=== PATIENT | male | born 1970 | race Caucasian/White ===

== ENCOUNTER 2017-03-23 14:13 | Inpatient (IN) ==
[2017-03-23] MEDS ORDERED: *HR* Morphine 2 MG/ML SYRINGE ONE ×2 (14:20→14:21)
[2017-03-23] MEDS ORDERED: Nitroglycerin 0.4 MG TAB.SUBL SL ONE (14:22)
[2017-03-23] MEDS ORDERED: *HR* Morphine 2 MG/ML SYRINGE IVP ONE (14:26)
[2017-03-23] MEDS ORDERED: *HR* LORazepam 2 MG/ML VIAL ONE (14:28)
[2017-03-23] MEDS ORDERED: *HR* Heparin 5,000 UNIT/ML VIAL ONE (14:28)
[2017-03-23] MEDS ORDERED: *HR* LORazepam 2 MG/ML VIAL IVP ONE (14:29)
[2017-03-23 14:31] LABS: Basophils % 0.3 %; Eosinophils % 0.2 %; Hematocrit 43.7 % (37.5-50.1); Hemoglobin 14.6 g/dL (12.9-16.9); Immature Granulocytes % 0.3 % (0-4); Lymphocytes # 1.1 K/mcL (0.6-4.6); Lymphocytes % 12.6 %; Mean Corpuscular HGB Conc 33.4 g/dL (31.6-35.5); Mean Corpuscular Hemoglobin 31.8 pg (28.0-33.3); Mean Corpuscular Volume 95.2 fL (83.0-100.0); Mean Platelet Volume 9.8 fL (9.4-12.4); Monocytes # 0.5 K/mcL (0.0-1.3); Monocytes % 5.7 %; Neutrophils # 7.3 K/mcL (1.6-8.9); Platelet Count 190 K/mcL (140-400); Red Blood Count 4.59 M/mcL (4.19-5.50); Red Cell Distribution Width 12.5 % (11.5-14.5); Segmented Neutrophils % 80.9 %
[2017-03-23] MEDS ORDERED: *HR* Ticagrelor 90 MG TABLET PO ONE (14:32)
[2017-03-23] MEDS ORDERED: Verapamil 5 MG/2 ML VIAL ONE (14:33)
[2017-03-23] MEDS ORDERED: *HR* FentaNYL (PF) 100 MCG/2 ML VIAL ONE (14:33)
[2017-03-23] MEDS ORDERED: *HR* Midazolam HCl 5 MG/5 ML VIAL IVP ONE (14:34)
[2017-03-23] MEDS ORDERED: Nitroglycerin 1,000 MCG/10 ML VIAL IV ONE (14:34)
[2017-03-23] MEDS ORDERED: *HR* Heparin 10,000 UNIT/10 ML VIAL ONE (14:34)
[2017-03-23] MEDS ORDERED: Heparin 1,000 UNITS/500 mL NS 500 ML ONE (14:34)
[2017-03-23] MEDS ORDERED: 0.9 % Sodium Chloride 1,000 ML ONE (14:34)
[2017-03-23] MEDS ORDERED: 0.9 % Sodium Chloride 2,000 ML ONE (14:34)
[2017-03-23] MEDS: *HR* Ticagrelor 90 MG TABLET ONE (14:35)
[2017-03-23 14:38] LABS: INR 1.2; Prothrombin Time 12.6 Seconds (9.4-12.1)
[2017-03-23] MEDS: 0.9 % Sodium Chloride 1,000 ML IVC SCH (14:38)
[2017-03-23 14:40] LABS: Activated Partial Thrombo Time 32.5 Seconds (26.0-36.0)
--- NOTE | 2017-03-23 14:40 | Emergency Department Note ---
Disposition Clinical Impression: ST elevation (STEMI) myocardial infarction Qualifiers: Involved coronary artery: unspecified coronary artery Qualified Code(s): I21.3 - ST elevation (STEMI) myocardial infarction of unspecified site Chest pain Qualifiers: Chest pain type: chest pain due to myocardial ischemia Ischemic chest pain type : unspecified angina pectoris type Qualified Code(s): I20.9 - Angina pectoris, unspecified Disposition: Admitted As Inpatient Condition: Fair Time of Disposition: 15:20 Chest Pain HPI - General Chief Complaint: ED Chest Pain Stated Complaint: CP Time Seen by Provider: 03/23/17 14:22 Source: patient, EMS Mode of arrival: EMS Limitations: no limitations Vital Signs Reviewed: Yes Nursing Notes Reviewed: Yes - History of Present Illness HPI Narrative: 47-year-old male history of herbs palsy, CAD s/p 1 stent, hypertension, hyperlipidemia presents to the ED via EMS for chest pain. Chest pain sharp and radiates to both sides patient is cold to the touch and diaphoretic. Pain started roughly 5 this morning when he woke up. Does not take aspirin on a daily basis. Was given 324 mg aspirin and one nitro via EMS. Continues to have chest pain 10 of 10. EKG shows ST elevation in lateral leads. STEMI alert called. Severity scale (1-10): 10 - Related Data Home Medications Medication Instructions Recorded Confirmed Cyclobenzaprine [Flexeril] 10 mg PO DAILY 03/23/17 03/23/17 Haloperidol [Haldol] 5 mg PO BID 03/23/17 03/23/17 Lisinopril [Zestril] 10 mg PO DAILY 03/23/17 03/23/17 Oxycodone HCl/Acetaminophen 1 tab PO Q6H PRN 03/23/17 03/23/17 [Endocet 5-325 Tablet] Triamcinolone Acet 0.1% CRM 1 appl TP AD 03/23/17 03/23/17 [Kenalog] diazePAM [Valium] 2 mg PO TID 03/23/17 03/23/17 Allergies Allergy/AdvReac Type Severity Reaction Status Date / Time No Known Allergies Allergy Verified 01/30/17 19:40 All systems ED: reviewed and negative except as stated. Review of Systems: As Per HPI Constitutional: Reports: other (diaphorhetic). Denies: fever, chills Cardiovascular: Reports: chest pain Respiratory: Denies: cough, dyspnea Gastrointestinal: Denies: abdominal pain, nausea, vomiting, melena, hematochezia Genitourinary: Denies: urgency, dysuria Musculoskeletal: Denies: back pain, neck pain Integumentary: Denies: rash, abrasion Chest Pain PMH - Past Medical History Medical history: Reports: hyperlipidemia, hypertension, myocardial infarction, other Psychiatric history: Reports: no psych history - Social History Smoking Status: Current every day smoker Alcohol use: Reports: none Drug use: Reports: none Physical Exam - General Limitations: no limitations General appearance: alert, in distress, other (DIAPHORETIC) - Head Head exam: atraumatic, normocephalic, normal inspection - Neck Neck exam: Present: other (TORTICOLLIUS TO THE RIGHT) - Chest Chest inspection: Present: normal inspection, symmetric chest wall rise. Absent : tenderness - Respiratory Respiratory exam: Present: normal lung sounds bilaterally. Absent: respiratory distress, wheezes - Cardiovascular Cardiovascular exam: Present: regular rate, normal rhythm, normal heart sounds - Expanded Cardiovascular Exam Peripheral pulses: 2+: radial (R), radial (L) - Abdominal Exam Abdominal exam: Present: soft, Non-Tender, normal bowel sounds. Absent: tenderness, distention, guarding, rebound, rigidity - Extremities Exam Extremities exam: Present: normal capillary refill, other (ERB PALSY TO RIGHT ARM). Absent: calf tenderness - Neurological Exam Neurological exam: Present: alert, oriented X3 - Skin Skin exam: Present: warm, diaphoresis, pallor Course - Reevaluation(s) Reevaluation #1: Given the patient symptoms an EKG changes, STEMI called. Patient was given to additional nitro and 4 mg morphine with reduction of pain from 10 to 8. He was also given 1 mg of Ativan to help with the tremors which appear to give us a better EKG which continues to show ST elevation. Patient was loaded with 180 mg Berlinta as well as Heparin. He denies any hematuria, bloody stool, black tarry stool or hemoptysis. Patient was given 324 mg aspirin by EMS squad. Cath team is at bedside. Impression is STEMI. Time: 15:17 Vital Signs Temperature 98 F 03/23/17 14:14 Pulse Rate 85 03/23/17 14:14 Respiratory Rate 16 03/23/17 14:14 Blood Pressure 139/120 03/23/17 14:14 O2 Sat by Pulse Oximetry 97 03/23/17 14:14 Temperature 98 F 03/23/17 14:14 Pulse Rate 105 03/23/17 17:00 Respiratory Rate 19 03/23/17 17:00 Blood Pressure 130/100 03/23/17 17:00 O2 Sat by Pulse Oximetry 100 03/23/17 17:00 Oxygen Delivery Oxygen Delivery Nasal Cannula Chest Pain - Medical Records Medical records reviewed: Yes I reviewed the patient's medical records. - Lab Data Lab results reviewed: Yes I reviewed the patient's lab results. Result diagrams: 03/23/17 14:24 03/23/17 14:24 Lab Results 03/23/17 03/23/17 03/23/17 Range/Units 14:24 14:24 14:24 WBC 9.1 (4.3-11.1) K/mcL RBC 4.59 (4.19-5.50) M/mcL Hgb 14.6 (12.9-16.9) g/dL Hct 43.7 (37.5-50.1) % MCV 95.2 (83.0-100.0) fL MCH 31.8 (28.0-33.3) pg MCHC 33.4 (31.6-35.5) g/dL RDW 12.5 (11.5-14.5) % Plt Count 190 (140-400) K/mcL MPV 9.8 (9.4-12.4) fL Immature Gran % 0.3 (0-4) % Seg Neutrophils % 80.9 % Lymphocytes % 12.6 % Monocytes % 5.7 % Eosinophils % 0.2 % Basophils % 0.3 % Neutrophils # 7.3 (1.6-8.9) K/mcL Lymphocytes # 1.1 (0.6-4.6) K/mcL Monocytes # 0.5 (0.0-1.3) K/mcL Eosinophils # 0.0 (0.0-0.6) K/mcL Basophils # 0.0 (0.0-0.2) K/mcL PT 12.6 H (9.4-12.1) Seconds INR 1.2 APTT 32.5 (26.0-36.0) Seconds Sodium 140 (136-145) mEq/L Potassium 3.9 (3.5-4.5) mEq/L Chloride 104 (98-109) mEq/L Carbon Dioxide 27 (19-29) mEq/L BUN 5 L (8-26) mg/dL Creatinine 0.69 L (0.72-1.25) mg/dL Est GFR ( Amer) > 60 (> 60) Est GFR (Non-Af Amer) > 60 (> 60) BUN/Creatinine Ratio 7 (6-26) Glucose 98 (70-99) mg/dL Calculated Osmolality 287 (280-300) Calcium 9.9 (8.6-10.8) mg/dL Troponin I (0-0.03) ng/mL 03/23/17 Range/Units 14:24 WBC (4.3-11.1) K/mcL RBC (4.19-5.50) M/mcL Hgb (12.9-16.9) g/dL Hct (37.5-50.1) % MCV (83.0-100.0) fL MCH (28.0-33.3) pg MCHC (31.6-35.5) g/dL RDW (11.5-14.5) % Plt Count (140-400) K/mcL MPV (9.4-12.4) fL Immature Gran % (0-4) % Seg Neutrophils % % Lymphocytes % % Monocytes % % Eosinophils % % Basophils % % Neutrophils # (1.6-8.9) K/mcL Lymphocytes # (0.6-4.6) K/mcL Monocytes # (0.0-1.3) K/mcL Eosinophils # (0.0-0.6) K/mcL Basophils # (0.0-0.2) K/mcL PT (9.4-12.1) Seconds INR APTT (26.0-36.0) Seconds Sodium (136-145) mEq/L Potassium (3.5-4.5) mEq/L Chloride (98-109) mEq/L Carbon Dioxide (19-29) mEq/L BUN (8-26) mg/dL Creatinine (0.72-1.25) mg/dL Est GFR ( Amer) (> 60) Est GFR (Non-Af Amer) (> 60) BUN/Creatinine Ratio (6-26) Glucose (70-99) mg/dL Calculated Osmolality (280-300) Calcium (8.6-10.8) mg/dL Troponin I 0.18 H* (0-0.03) ng/mL - EKG Data EKG attestation: Yes I reviewed and interpreted this EKG. EKG results narrative: EKG performed but showed baseline artifact due to tremors, >[address] elevation in V4-V6 on multiple EKG. Significant change from prior EKG 10/07/2016. STEMI called given symptoms and findings. Heart Score - Score History: Highly Suspicious EKG: Significant ST-Depression Age: 45-65 Risk Factors: Equal/Greater than 3 risk factor or history of atherosclerotic disease Troponin: Greater than 3x normal limit HEART Score Total: 9 Attestation Statement - Attestation Attestation: I dr butt examined this patient and my medical decision-making was reviewed with the Resident Physician. I agree with the documented findings, disposition and treatment plan as described except to the extent set forth below. Patient had presented with substernal chest pain since early this morning. Patient arrived diaphoretic complaining of 10 out of 10 chest pain. Initial EKG showed lots of artifact but concerns for ST elevation in the lateral leads. We were able to repeat another EKG with a little bit less artifact and it did confirm the ST elevation in the lateral leads. Code STEMI was called right away. 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
--- NOTE | 2017-03-23 14:44 | Emergency Department Note ---
START Narrative - START START: I examined this patient and my medical decision-making was reviewed with the Resident Physician. I agree with the documented findings, disposition and treatment plan as described except to the extent set forth below. Briefly, 47-year-old male presented with a 10 out of 10 substernal chest pain and diaphoresis. His initial EKG showed a lot of artifact but I was concerned about a lateral ST elevation in V 45 and 6. We called a STEMI alert patient was given aspirin in route. We gave him more nitroglycerin as well as morphine. We gave him 1 mg of Ativan due to his tremors secondary to his palsy condition. We are able to get a better EKG at that time which showed elevation in the lateral leads. Patient was developing T -wave inversions on the monitor. He was given heparin and Brilinta. Patient was taken to the [facility] emergently. His vitals remained stable. His chest pain went down to a 7 out of 10.
[2017-03-23] MEDS ORDERED: Heparin 25,000 UNIT/500 ML D5W 25,000 UNIT/500 ML MLS IVC SCH (14:45)
[2017-03-23 14:47] LABS: BUN/Creatinine Ratio 7 (6-26); Blood Urea Nitrogen 5 mg/dL (8-26); Calcium 9.9 mg/dL (8.6-10.8); Carbon Dioxide 27 mEq/L (19-29); Chloride 104 mEq/L (98-109); Glucose 98 mg/dL (70-99); Osmolality,Calculated 287 (280-300); Potassium 3.9 mEq/L (3.5-4.5); Sodium 140 mEq/L (136-145); eGFR For African Americans > 60 (> 60); eGFR For Non-African Americans > 60 (> 60)
[2017-03-23] MEDS ORDERED: Tirofiban 12.5 MG/250ML 12.5 MG/250 ML BAG ONE (15:01)
[2017-03-23] MEDS ORDERED: *HR* OxyCODONE/APAP 5/325 TABLET PO PRN (15:29)
[2017-03-23] MEDS ORDERED: *HR* Morphine 2 MG/ML SYRINGE IVP PRN (15:29)
[2017-03-23] MEDS ORDERED: Acetaminophen 325 MG TABLET PO PRN (15:29)
[2017-03-23] MEDS ORDERED: *HR* HYDROcodone/Acet 5/325 mg TABLET PO PRN (15:29)
[2017-03-23] MEDS ORDERED: Tirofiban 12.5 MG/250ML 12.5 MG/250 ML BAG IVC SCH (15:30)
[2017-03-23] MEDS ORDERED: Ondansetron 4 MG/2 ML VIAL IVP PRN (15:30)
[2017-03-23] MEDS ORDERED: Triamcinolone Acet 0.1% CRM 80 GM Tube TP SCH (15:45)
[2017-03-23] MEDS ORDERED: *HR* Atropine Sulfate 1 MG/10 ML SYRINGE ONE (20:20)
[2017-03-23] MEDS ORDERED: Perflutren Lipid Microsphere 1.3 ML in 0.9 % Sodium Chloride 8.7 ML IVP ONE (20:41)
[2017-03-23] MEDS: *HR* Ticagrelor 90 MG TABLET PO SCH (22:09)
[2017-03-23] MEDS: *HR* Enoxaparin 80 MG/0.8 ML SYRINGE SQ SCH (22:55)
[2017-03-23] MEDS: diazePAM 2 MG TABLET PO SCH (22:55)
[2017-03-24] MEDS: 0.9 % Sodium Chloride 1,000 ML IVC SCH (04:16)
[2017-03-24 05:24] LABS: Basophils % 0.3 %; Eosinophils # 0.1 K/mcL (0.0-0.6); Eosinophils % 0.9 %; Hematocrit 37.8 % (37.5-50.1); Hemoglobin 13.1 g/dL (12.9-16.9); Immature Granulocytes % 0.4 % (0-4); Immature Platelets 4.1 % (1.1-6.1); Lymphocytes # 1.5 K/mcL (0.6-4.6); Lymphocytes % 22.1 %; Mean Corpuscular HGB Conc 34.7 g/dL (31.6-35.5); Mean Corpuscular Hemoglobin 32.5 pg (28.0-33.3); Mean Corpuscular Volume 93.8 fL (83.0-100.0); Mean Platelet Volume 10.3 fL (9.4-12.4); Monocytes # 0.6 K/mcL (0.0-1.3); Monocytes % 8.7 %; Neutrophils # 4.6 K/mcL (1.6-8.9); Platelet Count 164 K/mcL (140-400); Red Blood Count 4.03 M/mcL (4.19-5.50); Red Cell Distribution Width 12.6 % (11.5-14.5); Segmented Neutrophils % 67.6 %
[2017-03-24] MEDS ORDERED: *HR* Enoxaparin 40 MG/0.4 ML SYRINGE SQ SCH (06:00)
[2017-03-24] MEDS: *HR* Enoxaparin 80 MG/0.8 ML SYRINGE SQ SCH ×2 (06:00→18:33)
[2017-03-24 07:15] LABS: BUN/Creatinine Ratio 11 (6-26); Blood Urea Nitrogen 6 mg/dL (8-26); Calcium 8.7 mg/dL (8.6-10.8); Carbon Dioxide 23 mEq/L (19-29); Chloride 107 mEq/L (98-109); Glucose 83 mg/dL (70-99); Osmolality,Calculated 285 (280-300); Potassium 3.2 mEq/L (3.5-4.5); Sodium 139 mEq/L (136-145); eGFR For African Americans > 60 (> 60); eGFR For Non-African Americans > 60 (> 60)
--- NOTE | 2017-03-24 08:10 | Invasive Diagnostic Lab Proc ---
Name: Guanako Ryder Date of Study: 03/23/2017 Date: 1970 Ht: 66.0in Medical Record#: [id number] Age: 47 Wt: 163.36lb Gender: Male BSA: 1.84 Order #: [id number] BMI: 26.38 Physicians Procedure Physician: Fei Nath MD, [facility] Referring MD: Referring MD: Staff Name Position Time In Rachel Marquis RT Scrub 02:40 PM Miguel A Liu RN Sociology Professor 02:40 PM Haseeb Mallory RT (R) Monitor 02:40 PM Indications Indication STEMI Procedures Performed Procedure L HRT ARTERY/VENTRICLE ANGIO PRQ CARD MATILDE STENT W/ANGIO 1 VSL PRQ CARDIAC ANGIO ADDL ART Pre-Procedure Checklist Pt not NPO for procedure and MD aware. Blood Pressure: 136/78 Plan of Care Patient will tolerate the procedure without complications. Adequate level of comfort will be maintained. Hemodynamics will remain stable Patient will recover from procedure without complications. Respiratory function will be maintained. Cardiac rhythm will remain stable. Patient temperature will be maintained. Patient and/or family have verbalized understanding of the procedure. Patient Education Chief Complaint/Reason for Test: Cardiac Cath Developmental Category: Adult (18-64 years) Developmentally Appropriate for Age: Yes Learning Barriers: None Education Needs: Procedure Education Method: Verbal Information Taught: Cardiac Cath Educational Evaluation: Able to repeat information Intravenous Access Time IV Size Location DC'd Fluid/Drip Rate Units RN 02:45 PM 20g 1 1/4" Patent On Arrival Lt Antecubital 0.9NaCl 25 ml/hr Miguel A Liu RN 02:45 PM 20g 1 1/4" Patent On Arrival Rt Antecubital 0.9NaCl 25 ml/hr Miguel A Liu RN Allergies No Known Allergies Vital Signs Time BP (mmHg) HR (bpm) O2 Sat. RR (bpm) LOC 02:43 PM 136 / 78 97 96 % 18 4 = Oriented but drowsy 02:43 PM / % 4 = Oriented but drowsy 02:59 PM / % 4 = Oriented but drowsy 03:14 PM / % 4 = Oriented but drowsy 03:06 PM 128 / 93 93 99 % 28 03:09 PM 115 / 63 68 96 % 32 03:12 PM 120 / 72 90 96 % 25 03:15 PM 127 / 78 71 97 % 28 03:18 PM 116 / 74 77 100 % 26 03:21 PM 125 / 84 92 100 % 30 03:24 PM 120 / 77 92 100 % 21 03:27 PM 123 / 82 74 100 % 31 03:30 PM 119 / 80 77 100 % 31 03:33 PM 124 / 82 % 02:52 PM 136 / 78 100 97 % 02:54 PM 130 / 90 110 98 % 11 02:57 PM 134 / 83 97 99 % 32 03:01 PM 131 / 92 85 97 % 28 03:03 PM 121 / 70 86 97 % 28 Procedural Medications Time Medication Dose Units Method Given By 02:52 PM Fentanyl 25 mcg Intravenous Miguel A Liu RN 02:54 PM Oxygen 2 L/min nasal cannula Miguel A Liu RN 02:55 PM Lidocaine 2% 10 ml Subcutaneous Fei Nath MD, [facility] 02:56 PM Fentanyl 25 mcg Intravenous Miguel A Liu RN 03:08 PM Nitroglycerin 200 mcg Intracoronary Fei Nath MD 03:00 PM Aggrastat 12.5mg/250ml 37.5 ml Intravenous HenthornMiguel A morales RN 03:00 PM Aggrastat 12.5mg/250ml 13.5 ml Intravenous JacthMiguel A jeffers RN ASA Classification: CLASS II- Mild systemic disease (i.e. well-controlled diabetes, hypertension, asthma, cigarette smoking) Killian Score Preprocedure Postprocedure Activity 2- Moves 4 extremities sustained head lift Activity 2- Moves 4 extremities sustained head lift Circulation 2- SBP +/= 20 points of pre-anesthetic level Circulation 2- SBP +/= 20 points of pre-anesthetic level Consciousness 2- Awake and alert oriented x 3 Consciousness 2- Awake and alert oriented x 3 O2 Saturation 2- Able to maintain O2 satruation of 92% on room air O2 Saturation 2- Able to maintain O2 satruation of 92% on room air Respiratory 2- Able to deep breathe and cough well Respiratory 2- Able to deep breathe and cough well Total Score 10 Total Score 10 Contrast Agent: Isovue Diagnostic Contrast: 155 ml Total Contrast: 155 ml Fluoro Dose: 373 mGy Procedure Log Time Note Enter By 02:40 PM Patient charges- Angio tray pack, Navilyst 3mm J, Pulse Oximetry and ACIST tubing and transducer [email or web address] 02:40 PM Rachel Marquis RT Position: Scrub Time in: 14:40 2 02:40 PM Miguel A Liu RN Position: Sociology Professor Time in: 14:40 02:40 PM Haseeb Mallory RT (R) Position: Monitor Time in: 14:40 2 02:43 PM 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 well-controlled diabetes, hypertension, asthma, cigarette smoking) [email or web address] 02:43 PM Sign in performed according to hospital policy. 02:43 PM Time: 14:43 Patient comfortable and pain free: Yes [email or web address] 02:43 PM Procedure start 14:43 02:43 PM Time: 14:43LOC: 4 = Oriented but drowsy bw 02:46 PM CathStat 02:46 PM Hair removed from procedure site in procedure lab using clippers. Bilateral groin prepped with Chloraprep by Rachel Marquis RT, safety strap applied then patient was draped. Skin intact. 02:51 PM Vitals capture started with the following parameters, Patient=Adult, Interval=3 min, Initial Adhljqav=820 mmHg, Deflation Rate=5 mmHg, Cuff placed on Right Arm 02:52 PM CB=267 bpm, TXEE=484/78 mmhg, SpO2=97.0 % 02:52 PM Time: 14:52 Versed 2 mg Intravenous Given by Miguel A Liu RN 02:52 PM Time: 14:52 Fentanyl 25 mcg Intravenous Given by Miguel A Liu RN 02:53 PM Recorded ECG: HR=93 Condition=Condition 1 02:54 PM Time: 14:54 Oxygen on at 2 L/min per nasal cannula by Miguel A Liu RN 02:54 PM CK=809 bpm, JEMK=922/90 mmhg, SpO2=98.0 %, Resp=11 B/min 02:54 PM Time out performed according to hospital policy 02:55 PM Time: 14:55 10 ml Lidocaine 2% to right groin Subcutaneous Given by Fei Nath MD, [facility] [email or web address] 02:56 PM Unsuccessful access attempt # 1 into the right Femoral artery. Manual pressure applied to achieve hemostasis.. unable to advance wire [email or web address] 02:56 PM 0.035 145cm Navilyst 3mmJ wire [id number] [email or web address] 02:56 PM 0.035 145cm [place] Hi-Torque wire [id number] [email or web address] 02:56 PM Time: 14:56 Fentanyl 25 mcg Intravenous Given by Miguel A Liu RN ilson 02:57 PM Access obtained by percutaneous puncture. 6Fr 10cm Terumo Russell sheath placed in right Femoral artery. [id number] [email or web address] 02:57 PM 5Fr FL 4 catheter inserted over the wire DNC bw 02:57 PM HR=97 bpm, QQXC=366/83 mmhg, SpO2=99.0 %, Resp=32 B/min 02:58 PM LCA angiography performed in multiple views. bw 02:58 PM Catheter removed bw:58 PM Time: 14:43 Patient comfortable and pain free: Yes [email or web address] 02:59 PM Time: 14:43LOC: 4 = Oriented but drowsy [email or web address] 02:59 PM Lesion found in OM 3. Pre Stenosis: 100 Pre SHANE Flow: [email or web address] 02:59 PM Circumflex, Obtuse Marginal, Left Posterior Descending, and Left Posterolateral Coronary Arteries with 100 % stenosis. If graft is supplying this area, 0 % stenosis [email or web address] 02:59 PM PCI Status Emergency [email or web address] 03:00 PM Inflation device was opened. [email or web address] 03:00 PM 6Fr EBU 3.5 Convey guide catheter was used to cannulate the PCI vessel successfully. reused? No [email or web address] 03:00 PM Time: 15:00 Aggrastat 12.5mg/250ml 13.5 ml Intravenous Given by Miguel A Liu RN [place] pump [email or web address] 03:00 PM Recorded Pressure: Ao, HR=88, Condition=Condition 1 (Aorta) Ao 140/107/123 03:00 PM Bolus angiogram of right Femoral complete: 4 ml/sec for a total of 7 mls [email or web address] 03:00 PM .014 [place] 190cm guide wire across target lesion- successful. reused? No [email or web address] 03:01 PM HR=85 bpm, QTTM=465/92 mmhg, SpO2=97.0 %, Resp=28 B/min 03:02 PM 2.0 mm x 15 mm Emerge Monorail balloon across target lesion- successful. reused? No [email or web address] 03:03 PM Balloon inflated @ 8 jaya for 8 seconds [email or web address] 03:03 PM Balloon inflated @ 8 jaya for 6 seconds [email or web address] 03:03 PM HR=86 bpm, RQPP=674/70 mmhg, SpO2=97.0 %, Resp=28 B/min 03:04 PM Balloon catheter removed intact. [email or web address] 03:05 PM Recorded Pressure: Ao, HR=95, Condition=Condition 1 (Aorta) Ao 142/116/129 03:06 PM 3.0mm x 24mm Synergy drug-eluting stent across target lesion- successful Lot #[id number] [email or web address] 03:06 PM HR=93 bpm, MYWY=265/93 mmhg, SpO2=99.0 %, Resp=28 B/min 03:07 PM Stent deployed @ 12 jaya for 20 seconds [email or web address] 03:08 PM Time: 15:08 Nitroglycerin 200 mcg Intracoronary Given by Fei Nath MD 2 03:09 PM Lesion found in Mid LAD. Pre Stenosis: 50 Pre SHANE Flow: [email or web address] 03:09 PM Mid/Distal Left Anterior Descending Coronary Artery and diagonal branches with 50% stenosis. If graft is supplying this area, 0 % stenosis [email or web address] 03:09 PM Stent delivery system removed intact. [email or web address] 03:09 PM HR=68 bpm, GRKD=604/63 mmhg, SpO2=96.0 %, Resp=32 B/min 03:10 PM Recorded Pressure: Ao, HR=92, Condition=Condition 1 (Aorta) Ao 128/106/116 03:12 PM 2.0mm x 15 mm balloon advanced circ [email or web address] 03:12 PM Balloon inflated @ 6 jaya for 11 seconds [email or web address] 03:12 PM HR=90 bpm, SVEY=308/72 mmhg, SpO2=96.0 %, Resp=25 B/min 03:14 PM Time: 14:58 Patient comfortable and pain free: Yes [email or web address] 03:14 PM Time: 14:59LOC: 4 = Oriented but drowsy [email or web address] 03:14 PM Balloon inflated @ 6 jaya for 14 seconds [email or web address] 03:15 PM Balloon inflated @ 6 jaya for 5 seconds [email or web address] 03:15 PM Balloon inflated @ 6 jaya for 10 seconds [email or web address] 03:15 PM HR=71 bpm, XVHP=685/78 mmhg, SpO2=97.0 %, Resp=28 B/min 03:16 PM Balloon catheter removed intact. [email or web address] 03:16 PM Guide wire removed intact. [email or web address] 03:17 PM Guide catheter removed intact. [email or web address] 03:17 PM 5Fr FR 4 catheter [facility] the wire [email or web address] 03[facility]18 PM RCA angiography performed in multiple views. [email or web address] 03:18 PM Coronary Dominance: right [email or web address] 03:18 PM HR=77 bpm, VBIA=479/74 mmhg, MmO4=665.0 %, Resp=26 B/min 03:20 PM Catheter removed [email or web address] 03:20 PM 5Fr Pigtail catheter inserted over the wire [email or web address] 03[facility]20 PM Catheter selectively placed in left ventricle [email or web address] 03:20 PM Pressure channel 2 zeroed. 03:21 PM Recorded Pressure: LV, HR=64, Condition=Condition 1 (Left Ventricle) LV 119/4/28 03:21 PM Bolus angiogram of left Ventricle complete: 10 ml/sec for a total of 30 mls [email or web address] 03:21 PM Recorded Pressure: LV, Ao, HR=92, Condition=Condition 1 (Left Ventricle) LV 128/6/21, (Aorta) Ao 125/60/94 03:21 PM HR=92 bpm, DAJM=434/84 mmhg, MmE5=009.0 %, Resp=30 B/min 03:22 PM Catheter removed [email or web address] 03:24 PM HR=92 bpm, UFJX=749/77 mmhg, RrS9=936.0 %, Resp=21 B/min 03:25 PM Lesion found in Proximal RCA. Pre Stenosis: 70 Pre SHANE Flow: [email or web address] 03:25 PM Lesion found in Mid RCA. Pre Stenosis: 80 Pre SHANE Flow: [email or web address] 03:25 PM Right Coronary, Right Posterior Descending Arteries with Right Posterolateral and Acute Marginal branches with 80 % stenosis. If graft is supplying this area, 0 % stenosis [email or web address] 03:26 PM Lesion found in Distal Circumflex. Pre Stenosis: 95 Pre SHANE Flow: [email or web address] 03:26 PM Procedure completed at 15:26 [email or web address] 03:26 PM Sign out completed: Radiation Dose 372.91 mGy Fluoro Time: 6.3 Isovue 370 - 200ml contrast 155 ml given by Fei Nath MD, FACC. Complications: NoneCardiac Rehab Consult needed: YesConfirmed administered medications: Yes [email or web address] 03:26 PM Isovue 370 - 200ml,1 Bottle(s) used. [email or web address] 03:27 PM Sheath left in place to be pulled on floor/holding areaV+Pad [email or web address] 03:27 PM Post ECG NSR w PVC's [email or web address] 03:27 PM HR=74 bpm, TVPD=984/82 mmhg, NtM8=542.0 %, Resp=31 B/min 03:28 PM Post Blood Pressure 123/82 [email or web address] 03:28 PM 15:28 Post Pulses Bilateral DP & PT 1+ [email or web address] 03:28 PM Information taught Cardiac Cath and PCI [email or web address] 03:28 PM Education needs Procedure, Plan of Care, and Disease Process [email or web address] 03:28 PM Learning barriers :Sedated and Cognitive [email or web address] 03:28 PM Education Methods Verbal [email or web address] 03:29 PM Education evaluation Needs further instruction [email or web address] 03:29 PM Time: 15:14 Patient comfortable and pain free: Yes [email or web address] 03:29 PM Time: 15:14LOC: 4 = Oriented but drowsy [email or web address] 03:29 PM Site status oozing around sheath - Rt Groin as reported by Rachel Marquis RT at 15:29 [email or web address] 03:29 PM Opsite applied [email or web address] 03:29 PM Delay to floor Bed availability [email or web address] 03:29 PM Family placed in consult room. [email or web address] 03:30 PM Complications: None [email or web address] 03:30 PM Fluoro Time: 6.3 [email or web address] 03:30 PM Isovue 370 - 200ml contrast 155 ml given by Fei Nath MD, FACC. [email or web address] 03:30 PM Radiation Dose 372.91 mGy [email or web address] 03:30 PM HR=77 bpm, YPHG=401/80 mmhg, EvF6=563.0 %, Resp=31 B/min 03:33 PM OFGL=110/82 mmhg 03:35 PM Vitals capture stopped. 03:44 PM Patient out of room: 15:44 [email or web address] 03:45 PM Report given to parisa ROJAS Pt taken to Holding room Room #1. 15:44 [email or web address] 03:50 PM Report given to Azul in ICU [email or web address] 03:50 PM Patient taken to ICU 2 not holding room, bed is ready at this time. [email or web address] Complications Complication None None Hemodynamics Pressures Site Systolic/A Wave Diastolic/V Wave Mean AO 140 107 123 AO 142 116 129 AO 128 106 116 LV 119 4 28 LV 128 6 21 AO 125 60 94 Post Procedure Information Blood Pressure: 123/82 mmHg Rhythm: NSR w PVC's Post procedural instructions were given Site Checks Time Location Status Staff Sheath In? Note 03:29 PM Rt Groin oozing around sheath Rachel Marquis RT Pulses Time Site Pre-Procedure Post-Procedure Note 03/23/2017 2:51:00 PM Bilateral DP & PT 1+ 3:28:00 PM Bilateral DP & PT 1+ Updated by Haseeb Mallory RT (R) on 03/24/2017 8:03:56 AM Haseeb Mallory RT electronically signed on 03/24/2017 8:04:26 AM with status of Final
--- NOTE | 2017-03-24 08:17 | Invasive Diagnostic Lab ---
Name: Guanako Ryder Date of Study: 03/23/2017 Date: 1970 Ht: 167.6 cm /66.0 in Medical Record#: [id number] Age: 47 Wt: 74.1 kg / 163.36 lb Account/Order#: [id number] Gender: Male BSA: 1.84 Order #: [id number] Fluoro Dose: 373 mGy BMI: 26.38 Procedure Physician: Fei Nath MD, [facility] Referring MD: Referring MD: Procedures Performed: LEFT HEART CATH Stent w/ PTCA Single Major Vessel PTCA each add'l branch Iliofemoral angiography Indications: STEMI Impressions: There is two three vessel coronary artery disease. The left ventricle is normal and has mildly Abnormal contractility EF 55% Patient had successful PTCA/Drug-Eluting Stent placement in major OM 3. Patient had successful PTCA to the Distal Circumflex. Recommendations: Optimal medical therapy of patient's disease. Aggressive risk factor modification. Staged PCI RCA, may evaluate as outpatient History/Risk Factors: HLD Hypertension Procedure Access obtained in the right Femoral artery by percutaneous puncture Patient had successful PTCA/Drug-Eluting Stent placement in the distal OM 3. Patient had successful PTCA to the Distal Circumflex. RLE angiogram via sheath Complications: None, None Contrast: Isovue 155ml Hemodynamics: Pressures Site Systolic/ A Wave Diastolic/ V Wave End Diastolic/ Mean HR AO 140 107 123 88 AO 142 116 129 95 AO 128 106 116 92 LV 119 4 28 64 LV 128 6 21 94 AO 125 60 94 90 LV Ventriculography Ejection Method: LV Gram Ejection Fraction: 55% Wall Motion: RANGEL Anterobasal Normal Anterolateral Normal Apical: Normal Inferoapical Normal Inferobasal Mild Hypokinesis Coronary Dominance: right Lesion Findings/Interventions * Left Main Coronary Artery The LMCA is angiographically free of disease. * Left Anterior Descending There is a 50% stenosis in the Mid LAD. Distal LAD small and diffusely diseased * Circumflex There is a 20 mm long, 95% stenosis in the Distal Circumflex. The Type C lesion has a SHANE flow of 2 and has no thrombus present. A successful intervention was performed on the Distal Circumflex with a final stenosis of 40%. There were no lesion complications. The final SHANE flow was 3. There is a 24 mm long, 100% stenosis in the 3rd Marginal. The Type C lesion has a SHANE flow of 0 and has thrombus present. An intervention was performed on the 3rd Marginal with a final stenosis of 0%. There were no lesion complications. The final SHANE flow was 3. * Right Coronary Artery There is a 70% stenosis in the Proximal RCA. There is a 80% stenosis in the Mid RCA. Right iliofemoral angiography without significant disease visualized and appropriate sheath placement. Interventional Device(s) Vessel Segment Type Name Diameter (mm) Length (mm) 3rd Marginal Balloon Emerge Monorail 2 15 3rd Marginal Drug Eluting Stent Synergy 3 24 Distal Circumflex Balloon Emerge Monorail 2 15 Updated by Haseeb Mallory RT (R) on 03/23/2017 3:40:33 PM Fei Nath MD, FACC electronically signed on 03/24/2017 8:11:14 AM with status of Final
[2017-03-24] MEDS: Aspirin 81 MG TAB.CHEW PO SCH (09:29)
[2017-03-24] MEDS: diazePAM 2 MG TABLET PO SCH ×3 (09:30→20:42)
[2017-03-24] MEDS: *HR* Ticagrelor 90 MG TABLET PO SCH ×2 (09:30→20:42)
--- NOTE | 2017-03-24 10:00 | Cardiology History & Physical ---
<Vic Michele - Last Filed: 03/24/17 15:34> Date of Encounter: 03/24/17 Time of Encounter: 09:25 Assessment and Plan (1) ST elevation (STEMI) myocardial infarction Current Visit: Yes Status: Acute Patient is S/P [facility]. S/P MATILDE placed to distal circumflex. Continue ASA, Brilinta, and metoprolol. Correct hypokalemia. continue telemetry. cath insertion site in the right groin. Clean and well dressed. Mild echymosis without notable hematoma or aneurysm. He has severe blockage of the RCA and will need outpatient PCI. cardiac rehab has been consulted. The assessment and plan as outlined above was discussed with the patient who expressed understanding and agreement. All questions were answered. Qualifiers: Involved coronary artery: unspecified coronary artery Qualified Code(s): I21.3 - ST elevation (STEMI) myocardial infarction of unspecified site (2) Left ventricular thrombosis Current Visit: Yes Status: Acute Patient is currently on lovenox. Will need to transition to coumadin. Will need at least 3 months of anticoagulation with follow up echocardiography. (3) Systolic heart failure Current Visit: Yes Status: Acute patient has EF of 35% unsure if acute or chronic as his EF on echocardiogram in 2010 was 30-35%. Euvolemic on exam. However I am concerned that he is beginning to become volume overloaded as he is developing dyspnea. and has some faint crackles at his lung bases. I have discontinued his IV fluids. Will obtain a CXR and will consider adding some lasix. currently he is on room air. continue metoprolol and lisinopril. May eventually need an AICD if EF dose not correct on optimal medical therapy. Qualifiers: Heart failure chronicity: chronic Qualified Code(s): I50.22 - Chronic systolic (congestive) heart failure (4) CAD (coronary artery disease) Current Visit: Yes Status: Acute patient reports prior C with stent. patiet is s/p [facility] with the following results: Coronary Dominance: right Lesion Findings/Interventions * Left Main Coronary Artery The LMCA is angiographically free of disease. * Left Anterior Descending There is a 50% stenosis in the Mid LAD. Distal LAD small and diffusely diseased * Circumflex There is a 20 mm long, 95% stenosis in the Distal Circumflex. The Type C lesion has a SHANE flow of 2 and has no thrombus present. A successful intervention was performed on the Distal Circumflex with a final stenosis of 40%. There were no lesion complications. The final SHANE flow was 3. There is a 24 mm long, 100% stenosis in the 3rd Marginal. The Type C lesion has a SHANE flow of 0 and has thrombus present. An intervention was performed on the 3rd Marginal with a final stenosis of 0%. There were no lesion complications. The final SHANE flow was 3. * Right Coronary Artery There is a 70% stenosis in the Proximal RCA. There is a 80% stenosis in the Mid RCA. Continue ASA, Brilinta, and high intensity statin. patient will need outpatient PCI of the RCA. Qualifiers: Qualified Code(s): I25.10 - Atherosclerotic heart disease of [place] coronary artery without angina pectoris (5) Non-sustained ventricular tachycardia Current Visit: Yes Status: Acute On review of 24 hour telemetry patient had some episodes of NSVT. longest duration of beats was 15. continue beta zoe. correct hypokalemia. check Mg and replace if needed. (6) Dyspnea Current Visit: Yes Status: Acute possibly from volume overload. DC IV fluids. I have ordered a CXR as well. Qualifiers: Dyspnea type: shortness of breath Qualified Code(s): R06.02 - Shortness of breath; R06.00 - Dyspnea, unspecified; R06.01 - Orthopnea (7) Hypokalemia Current Visit: Yes Status: Acute replete. check mg. (8) Tobacco abuse Current Visit: Yes Status: Acute patient smokes 1ppd. states he is not ready to quit. declines smoking cessation aids at this time. (9) Cerebral palsy Current Visit: Yes Status: Chronic Qualifiers: Qualified Code(s): G80.9 - Cerebral palsy, unspecified (10) Discharge planning issues Current Visit: Yes Status: Acute Patient disheveled and coated with dirt per rn staff. concern as to whether or not he will be able to take medications properly. creative services director has been consulted. History of Present Illness Chief complaint: Chest pain. HPI: Mr. Ryder is a 47 year old male with pmh of cerebral palsy and CAD and reports 2 sent several years ago. HE states he developed chest pain shortly after waking yesterday morning. He states that is was severe and radiated to he left and right arms. He also had some diaphoresis and nausea. He denie any associated syncope, presyncope, or dyspnea. He was noted to have ST elevation to V4-6 upon arrival to the ER. He would undergoe LHC and have a MATILDE placed to the circumflex artery. He also had significant blocage to the RCA and will need outpatient PCI. This AM Mr. Ryder states that he has been chest pain free after the heart cath. He denies any syncope, presyncope, and palpitations. Deneis any pain or swelling from the cath site. HE dose complain of dyspnea. He denies any cough and wheeze. He states he typically dose not have dyspnea and that this is unusual for him. He denies any productive cough or hemoptysis. He has no further complaints or concerns at this time. Past Med Surg Social Fam HX - Past Medical History Medical history: hyperlipidemia, hypertension, myocardial infarction, other Psychiatric history: no psych history - Social History Smoking Status: Current every day smoker Packs per day: 2 Smokeless Tobacco Status: No Alcohol use: none Drug use: none - Family History Mother Hx Family Neurologic Disorders: Yes (mother had brain aneurysm.) Father Hx Family Cardiac Disorders: Yes Medications and Allergies Cyclobenzaprine [Flexeril] 10 mg PO DAILY 03/23/17 [History] Haloperidol [Haldol] 5 mg PO BID 03/23/17 [History] Lisinopril [Zestril] 10 mg PO DAILY 03/23/17 [History] Oxycodone HCl/Acetaminophen [Endocet 5-325 Tablet] 1 tab PO Q6H PRN 03/23/17 [ History] Triamcinolone Acet 0.1% CRM [Kenalog] 1 appl TP AD 03/23/17 [History] diazePAM [Valium] 2 mg PO TID 03/23/17 [History] Allergies No Known Allergies Allergy (Verified 01/30/17 19:40) All Systems Review: A 10-system review of systems was performed and is negative for pertinent findings except as documented above in the HPI. - Constitutional Constitutional: weakness (chronic. He is wheelchair bound at home. ), no anorexia, no chills, no headache(s), no malaise, no night sweats, no weight gain , no weight loss - EENT Eyes: no blurred vision, no loss of vision, no pain Nose, mouth and throat: no bleeding gums, no dysphagia, no mouth pain - Cardiovascular Cardiovascular: as per HPI - Respiratory Respiratory: dyspnea, no cough, no hemoptysis, no wheezing - Gastrointestinal Gastrointestinal: no abdominal pain, no coffee ground emesis, no constipation, no diarrhea, no hematemesis, no hematochezia - Genitourinary Genitourinary: no dysuria, no hematuria, no nocturia - Musculoskeletal Musculoskeletal: muscle weakness (chronic. Has Cerebral palsy. ) - Integumentary Integumentary: no erythema, no rash, no unusual bruising - Neurological Neurological: no dizziness, no focal weakness (no new), no loss of vision, no memory loss, no syncope, no tingling - Hematological/Lymphatic Hematologic/Lymphatic: no easy bleeding, no easy bruising Physical Examination Vital Signs, Last 4 Hours Temp Pulse Resp BP Pulse Ox 03/24/17 09:00 105 20 111/84 96 03/24/17 08:12 99.0 F 03/24/17 08:00 93 19 114/77 96 03/24/17 06:00 101 12 122/81 97 General: Conversant, No Apparent Distress HEENT: Atraumatic, Normocephaly, Mucus Membranes Moist Neck: No JVD, Normal carotid pulses Cardiac: Reg Rate and Rhythm, Normal S1 and S2, No Murmur Lungs: Other (mld crackles at the bases of the lungs. ) Neuro: Alert and responsive, Other (has spasms of the neck with torticolis to the rigt during exam. also has occasional spasm of the rigt arm. ) Skin: No rashes noted on visualized skin Musculoskeletal: No Chest Wall Tenderness Extremities: No Clubbing, No Cyanosis, No Edema Results 03/24/17 04:53 03/24/17 04:53 Lab Results 03/24/17 03/24/17 04:53 04:53 WBC 6.8 Hgb 13.1 D Hct 37.8 Plt Count 164 Sodium 139 Potassium 3.2 L Chloride 107 Carbon Dioxide 23 BUN 6 L Creatinine 0.57 L Glucose 83 Calcium 8.7 - Imaging and Cardiology Chest Xray: pending Echo: report reviewed Cardiac cath: report reviewed Other Results: reviewed telemetry from past 24 hours. - EKG Interpretation EKG results cardiology: personally reviewed <Paty Buenrostro - Last Filed: 03/25/17 08:51> Date of Encounter: 03/25/17 History of Present Illness HPI: Mr. Ryder is a 47 year old male All Systems Review: A 10-system review of systems was performed and is negative for pertinent findings except as documented above in the HPI. Physical Examination Vital Signs, Last 4 Hours Temp Pulse Resp BP Pulse Ox 03/25/17 08:25 97.8 F 03/25/17 08:00 105 24 112/77 96 03/25/17 07:56 102 03/25/17 07:00 97.8 F 102 24 107/78 96 03/25/17 06:00 107 24 116/83 93 03/25/17 05:00 97 24 108/61 96 Results 03/25/17 03:32 03/25/17 03:32 Lab Results 03/24/17 03/25/17 03/25/17 04:53 03:32 03:32 WBC 7.1 Hgb 13.3 Hct 37.8 Plt Count 164 INR 1.3 Sodium 139 Potassium 3.2 L Chloride 107 Carbon Dioxide 23 BUN 6 L Creatinine 0.57 L Glucose 83 Calcium 8.7 Magnesium 1.5 L 03/25/17 03:32 WBC Hgb Hct Plt Count INR Sodium 138 Potassium 3.7 Chloride 106 Carbon Dioxide 24 BUN 8 Creatinine 0.62 L Glucose 94 Calcium 9.1 Magnesium 1.6 - Attending Attestation I examined this patient and my medical decision-making was reviewed with the Resident Physician. I agree with the documented findings, disposition and treatment plan. Mr. Ryder presented with a STEMI and is s/p LHC with MATILDE to distal circumflex. He is otherwise significant obstruction of the RCA and may need outpatient staged PCI. Will need to maintain dual antiplatelet therapy uninterrupted for 12 months. In addition, he has a LV apical thrombus and has been started on therapeutic SQ lovenox with bridging to coumadin. Recommend social media editor consult to help with his living situation. It appears there may be some neglect and we are concerned that he may not be able to be compliant with these necessary medications. Will probably need rehab care although patient has so far declined.
[2017-03-24 10:15] LABS: Magnesium 1.5 mg/dL (1.6-2.6)
[2017-03-24] MEDS ORDERED: Furosemide 20 MG/2 ML VIAL IVP ONE (12:32)
[2017-03-24] MEDS: Potassium Chloride Elixir 20 MEQ/15 ML UDC PO SCH ×2 (14:57→20:42)
[2017-03-24] MEDS: Magnesium Oxide 400 MG TABLET PO SCH ×2 (14:57→20:42)
--- NOTE | 2017-03-24 15:28 | Electrocardiograph Report ---
[place] [address] Test Date: 2017-03-23 Pat Name: [facility] Department: 104 Room: 02 Gender: M Retread Builder: : 1970 Requested By: Noel Wood Order Number: [id number] Reading MD: Earnest Craig Measurements Intervals [place] Rate: 97 P: 64 MT: 149 QRS: 30 QRSD: 98 T: 74 QT: 332 QTc: 386 Interpretive Statements SINUS RHYTHM WITH SINUS ARRHYTHMIA SEPTAL MYOCARDIAL INFARCTION, PROBABLY OLD LATERAL ST ELEVATION SIGNIFICANT ARTIFACT Electronically Signed On 03-24-2017 15:26:52 EDT by Earnest Craig
--- NOTE | 2017-03-24 15:30 | Electrocardiograph Report ---
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
[2017-03-24] MEDS ORDERED: Warfarin perPT PO PRN (18:00)
[2017-03-24] MEDS ORDERED: *HR* Warfarin 5 MG TABLET PO SCH (18:00)
[2017-03-25 03:41] LABS: Basophils % 0.3 %; Eosinophils # 0.1 K/mcL (0.0-0.6); Eosinophils % 0.8 %; Hematocrit 37.8 % (37.5-50.1); Hemoglobin 13.3 g/dL (12.9-16.9); Immature Granulocytes % 0.3 % (0-4); Lymphocytes # 1.9 K/mcL (0.6-4.6); Lymphocytes % 27.1 %; Mean Corpuscular HGB Conc 35.2 g/dL (31.6-35.5); Mean Corpuscular Hemoglobin 32.8 pg (28.0-33.3); Mean Corpuscular Volume 93.1 fL (83.0-100.0); Mean Platelet Volume 10.1 fL (9.4-12.4); Monocytes # 0.8 K/mcL (0.0-1.3); Monocytes % 11.4 %; Neutrophils # 4.3 K/mcL (1.6-8.9); Platelet Count 164 K/mcL (140-400); Red Blood Count 4.06 M/mcL (4.19-5.50); Red Cell Distribution Width 12.6 % (11.5-14.5); Segmented Neutrophils % 60.1 %
[2017-03-25 03:53] LABS: BUN/Creatinine Ratio 13 (6-26); Blood Urea Nitrogen 8 mg/dL (8-26); Calcium 9.1 mg/dL (8.6-10.8); Carbon Dioxide 24 mEq/L (19-29); Chloride 106 mEq/L (98-109); Glucose 94 mg/dL (70-99); INR 1.3; Magnesium 1.6 mg/dL (1.6-2.6); Osmolality,Calculated 284 (280-300); Potassium 3.7 mEq/L (3.5-4.5); Prothrombin Time 13.8 Seconds (9.4-12.1); Sodium 138 mEq/L (136-145); eGFR For African Americans > 60 (> 60); eGFR For Non-African Americans > 60 (> 60)
[2017-03-25] MEDS: *HR* Enoxaparin 80 MG/0.8 ML SYRINGE SQ SCH ×2 (05:35→18:04)
[2017-03-25] MEDS: Aspirin 81 MG TAB.CHEW PO SCH (07:51)
[2017-03-25] MEDS: Magnesium Oxide 400 MG TABLET PO SCH (07:51)
[2017-03-25] MEDS: *HR* Ticagrelor 90 MG TABLET PO SCH ×2 (07:51→21:19)
[2017-03-25] MEDS: diazePAM 2 MG TABLET PO SCH ×3 (07:51→21:19)
--- NOTE | 2017-03-25 09:37 | Cardiology Progress Note ---
<Vic Michele - Last Filed: 03/25/17 13:09> Date of Encounter: 03/25/17 Time of Encounter: 08:30 Assessment and Plan (1) ST elevation (STEMI) myocardial infarction Current Visit: Yes Status: Acute Patient is S/P C. S/P MATILDE placed to distal circumflex. Continue ASA, Brilinta, and metoprolol. continue telemetry. cath insertion site in the right groin. Clean and well dressed. Mild echymosis without notable hematoma or aneurysm. He has severe blockage of the RCA and will need outpatient PCI. cardiac rehab has been consulted. The assessment and plan as outlined above was discussed with the patient who expressed understanding and agreement. All questions were answered. Qualifiers: Involved coronary artery: unspecified coronary artery Qualified Code(s): I21.3 - ST elevation (STEMI) myocardial infarction of unspecified site (2) Left ventricular thrombosis Current Visit: Yes Status: Acute Patient is currently on lovenox and coumadin. Can DC lovenox when INR is therapeutic. (3) Systolic heart failure Current Visit: Yes Status: Acute patient has EF of 35% unsure if acute or chronic as his EF on echocardiogram in 2010 was 30-35%. Euvolemic on exam. Dyspnea resolved with lasix. Appears euvolemic today. currently he is on room air. continue metoprolol and lisinopril. May eventually need an AICD if EF dose not correct on optimal medical therapy. Qualifiers: Heart failure chronicity: chronic Qualified Code(s): I50.22 - Chronic systolic (congestive) heart failure (4) CAD (coronary artery disease) Current Visit: Yes Status: Acute patient reports prior C with stent. patiet is s/p [facility] with the following results: Coronary Dominance: right Lesion Findings/Interventions * Left Main Coronary Artery The LMCA is angiographically free of disease. * Left Anterior Descending There is a 50% stenosis in the Mid LAD. Distal LAD small and diffusely diseased * Circumflex There is a 20 mm long, 95% stenosis in the Distal Circumflex. The Type C lesion has a SHANE flow of 2 and has no thrombus present. A successful intervention was performed on the Distal Circumflex with a final stenosis of 40%. There were no lesion complications. The final SHANE flow was 3. There is a 24 mm long, 100% stenosis in the 3rd Marginal. The Type C lesion has a SHANE flow of 0 and has thrombus present. An intervention was performed on the 3rd Marginal with a final stenosis of 0%. There were no lesion complications. The final SHANE flow was 3. * Right Coronary Artery There is a 70% stenosis in the Proximal RCA. There is a 80% stenosis in the Mid RCA. Continue ASA, Brilinta, and high intensity statin. patient will need outpatient PCI of the RCA. Qualifiers: Qualified Code(s): I25.10 - Atherosclerotic heart disease of [place] coronary artery without angina pectoris (5) Non-sustained ventricular tachycardia Current Visit: Yes Status: Acute resolved. continue metoprolol. (6) Dyspnea Current Visit: Yes Status: Acute likely from volume overload resolved after lasix. Qualifiers: Dyspnea type: shortness of breath Qualified Code(s): R06.02 - Shortness of breath; R06.00 - Dyspnea, unspecified; R06.01 - Orthopnea (7) Hypokalemia Current Visit: Yes Status: Acute resolved (8) Tobacco abuse Current Visit: Yes Status: Acute patient smokes 1ppd. states he is not ready to quit. declines smoking cessation aids at this time. (9) Cerebral palsy Current Visit: Yes Status: Chronic The assessment and plan as outlined above was discussed with the patient and/or family members who expressed understanding and agreement. All questions were answered. Qualifiers: Qualified Code(s): G80.9 - Cerebral palsy, unspecified (10) Discharge planning issues Current Visit: Yes Status: Acute Patient disheveled and coated with dirt per technical staff engineer. concern as to whether or not he will be able to take medications properly. java web services developer has been consulted Also would consider evaluation by [facility]. I spoke with Dr. Reis. Internal medicine will take the patient on their service. Discussion w patient/family: The assessment and plan as outlined above was discussed with the patient and/or family members who expressed understanding and agreement. All questions were answered. Thank you for involving us in the care of your patient. Please call with any questions. Subjective Principal diagnosis: STEMI Interval history: No major event overnight. PAtient states he is feleing much better today. His dyspnea has resolved. He denies any aches or pains. He has no further complaints or concerns at this time. Objective Vital Signs, Last 4 Hours Temp Pulse Resp BP Pulse Ox 03/25/17 08:25 97.8 F 03/25/17 08:00 105 24 112/77 96 03/25/17 07:56 102 03/25/17 07:00 97.8 F 102 24 107/78 96 03/25/17 06:00 107 24 116/83 93 General: Conversant, No Apparent Distress HEENT: Atraumatic, Normocephaly, Mucus Membranes Moist Neck: No JVD, Normal carotid pulses Cardiac: Reg Rate and Rhythm, Normal S1 and S2, No Murmur Lungs: Normal Breath Sounds, No Wheeze, Rales, Rhonchi Neuro: Alert and responsive, Other (has cerebral palsy. ) Abdomen: Soft, Non-Tender Skin: No rashes noted on visualized skin Musculoskeletal: No Chest Wall Tenderness Extremities: No Clubbing, No Cyanosis, No Edema Results 03/25/17 03:32 03/25/17 03:32 Lab Results 03/24/17 03/25/17 03/25/17 04:53 03:32 03:32 WBC 7.1 Hgb 13.3 Hct 37.8 Plt Count 164 INR 1.3 Sodium 139 Potassium 3.2 L Chloride 107 Carbon Dioxide 23 BUN 6 L Creatinine 0.57 L Glucose 83 Calcium 8.7 Magnesium 1.5 L 03/25/17 03:32 WBC Hgb Hct Plt Count INR Sodium 138 Potassium 3.7 Chloride 106 Carbon Dioxide 24 BUN 8 Creatinine 0.62 L Glucose 94 Calcium 9.1 Magnesium 1.6 Consult Discharge Plan - Plan Referrals: Nguyễn Stubbs DO [Primary Care Provider] - <Paty Buenrostro - Last Filed: 03/25/17 13:23> Date of Encounter: 03/25/17 Assessment and Plan Discussion w patient/family: I examined this patient and my medical decision-making was reviewed with the Resident Physician. I agree with the documented findings, disposition and treatment plan. Mr. Ryder has no new complaints today. He denies chest pain or dyspnea. Recommend continuing DAPT for at least 12 months. He is also being bridged with anticoagulation for LV thrombus. Blood count is stable. Discussed with patient the importance of maintaining compliance with these medications as an outpatient. The patient has declined rehab. Social work is involved - seems like patient may go home with his sister. Will need to speak with his sister to discuss course of care and emphasize importance of compliance with meds and follow ups. If EF remains reduced, will need to consider AICD placement as an outpatient. Objective Vital Signs, Last 4 Hours Temp Pulse Resp BP Pulse Ox 03/25/17 12:00 98.0 F 102 20 92/70 96 Results 03/25/17 03:32 03/25/17 03:32 Lab Results 03/25/17 03/25/17 03/25/17 03:32 03:32 03:32 WBC 7.1 Hgb 13.3 Hct 37.8 Plt Count 164 INR 1.3 Sodium 138 Potassium 3.7 Chloride 106 Carbon Dioxide 24 BUN 8 Creatinine 0.62 L Glucose 94 Calcium 9.1 Magnesium 1.6
[2017-03-25] MEDS ORDERED: *HR* HYDROcodone/Acet 5/325 mg TABLET PO PRN (12:17)
[2017-03-25] MEDS ORDERED: Ondansetron 4 MG/2 ML VIAL IVP PRN (12:17)
[2017-03-25] MEDS ORDERED: Acetaminophen 325 MG TABLET PO PRN (12:17)
[2017-03-25] MEDS ORDERED: *HR* Morphine 2 MG/ML SYRINGE IVP PRN (12:17)
[2017-03-25] MEDS: *HR* OxyCODONE/APAP 5/325 TABLET PO PRN ×2 (15:04→21:19)
[2017-03-25] MEDS ORDERED: *HR* Warfarin 5 MG TABLET PO ONE ×2 (18:00)
[2017-03-25] MEDS ORDERED: Warfarin perPT PO PRN ×2 (18:00)
[2017-03-26] MEDS: *HR* Enoxaparin 80 MG/0.8 ML SYRINGE SQ SCH ×2 (05:18→18:08)
[2017-03-26 06:34] LABS: INR 1.5; Prothrombin Time 15.8 Seconds (9.4-12.1)
[2017-03-26] MEDS: Aspirin 81 MG TAB.CHEW PO SCH (07:55)
[2017-03-26] MEDS: diazePAM 2 MG TABLET PO SCH ×3 (07:55→21:20)
[2017-03-26] MEDS: *HR* Ticagrelor 90 MG TABLET PO SCH ×2 (07:55→21:19)
--- NOTE | 2017-03-26 13:24 | Internal Med Progress Note ---
Date of Encounter: 03/26/17 Time of Encounter: 13:22 - Assessment and plan (1) ST elevation (STEMI) myocardial infarction Current Visit: Yes Status: Acute Assessment and plan: Patient is S/P LHC. S/P MATILDE placed to distal circumflex. Continue ASA, Brilinta, and metoprolol. continue telemetry. Per cardiology eval, he has severe blockage of the RCA and will need outpatient PCI. For cardiac rehab upon discharge Qualifiers: Involved coronary artery: unspecified coronary artery Qualified Code(s): I21.3 - ST elevation (STEMI) myocardial infarction of unspecified site (2) Left ventricular thrombosis Current Visit: Yes Status: Acute Assessment and plan: On ASA, Brilinta, Warafarin, Enoxaparin. INR 1.5, continue same (3) Systolic heart failure Current Visit: Yes Status: Chronic Assessment and plan: EF of 35%,his EF on echocardiogram in 2010 was 30-35%. Euvolemic on exam. euvolemic today. currently he is on room air. continue metoprolol and lisinopril. Qualifiers: Heart failure chronicity: chronic Qualified Code(s): I50.22 - Chronic systolic (congestive) heart failure (4) Cerebral palsy Current Visit: Yes Status: Chronic Assessment and plan: Continue home meds Qualifiers: Qualified Code(s): G80.9 - Cerebral palsy, unspecified (5) Non-sustained ventricular tachycardia Current Visit: Yes Status: Resolved Assessment and plan: Resolved (6) Tobacco abuse Current Visit: Yes Status: Chronic Assessment and plan: Tobacco cessation counselling prior to discharge - Subjective Interval history: 47 M with PMH of cerebral palsy, He is admitted by cardiology and being managed for STEMI with resultant NSVT, CHFrEF, CAD, HTN, HLD Seen and evaluated at bedside Anxious to be discharged but denied new complains - Constitutional Vitals: Temp Pulse Resp BP Pulse Ox 97.4 F L 80 17 90/59 94 03/26/17 11:08 03/26/17 11:08 03/26/17 11:08 03/26/17 11:08 03/26/17 11:08 General appearance: Present: A&O X 3, no acute distress, answers questions appropriately - Head Head exam: Present: atraumatic, normocephalic - Eye Eye exam: Present: PERRL, conjuntiva pink, sclera anicteric Pupils: Present: PERRL - Neck Neck exam general surgery: Present: supple, trachea midline. Absent: lymphadenopathy - Respiratory Respiratory exam: Present: CTAB. Absent: accessory muscle use, rales, rhonchi, wheezes - Cardiovascular Cardiovascular exam: Present: RRR, +S1, +S2. Absent: diastolic murmur, gallop, rubs, systolic murmur - GI/Abdominal GI/Abdominal exam: Present: normal bowel sounds, soft, no peritoneal signs. Absent: distended, tenderness - Extremities Exam Extremities exam: Present: warm, radial pulses palpable and symmetrical. Absent : calf tenderness, cyanotic, pedal edema Additional comments: COntracted - Neurological Exam Neurological exam: Present: alert, CN II-XII intact, oriented X3. Absent: pronater drift, facial droop, speech deficit - Skin Skin exam: Present: dry Internal Medicine: Result - Labs CBC & Chem 7: 03/25/17 03:32 03/25/17 03:32 - ABG Interpretation ABG results: PT/INR, D-dimer PT 15.8 Seconds (9.4-12.1) H 03/26/17 06:00 Consult Discharge Plan - Plan Referrals: Nguyễn Stubbs DO [Primary Care Provider] - (patient will call for an appointment per [facility] office..)
[2017-03-26] MEDS: *HR* OxyCODONE/APAP 5/325 TABLET PO PRN ×2 (13:49→21:20)
[2017-03-26] MEDS ORDERED: *HR* Warfarin 5 MG TABLET PO ONE (18:00)
[2017-03-27 05:20] LABS: INR 1.8; Prothrombin Time 19.5 Seconds (9.4-12.1)
[2017-03-27 05:21] LABS: Basophils % 0.8 %; Eosinophils # 0.1 K/mcL (0.0-0.6); Eosinophils % 2.5 %; Hematocrit 36.8 % (37.5-50.1); Hemoglobin 12.4 g/dL (12.9-16.9); Immature Granulocytes % 0.4 % (0-4); Lymphocytes # 1.9 K/mcL (0.6-4.6); Lymphocytes % 35.5 %; Mean Corpuscular HGB Conc 33.7 g/dL (31.6-35.5); Mean Corpuscular Hemoglobin 32.4 pg (28.0-33.3); Mean Corpuscular Volume 96.1 fL (83.0-100.0); Mean Platelet Volume 10.5 fL (9.4-12.4); Monocytes # 0.5 K/mcL (0.0-1.3); Monocytes % 10.1 %; Neutrophils # 2.7 K/mcL (1.6-8.9); Platelet Count 169 K/mcL (140-400); Red Blood Count 3.83 M/mcL (4.19-5.50); Red Cell Distribution Width 12.6 % (11.5-14.5); Segmented Neutrophils % 50.7 %
[2017-03-27 05:30] LABS: BUN/Creatinine Ratio 15 (6-26); Blood Urea Nitrogen 9 mg/dL (8-26); Calcium 9.1 mg/dL (8.6-10.8); Carbon Dioxide 26 mEq/L (19-29); Chloride 105 mEq/L (98-109); Glucose 94 mg/dL (70-99); Osmolality,Calculated 284 (280-300); Potassium 3.4 mEq/L (3.5-4.5); Sodium 138 mEq/L (136-145); eGFR For African Americans > 60 (> 60); eGFR For Non-African Americans > 60 (> 60)
[2017-03-27] MEDS: *HR* Enoxaparin 80 MG/0.8 ML SYRINGE SQ SCH ×2 (06:18→17:34)
[2017-03-27] MEDS: Aspirin 81 MG TAB.CHEW PO SCH (08:02)
[2017-03-27] MEDS: *HR* Ticagrelor 90 MG TABLET PO SCH ×2 (08:02→21:07)
[2017-03-27] MEDS: diazePAM 2 MG TABLET PO SCH ×3 (08:02→21:07)
--- NOTE | 2017-03-27 10:49 | Internal Med Progress Note ---
Date of Encounter: 03/27/17 Time of Encounter: 10:49 - Assessment and plan (1) ST elevation (STEMI) myocardial infarction Current Visit: Yes Status: Acute Assessment and plan: Patient is S/P LHC. S/P MATILDE placed to distal circumflex. Continue ASA, Brilinta, and metoprolol. continue telemetry. Per cardiology eval, he has severe blockage of the RCA and will need outpatient PCI. For cardiac rehab upon discharge Qualifiers: Involved coronary artery: unspecified coronary artery Qualified Code(s): I21.3 - ST elevation (STEMI) myocardial infarction of unspecified site (2) Left ventricular thrombosis Current Visit: Yes Status: Acute Assessment and plan: On ASA, Brilinta, Warafarin, Enoxaparin. INR 1.8, continue same (3) Systolic heart failure Current Visit: Yes Status: Chronic Assessment and plan: EF of 35%,his EF on echocardiography in 2010 was 30-35%. Euvolemic on exam. currently he is on room air. continue metoprolol and lisinopril. Qualifiers: Heart failure chronicity: chronic Qualified Code(s): I50.22 - Chronic systolic (congestive) heart failure (4) Cerebral palsy Current Visit: Yes Status: Chronic Assessment and plan: Continue home meds Qualifiers: Cerebral palsy type: unspecified type Qualified Code(s): G80.9 - Cerebral palsy, unspecified (5) Non-sustained ventricular tachycardia Current Visit: Yes Status: Resolved Assessment and plan: Resolved (6) Tobacco abuse Current Visit: Yes Status: Chronic Assessment and plan: Tobacco cessation counselling prior to discharge - Subjective Interval history: 47 M with PMH of cerebral palsy, He is admitted by cardiology and being managed for STEMI with resultant NSVT, CHFrEF, CAD, HTN, HLD Seen and evaluated at bedside Denies new complains - Constitutional Vitals: Temp Pulse Resp BP Pulse Ox 98.2 F 81 17 112/67 95 03/27/17 07:27 03/27/17 07:27 03/27/17 07:27 03/27/17 07:27 03/27/17 07:27 General appearance: Present: A&O X 3, no acute distress, answers questions appropriately - Head Head exam: Present: atraumatic, normocephalic - Eye Eye exam: Present: PERRL, conjuntiva pink, sclera anicteric Pupils: Present: PERRL - Neck Neck exam general surgery: Present: supple, trachea midline. Absent: lymphadenopathy - Respiratory Respiratory exam: Present: CTAB. Absent: accessory muscle use, rales, rhonchi, wheezes - Cardiovascular Cardiovascular exam: Present: RRR, +S1, +S2. Absent: diastolic murmur, gallop, rubs, systolic murmur - GI/Abdominal GI/Abdominal exam: Present: normal bowel sounds, soft, no peritoneal signs. Absent: distended, tenderness - Extremities Exam Extremities exam: Present: warm, radial pulses palpable and symmetrical. Absent : calf tenderness, cyanotic, pedal edema - Neurological Exam Neurological exam: Present: alert, CN II-XII intact, oriented X3, no focal deficits. Absent: pronater drift, facial droop, speech deficit - Skin Skin exam: Present: dry Internal Medicine: Result - Labs CBC & Chem 7: 03/27/17 04:23 03/27/17 04:23 Labs: Short CBC 03/27/17 Range/Units 04:23 WBC 5.2 (4.3-11.1) K/mcL Hgb 12.4 L (12.9-16.9) g/dL Hct 36.8 L (37.5-50.1) % Plt Count 169 (140-400) K/mcL Neutrophils # 2.7 (1.6-8.9) K/mcL BMP 03/27/17 04:23 Sodium 138 Potassium 3.4 L Chloride 105 Carbon Dioxide 26 BUN 9 Creatinine 0.61 L Glucose 94 Calcium 9.1 - ABG Interpretation ABG results: PT/INR, D-dimer PT 19.5 Seconds (9.4-12.1) H 03/27/17 04:23 Consult Discharge Plan - Plan Referrals: Nguyễn Stubbs DO [Primary Care Provider] - (patient will call for an appointment per [facility] office..)
[2017-03-27] MEDS: *HR* OxyCODONE/APAP 5/325 TABLET PO PRN ×2 (15:18→21:06)
[2017-03-27] MEDS ORDERED: *HR* Warfarin 5 MG TABLET PO ONE (18:00)
[2017-03-28 04:05] LABS: INR 2.3
[2017-03-28] MEDS: *HR* Enoxaparin 80 MG/0.8 ML SYRINGE SQ SCH ×2 (05:20→15:55)
[2017-03-28] MEDS: diazePAM 2 MG TABLET PO SCH ×2 (08:21→14:01)
[2017-03-28] MEDS: *HR* Ticagrelor 90 MG TABLET PO SCH (08:21)
[2017-03-28] MEDS: Aspirin 81 MG TAB.CHEW PO SCH (08:22)
--- NOTE | 2017-03-28 10:48 | Discharge Summary ---
Date of Encounter: 03/28/17 Time of Encounter: 10:46 - Discharge Diagnosis (1) ST elevation (STEMI) myocardial infarction Priority: Primary Status: Acute Qualifiers: Involved coronary artery: unspecified coronary artery Qualified Code(s): I21.3 - ST elevation (STEMI) myocardial infarction of unspecified site (2) Left ventricular thrombosis Priority: Primary Status: Acute (3) Systolic heart failure Priority: Primary Status: Chronic Qualifiers: Heart failure chronicity: chronic Qualified Code(s): I50.22 - Chronic systolic (congestive) heart failure (4) Cerebral palsy Priority: Secondary Status: Chronic Qualifiers: Cerebral palsy type: unspecified type Qualified Code(s): G80.9 - Cerebral palsy, unspecified (5) Non-sustained ventricular tachycardia Priority: Primary Status: Resolved (6) Tobacco abuse Priority: Primary Status: Chronic - Discharge Medications Prescriptions: Enoxaparin [Lovenox] 80 mg SQ Q12HR #2 syr Aspirin 81 mg PO DAILY #30 tab Atorvastatin [Lipitor] 80 mg PO HS #30 tab Cyclobenzaprine [Flexeril] 10 mg PO DAILY #30 Lisinopril [Zestril] 10 mg PO DAILY #30 Metoprolol [Lopressor] 25 mg PO BID #60 tab Ticagrelor [Brilinta] 90 mg PO BID #60 tab Warfarin [Coumadin] 3 mg PO 1800 #5 tablet Home Medications: Haloperidol [Haldol] 5 mg PO BID 03/23/17 [History] Oxycodone HCl/Acetaminophen [Endocet 5-325 Tablet] 1 tab PO Q6H PRN 03/23/17 [ History] Triamcinolone Acet 0.1% CRM [Kenalog] 1 appl TP AD 03/23/17 [History] diazePAM [Valium] 2 mg PO TID 03/23/17 [History] Aspirin 81 mg PO DAILY #30 tab 03/28/17 [Rx] Atorvastatin [Lipitor] 80 mg PO HS #30 tab 03/28/17 [Rx] Cyclobenzaprine [Flexeril] 10 mg PO DAILY #30 03/28/17 [Rx] Enoxaparin [Lovenox] 80 mg SQ Q12HR #2 syr 03/28/17 [Rx] Lisinopril [Zestril] 10 mg PO DAILY #30 03/28/17 [Rx] Metoprolol [Lopressor] 25 mg PO BID #60 tab 03/28/17 [Rx] Ticagrelor [Brilinta] 90 mg PO BID #60 tab 03/28/17 [Rx] Warfarin [Coumadin] 3 mg PO 1800 #5 tablet 03/28/17 [Rx] Allergies/Adverse Reactions: Allergies No Known Allergies Allergy (Verified 01/30/17 19:40) Date of admission: 03/23/17 15:12 Primary care physician: Nguyễn Stubbs Consults: 03/23/17 15:32 Consult to Cardiac Rehabilitation-Phase1 [CONS] Routine Comment: Reason for Consult: AMI Call Completed: Yes Consult to Nurse Navigator [CONS] Routine Comment: 03/23/17 16:12 Consult to Implementation Consultant [CONS] Routine Reason for SW Consult: discharge planning. ? ECF placement. 03/24/17 18:42 Consult to Implementation Consultant [CONS] Routine Reason for SW Consult: pt with cerebral palsy, very unkempt on admission 03/25/17 09:36 Consult to Implementation Consultant [CONS] Routine Reason for SW Consult: PAtietn very discheveled upon admission. Question if he has a safe living envirenment. May need APS referrel. 03/28/17 08:41 Consult to Implementation Consultant [CONS] Routine Reason for SW Consult: Discharge planning Discharging clinician: Eliseo Vivar Anticipated date of discharge: 03/28/17 - Patient Status Disposition: Home, Self-Care Condition: Fair Functional capacity at discharge: wheelchair bound Overall status at discharge: patient is back to baseline - Discharge Instructions Instructions: Warfarin (By mouth), Enoxaparin (Injection), Ticagrelor (By mouth ), Myocardial Infarction (DC) Follow Up With: Clinic, Anticoagulation [Other] (Office will call you with an appointment date and time) [facility] [Provider Group] (office will call you with an appointment date and time ) Nguyễn Stubbs DO [Primary Care Provider] - (patient will call for an appointment per [place] office..) Additional Instructions: FOLLOW UP IN INR CLINIC FOLLOW UP IN CARDIOLOGY CLINIC FOLLOW UP WITH PCP Interval History: See below Hospital course: Mr. Ryder is a 47 year old male with PMH of cerebral palsy, CAD s/p PCI 2 years ago, he also has hx of tobacco use He was admitted following an episode of edgardo pain with evidence of STEMI on EKG with ST elevation of V4-V6 He underwent LHC with MATILDE to circinflex artery LHC findings: Coronary Dominance:right, Lesion Findings/Interventions* Left Main Coronary Artery, The LMCA is angiographically free of disease. * Left Anterior Descending: There is a 50% stenosis in the Mid LAD. Distal LAD small and diffusely diseased * Circumflex: There is a 20 mm long, 95% stenosis in the Distal Circumflex. The Type C lesion has a SHANE flow of 2 and has no thrombus present. A successful intervention was performed on the Distal Circumflex with a final stenosis of 40%. There were no lesion complications. The final SAHNE flow was 3.There is a 24 mm long, 100% stenosis in the 3rd Marginal. The Type C lesion has a SHANE flow of 0 and has thrombus present. An intervention was performed on the 3rd Marginal with a final stenosis of 0%. There were no lesion complications. The final SHANE flow was 3. * Right Coronary Artery: There is a 70% stenosis in the Proximal RCA:There is a 80% stenosis in the Mid RCA. Patient developed NSVT post-procedure which resolved with use of metoprolol, and he was in fluid overload but improved with lasix At time of discharge he is euvolemic His ECHO also revealed EF of 35%, LV thrombus for which he was started on therapeutic enoxaparin and warfarin He is seen at bedside today No complains His INR is therapeutic at 2.3 He was found to be unkempt at time of arrival and plan is to discharge home with his sister His nephew was at the bedside at the time of review and educated about the necessity of compliance with medications and keeping appointments He is stable to be discharged on warfarin 3mg po daily till Coumadin clinic appointment. HE will also be discharged on lovenox 80mg bid for 2 doses Follow up with Cardiology and INR clinic emphasized Counselled on tobacco cessation for 3 minutes Verbalized understanding Time spent discussing smoking cessation with patient: 3 to 10 minutes - Time Spent with Patient Total time spent providing and/or coordinating discharge services: Greater than 30 minutes - Constitutional Vitals: Temp Pulse Resp BP Pulse Ox 98.2 F 87 17 103/67 95 03/28/17 06:54 03/28/17 06:54 03/28/17 06:54 03/28/17 08:20 03/28/17 06:54 General appearance: Present: A&O X 3, no acute distress, answers questions appropriately - Head Head exam: Present: atraumatic, normocephalic - Eye Eye exam: Present: PERRL, conjuntiva pink, sclera anicteric Pupils: Present: PERRL - Neck Neck exam general surgery: Present: supple, trachea midline. Absent: lymphadenopathy - Respiratory Respiratory exam: Present: CTAB. Absent: accessory muscle use, rales, rhonchi, wheezes - Cardiovascular Cardiovascular exam: Present: RRR, +S1, +S2. Absent: diastolic murmur, gallop, rubs, systolic murmur - GI/Abdominal GI/Abdominal exam: Present: normal bowel sounds, soft, no peritoneal signs. Absent: distended, tenderness - Extremities Exam Extremities exam: Present: warm, radial pulses palpable and symmetrical. Absent : calf tenderness, cyanotic, pedal edema Additional comments: Contracted - Neurological Exam Neurological exam: Present: alert, CN II-XII intact, oriented X3, no focal deficits. Absent: pronater drift, facial droop, speech deficit - Skin Skin exam: Present: dry
[2017-03-28 11:04] VITALS: BP 137/85
[2017-03-28] MEDS: *HR* OxyCODONE/APAP 5/325 TABLET PO PRN (13:20)
[2017-03-28] MEDS ORDERED: *HR* Warfarin 2.5 MG TABLET PO ONE ×2 (15:45→18:00)
[2017-03-28] MEDS ORDERED: *HR* Warfarin 2.5 MG TABLET PO SCH (16:00)
== END 2017-03-28 16:05 | disposition home or self-care (01) | DRG 174 ==
LOC: EMEROO 14:13 → ICNU 14:41 → 2ANU 03-25 13:38
PROVIDERS: ADMIT Emergency Medicine; ATTEND Internal Medicine Endocrinology, Diabetes & Metabolism

== ENCOUNTER 2017-05-05 23:45 | Observation (INO) ==
[2017-05-06 00:07] LABS: Basophils % 0.7 %; Eosinophils # 0.1 K/mcL (0.0-0.6); Eosinophils % 2.9 %; Hematocrit 36.2 % (37.5-50.1); Hemoglobin 12.2 g/dL (12.9-16.9); Immature Granulocytes % 0.5 % (0-4); Lymphocytes # 1.5 K/mcL (0.6-4.6); Mean Corpuscular HGB Conc 33.7 g/dL (31.6-35.5); Mean Corpuscular Hemoglobin 32.2 pg (28.0-33.3); Mean Corpuscular Volume 95.5 fL (83.0-100.0); Mean Platelet Volume 11.1 fL (9.4-12.4); Monocytes # 0.6 K/mcL (0.0-1.3); Monocytes % 14.2 %; Neutrophils # 1.9 K/mcL (1.6-8.9); Platelet Count 172 K/mcL (140-400); Red Blood Count 3.79 M/mcL (4.19-5.50); Red Cell Distribution Width 12.7 % (11.5-14.5); Segmented Neutrophils % 44.7 %
[2017-05-06] MEDS ORDERED: 0.9 % Sodium Chloride 1,000 ML IVC ONE (00:08)
[2017-05-06] MEDS ORDERED: Nitroglycerin 0.4 MG TAB.SUBL SL PRN (00:09)
[2017-05-06] MEDS ORDERED: *HR* Morphine 2 MG/ML SYRINGE IVP ONE (00:09)
[2017-05-06] MEDS ORDERED: Aspirin 325 MG TABLET PO ONE (00:23)
--- NOTE | 2017-05-06 00:25 | Emergency Department Note ---
Disposition Clinical Impression: Chest pain Sacral decubitus ulcer Qualifiers: Pressure ulcer stage: stage 1 Qualified Code(s): L89.151 - Pressure ulcer of sacral region, stage 1 Disposition: Admitted As Inpatient Condition: Fair Chest Pain HPI - General Chief Complaint: ED Chest Pain Stated Complaint: Chest Pain Time Seen by Provider: 05/06/17 00:06 Source: EMS Mode of arrival: private vehicle Limitations: no limitations Vital Signs Reviewed: Yes Nursing Notes Reviewed: Yes - History of Present Illness Pt complaint: chest pain Onset (ago): Just BONUS CLERK Duration: constant Onset: during rest Pain Location: substernal Severity: severe Severity scale (1-10): 9 Quality: sharp, similar to prior NC Pain Radiation: LUE, back Improves with: nothing Worsens with: nothing Context: other (recent STEMI with MATILDE placed in Circumflex. Patient states that he actually had two stents placed on that day. However, I am unable to find documentation of the second vessel that was stented. He states that he was told he would need a third stent placed soon. He ultimately was able to be discharged.) Associated symptoms: Denies: nausea, vomiting, diaphoresis, dyspnea, sense of impending doom, syncope, palpitations, fever, cough, leg swelling Treatments prior to arrival chest pain: nitroglycerin (Patient took one at home prior to calling EMS. EMS did not give him any additional) - Related Data Home Medications Medication Instructions Recorded Confirmed Haloperidol [Haldol] 5 mg PO BID 03/23/17 03/23/17 Oxycodone HCl/Acetaminophen 1 tab PO Q6H PRN 03/23/17 03/23/17 [Endocet 5-325 Tablet] Triamcinolone Acet 0.1% CRM 1 appl TP AD 03/23/17 03/23/17 [Kenalog] diazePAM [Valium] 2 mg PO TID 03/23/17 03/23/17 Previous Rx's Medication Instructions Recorded Aspirin 81 mg PO DAILY #30 tab 03/28/17 Atorvastatin [Lipitor] 80 mg PO HS #30 tab 03/28/17 Cyclobenzaprine [Flexeril] 10 mg PO DAILY #30 03/28/17 Enoxaparin [Lovenox] 80 mg SQ Q12HR #2 syr 03/28/17 Lisinopril [Zestril] 10 mg PO DAILY #30 03/28/17 Metoprolol [Lopressor] 25 mg PO BID #60 tab 03/28/17 Ticagrelor [Brilinta] 90 mg PO BID #60 tab 03/28/17 Warfarin [Coumadin] 3 mg PO 1800 #5 tablet 03/28/17 Allergies Allergy/AdvReac Type Severity Reaction Status Date / Time No Known Allergies Allergy Verified 01/30/17 19:40 All systems ED: reviewed and negative except as stated. Review of Systems: As Per HPI Constitutional: Denies: fever, chills, weakness Cardiovascular: Reports: as per HPI, chest pain. Denies: palpitations, dyspnea on exertion, orthopnea, edema, syncope Respiratory: Denies: cough, dyspnea, wheezes, hemoptysis, stridor, sputum production Gastrointestinal: Denies: abdominal pain, nausea, vomiting, diarrhea Genitourinary: Denies: urgency, dysuria, frequency Musculoskeletal: Denies: back pain, neck pain, joint swelling Integumentary: Reports: other (Soreness and redness on sacrum for several weeks. ) Neurological: Denies: headache, weakness, numbness, paresthesias Hematological/Lymphatic: Denies: easy bleeding, easy bruising Chest Pain PMH - Past Medical History Medical history: Reports: CHF, coronary artery disease, hyperlipidemia, hypertension, myocardial infarction, other Surgical history: Reports: angioplasty/stent Psychiatric history: Reports: no psych history - Social History Smoking Status: Current every day smoker Alcohol use: Reports: none Drug use: Reports: none Physical Exam - General Limitations: physical limitation General appearance: alert, in no apparent distress - Head Head exam: atraumatic, normocephalic, normal inspection - Eye Eye exam: Present: normal appearance, PERRL. Absent: scleral icterus, conjunctival injection, periorbital swelling - ENT ENT exam: mucous membranes moist - Neck Neck exam: Present: normal inspection, full ROM, trachea midline. Absent: tenderness, meningismus - Chest Chest inspection: Present: normal inspection, symmetric chest wall rise. Absent : tenderness - Respiratory Respiratory exam: Present: normal lung sounds bilaterally. Absent: respiratory distress, wheezes, stridor, accessory muscle use, prolonged expiratory phase - Cardiovascular Cardiovascular exam: Present: regular rate, normal rhythm, normal heart sounds - Abdominal Exam Abdominal exam: Present: soft, Non-Tender. Absent: distention, guarding, rebound, mass, pulsatile mass - Extremities Exam Extremities exam: Present: normal capillary refill. Absent: tenderness, pedal edema - Back Exam Back exam: Present: tenderness (Mild at distal portion of sacrum and upper margin of the gluteal cleft). Absent: full ROM - Neurological Exam Neurological exam: Present: alert, oriented X3 - Psychiatric Psychiatric exam: Present: normal affect, normal mood - Skin Skin exam: Present: warm, dry, intact, normal color, erythema (Sacrum -early- stage decubitus ulcer) Course Course Narrative: Patient presents by EMS for evaluation of chest pain that started a couple hours prior to arrival. He took a nitroglycerin which did not help. He states that EMS did not give any additional nitroglycerin. This was most likely secondary his blood pressure being a little low. Upon arrival, his blood pressure is normal and he is not tachycardic or tachypneic. He is not hypoxic. He does appear to be uncomfortable but nontoxic. EKG has been done and does not show a STEMI. Labs, meds, and saline lock been ordered. Given the patient' s recent stent placement and presenting complaint, the case was immediately discussed with the attending, Dr. Nunn. He has reviewed the EKG as well. He agrees with the assessment and plan. Patient's labs show a normal troponin. X-ray shows no acute abnormality. He will be admitted for chest pain rule out. Vital Signs Temperature 98.5 F 05/05/17 23:47 Pulse Rate 100 05/05/17 23:47 Respiratory Rate 20 05/05/17 23:47 Blood Pressure 113/72 05/05/17 23:47 O2 Sat by Pulse Oximetry 98 05/05/17 23:47 Temperature 98.0 F 05/06/17 02:39 Pulse Rate 79 05/06/17 02:39 Respiratory Rate 20 05/06/17 02:39 Blood Pressure 113/76 05/06/17 02:39 O2 Sat by Pulse Oximetry 96 05/06/17 02:39 Oxygen Delivery Oxygen Delivery Room Air Chest Pain - Lab Data Result diagrams: 05/05/17 23:55 05/05/17 23:55 Lab Results 05/05/17 05/05/17 05/05/17 Range/Units 23:55 23:55 23:55 WBC 4.2 L (4.3-11.1) K/mcL RBC 3.79 L (4.19-5.50) M/mcL Hgb 12.2 L (12.9-16.9) g/dL Hct 36.2 L (37.5-50.1) % MCV 95.5 (83.0-100.0) fL MCH 32.2 (28.0-33.3) pg MCHC 33.7 (31.6-35.5) g/dL RDW 12.7 (11.5-14.5) % Plt Count 172 (140-400) K/mcL MPV 11.1 (9.4-12.4) fL Immature Gran % 0.5 (0-4) % Seg Neutrophils % 44.7 % Lymphocytes % 37.0 % Monocytes % 14.2 % Eosinophils % 2.9 % Basophils % 0.7 % Neutrophils # 1.9 (1.6-8.9) K/mcL Lymphocytes # 1.5 (0.6-4.6) K/mcL Monocytes # 0.6 (0.0-1.3) K/mcL Eosinophils # 0.1 (0.0-0.6) K/mcL Basophils # 0.0 (0.0-0.2) K/mcL Sodium 138 (136-145) mEq/L Potassium 3.4 L (3.5-4.5) mEq/L Chloride 106 (98-109) mEq/L Carbon Dioxide 21 (19-29) mEq/L BUN 8 (8-26) mg/dL Creatinine 0.74 (0.72-1.25) mg/dL Est GFR ( Amer) > 60 (> 60) Est GFR (Non-Af Amer) > 60 (> 60) BUN/Creatinine Ratio 11 (6-26) Glucose 73 (70-99) mg/dL Calculated Osmolality 283 (280-300) Calcium 9.3 (8.6-10.8) mg/dL Troponin I 0.01 (0-0.03) ng/mL Heart Score - Score History: Moderately Suspicious EKG: Non Specific repolarisation Disturbance Age: 45-65 Risk Factors: Equal/Greater than 3 risk factor or history of atherosclerotic disease Troponin: 1-3x normal limit HEART Score Total: 6 Attestation Statement - Attestation Attestation: I, Earnest Nunn, examined this patient and my medical decision-making was reviewed with the ACCOUNT SUPPORT ANALYST/PA/Advanced Practice Nurse/Resident Physician. I agree with the documented findings, disposition and treatment plan as described except to the extent set forth below. 47-year-old male presents to emergency Department with concerns of acute onset chest pain. Patient states his pain started within the past few hours prior to arrival. He describes the pain as sharp and stabbing across his anterior chest without radiation. Patient denies recent trauma. Denies fever, chills, diaphoresis, shortness of breath. Patient has a history of severe cardiac disease with multiple recent stents. Initial EKG shows sinus tachycardia with a rate of 102 without evidence of STEMI. Patient had repeat EKG which also did not show evidence of STEMI. Initial troponin negative at 0.01. Nitroglycerin was given which did not significantly improve the patient's pain however did make him hypotensive. Patient pain improved after administration of fentanyl. Patient comfortable with the plan for admission to the hospital for continuation of his care.
[2017-05-06 01:04] LABS: BUN/Creatinine Ratio 11 (6-26); Blood Urea Nitrogen 8 mg/dL (8-26); Calcium 9.3 mg/dL (8.6-10.8); Carbon Dioxide 21 mEq/L (19-29); Chloride 106 mEq/L (98-109); Glucose 73 mg/dL (70-99); Osmolality,Calculated 283 (280-300); Potassium 3.4 mEq/L (3.5-4.5); Sodium 138 mEq/L (136-145); eGFR For African Americans > 60 (> 60); eGFR For Non-African Americans > 60 (> 60)
[2017-05-06] MEDS ORDERED: *HR* FentaNYL (PF) 100 MCG/2 ML VIAL IVP ONE (01:54)
[2017-05-06] MEDS ORDERED: Ondansetron 4 MG/2 ML VIAL IVP PRN (02:39)
[2017-05-06] MEDS ORDERED: Naloxone 0.4 MG/ML INJ IVP PRN (02:39)
--- NOTE | 2017-05-06 03:11 | Internal Med History&Physical ---
Date of Encounter: 05/06/17 Time of Encounter: 03:08 Assessment and Plan (1) Chest pain Current visit: Yes Status: Acute Given cardiac history, will admit to rule out ACS trend serial TNI and tele monitoring no acute EKG changes reported patient was scheduled for an outpatient LHC on Tuesday (05/09/17) Cardiology evaluation for LHC in am nitro SL prn chest pain ASA, Lipitor, Brilinta O2 supplementation as needed Please restart home medications in am after verification Qualifiers: Chest pain type: unspecified Qualified Code(s): R07.9 - Chest pain, unspecified (2) CAD (coronary artery disease) Current visit: No Status: Chronic continue home meds Qualifiers: Coronary Disease-Associated Artery/Lesion type: [place] artery [place] vs. transplanted heart: [place] heart Associated angina: angina presence unspecified Qualified Code(s): I25.10 - Atherosclerotic heart disease of [place] coronary artery without angina pectoris (3) Left ventricular thrombosis Current visit: No Status: Chronic continue home meds f/u INR INR goal: 2-3 (4) Cerebral palsy Current visit: No Status: Chronic Qualifiers: Cerebral palsy type: unspecified type Qualified Code(s): G80.9 - Cerebral palsy, unspecified (5) DVT prophylaxis Current visit: Yes Status: Acute anticoagulated with Coumadin Internal Medicine - H&P: HPI Chief complaint: chest pain Admitted From: Home Plans for Post Hospital Care: Home History of present illness: Mr. Ryder is a 47 year old male with PMH of cerebral palsy, CAD s/p MATILDE placement , LV thrombus on anticoagulation who presents to the ER for evaluation of chest pain. Pt was recently hospitalized in March 2017 for a STEMI and underwent LHC with MATILDE placement to the circumflex a. Patient is bed and wheelchair bound at baseline, lives with family. 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 Pt started having sharp left substernal chest pain with radiation to the neck which prompted his visit to the hospital. He took Nitro SL without any relief. He states the fentanyl and morphine he received in the ER provided him with some relief. At this time he states the pain is better controlled. Denies any shortness of breath, n/v, fever, or chills. Social history: Every day smoker (1.5ppd) Code status: Full code Past Med Surg Social Fam HX - Past Medical History Medical history: CHF, coronary artery disease, hyperlipidemia, hypertension, myocardial infarction, other Psychiatric history: no psych history - Past Surgical History Surgical History: angioplasty/stent - Social History Smoking Status: Current every day smoker Smokeless Tobacco Status: No Alcohol use: none Drug use: none - Family History Mother Hx Family Neurologic Disorders: Yes (mother had brain aneurysm.) Father Hx Family Cardiac Disorders: Yes Internal Medicine - H&P: Meds Haloperidol [Haldol] 5 mg PO BID 03/23/17 [History] Oxycodone HCl/Acetaminophen [Endocet 5-325 Tablet] 1 tab PO Q6H PRN 03/23/17 [ History] Triamcinolone Acet 0.1% CRM [Kenalog] 1 appl TP AD 03/23/17 [History] diazePAM [Valium] 2 mg PO TID 03/23/17 [History] Aspirin 81 mg PO DAILY #30 tab 03/28/17 [Rx] Atorvastatin [Lipitor] 80 mg PO HS #30 tab 03/28/17 [Rx] Cyclobenzaprine [Flexeril] 10 mg PO DAILY #30 03/28/17 [Rx] Enoxaparin [Lovenox] 80 mg SQ Q12HR #2 syr 03/28/17 [Rx] Lisinopril [Zestril] 10 mg PO DAILY #30 03/28/17 [Rx] Metoprolol [Lopressor] 25 mg PO BID #60 tab 03/28/17 [Rx] Ticagrelor [Brilinta] 90 mg PO BID #60 tab 03/28/17 [Rx] 3 Allergy/AdvReac Type Severity Reaction Status Date / Time No Known Allergies Allergy Verified 01/30/17 19:40 All Systems PM: A 10-system review of systems was performed and is negative for pertinent findings except as documented above in the HPI. - Constitutional Constitutional: as per HPI - Constitutional Vitals: Temp Pulse Resp BP Pulse Ox 98.0 F 79 20 113/76 96 05/06/17 02:39 05/06/17 02:39 05/06/17 02:39 05/06/17 02:39 05/06/17 02:39 General appearance: Present: A&O X 3, no acute distress, answers questions appropriately (bed and wheel chair bound at baseline) - Head Head exam: Present: atraumatic, normocephalic - Respiratory Respiratory exam: Present: CTAB. Absent: accessory muscle use, rales, rhonchi, wheezes - Cardiovascular Cardiovascular exam: Present: RRR, +S1, +S2. Absent: diastolic murmur, gallop, rubs, systolic murmur - GI/Abdominal GI/Abdominal exam: Present: normal bowel sounds, soft, no peritoneal signs. Absent: distended, tenderness - Extremities Exam Extremities exam: Present: warm, radial pulses palpable and symmetrical. Absent : calf tenderness, cyanotic, pedal edema - Neurological Exam Neurological exam: Present: alert, oriented X3 - Psychiatric Psychiatric exam: Present: normal affect, normal mood Internal Med - H&P Results - Labs CBC & Chem 7: 05/06/17 03:41 05/06/17 03:41 - Impressions ITS Impressions Chest X-Ray 05/06/17 23:56 IMPRESSION: 1. No acute cardiopulmonary disease. D/ / Stevenson Guidry MD / Stevenson Guidry MD Interpreting Provider: Stevenson Guidry MD
[2017-05-06 04:01] LABS: Basophils % 0.6 %; Eosinophils # 0.1 K/mcL (0.0-0.6); Eosinophils % 3.1 %; Immature Granulocytes % 0.6 % (0-4); Immature Platelets 5.4 % (1.1-6.1); Lymphocytes # 1.4 K/mcL (0.6-4.6); Lymphocytes % 39.5 %; Mean Corpuscular HGB Conc 33.3 g/dL (31.6-35.5); Mean Corpuscular Hemoglobin 31.6 pg (28.0-33.3); Mean Corpuscular Volume 94.8 fL (83.0-100.0); Mean Platelet Volume 11.2 fL (9.4-12.4); Monocytes # 0.4 K/mcL (0.0-1.3); Monocytes % 11.1 %; Neutrophils # 1.6 K/mcL (1.6-8.9); Platelet Count 152 K/mcL (140-400); Red Blood Count 3.48 M/mcL (4.19-5.50); Red Cell Distribution Width 12.7 % (11.5-14.5); Segmented Neutrophils % 45.1 %
[2017-05-06 04:07] LABS: INR 1.5; Prothrombin Time 15.8 Seconds (9.4-12.1)
[2017-05-06 04:10] LABS: Activated Partial Thrombo Time 45.1 Seconds (26.0-36.0)
[2017-05-06 04:15] LABS: BUN/Creatinine Ratio 12 (6-26); Blood Urea Nitrogen 8 mg/dL (8-26); Calcium 8.7 mg/dL (8.6-10.8); Carbon Dioxide 24 mEq/L (19-29); Chloride 109 mEq/L (98-109); Chol/HDL Ratio 4.8 (0-4.9); Cholesterol 100 mg/dL (< 200); Glucose 87 mg/dL (70-99); HDL Cholesterol 21 mg/dL (40-59); LDL Cholesterol,Calculated 28 mg/dL (0-99); Magnesium 1.5 mg/dL (1.6-2.6); Osmolality,Calculated 288 (280-300); Phosphorous 1.5 mg/dL (2.3-4.7); Potassium 3.3 mEq/L (3.5-4.5); Sodium 140 mEq/L (136-145); Triglycerides 255 mg/dL (< 150); eGFR For African Americans > 60 (> 60); eGFR For Non-African Americans > 60 (> 60)
[2017-05-06] MEDS: Nicotine 21 MG PATCH.TD24 TD SCH (05:15)
[2017-05-06] MEDS: *HR* Morphine 2 MG/ML SYRINGE IVP PRN ×2 (05:15→20:52)
[2017-05-06] MEDS ORDERED: Magnesium Sulfate 2 GM in D5% in Water 100 ML IVPB ONE (08:28)
--- NOTE | 2017-05-06 08:52 | Cardiology Consult Note ---
<Sarbjit Zepeda - Last Filed: 05/06/17 10:01> Date of Encounter: 05/06/17 Time of Encounter: 08:46 Assessment and Plan (1) Chest pain Current Visit: Yes Status: Acute Atypical chest pain. He reports pain was like his previous RI. Troponin negative x3. No acute changes on EKG. Known CAD. S/P recent STEMI. Planning for staged PCI to the RCA next week. Due to recurrent chest pain recommend proceeding with LHC today. INR 1.5. Potassium and magnesium are being replaced by primary team. R/B/A LHC reviewed. He agrees to proceed. Qualifiers: Chest pain type: unspecified Qualified Code(s): R07.9 - Chest pain, unspecified (2) Left ventricular thrombosis Current Visit: No Status: Chronic H/o LV thrombus seen on TTE 03/23/17-Technically sub-optimal due to poor echocardiographic windows. Echo contrast was used. Moderate-severe LV systolic dysfunction, LVEF 35%. See diagram below regarding regional wall motion abnormalities. There is a left ventricular apical thrombus measuring approximately 2 x 2 cm. Normal right ventricular size and function. No significant valvular dysfunction. No evidence of pulmonary hypertension.. On coumadin with lovenox bridging. Follows with coumadin clinic. (3) CAD (coronary artery disease) Current Visit: No Status: Chronic On 03/23/17 he underwent LHC and received PTCA to his 95% stenosed distal left circumflex artery and PTCA and MATILDE to the OM 3. There was a 70% stenosis in the proximal RCA and 80% stenosis in the mid RCA. Staged PCI was recommended. TTE revealed EF 35%. He was also found to have LV thrombus. Continue asa, brilinta, statin, bb. DAPT uninterrupted for minimum of one year. Cardiac rehab consult. Likely not a candidate due to debilitation. Qualifiers: Coronary Disease-Associated Artery/Lesion type: [place] artery [place] vs. transplanted heart: [place] heart Associated angina: angina presence unspecified Qualified Code(s): I25.10 - Atherosclerotic heart disease of [place] coronary artery without angina pectoris (4) Systolic heart failure Current Visit: No Status: Chronic EF 35%. Currently euvolemic. Change lopressor to toprol xl. Continue lisinopril. Will repeat TTE to re-assess LV function, it is s/p > 45 days from STEMI. Qualifiers: Heart failure chronicity: chronic Qualified Code(s): I50.22 - Chronic systolic (congestive) heart failure Discussion w patient/family: The assessment and plan as outlined above was discussed with the patient and/or family members who expressed understanding and agreement. All questions were answered. Thank you for involving us in the care of your patient. Please call with any questions. History of Present Illness Consult date: 05/06/17 Requesting physician: Lynnette Madrid Consult reason: Chest pain Chief complaint: Chest pain History of present illness: Mr. Ryder is a 47 year old male with a history of STEMI 03/23/17, LV thrombus on coumadin, HTN, seizures, and cerebral palsey who presents with chest pain. He c/ o midsternal chest pain that started at 2200 last night. The pain was sharp, left sided, and radiated to his sternum. He was laying in his bed at the time. His family tried to talk to him but he was unable to talk through the pain. He states that it was the same pain he felt with his RI one month ago. He was scheduled to undergo LHC on tuesday05/09/17 for staged PCI to his RCA. On 03/23/17 he underwent LHC and received PTCA to his 95% stenosed distal left circumflex artery and PTCA and MATILDE to the OM 3. There was a 70% stenosis in the proximal RCA and 80% stenosis in the mid RCA. Staged PCI was recommended. TTE revealed EF 35%. He was also found to have LV thrombus. He was started on coumadin therapy and now follows with coumadin clinic. He was holding his coumadin for planned procedure and taking lovenox at home. INR 1.5 today. On my exam he continued to have a constant "stabbing" pain. He denies SOB or palpitations. Denies orthopnea, PND, or edema. Past Med Surg Social Fam HX - Past Medical History Medical history: CHF, coronary artery disease, hyperlipidemia, hypertension, myocardial infarction, other Psychiatric history: no psych history - Past Surgical History Surgical History: angioplasty/stent - Social History Smoking Status: Current every day smoker Packs per day: 1.5 Smokeless Tobacco Status: No Alcohol use: none Drug use: none - Family History Mother Hx Family Neurologic Disorders: Yes (mother had brain aneurysm.) Father Hx Family Cardiac Disorders: Yes Medications and Allergies Haloperidol [Haldol] 5 mg PO BID 03/23/17 [History] Oxycodone HCl/Acetaminophen [Endocet 5-325 Tablet] 1 tab PO Q6H PRN 03/23/17 [ History] Triamcinolone Acet 0.1% CRM [Kenalog] 1 appl TP AD 03/23/17 [History] diazePAM [Valium] 2 mg PO TID PRN 03/23/17 [History] Aspirin 81 mg PO DAILY #30 tab 03/28/17 [Rx] Atorvastatin [Lipitor] 80 mg PO HS #30 tab 03/28/17 [Rx] Enoxaparin [Lovenox] 80 mg SQ Q12HR #2 syr 03/28/17 [Rx] Lisinopril [Zestril] 10 mg PO DAILY #30 03/28/17 [Rx] Metoprolol [Lopressor] 25 mg PO BID #60 tab 03/28/17 [Rx] Ticagrelor [Brilinta] 90 mg PO BID #60 tab 03/28/17 [Rx] Cyclobenzaprine [Flexeril] 10 mg PO DAILY PRN 05/06/17 [History] Warfarin [Coumadin] 4 mg PO DAILY 05/06/17 [History] 3 Allergy/AdvReac Type Severity Reaction Status Date / Time No Known Allergies Allergy Verified 01/30/17 19:40 All Systems Review: A 10-system review of systems was performed and is negative for pertinent findings except as documented above in the HPI. Physical Examination Vital Signs, Last 4 Hours Temp Pulse Resp BP Pulse Ox 05/06/17 06:45 97.4 F L 71 16 109/71 96 General: Conversant, No Apparent Distress HEENT: Atraumatic, Normocephaly, Mucus Membranes Moist Neck: No JVD, Normal carotid pulses Cardiac: Reg Rate and Rhythm, Normal S1 and S2, No Murmur Lungs: Normal Breath Sounds, No Wheeze, Rales, Rhonchi Neuro: Alert and responsive, No focal deficits noted Abdomen: Soft, Non-Tender Skin: No rashes noted on visualized skin Musculoskeletal: Other (Chest wall is tender to palpation. ) Extremities: No Clubbing, No Cyanosis, No Edema, Normal Pulses Results 05/06/17 03:41 05/06/17 03:41 Lab Results 05/06/17 05/06/17 05/06/17 03:41 03:41 03:41 WBC 3.5 L Hgb 11.0 L Hct 33.0 L Plt Count 152 INR 1.5 APTT 45.1 H Sodium 140 Potassium 3.3 L Chloride 109 Carbon Dioxide 24 BUN 8 Creatinine 0.68 L Glucose 87 Calcium 8.7 Magnesium 1.5 L Troponin I 05/06/17 05:48 WBC Hgb Hct Plt Count INR APTT Sodium Potassium Chloride Carbon Dioxide BUN Creatinine Glucose Calcium Magnesium Troponin I 0.02 - Imaging and Cardiology Echo: report reviewed Cardiac cath: report reviewed - EKG Interpretation EKG results cardiology: personally reviewed Consult Discharge Plan - Plan Referrals: Nguyễn Stubbs DO [Primary Care Provider] - (Patient is to call the office them selfs to schedule an appointment once discharged. Per office) <Paty Buenrostro - Last Filed: 05/06/17 11:41> Date of Encounter: 05/06/17 Assessment and Plan Discussion w patient/family: The assessment and plan as outlined above was discussed with the patient and/or family members who expressed understanding and agreement. All questions were answered. Thank you for involving us in the care of your patient. Please call with any questions. History of Present Illness History of present illness: Mr. Ryder is a 47 year old male All Systems Review: A 10-system review of systems was performed and is negative for pertinent findings except as documented above in the HPI. Physical Examination Vital Signs, Last 4 Hours Temp Pulse Resp BP Pulse Ox 05/06/17 11:14 97.6 F 76 16 130/83 96 05/06/17 09:49 96 Results 05/06/17 03:41 05/06/17 03:41 Lab Results 05/06/17 05/06/17 05/06/17 03:41 03:41 03:41 WBC 3.5 L Hgb 11.0 L Hct 33.0 L Plt Count 152 INR 1.5 APTT 45.1 H Sodium 140 Potassium 3.3 L Chloride 109 Carbon Dioxide 24 BUN 8 Creatinine 0.68 L Glucose 87 Calcium 8.7 Magnesium 1.5 L Troponin I 05/06/17 05:48 WBC Hgb Hct Plt Count INR APTT Sodium Potassium Chloride Carbon Dioxide BUN Creatinine Glucose Calcium Magnesium Troponin I 0.02 - Attending Attestation I examined this patient and my medical decision-making was reviewed with the Resident Physician. I agree with the documented findings, disposition and treatment plan. Mr. Ryder presents with chest pain which is somewhat atypical but reportedly similar to symptoms he had previously. Troponin negative and no concerning ECG changes. He was scheduled to undergo staged PCI 05/09/2017 to RCA after having STEMI in March s/p PCI to culprit lesions We discussed proceeding with that plan today as an inpatient given symptoms. Of note, he had an LV thrombus on echo which is being treated with coumadin. His INR today is 1.5 which will allow us to proceed with LHC and PCI. He is on heparin gtt. We will obtain Echo. The R/B/A of the procedure were discussed with the patient. Patient expresses understanding and would like to proceed with cath.
[2017-05-06] MEDS: *HR* Enoxaparin 80 MG/0.8 ML SYRINGE SQ SCH ×2 (09:43→20:51)
--- NOTE | 2017-05-06 09:56 | Internal Med Progress Note ---
<Breezy Rodriguez - Last Filed: 05/06/17 13:11> Date of Encounter: 05/06/17 Time of Encounter: 09:56 - Assessment and plan (1) Chest pain Current Visit: Yes Status: Acute Assessment and plan: - Atypical chest pain - No changes on EKG, troponin negative x2. Chest x-ray negative for acute process - Was scheduled for left heart catheterization on Tuesday and 05/09 - Cardiology evaluated this morning, who performed left heart catheterization this afternoon - Continue aspirin, brillenta, Lipitor - SHANE score of 3 Qualifiers: Chest pain type: unspecified Qualified Code(s): R07.9 - Chest pain, unspecified (2) Hypokalemia Current Visit: Yes Status: Acute Assessment and plan: - Potassium this morning 3.3, was 3.4 on admission - Given 40 mEq supplementation this morning (3) Left ventricular thrombosis Current Visit: Yes Status: Chronic Assessment and plan: - History of LV thrombus - Continue Lovenox (4) Cerebral palsy Current Visit: Yes Status: Chronic Assessment and plan: - Lower extremities affected - Stable Qualifiers: Cerebral palsy type: unspecified type Qualified Code(s): G80.9 - Cerebral palsy, unspecified (5) CAD (coronary artery disease) Current Visit: No Status: Chronic Assessment and plan: - Scheduled for left heart catheter on Tuesday, cardiology will perform this afternoon - History of 2 drug-eluting stents with [place] Qualifiers: Coronary Disease-Associated Artery/Lesion type: [place] artery [place] vs. transplanted heart: [place] heart Associated angina: angina presence unspecified Qualified Code(s): I25.10 - Atherosclerotic heart disease of [place] coronary artery without angina pectoris (6) Hypomagnesemia Current Visit: Yes Status: Acute Assessment and plan: Mg of 1.5 this AM - 2mg Ordered. (7) Tobacco abuse Current Visit: Yes Status: Chronic Assessment and plan: - Smoking cessation discussed today - Nicotine patch (8) DVT prophylaxis Current Visit: Yes Status: Acute Assessment and plan: - Lovenox for LV thrombus - Time Spent With Patient 25 - 35 minutes - Subjective Interval history: Patient was examined at bedside this morning. He states he presented due to chest pain at rest. Intermittent and not associated with exertion. Patient states nitroglycerin helps mildly. He states his pain has improved since admission and is currently at 2/10 in intensity. It is located across his chest and has no exacerbating or relieving symptoms. He denies any associated symptoms of shortness of breath, fevers, chills, diaphoresis, nausea, vomiting. - Constitutional Vitals: Temp Pulse Resp BP Pulse Ox 97.4 F L 71 16 109/71 96 05/06/17 06:45 05/06/17 06:45 05/06/17 06:45 05/06/17 06:45 05/06/17 06:45 General appearance: Present: A&O X 3, no acute distress, answers questions appropriately (bed and wheel chair bound at baseline) Exam: Gen.: Vitals noted. No acute distress. AAOx3 HEENT: PERRL/EOMI, oropharynx clear, Normocephalic, atraumatic Neck: Supple. No adenopathy. Cardiac: RRR, no murmur, +S1/S2 Pulmonary: CTA bilaterally, no wheezes, rales or rhonchi, equal chest expansion Abdomen: soft, nontender, BS noted, no guarding Back: Nontender throughout. MSK: ROM intact, no joint swelling noted Extremities: no BLE edema, nontender calf, no cyanosis or clubbing Neuro: A&Ox3, history of cerebral palsy, moves upper extremities but not lower extremities Psych: Appropriate mood and behavior Internal Medicine: Result - Labs CBC & Chem 7: 05/06/17 03:41 05/06/17 03:41 Labs: Short CBC 05/06/17 Range/Units 03:41 WBC 3.5 L (4.3-11.1) K/mcL Hgb 11.0 L (12.9-16.9) g/dL Hct 33.0 L (37.5-50.1) % Plt Count 152 (140-400) K/mcL Neutrophils # 1.6 (1.6-8.9) K/mcL BMP 05/06/17 03:41 Sodium 140 Potassium 3.3 L Chloride 109 Carbon Dioxide 24 BUN 8 Creatinine 0.68 L Glucose 87 Calcium 8.7 Cardiac Enzymes 05/06/17 Range/Units 05:48 Troponin I 0.02 (0-0.03) ng/mL - ABG Interpretation ABG results: PT/INR, D-dimer PT 15.8 Seconds (9.4-12.1) H 05/06/17 03:41 - Impressions Impressions Chest X-Ray 05/06/17 23:56 IMPRESSION: 1. No acute cardiopulmonary disease. D/ / Stevenson Guidry MD / Stevenson Guidry MD Interpreting Provider: Stevenson Guidry MD Consult Discharge Plan - Plan Referrals: Nguyễn Stubbs DO [Primary Care Provider] - (Patient is to call the office them selfs to schedule an appointment once discharged. Per office) <Pj Finnegan - Last Filed: 05/06/17 17:19> Date of Encounter: 05/06/17 - Constitutional Vitals: Temp Pulse Resp BP Pulse Ox 97.6 F 101 16 167/96 98 05/06/17 16:00 05/06/17 16:45 05/06/17 16:45 05/06/17 16:45 05/06/17 16:45 Internal Medicine: Result - Labs CBC & Chem 7: 05/06/17 03:41 05/06/17 03:41 Labs: Short CBC 05/06/17 Range/Units 03:41 WBC 3.5 L (4.3-11.1) K/mcL Hgb 11.0 L (12.9-16.9) g/dL Hct 33.0 L (37.5-50.1) % Plt Count 152 (140-400) K/mcL Neutrophils # 1.6 (1.6-8.9) K/mcL BMP 05/06/17 03:41 Sodium 140 Potassium 3.3 L Chloride 109 Carbon Dioxide 24 BUN 8 Creatinine 0.68 L Glucose 87 Calcium 8.7 Cardiac Enzymes 05/06/17 05/06/17 Range/Units 05:48 11:57 Troponin I 0.02 0.02 (0-0.03) ng/mL - ABG Interpretation ABG results: PT/INR, D-dimer PT 15.8 Seconds (9.4-12.1) H 05/06/17 03:41 - Impressions Impressions Chest X-Ray 05/06/17 23:56 IMPRESSION: 1. No acute cardiopulmonary disease. D/ / Stevenson Guidry MD / Stevenson Guidry MD Interpreting Provider: Stevenson Guidry MD - Attending Attestation This is an event note. Please do not charge for this visit (note) to the patient. I examined this patient and my medical decision-making was reviewed with the Resident Physician. I agree with the documented findings, disposition and treatment plan as described except to the extent set forth below.
[2017-05-06] MEDS ORDERED: Acetaminophen 325 MG TABLET PO PRN (11:22)
[2017-05-06] MEDS ORDERED: *HR* Midazolam HCl 2 MG/2 ML VIAL ONE ×2 (12:21→14:32)
[2017-05-06] MEDS ORDERED: Heparin 1,000 UNITS/500 mL NS 500 ML ONE (12:22)
[2017-05-06] MEDS ORDERED: 0.9 % Sodium Chloride 2,000 ML ONE (12:22)
[2017-05-06] MEDS ORDERED: Nitroglycerin 1,000 MCG/10 ML VIAL IV ONE (12:22)
[2017-05-06] MEDS ORDERED: *HR* Heparin 10,000 UNIT/10 ML VIAL ONE (12:22)
--- NOTE | 2017-05-06 13:26 | Pre-Sedation Evaluation ---
Pre-sedation evaluation - Pre-sedation checklist Date of procedure: 05/06/17 Procedure: Left heart cath Recent Vitals: Last Vital Signs Temp 97.6 F 05/06/17 11:14 Pulse 76 05/06/17 11:14 Resp 16 05/06/17 11:14 BP 130/83 05/06/17 11:14 Pulse Ox 96 05/06/17 11:14 H&P (including ROS) documented in medical record: Yes Previous reaction to sedatives/anesthetics: No Dietary Status: NPO after Midnight Airway Assessment: Patient can open mouth completely, TMJ function normal Dentition: poor dentition Possible difficult airway: Yes ASA Classification *see protocol: CLASS III-Severe systemic disease
[2017-05-06] MEDS ORDERED: *HR* Adenosine 6 MG/2 ML VIAL IVP ONE (13:48)
[2017-05-06] MEDS ORDERED: *HR* Ticagrelor 90 MG TABLET ONE (14:41)
[2017-05-06] MEDS ORDERED: 0.9 % Sodium Chloride 1,000 ML IVC SCH (15:15)
--- NOTE | 2017-05-06 15:47 | Cardiology History & Physical ---
Date of Encounter: 05/06/17 Assessment and Plan (1) Hypertension Current Visit: Yes Status: Acute The assessment and plan as outlined above was discussed with the patient and/or family members who expressed understanding and agreement. All questions were answered. (2) ST elevation (STEMI) myocardial infarction Current Visit: No Status: Acute The assessment and plan as outlined above was discussed with the patient and/or family members who expressed understanding and agreement. All questions were answered. Qualifiers: Involved coronary artery: unspecified coronary artery Qualified Code(s): I21.3 - ST elevation (STEMI) myocardial infarction of unspecified site (3) Chest pain Current Visit: Yes Status: Acute Atypical chest pain. He reports pain was like his previous PA. Troponin negative x3. No acute changes on EKG. Known CAD. S/P recent STEMI. Planning for staged PCI to the RCA next week. Due to recurrent chest pain recommend proceeding with LHC today. INR 1.5. Potassium and magnesium are being replaced by primary team. R/B/A LHC reviewed. He agrees to proceed. Qualifiers: Chest pain type: unspecified Qualified Code(s): R07.9 - Chest pain, unspecified (4) Systolic heart failure Current Visit: No Status: Chronic EF 35%. Currently euvolemic. Change lopressor to toprol xl. Continue lisinopril. Will repeat TTE to re-assess LV function, it is s/p > 45 days from STEMI. Qualifiers: Heart failure chronicity: chronic Qualified Code(s): I50.22 - Chronic systolic (congestive) heart failure History of Present Illness HPI: Mr. Ryder is a 47 year old male Past Med Surg Social Fam HX - Past Medical History Medical history: CHF, coronary artery disease, hyperlipidemia, hypertension, myocardial infarction, other Psychiatric history: no psych history - Past Surgical History Surgical History: angioplasty/stent - Social History Smoking Status: Current every day smoker Packs per day: 1.5 Smokeless Tobacco Status: No Alcohol use: none Drug use: none - Family History Mother Hx Family Neurologic Disorders: Yes (mother had brain aneurysm.) Father Hx Family Cardiac Disorders: Yes Medications and Allergies Haloperidol [Haldol] 5 mg PO BID 03/23/17 [History] Oxycodone HCl/Acetaminophen [Endocet 5-325 Tablet] 1 tab PO Q6H PRN 03/23/17 [ History] Triamcinolone Acet 0.1% CRM [Kenalog] 1 appl TP AD 03/23/17 [History] diazePAM [Valium] 2 mg PO TID PRN 03/23/17 [History] Aspirin 81 mg PO DAILY #30 tab 03/28/17 [Rx] Atorvastatin [Lipitor] 80 mg PO HS #30 tab 03/28/17 [Rx] Enoxaparin [Lovenox] 80 mg SQ Q12HR #2 syr 03/28/17 [Rx] Lisinopril [Zestril] 10 mg PO DAILY #30 03/28/17 [Rx] Metoprolol [Lopressor] 25 mg PO BID #60 tab 03/28/17 [Rx] Ticagrelor [Brilinta] 90 mg PO BID #60 tab 03/28/17 [Rx] Cyclobenzaprine [Flexeril] 10 mg PO DAILY PRN 05/06/17 [History] Warfarin [Coumadin] 4 mg PO DAILY 05/06/17 [History] 3 Allergy/AdvReac Type Severity Reaction Status Date / Time No Known Allergies Allergy Verified 01/30/17 19:40 All Systems Review: A 10-system review of systems was performed and is negative for pertinent findings except as documented above in the HPI. Physical Examination Vital Signs 05/06/17 09:49 05/06/17 11:14 Temperature 97.6 F Pulse Rate 76 Respiratory Rate 16 Blood Pressure 130/83 O2 Sat by Pulse Oximetry 96 96 HEENT: Atraumatic, Normocephaly, Mucus Membranes Moist Neck: No JVD Lungs: Normal Breath Sounds, No Wheeze, Rales, Rhonchi Results 05/06/17 03:41 05/06/17 03:41 Lab Results 05/06/17 05/06/17 05/06/17 03:41 03:41 03:41 WBC 3.5 L Hgb 11.0 L Hct 33.0 L Plt Count 152 INR 1.5 APTT 45.1 H Sodium 140 Potassium 3.3 L Chloride 109 Carbon Dioxide 24 BUN 8 Creatinine 0.68 L Glucose 87 Calcium 8.7 Magnesium 1.5 L Troponin I 05/06/17 05/06/17 05:48 11:57 WBC Hgb Hct Plt Count INR APTT Sodium Potassium Chloride Carbon Dioxide BUN Creatinine Glucose Calcium Magnesium Troponin I 0.02 0.02
[2017-05-06] MEDS ORDERED: Metoprolol XL (24 HR) Succ 25 MG TAB.ER.24H PO ONE ×2 (16:30→16:36)
[2017-05-06] MEDS: *HR* OxyCODONE/APAP 5/325 TABLET PO PRN ×2 (16:53→23:27)
[2017-05-06] MEDS: *HR* Ticagrelor 90 MG TABLET PO SCH (20:51)
[2017-05-07 05:32] LABS: Hematocrit 32.7 % (37.5-50.1); Hemoglobin 11.2 g/dL (12.9-16.9); Mean Corpuscular HGB Conc 34.3 g/dL (31.6-35.5); Mean Corpuscular Hemoglobin 32.6 pg (28.0-33.3); Mean Corpuscular Volume 95.1 fL (83.0-100.0); Mean Platelet Volume 11.1 fL (9.4-12.4); Platelet Count 155 K/mcL (140-400); Red Blood Count 3.44 M/mcL (4.19-5.50)
[2017-05-07 05:52] LABS: BUN/Creatinine Ratio 11 (6-26); Blood Urea Nitrogen 7 mg/dL (8-26); Calcium 8.1 mg/dL (8.6-10.8); Carbon Dioxide 23 mEq/L (19-29); Chloride 111 mEq/L (98-109); Glucose 118 mg/dL (70-99); Osmolality,Calculated 289 (280-300); Potassium 3.3 mEq/L (3.5-4.5); Sodium 140 mEq/L (136-145); eGFR For African Americans > 60 (> 60); eGFR For Non-African Americans > 60 (> 60)
[2017-05-07 06:37] VITALS: BP 114/79
[2017-05-07] MEDS: *HR* Ticagrelor 90 MG TABLET PO SCH (08:53)
[2017-05-07] MEDS: Nicotine 21 MG PATCH.TD24 TD SCH (08:53)
[2017-05-07] MEDS: *HR* Enoxaparin 80 MG/0.8 ML SYRINGE SQ SCH (08:54)
[2017-05-07] MEDS: *HR* OxyCODONE/APAP 5/325 TABLET PO PRN (08:54)
[2017-05-07] MEDS ORDERED: Metoprolol XL (24 HR) Succ 25 MG TAB.ER.24H PO SCH (09:00)
[2017-05-07] MEDS ORDERED: Aspirin Enteric Coated 81 MG Tablet PO SCH (09:00)
--- NOTE | 2017-05-07 10:53 | Discharge Summary ---
Date of Encounter: 05/07/17 Time of Encounter: 10:33 - Discharge Diagnosis (1) Chest pain Priority: Primary Status: Acute Qualifiers: Chest pain type: unspecified Qualified Code(s): R07.9 - Chest pain, unspecified (2) Cerebral palsy Priority: Secondary Status: Chronic Qualifiers: Cerebral palsy type: unspecified type Qualified Code(s): G80.9 - Cerebral palsy, unspecified (3) Hypokalemia Priority: Secondary Status: Acute (4) CAD (coronary artery disease) Priority: Secondary Status: Chronic Qualifiers: Coronary Disease-Associated Artery/Lesion type: [place] artery [place] vs. transplanted heart: [place] heart Associated angina: angina presence unspecified Qualified Code(s): I25.10 - Atherosclerotic heart disease of [place] coronary artery without angina pectoris (5) Tobacco abuse Priority: Secondary Status: Chronic (6) Hypertension Priority: Secondary Status: Acute Qualifiers: Hypertension type: essential hypertension Qualified Code(s): I10 - Essential (primary) hypertension - Discharge Medications Prescriptions: Nitroglycerin 0.4 mg SL Q5MIN PRN #30 tab.subl PRN Reason: Chest Pain Aspirin Enteric Coated [Aspirin EC] 81 mg PO DAILY #30 tablet. Atorvastatin [Lipitor] 80 mg PO HS #60 tablet Metoprolol XL (24 HR) Succ [Toprol Xl] 25 mg PO DAILY #60 tab.er.24h Oxycodone HCl/Acetaminophen [Endocet 5-325 Tablet] 1 tab PO Q6H PRN #7 tablet PRN Reason: Pain Ticagrelor [Brilinta] 90 mg PO BID #60 tablet Home Medications: Haloperidol [Haldol] 5 mg PO BID 03/23/17 [History] Triamcinolone Acet 0.1% CRM [Kenalog] 1 appl TP AD 03/23/17 [History] diazePAM [Valium] 2 mg PO TID PRN 03/23/17 [History] Enoxaparin [Lovenox] 80 mg SQ Q12HR #2 syr 03/28/17 [Rx] Lisinopril [Zestril] 10 mg PO DAILY #30 03/28/17 [Rx] Cyclobenzaprine [Flexeril] 10 mg PO DAILY PRN 05/06/17 [History] Warfarin [Coumadin] 4 mg PO DAILY 05/06/17 [History] Aspirin Enteric Coated [Aspirin EC] 81 mg PO DAILY #30 tablet.dr 05/07/17 [Rx] Atorvastatin [Lipitor] 80 mg PO HS #60 tablet 05/07/17 [Rx] Metoprolol XL (24 HR) Succ [Toprol Xl] 25 mg PO DAILY #60 tab.er.24h 05/07/17 [ Rx] Nitroglycerin 0.4 mg SL Q5MIN PRN #30 tab.subl 05/07/17 [Rx] Oxycodone HCl/Acetaminophen [Endocet 5-325 Tablet] 1 tab PO Q6H PRN #7 tablet [Rx] Ticagrelor [Brilinta] 90 mg PO BID #60 tablet 05/07/17 [Rx] Allergies/Adverse Reactions: 3 Allergy/AdvReac Type Severity Reaction Status Date / Time No Known Allergies Allergy Verified 01/30/17 19:40 Procedures/tests Complete & Pending: Procedures Performed prior 72 hours Category Date Time Status CL Cardiac Catheterization [CL] Routine Director Of Strategic Alliances 05/06/17 12:21 Ordered ECG 12 lead ECG [ECG] Routine Y 05/06/17 01:56 Completed EV limited echocardiogram Routine Y 05/06/17 11:40 Completed Date of admission: 05/06/17 01:56 Primary care physician: Nguyễn Stubbs Consults: 05/06/17 02:41 Consult to Cardiology [CONS] Routine Comment: Consulting Provider: Brigida Garibay Reason for Consult: s/p LHC with MATILDE placement, returns with chest pain Call Completed: No 05/06/17 10:18 Consult to Cardiac Rehabilitation-Phase1 [CONS] Routine Comment: Reason for Consult: Recent STEMI, PCI Call Completed: No Discharging clinician: Pj Finnegan - Patient Status Disposition: Home, Self-Care Condition: Fair Functional capacity at discharge: independent ambulation Overall status at discharge: patient is progressing back to baseline - Discharge Instructions Follow Up With: Nguyễn Stubbs DO [Primary Care Provider] - (Patient is to call the office them selfs to schedule an appointment once discharged. Per office) Lesly Andrews MD [Partnered Physician] - - Diet and Activity Activity: increase activity as tolerated Diet: low fat, low cholesterol Interval History: Mr. Ryder is a 47 year old male with PMH of cerebral palsy, CAD s/p MATILDE placement , LV thrombus on anticoagulation who presents to the ER for evaluation of chest pain. Pt was recently hospitalized in March 2017 for a STEMI and underwent LHC with MATILDE placement to the circumflex a. Patient is bed and wheelchair bound at baseline, lives with family. As per family, present at bedside, patient was scheduled for an outpatient LHC on Tuesday(05/09/17) and has been on Lovenox since Tue (05/04/17) instead of coumadin as per his cigarette roller's recommendation. Pt started having sharp left substernal chest pain with radiation to the neck which prompted his visit to the hospital. He took Nitro SL without any relief. He states the fentanyl and morphine he received in the ER provided him with some relief. At this time he states the pain is better controlled. Denies any shortness of breath, n/v, fever, or chills. Hospital course: Patient was hospitalized. Cardiology was consulted. Cardiology recommended left heart catheterization. Patient underwent left heart catheterization. It was noted that 2 stents were placed. Patient tolerated procedure well. Patient was started on aspirin/brilinta. Patient is known to have a left ventricular thrombus. His target INR should be 1.5-2. Patient is presently on Lovenox/Coumadin bridging therapy. In view of the patient's background history of for cerebral palsy, there was a concern regarding bleeding tendencies/fall/post fall bleeding. I spoke with hematology/oncology. Plan: Patient can be discharged today. He will go home with following medications. ASA 81 mg/Brilinta 90 mg twice a day/Toprol XL 25 mg/Lipitor 80 mg: His other medications for S/P PCI Coumadin/lovenox : Left ventricular thrombus. Follow-up with hematology oncology in next 1 week. Patient will follow up with PCP in next 1 week Patient will have follow up with cardiology in next 1-2 weeks - Time Spent with Patient Total time spent providing and/or coordinating discharge services: - Constitutional Vitals: Temp Pulse Resp BP Pulse Ox 97.8 F 81 18 114/79 97 05/07/17 06:33 05/07/17 06:33 05/07/17 06:33 05/07/17 06:33 05/07/17 06:33 General appearance: Present: A&O X 3, no acute distress, answers questions appropriately (bed and wheel chair bound at baseline) - Head Head exam: Present: atraumatic, normocephalic - Eye Eye exam: Present: PERRL, conjuntiva pink, sclera anicteric Pupils: Present: PERRL - Neck Neck exam general surgery: Present: supple, trachea midline. Absent: lymphadenopathy - Respiratory Respiratory exam: Present: CTAB. Absent: accessory muscle use, rales, rhonchi, wheezes - Cardiovascular Cardiovascular exam: Present: RRR, +S1, +S2. Absent: diastolic murmur, gallop, rubs, systolic murmur - GI/Abdominal GI/Abdominal exam: Present: normal bowel sounds, soft, no peritoneal signs. Absent: distended, tenderness - Extremities Exam Extremities exam: Present: warm, radial pulses palpable and symmetrical. Absent : calf tenderness, cyanotic, pedal edema - Neurological Exam Neurological exam: Present: CN II-XII intact, oriented X3, no focal deficits. Absent: pronater drift, facial droop, speech deficit - Skin Skin exam: Present: dry, intact
--- NOTE | 2017-05-07 13:26 | Cardiology Progress Note ---
Date of Encounter: 05/07/17 Time of Encounter: 08:50 Assessment and Plan (1) CAD (coronary artery disease) Status: Chronic On 03/23/17 he underwent LHC and received PTCA to his 95% stenosed distal left circumflex artery and PTCA and MATILDE to the OM 3. There was a 70% stenosis in the proximal RCA and 80% stenosis in the mid RCA. Staged PCI was recommended. TTE revealed EF 35%. He was also found to have LV thrombus. S/p MATILDE to the RCA yesterday. No complications. Right groin access without hematoma, redness, or drainage. Continue asa, brilinta, statin, bb. DAPT uninterrupted for minimum of one year. Patient voiced understanding. Cardiac rehab consult. Likely not a candidate due to debilitation. [facility] will coordinate out-pt f/u. Qualifiers: Coronary Disease-Associated Artery/Lesion type: [place] artery [place] vs. transplanted heart: [place] heart Associated angina: angina presence unspecified Qualified Code(s): I25.10 - Atherosclerotic heart disease of [place] coronary artery without angina pectoris (2) Chest pain Status: Acute S/p PCI to the RCA. Now chest pain free. Qualifiers: Chest pain type: unspecified Qualified Code(s): R07.9 - Chest pain, unspecified (3) Left ventricular thrombosis Status: Chronic H/o LV thrombus. Repeat TTE shows EF 45%, LV thrombus seen. TTE 03/23/17-Technically sub-optimal due to poor echocardiographic windows. Echo contrast was used. Moderate-severe LV systolic dysfunction, LVEF 35%. See diagram below regarding regional wall motion abnormalities. There is a left ventricular apical thrombus measuring approximately 2 x 2 cm. Normal right ventricular size and function. No significant valvular dysfunction. No evidence of pulmonary hypertension.On coumadin with lovenox bridging. Follows with coumadin clinic. Will need INR follow-up tuesday. (4) Systolic heart failure Status: Chronic TTE repeated. EF improved from 35% to 40-45%. No need for ICD. Currently euvolemic. Lopressor changed to toprol. Continue ale-inhibitor. Qualifiers: Heart failure chronicity: chronic Qualified Code(s): I50.22 - Chronic systolic (congestive) heart failure Discussion w patient/family: The assessment and plan as outlined above was discussed with the patient and/or family members who expressed understanding and agreement. All questions were answered. Thank you for involving us in the care of your patient. Please call with any questions. Subjective Principal diagnosis: Unstable angina, CAD Interval history: No events overnight. No problems with right groin. Objective Vital Signs Temp Pulse Resp BP Pulse Ox 05/07/17 06:33 97.8 F 81 18 114/79 97 05/07/17 03:38 97.8 F 86 18 114/77 92 05/06/17 23:21 98.9 F 108 16 135/99 92 05/06/17 19:17 98.7 F 100 16 127/87 97 05/06/17 18:00 111 16 139/78 98 05/06/17 17:38 113 16 157/107 98 05/06/17 17:00 109 16 163/91 98 05/06/17 16:45 101 16 167/96 98 05/06/17 16:30 97 16 173/109 98 05/06/17 16:15 94 16 166/106 99 05/06/17 16:00 97.6 F 92 16 141/67 99 05/06/17 15:45 87 16 148/97 94 Intake and Output 05/06/17 05/07/17 05/07/17 23:59 07:59 15:59 Intake Total 1140 / 1140 100 / 100 120 / 120 Output Total 1350 / 1350 1100 / 1100 400 / 400 Balance -210 / -210 -1000 / -1000 -280 / -280 Intake: Oral 1140 / 1140 100 / 100 120 / 120 Output: Urine 400 / 400 Catheter 1350 / 1350 1100 / 1100 Other: Meal Dinner Breakfast Percent of Meal Consumed 100% 100% # Voids 0 Weight 77.1 kg Patient Weight 05/07/17 23:59 Weight 77.1 kg General: Conversant, No Apparent Distress HEENT: Atraumatic, Normocephaly, Mucus Membranes Moist Neck: No JVD, Normal carotid pulses Cardiac: Reg Rate and Rhythm, Normal S1 and S2, No Murmur Lungs: Normal Breath Sounds, No Wheeze, Rales, Rhonchi Neuro: Alert and responsive, No focal deficits noted Abdomen: Soft, Non-Tender Skin: No rashes noted on visualized skin Musculoskeletal: No Chest Wall Tenderness, Other (Muscle jerks noted in arms , genralized weakness, immobility) Extremities: No Clubbing, No Cyanosis, No Edema, Normal Pulses, Other (right groin without hematoma. Small amount of blood noted on dressing. ) Results 05/07/17 04:39 05/07/17 04:39 Lab Results 05/07/17 05/07/17 04:39 04:39 WBC 5.5 D Hgb 11.2 L Hct 32.7 L Plt Count 155 Sodium 140 Potassium 3.3 L Chloride 111 H Carbon Dioxide 23 BUN 7 L Creatinine 0.65 L Glucose 118 H Calcium 8.1 L Chest X-Ray 05/06/17 23:56 IMPRESSION: 1. No acute cardiopulmonary disease. D/ / Stevenson Guidry MD / Stevenson Guidry MD Interpreting Provider: Stevenson Guidry MD - Imaging and Cardiology Echo: report reviewed Cardiac cath: report reviewed Consult Discharge Plan - Plan Instructions: Metoprolol (By mouth), Oxycodone/Acetaminophen (By mouth), Aspirin (By mouth), Nitroglycerin, Rapid Release (By mouth), Atorvastatin (By mouth), Ticagrelor (By mouth), Myocardial Infarction (DC), Left Heart Catheterization (DC) Referrals: Nguyễn Stubbs DO [Primary Care Provider] - (Patient is to call the office them selfs to schedule an appointment once discharged. Per office. APPOINMENT REQUEST SENT FOR ONCOLOGY AND HEMTOLOGY, REQUEST ALSO SENT FOR COUMADIN CLINIC. PATIENT NEEDS TO CALL TUESDAY TO FOLLOW UP ON APPOINMTNET STATUS ) Lesly Andrews MD [Partnered Physician] - Prescriptions: Nitroglycerin 0.4 mg SL Q5MIN PRN #30 tab.subl PRN Reason: Chest Pain Aspirin Enteric Coated [Aspirin EC] 81 mg PO DAILY #30 tablet. Atorvastatin [Lipitor] 80 mg PO HS #60 tablet Metoprolol XL (24 HR) Succ [Toprol Xl] 25 mg PO DAILY #60 tab.er.24h Oxycodone HCl/Acetaminophen [Endocet 5-325 Tablet] 1 tab PO Q6H PRN #7 tablet PRN Reason: Pain Ticagrelor [Brilinta] 90 mg PO BID #60 tablet
--- NOTE | 2017-05-09 08:36 | Electrocardiograph Report ---
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
--- NOTE | 2017-05-09 08:36 | Electrocardiograph Report ---
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
== END 2017-05-07 12:45 | disposition home or self-care (01) ==
LOC: EMEROO 23:45 → 2ANU 23:45 → 2NENU 05-06 15:54
PROVIDERS: ADMIT Internal Medicine; ATTEND Internal Medicine

== ENCOUNTER 2017-07-12 20:40 | Observation (INO) ==
--- NOTE | 2017-07-12 20:55 | Emergency Department Note ---
Disposition Clinical Impression: Chest pain Qualifiers: Chest pain type: unspecified Qualified Code(s): R07.9 - Chest pain, unspecified Disposition: Admitted As Inpatient Condition: Undetermined Referrals: Nguyễn Stubbs DO [Primary Care Provider] - Forms: ED Satisfaction Letter Time of Disposition: 22:05 Chest Pain HPI - General Chief Complaint: ED Chest Pain Stated Complaint: chest pains Time Seen by Provider: 07/12/17 20:41 Source: patient Mode of arrival: EMS Limitations: physical limitation Vital Signs Reviewed: Yes Nursing Notes Reviewed: Yes - History of Present Illness HPI Narrative: 47-year-old male with history of AZ x4 stents. The patient states that he began expressing chest pain last night and it has continued to worsen. The patient states it feels that his previous AZ. He also states he is having some associated nausea and dyspnea. He denies any fevers, chills, any other complaints at this time. The patient does have a history of what appears to be cerebral palsy after talking with the patient. He states he is on Coumadin for a history of "blood clot behind my heart". Unsure when his last INR was. The patient denies any unilateral leg swelling. He states he has been compliant with all of his medications. Pt complaint: chest pain Onset (ago): day(s) (1) Duration: constant Onset: during rest Pain Location: substernal, left chest Severity: moderate, severe Severity scale (1-10): 9 Quality: tightness Pain Radiation: LUE Improves with: nothing Worsens with: nothing Associated symptoms: Reports: nausea, dyspnea Treatments prior to arrival chest pain: aspirin, nitroglycerin (x3) - Related Data On Oral Contraceptives: No Home Medications Medication Instructions Recorded Confirmed Haloperidol [Haldol] 5 mg PO QAM 03/23/17 07/12/17 diazePAM [Valium] 2 mg PO TID PRN 03/23/17 07/12/17 Cyclobenzaprine [Flexeril] 10 mg PO TID PRN 05/06/17 07/12/17 Warfarin [Coumadin] 4 mg PO TUTH 05/06/17 07/12/17 Metoprolol [Lopressor] 25 mg PO BID 05/09/17 07/12/17 Omeprazole [PriLOSEC] 20 mg PO DAILY 05/09/17 07/12/17 Warfarin Sodium [Coumadin] 6 mg PO SUMOWEFRSA 07/12/17 07/12/17 Previous Rx's Medication Instructions Recorded Lisinopril [Zestril] 10 mg PO DAILY #30 03/28/17 Aspirin Enteric Coated [Aspirin EC] 81 mg PO DAILY #30 tablet. 05/07/17 Atorvastatin [Lipitor] 80 mg PO HS #60 tablet 05/07/17 Nitroglycerin 0.4 mg SL Q5MIN PRN #30 tab.subl 05/07/17 Oxycodone HCl/Acetaminophen 1 tab PO Q6H PRN #7 tablet 05/07/17 [Endocet 5-325 Tablet] Clopidogrel [Plavix] 75 mg PO DAILY #30 tablet 05/11/17 Allergies Allergy/AdvReac Type Severity Reaction Status Date / Time No Known Allergies Allergy Verified 01/30/17 19:40 All systems ED: reviewed and negative except as stated. Constitutional: Denies: fever, chills, weakness ENT ED: Denies: ear pain Cardiovascular: Reports: chest pain, dyspnea on exertion. Denies: edema, syncope Respiratory: Reports: dyspnea. Denies: cough, wheezes Gastrointestinal: Reports: nausea. Denies: abdominal pain, vomiting, diarrhea, constipation, hematemesis, melena, hematochezia Musculoskeletal: Denies: back pain, neck pain, arthralgia, myalgia Neurological: Denies: headache, weakness Chest Pain PMH - Past Medical History Medical history: Reports: cardiomyopathy, CHF, coronary artery disease, hyperlipidemia, hypertension, myocardial infarction, other Surgical history: Reports: angioplasty/stent Psychiatric history: Reports: no psych history Prior Cardiac Testing/Procedures: Stenting - Social History Smoking Status: Never smoker Alcohol use: Reports: none Drug use: Reports: none Physical Exam - General Limitations: physical limitation General appearance: alert, in no apparent distress - Head Head exam: atraumatic, normocephalic, normal inspection - Eye Eye exam: Present: normal appearance, PERRL, EOMI - ENT ENT exam: normal exam, normal oropharynx, mucous membranes moist - Neck Neck exam: Present: normal inspection, full ROM, trachea midline - Chest Chest inspection: Present: normal inspection, symmetric chest wall rise - Respiratory Respiratory exam: Present: normal lung sounds bilaterally - Cardiovascular Cardiovascular exam: Present: regular rate, normal rhythm, normal heart sounds - Abdominal Exam Abdominal exam: Present: soft, Non-Tender. Absent: tenderness, distention, guarding, rebound, rigidity - Extremities Exam Extremities exam: Present: other (Patient has atrophy of bilateral lower extremities at his baseline.) Course Vital Signs Temperature 99 F 07/12/17 20:41 Pulse Rate 99 07/12/17 20:41 Respiratory Rate 16 07/12/17 20:41 Blood Pressure 117/89 07/12/17 20:41 O2 Sat by Pulse Oximetry 100 07/12/17 20:41 Temperature 99 F 07/12/17 20:41 Pulse Rate 87 07/12/17 21:54 Respiratory Rate 18 07/12/17 21:54 Blood Pressure 112/84 07/12/17 21:54 O2 Sat by Pulse Oximetry 100 07/12/17 21:54 Oxygen Delivery Oxygen Delivery Nasal Cannula Chest Pain - MDM Narrative Medical decision making narrative: His workup here in the emergency department demonstrates no acute process. The patient states this pain feels very similar to his previous AZ. EKG demonstrates no acute process. The patient experienced chest pain despite receiving nitroglycerin. He did receive aspirin in route. The patient will be admitted to the hospitalist. I do not feel as though this is an acute AZ but I am concerned about worsening unstable angina. The patient is on Coumadin at this time for history of "blood clot" we will admit him to the hospitalist service at this time. Accepted by Dr. Martin. - Medical Records Medical records reviewed: Yes I reviewed the patient's medical records. - Lab Data Lab results reviewed: Yes I reviewed the patient's lab results. Result diagrams: 07/12/17 20:58 07/12/17 20:58 Lab Results 07/12/17 07/12/17 07/12/17 Range/Units 20:58 20:58 20:58 WBC 6.4 (4.3-11.1) K/mcL RBC 4.57 (4.19-5.50) M/mcL Hgb 14.6 (12.9-16.9) g/dL Hct 44.1 (37.5-50.1) % MCV 96.5 (83.0-100.0) fL MCH 31.9 (28.0-33.3) pg MCHC 33.1 (31.6-35.5) g/dL RDW 12.6 (11.5-14.5) % Plt Count 168 (140-400) K/mcL MPV 10.0 (9.4-12.4) fL Immature Gran % 0.2 (0-4) % Seg Neutrophils % 39.5 % Lymphocytes % 33.1 % Monocytes % 9.8 % Eosinophils % 16.3 % Basophils % 1.1 % Neutrophils # 2.5 (1.6-8.9) K/mcL Lymphocytes # 2.1 (0.6-4.6) K/mcL Monocytes # 0.6 (0.0-1.3) K/mcL Eosinophils # 1.0 H (0.0-0.6) K/mcL Basophils # 0.1 (0.0-0.2) K/mcL PT 19.6 H (9.4-12.1) Seconds INR 1.8 APTT 37.7 H (26.0-36.0) Seconds Sodium 139 (136-145) mEq/L Potassium 4.0 (3.5-4.5) mEq/L Chloride 104 (98-109) mEq/L Carbon Dioxide 27 (19-29) mEq/L BUN 8 (8-26) mg/dL Creatinine 0.72 (0.72-1.25) mg/dL Est GFR ( Amer) > 60 (> 60) Est GFR (Non-Af Amer) > 60 (> 60) BUN/Creatinine Ratio 11 (6-26) Glucose 92 (70-99) mg/dL Calculated Osmolality 286 (280-300) Calcium 9.7 (8.6-10.8) mg/dL Troponin I (0-0.03) ng/mL 07/12/17 Range/Units 20:58 WBC (4.3-11.1) K/mcL RBC (4.19-5.50) M/mcL Hgb (12.9-16.9) g/dL Hct (37.5-50.1) % MCV (83.0-100.0) fL MCH (28.0-33.3) pg MCHC (31.6-35.5) g/dL RDW (11.5-14.5) % Plt Count (140-400) K/mcL MPV (9.4-12.4) fL Immature Gran % (0-4) % Seg Neutrophils % % Lymphocytes % % Monocytes % % Eosinophils % % Basophils % % Neutrophils # (1.6-8.9) K/mcL Lymphocytes # (0.6-4.6) K/mcL Monocytes # (0.0-1.3) K/mcL Eosinophils # (0.0-0.6) K/mcL Basophils # (0.0-0.2) K/mcL PT (9.4-12.1) Seconds INR APTT (26.0-36.0) Seconds Sodium (136-145) mEq/L Potassium (3.5-4.5) mEq/L Chloride (98-109) mEq/L Carbon Dioxide (19-29) mEq/L BUN (8-26) mg/dL Creatinine (0.72-1.25) mg/dL Est GFR ( Amer) (> 60) Est GFR (Non-Af Amer) (> 60) BUN/Creatinine Ratio (6-26) Glucose (70-99) mg/dL Calculated Osmolality (280-300) Calcium (8.6-10.8) mg/dL Troponin I 0.01 (0-0.03) ng/mL - Radiology Data Radiology results reviewed: Yes I reviewed the patient's radiology results. - EKG Data EKG attestation: Yes I reviewed and interpreted this EKG. EKG results narrative: Heart rate 10 1 bpm. DC interval 140 ms. QTc 387 ms. Normal axis. Normal sinus rhythm. No ST elevation or ST depression noted.
[2017-07-12 21:06] LABS: Basophils # 0.1 K/mcL (0.0-0.2); Basophils % 1.1 %; Eosinophils % 16.3 %; Hematocrit 44.1 % (37.5-50.1); Hemoglobin 14.6 g/dL (12.9-16.9); Immature Granulocytes % 0.2 % (0-4); Lymphocytes # 2.1 K/mcL (0.6-4.6); Lymphocytes % 33.1 %; Mean Corpuscular HGB Conc 33.1 g/dL (31.6-35.5); Mean Corpuscular Hemoglobin 31.9 pg (28.0-33.3); Mean Corpuscular Volume 96.5 fL (83.0-100.0); Monocytes # 0.6 K/mcL (0.0-1.3); Monocytes % 9.8 %; Neutrophils # 2.5 K/mcL (1.6-8.9); Platelet Count 168 K/mcL (140-400); Red Blood Count 4.57 M/mcL (4.19-5.50); Red Cell Distribution Width 12.6 % (11.5-14.5); Segmented Neutrophils % 39.5 %
[2017-07-12 21:13] LABS: INR 1.8; Prothrombin Time 19.6 Seconds (9.4-12.1)
--- NOTE | 2017-07-12 21:14 | Emergency Department Note ---
START Narrative - START START: I examined this patient and my medical decision-making was reviewed with the Resident Physician. I agree with the documented findings, disposition and treatment plan as described except to the extent set forth below. 47 year old male presents ot the ED with complaints of midsternal chest pain and has a history of 4 stents. Toñito states that this feeels similar ot his previous MIsin the past and appears to also have a history of cerebral palsy. Toñito statest aht he has had exertional dyspnea with it and nausea. He is currently on coumadin for blood clots behind his heart although he is unsure of his last INR Toñito is stable in the room currently, no new ishcemic changes on EKG and is chest pain free now. WE will treat him with an ASA and admit to medicne.
[2017-07-12 21:15] LABS: Activated Partial Thrombo Time 37.7 Seconds (26.0-36.0)
[2017-07-12 21:19] LABS: BUN/Creatinine Ratio 11 (6-26); Blood Urea Nitrogen 8 mg/dL (8-26); Calcium 9.7 mg/dL (8.6-10.8); Carbon Dioxide 27 mEq/L (19-29); Chloride 104 mEq/L (98-109); Glucose 92 mg/dL (70-99); Osmolality,Calculated 286 (280-300); Sodium 139 mEq/L (136-145); eGFR For African Americans > 60 (> 60); eGFR For Non-African Americans > 60 (> 60)
[2017-07-12] MEDS ORDERED: *HR* Morphine 2 MG/ML SYRINGE IVP ONE (21:28)
--- NOTE | 2017-07-13 00:03 | Internal Med History&Physical ---
Date of Encounter: 07/13/17 Time of Encounter: 00:03 Assessment and Plan (1) Unstable angina Current visit: Yes Status: Acute EKG shows 0.[address] deprssion in inferolat leads unchanged from previous. first roponin normal. I will start the patient on heparin. nitrates and opiates for pain control. Serial troponin. Cardiology to see. (2) LV (left ventricular) mural thrombus Current visit: Yes Status: Acute LV thrombus diagnosed 2 month ago. Continue anticoagulants. (3) Cerebral palsy Current visit: Yes Status: Acute Qualifiers: Qualified Code(s): G80.9 - Cerebral palsy, unspecified Internal Medicine - H&P: HPI Chief complaint: chest pain History of present illness: Mr. Ryder is a 47 year old male with a history of cerebral palsy, LB thrombus on anticoagulant Coumadin and history of coronary artery disease status post prior PCI to the proximal RCA proximal LAD, mid circ and most recently and more recently had PCI 2 months ago to the distal circumflex presents to the emergency room today with a main complian of chest pain. Since yesterday patient started experiencing retrosternal chest pain intermittently. However this pain has been lasting for longer durations were decided to come to the ER. Patient still having ongoing pain during my interview that has been there for one hour. Mention that this symptom is similar to the prior symptom that prompted coronary intervention. Past Med Surg Social Fam HX - Past Medical History Medical history: cardiomyopathy, CHF, coronary artery disease, hyperlipidemia, hypertension, myocardial infarction, other Psychiatric history: no psych history - Past Surgical History Surgical History: angioplasty/stent - Social History Smoking Status: Former smoker Smokeless Tobacco Status: No Alcohol use: none Drug use: none - Family History Mother Living Status: Hx Family Neurologic Disorders: Yes Father Living Status: Hx Family Cardiac Disorders: Yes Internal Medicine - H&P: Meds Haloperidol [Haldol] 5 mg PO QAM 03/23/17 [History] diazePAM [Valium] 2 mg PO TID PRN 03/23/17 [History] Lisinopril [Zestril] 10 mg PO DAILY #30 03/28/17 [Rx] Cyclobenzaprine [Flexeril] 10 mg PO TID PRN 05/06/17 [History] Warfarin [Coumadin] 4 mg PO TUTH 05/06/17 [History] Aspirin Enteric Coated [Aspirin EC] 81 mg PO DAILY #30 tablet. 05/07/17 [Rx] Atorvastatin [Lipitor] 80 mg PO HS #60 tablet 05/07/17 [Rx] Nitroglycerin 0.4 mg SL Q5MIN PRN #30 tab.subl 05/07/17 [Rx] Oxycodone HCl/Acetaminophen [Endocet 5-325 Tablet] 1 tab PO Q6H PRN #7 tablet [Rx] Metoprolol [Lopressor] 25 mg PO BID 05/09/17 [History] Omeprazole [PriLOSEC] 20 mg PO DAILY 05/09/17 [History] Clopidogrel [Plavix] 75 mg PO DAILY #30 tablet 05/11/17 [Rx] Warfarin Sodium [Coumadin] 6 mg PO SUMOWEFRSA 07/12/17 [History] 3 Allergy/AdvReac Type Severity Reaction Status Date / Time No Known Allergies Allergy Verified 01/30/17 19:40 All Systems PM: A 10-system review of systems was performed and is negative for pertinent findings except as documented above in the HPI. Review of systems: 10 point review of systems is negative except for HPI - Constitutional Vitals: Temp Pulse Resp BP Pulse Ox 97.7 F 75 16 102/68 98 07/12/17 22:35 07/12/17 22:35 07/12/17 22:35 07/12/17 22:35 07/12/17 22:35 Exam: Gen.: patient is alert oriented times 3 cardiac: normal S1 S2 no additional sounds or murmurs chest: no active wheezing or bronchial breathing abdomen soft nontender nondistended normal bowel sounds lower extremity no swelling. Neuro: no new focal deficits Internal Med - H&P Results - Labs CBC & Chem 7: 07/12/17 20:58 07/12/17 20:58
[2017-07-13] MEDS ORDERED: diazePAM 2 MG TABLET PO PRN (00:24)
[2017-07-13] MEDS ORDERED: Nitroglycerin 0.4 MG TAB.SUBL SL PRN (00:24)
[2017-07-13] MEDS ORDERED: Nitroglycerin 0.4 MG TAB.SUBL SL ONE (00:46)
[2017-07-13] MEDS: *HR* Enoxaparin 40 MG/0.4 ML SYRINGE SQ ONE ×2 (00:49→00:59)
[2017-07-13] MEDS ORDERED: *HR* Enoxaparin 80 MG/0.8 ML SYRINGE SQ ONE (01:00)
[2017-07-13 05:05] LABS: Bilirubin,Urine Negative (Negative); Blood,Urine Negative (Negative); Clarity,Urine Clear (Clear); Color,Urine Yellow (Yellow); Glucose,Urine (UA) Normal (Normal); Ketones,Urine Negative (Negative); Leukocyte Esterase,Urine Negative (Negative); Nitrite,Urine Negative (Negative); Protein,Urine Negative (Neg-Trace); Specific Gravity,Urine 1.014 (1.010-1.025)
[2017-07-13] MEDS ORDERED: *HR* Heparin 5,000 UNIT/ML VIAL IVP PRN ×2 (08:34)
[2017-07-13] MEDS: Aspirin Enteric Coated 81 MG Tablet PO SCH (09:08)
--- NOTE | 2017-07-13 09:08 | Event Note ---
Date of Encounter: 07/13/17 Time of Encounter: 08:48 47 M evaluated at bedside. patient admits to substernal chest pain. he denies nausea, vomiting, diarrhea, fever, chills, shortness of breath. he does admit to substernal chest pain. he denies any further issues today. Physical Exam: General: alert and oriented x3, mild distress. Appears drowsy. Cachectic. CV: RRR, no murmurs, rubs, gallops Lungs: CTAB ABdomen: soft, non distended, non tender, positive bowel sounds. Extremities: no cyanosis/ Edema. muscles appear hypotonic. Assessment/Plan: 1. Unstable Angina EKG with ST depression in inferolateral leads consistent with old EKG. tropes x2 normal. CXR showed no acute abnormality patient received therapeutic lovenox upon arrival. Plan: started low dose heparin gtt without bolus lipid panel pending ASA, statin, BB, pain control PRN nitroglycerin cardio consult-appreciate recs. 2. LV mural thrombus INR today 1.8 hold warfarin, continue heparin gtt 3. Cerebral palsy 4. CAD Hx of PCI with stent to prox/mid RCA, proximal LAD, mid circumflex. last PCI on 05/10/17 with MATILDE to distal circumflex. Plan: continue ASA, high intensity statin, BB 5. DVT prophylaxis hold warfarin, continue heparin gtt for now.
[2017-07-13] MEDS: Heparin 25,000 UNIT/500 ML D5W 25,000 UNIT/500 ML MLS IVC SCH (09:09)
[2017-07-13] MEDS: *HR* OxyCODONE/APAP 5/325 TABLET PO PRN ×2 (09:10→17:19)
[2017-07-13 09:14] LABS: Hematocrit 42.2 % (37.5-50.1); Hemoglobin 13.8 g/dL (12.9-16.9); INR 2.1; Mean Corpuscular HGB Conc 32.7 g/dL (31.6-35.5); Mean Corpuscular Hemoglobin 32.2 pg (28.0-33.3); Mean Corpuscular Volume 98.6 fL (83.0-100.0); Mean Platelet Volume 10.6 fL (9.4-12.4); Platelet Count 135 K/mcL (140-400); Prothrombin Time 22.5 Seconds (9.4-12.1); Red Blood Count 4.28 M/mcL (4.19-5.50); Red Cell Distribution Width 12.7 % (11.5-14.5)
[2017-07-13 09:16] LABS: Activated Partial Thrombo Time 42.8 Seconds (26.0-36.0)
[2017-07-13 09:30] LABS: Chol/HDL Ratio 5.5 (0-4.9)
--- NOTE | 2017-07-13 11:37 | Cardiology Consult Note ---
<Mika Carnes R - Last Filed: 07/13/17 12:27> Date of Encounter: 07/13/17 Time of Encounter: 11:34 Assessment and Plan (1) Chest pain Current Visit: Yes Status: Acute Atypical--intermittent, not exacerbating by anything particular. Pain reproducible on palpation, relieved with pain meds, no effect from nitro. Troponins negative x 3. EKG unchanged from baseline. Given his significant CAD hx, recommend stress test in AM to rule out ischemic cause. [facility] 05/10/17 triple vessel CAD. Successful PTCA/MATILDE to distal circ. Previously stented prox-mid RCA, pLAD and mLCx patent. Continue to follow. Check limited echo to re-evaluate EF and LV thrombus. EF 40-45% on echo 05/06/17. I will discuss all the above with Dr. Gorman and make changes as necessary. Qualifiers: Chest pain type: unspecified Qualified Code(s): R07.9 - Chest pain, unspecified (2) Cardiomyopathy Current Visit: Yes Status: Chronic Known ICMP--EF 40-45% 05/06/17 with LV thrombus. Euvolemic on exam. Continue BB. No ACEi due to hypotension. Qualifiers: Cardiomyopathy type: ischemic Qualified Code(s): I25.5 - Ischemic cardiomyopathy (3) CAD (coronary artery disease) Current Visit: No Status: Chronic As above, hx of PCI as recent as 05/10/17. Continue ASA, Statin, Plavix, BB. Qualifiers: Coronary Disease-Associated Artery/Lesion type: [place] artery [place] vs. transplanted heart: [place] heart Associated angina: angina presence unspecified Qualified Code(s): I25.10 - Atherosclerotic heart disease of [place] coronary artery without angina pectoris (4) LV (left ventricular) mural thrombus Current Visit: Yes Status: Acute LV thrombus initially noted on echo 03/2017 at time of STEMI. Still present on echo 05/06. Anticoagulated on Coumadin, managed by [facility]. INR 2.2. Coumadin on hold pending ischemic evaluation. On heparin gtt for bridging. Recheck limited echo. Discussion w patient/family: The assessment and plan as outlined above was discussed with the patient and/or family members who expressed understanding and agreement. All questions were answered. Thank you for involving us in the care of your patient. Please call with any questions. I will discuss all the above with Dr. Gorman and make changes as necessary. History of Present Illness Consult date: 07/13/17 Requesting physician: Haja Andre Consult reason: chest pain Chief complaint: chest pain History of present illness: Mr. Ryder is a 47 year old male with a history of STEMI 03/23/17, LV thrombus on coumadin, HTN, seizures, and cerebral palsey who presents with chest pain. Since yesterday patient started experiencing retrosternal chest pain intermittently. He states chest pain is different than prior anginal equivalent , relieved with pain medications, not improved with nitro. Troponins have been negative x 3. No EKG changes. Previous testing: TTE 05/06/17: EF 45%. LV thrombus present. [facility] 05/06/17: s/p PCI to the RCA. Flow wire to OM and Lcx and both patent. [facility] 03/23/17: Received PTCA to his 95% stenosed distal left circumflex artery and PTCA and MATILDE to the OM 3. There was a 70% stenosis in the proximal RCA and 80% stenosis in the mid RCA. Staged PCI was recommended. TTE revealed EF 35%. He was also found to have LV thrombus. He was started on coumadin therapy and now follows with coumadin clinic. He was holding his coumadin for planned procedure and taking lovenox at home. INR 1.5 today. TTE 03/23/17-Technically sub-optimal due to poor echocardiographic windows. Echo contrast was used. Moderate-severe LV systolic dysfunction, LVEF 35%. See diagram below regarding regional wall motion abnormalities. There is a left ventricular apical thrombus measuring approximately 2 x 2 cm. Normal right ventricular size and function. No significant valvular dysfunction. No evidence of pulmonary hypertension. Past Med Surg Social Fam HX - Past Medical History Medical history: cardiomyopathy, CHF, coronary artery disease, hyperlipidemia, hypertension, myocardial infarction, other Psychiatric history: no psych history - Past Surgical History Surgical History: angioplasty/stent - Social History Smoking Status: Never smoker Smokeless Tobacco Status: No Alcohol use: none Drug use: none - Family History Mother Living Status: Hx Family Neurologic Disorders: Yes Father Living Status: Hx Family Cardiac Disorders: Yes Medications and Allergies Haloperidol [Haldol] 5 mg PO QAM 03/23/17 [History] diazePAM [Valium] 2 mg PO TID PRN 03/23/17 [History] Lisinopril [Zestril] 10 mg PO DAILY #30 03/28/17 [Rx] Cyclobenzaprine [Flexeril] 10 mg PO TID PRN 05/06/17 [History] Warfarin [Coumadin] 4 mg PO TUTH 05/06/17 [History] Aspirin Enteric Coated [Aspirin EC] 81 mg PO DAILY #30 tablet.dr 05/07/17 [Rx] Atorvastatin [Lipitor] 80 mg PO HS #60 tablet 05/07/17 [Rx] Nitroglycerin 0.4 mg SL Q5MIN PRN #30 tab.subl 05/07/17 [Rx] Oxycodone HCl/Acetaminophen [Endocet 5-325 Tablet] 1 tab PO Q6H PRN #7 tablet [Rx] Metoprolol [Lopressor] 25 mg PO BID 05/09/17 [History] Omeprazole [PriLOSEC] 20 mg PO DAILY 05/09/17 [History] Clopidogrel [Plavix] 75 mg PO DAILY #30 tablet 05/11/17 [Rx] Warfarin Sodium [Coumadin] 6 mg PO SUMOWEFRSA 07/12/17 [History] 3 Allergy/AdvReac Type Severity Reaction Status Date / Time No Known Allergies Allergy Verified 01/30/17 19:40 All Systems Review: A 10-system review of systems was performed and is negative for pertinent findings except as documented above in the HPI. - Cardiovascular Cardiovascular: as per HPI, chest pain at rest, chest pain with exertion Physical Examination Vital Signs Temp Pulse Resp BP Pulse Ox 07/13/17 11:50 98.1 F 69 20 92/58 95 07/13/17 07:32 98.2 F 77 14 107/69 96 07/13/17 03:46 97.5 F L 82 14 94/61 93 07/13/17 01:17 88 99/65 07/12/17 22:35 97.7 F 75 16 102/68 98 07/12/17 22:17 16 108/79 07/12/17 21:54 87 18 112/84 100 07/12/17 20:41 99 F 99 16 117/89 100 Intake and Output 07/12/17 07/13/17 07/13/17 23:59 07:59 15:59 Output Total 870 / 870 400 / 400 Balance -870 / -870 -400 / -400 Output: Urine 870 / 870 Urethral (Gray) 870 / 870 Catheter 400 / 400 Other: Weight 72.802 kg 72.9 kg Patient Weight 07/13/17 23:59 Weight 72.9 kg General: Conversant, No Apparent Distress HEENT: Atraumatic, Normocephaly, Mucus Membranes Moist Neck: No JVD, Normal carotid pulses Cardiac: Reg Rate and Rhythm, Normal S1 and S2, No Murmur Lungs: Normal Breath Sounds, No Wheeze, Rales, Rhonchi Neuro: Alert and responsive, No focal deficits noted Abdomen: Soft, Non-Tender Skin: No rashes noted on visualized skin Musculoskeletal: Other (chest tenderness on palpation) Extremities: No Clubbing, No Cyanosis, No Edema, Normal Pulses Results 07/13/17 08:54 07/12/17 20:58 Lab Results 07/13/17 07/13/17 07/13/17 04:46 04:46 08:54 WBC 5.3 Hgb 13.8 Hct 42.2 Plt Count 135 L INR APTT D-Dimer 434 Troponin I 0.02 07/13/17 08:54 WBC Hgb Hct Plt Count INR 2.1 APTT 42.8 H D-Dimer Troponin I Short CBC 07/13/17 07/12/17 Range/Units 08:54 20:58 WBC 5.3 6.4 (4.3-11.1) K/mcL Hgb 13.8 14.6 (12.9-16.9) g/dL Hct 42.2 44.1 (37.5-50.1) % Plt Count 135 L 168 (140-400) K/mcL Neutrophils # 2.5 (1.6-8.9) K/mcL BMP 07/12/17 Range/Units 20:58 Sodium 139 (136-145) mEq/L Potassium 4.0 (3.5-4.5) mEq/L Chloride 104 (98-109) mEq/L Carbon Dioxide 27 (19-29) mEq/L BUN 8 (8-26) mg/dL Creatinine 0.72 (0.72-1.25) mg/dL Glucose 92 (70-99) mg/dL Calcium 9.7 (8.6-10.8) mg/dL Cardiac Enzymes 07/13/17 07/13/17 07/12/17 Range/Units 11:20 04:46 20:58 Troponin I 0.01 0.02 0.01 (0-0.03) ng/mL Urine 07/13/17 Range/Units 03:16 Urine Color Yellow (Yellow) Urine Clarity Clear (Clear) Urine pH 7.0 (5.0-8.0) pH Units Ur Specific [place] 1.014 (1.010-1.025) Urine Protein Negative (Neg-Trace) mg/dL Urine Glucose (UA) Normal (Normal) mg/dL Impressions Chest X-Ray 07/12/17 20:42 IMPRESSION: No acute abnormality detected. D/ / Juan J Garcia MD / Juan J Garcia MD Interpreting Provider: Juan J Garcia MD Active Medications Aspirin (Aspirin Ec) 81 mg PO DAILY [facility] Stop: 01/12/18 09:01 Last Admin: 07/13/17 09:08 Dose: 81 mg Atorvastatin Calcium (Lipitor) 80 mg PO HS [facility] Stop: 01/12/18 21:01 Clopidogrel Bisulfate (Plavix) 75 mg PO DAILY [facility] Stop: 01/12/18 09:01 Last Admin: 07/13/17 09:08 Dose: 75 mg Cyclobenzaprine HCl (Flexeril) 10 mg PO TID PRN PRN Reason: Muscle Spasm Stop: 01/12/18 00:25 Diazepam (Valium) 2 mg PO TID PRN PRN Reason: Anxiety/Agitation Stop: 01/12/18 00:25 Haloperidol (Haldol) 5 mg PO QAM [facility] Stop: 01/12/18 09:01 Last Admin: 07/13/17 09:08 Dose: 5 mg Heparin Sodium (Porcine) (Heparin) 4,000 unit IVP Q6HR PRN PRN Reason: SEE COMMENTS Stop: 01/12/18 08:35 Heparin Sodium (Porcine) (Heparin) 2,000 unit IVP Q6H PRN PRN Reason: SEE COMMENTS Stop: 01/12/18 08:35 Heparin Sodium/Dextrose (Heparin 25,000 Unit/500 Ml D5w) 25,000 unit in 500 mls @ 17.496 mls/hr IVC .Q24H [facility]; 12 UNIT/KG/HR PRN Reason: Protocol Stop: 01/12/18 08:46 Last Admin: 07/13/17 09:09 Dose: 12 unit/kg/hr, 17.496 mls/hr Metoprolol Tartrate (Lopressor) 25 mg PO BID [facility] Stop: 01/12/18 09:01 Last Admin: 07/13/17 09:08 Dose: 25 mg Morphine Sulfate (Morphine Sulfate) 2 mg IVP Q4HR PRN PRN Reason: Moderate Pain Stop: 01/12/18 00:37 Nitroglycerin (Nitroglycerin) 0.4 mg SL Q5MIN PRN PRN Reason: Chest Pain Stop: 01/12/18 00:25 Last Admin: 07/13/17 09:08 Dose: 0.4 mg Omeprazole (Prilosec) 20 mg PO DAILY [facility] PRN Reason: Protocol Stop: 01/12/18 09:01 Last Admin: 07/13/17 09:08 Dose: 20 mg Oxycodone/Acetaminophen (Percocet 5/325) 1 each PO Q6H PRN PRN Reason: Pain Stop: 01/12/18 00:25 Last Admin: 07/13/17 09:10 Dose: 1 each - Imaging and Cardiology Echo: report reviewed Cardiac cath: report reviewed - EKG Interpretation EKG results cardiology: personally reviewed (unchanged from previous) Consult Discharge Plan - Plan Referrals: Nguyễn Stubbs DO [Primary Care Provider] - <Scottie Gorman - Last Filed: 07/13/17 17:11> Date of Encounter: 07/13/17 - Attending Attestation 47-year-old male with history of coronary artery disease status post PCI to his circumflex and RCA presents with recurrent chest pain however concerning for the patient waxing waning nonradiating retrosternal dull aching. No specific aggravating or relieving factors identified initial cardiac markers unremarkable and EKG unchanged. Last ejection fraction was 40-45% documented above. We will review his recent left heart catheter and confirmed complete revascularization. If so we will consider a stress test to rule out ischemia and reassess his ejection fraction. Assessment and Plan Discussion w patient/family: The assessment and plan as outlined above was discussed with the patient and/or family members who expressed understanding and agreement. All questions were answered. Thank you for involving us in the care of your patient. Please call with any questions. History of Present Illness History of present illness: Mr. Ryder is a 47 year old male All Systems Review: A 10-system review of systems was performed and is negative for pertinent findings except as documented above in the HPI. Physical Examination Vital Signs, Last 4 Hours Temp Pulse Resp BP Pulse Ox 07/13/17 15:56 97.9 F 70 16 97/61 96 Results 07/13/17 08:54 07/12/17 20:58 Lab Results 07/13/17 07/13/17 07/13/17 04:46 04:46 08:54 WBC 5.3 Hgb 13.8 Hct 42.2 Plt Count 135 L INR APTT D-Dimer 434 Troponin I 0.02 07/13/17 07/13/17 07/13/17 08:54 11:20 11:20 WBC Hgb Hct Plt Count INR 2.1 APTT 42.8 H 68.5 H D D-Dimer Troponin I 0.01 07/13/17 15:54 WBC Hgb Hct Plt Count INR APTT 80.4 H D-Dimer Troponin I
[2017-07-13] MEDS ORDERED: Perflutren Lipid Microsphere 1.3 ML in 0.9 % Sodium Chloride 8.7 ML IVP ONE (15:52)
[2017-07-13] MEDS ORDERED: Nicotine 14 MG PATCH.TD24 TD SCH (20:00)
[2017-07-13] MEDS: *HR* Morphine 2 MG/ML SYRINGE IVP PRN (20:59)
[2017-07-14 06:02] LABS: Basophils % 0.7 %; Eosinophils % 15.7 %; Hematocrit 40.3 % (37.5-50.1); Hemoglobin 13.5 g/dL (12.9-16.9); Immature Granulocytes % 0.2 % (0-4); Lymphocytes # 1.8 K/mcL (0.6-4.6); Lymphocytes % 29.7 %; Mean Corpuscular HGB Conc 33.5 g/dL (31.6-35.5); Mean Corpuscular Hemoglobin 31.9 pg (28.0-33.3); Mean Corpuscular Volume 95.3 fL (83.0-100.0); Mean Platelet Volume 10.9 fL (9.4-12.4); Monocytes # 0.5 K/mcL (0.0-1.3); Monocytes % 8.2 %; Neutrophils # 2.8 K/mcL (1.6-8.9); Platelet Count 139 K/mcL (140-400); Red Blood Count 4.23 M/mcL (4.19-5.50); Red Cell Distribution Width 12.6 % (11.5-14.5); Segmented Neutrophils % 45.5 %
[2017-07-14 06:19] LABS: BUN/Creatinine Ratio 11 (6-26); Blood Urea Nitrogen 8 mg/dL (8-26); Calcium 9.1 mg/dL (8.6-10.8); Carbon Dioxide 25 mEq/L (19-29); Chloride 107 mEq/L (98-109); Glucose 98 mg/dL (70-99); Osmolality,Calculated 288 (280-300); Potassium 3.4 mEq/L (3.5-4.5); Sodium 140 mEq/L (136-145); eGFR For African Americans > 60 (> 60); eGFR For Non-African Americans > 60 (> 60)
[2017-07-14 09:01] LABS: Prothrombin Time 21.3 Seconds (9.4-12.1)
[2017-07-14 11:43] VITALS: BP 106/69
[2017-07-14] MEDS ORDERED: Regadenoson 0.4 MG/5 ML SYRINGE IVP ONE ×2 (12:26→12:29)
--- NOTE | 2017-07-14 12:53 | Cardiology Progress Note ---
Date of Encounter: 07/14/17 Time of Encounter: 12:47 Assessment and Plan (1) Chest pain Current Visit: Yes Status: Acute Atypical--intermittent, not exacerbating by anything particular. Pain reproducible on palpation, relieved with pain meds, no effect from nitro. Troponins negative x 3. EKG unchanged from baseline. Given his significant CAD hx, recommended stress test to rule out ischemic cause. [facility] 05/10/17 triple vessel CAD. Successful PTCA/MATILDE to distal circ. Previously stented prox-mid RCA, pLAD and mLCx patent. Limited echo EF unchanged 45%--still evidence of LV thrombus. If stress test is negative, will sign off. Consider addition of Imdur if BP will allow. Qualifiers: Chest pain type: unspecified Qualified Code(s): R07.9 - Chest pain, unspecified (2) Cardiomyopathy Current Visit: Yes Status: Chronic Known ICMP--EF 40-45% 05/06/17 with LV thrombus. Current echo EF 45%, still evidence of LV thrombus. Euvolemic on exam. Continue BB. No ACEi due to hypotension. Qualifiers: Cardiomyopathy type: ischemic Qualified Code(s): I25.5 - Ischemic cardiomyopathy (3) CAD (coronary artery disease) Current Visit: No Status: Chronic As above, hx of PCI as recent as 05/10/17. Continue ASA, Statin, Plavix, BB. Qualifiers: Coronary Disease-Associated Artery/Lesion type: [place] artery [place] vs. transplanted heart: [place] heart Associated angina: angina presence unspecified Qualified Code(s): I25.10 - Atherosclerotic heart disease of [place] coronary artery without angina pectoris (4) LV (left ventricular) mural thrombus Current Visit: Yes Status: Acute LV thrombus initially noted on echo 03/2017 at time of STEMI. Still present on echo 05/06 and current echo. Anticoagulated on Coumadin, managed by [facility]. INR 2.1. yesterday Coumadin on hold pending ischemic evaluation. On heparin gtt for bridging. Discussion w patient/family: The assessment and plan as outlined above was discussed with the patient and/or family members who expressed understanding and agreement. All questions were answered. Thank you for involving us in the care of your patient. Please call with any questions. I will discuss all the above with Dr. Earnest Craig and make changes as necessary. Subjective Principal diagnosis: Chest pain, LV Thrombus Interval history: Pt reports chest pain improved compared to yesterday, but still having intermittent chest pain currently rated 3/10. Limited echo EF 45%, still evidence of LV thrombus. Objective Vital Signs, Last 4 Hours Temp Pulse Resp BP Pulse Ox 07/14/17 11:43 97.9 F 77 16 106/69 95 Vital Signs Temp Pulse Resp BP Pulse Ox 07/14/17 11:43 97.9 F 77 16 106/69 95 07/14/17 08:31 97.9 F 78 16 162/62 96 07/14/17 02:49 97.7 F 72 18 98/64 97 07/13/17 23:13 98.5 F 74 17 98/64 94 07/13/17 19:01 97.9 F 79 18 90/60 96 07/13/17 15:56 97.9 F 70 16 97/61 96 Intake and Output 07/13/17 07/14/17 07/14/17 23:59 07:59 15:59 Intake Total 274 / 274 Output Total 925 / 925 650 / 650 Balance -651 / -651 -650 / -650 Intake: IV Fluids 274 / 274 Heparin 25,000 UNIT/500 ML D5W 274 / 274 25,000 unit In 500 ml @ 12 UNIT /KG/HR 17.496 mls/hr IVC .Q24H [facility] Rx#:[id number] Output: Catheter 925 / 925 650 / 650 Other: Weight 71.078 kg Patient Weight 07/14/17 23:59 Weight 71.078 kg General: Conversant, No Apparent Distress HEENT: Atraumatic, Normocephaly, Mucus Membranes Moist Neck: No JVD, Normal carotid pulses Cardiac: Reg Rate and Rhythm, Normal S1 and S2, No Murmur Lungs: Normal Breath Sounds, No Wheeze, Rales, Rhonchi Neuro: Alert and responsive, No focal deficits noted Abdomen: Soft, Non-Tender Skin: No rashes noted on visualized skin Musculoskeletal: Other (reproducible chest pain on palpation) Extremities: No Clubbing, No Cyanosis, No Edema, Normal Pulses Results 07/14/17 05:21 07/14/17 05:21 Lab Results 07/13/17 07/13/17 07/14/17 15:54 22:08 05:21 WBC 6.1 Hgb 13.5 Hct 40.3 Plt Count 139 L INR APTT 80.4 H 79.8 H Sodium Potassium Chloride Carbon Dioxide BUN Creatinine Glucose Calcium 07/14/17 07/14/17 05:21 08:46 WBC Hgb Hct Plt Count INR 2.0 APTT Sodium 140 Potassium 3.4 L Chloride 107 Carbon Dioxide 25 BUN 8 Creatinine 0.71 L Glucose 98 Calcium 9.1 Short CBC 07/14/17 Range/Units 05:21 WBC 6.1 (4.3-11.1) K/mcL Hgb 13.5 (12.9-16.9) g/dL Hct 40.3 (37.5-50.1) % Plt Count 139 L (140-400) K/mcL Neutrophils # 2.8 (1.6-8.9) K/mcL BMP 07/14/17 Range/Units 05:21 Sodium 140 (136-145) mEq/L Potassium 3.4 L (3.5-4.5) mEq/L Chloride 107 (98-109) mEq/L Carbon Dioxide 25 (19-29) mEq/L BUN 8 (8-26) mg/dL Creatinine 0.71 L (0.72-1.25) mg/dL Glucose 98 (70-99) mg/dL Calcium 9.1 (8.6-10.8) mg/dL Impressions Echocardiogram Limited Views 07/13/17 11:33 Impressions: LVEF 45%. Mild segmental left ventricular systolic dysfunction. There is an echodensity in the LV apex suggestive of thrombus. Left Ventricular Wall Motion: Rest Echo Findings The mid inferior lateral and basal inferior lateral grace were hypokinetic. All other wall segments showed normal motion. Findings: Study Quality * Technically adequate exam. ECG Findings * Normal sinus rhythm. Left Ventricle * LVEF 45%. * Normal LV chamber size. * Mild segmental left ventricular systolic dysfunction. * There is an echodensity in the LV apex suggestive of thrombus. Right Ventricle * Normal right ventricular structure and function. Aorta * Normally sized aortic root. Pericardium * The pericardium appears normal. IVC * Normal IVC dimensions and inspiratory collapse. Active Medications Aspirin (Aspirin Ec) 81 mg PO DAILY [facility] Stop: 01/12/18 09:01 Last Admin: 07/13/17 09:08 Dose: 81 mg Atorvastatin Calcium (Lipitor) 80 mg PO HS [facility] Stop: 01/12/18 21:01 Last Admin: 07/13/17 20:51 Dose: 80 mg Clopidogrel Bisulfate (Plavix) 75 mg PO DAILY [facility] Stop: 01/12/18 09:01 Last Admin: 07/13/17 09:08 Dose: 75 mg Cyclobenzaprine HCl (Flexeril) 10 mg PO TID PRN PRN Reason: Muscle Spasm Stop: 01/12/18 00:25 Diazepam (Valium) 2 mg PO TID PRN PRN Reason: Anxiety/Agitation Stop: 01/12/18 00:25 Last Admin: 07/13/17 23:44 Dose: 2 mg Haloperidol (Haldol) 5 mg PO QAM [facility] Stop: 01/12/18 09:01 Last Admin: 07/13/17 09:08 Dose: 5 mg Heparin Sodium (Porcine) (Heparin) 4,000 unit IVP Q6HR PRN PRN Reason: SEE COMMENTS Stop: 01/12/18 08:35 Heparin Sodium (Porcine) (Heparin) 2,000 unit IVP Q6H PRN PRN Reason: SEE COMMENTS Stop: 01/12/18 08:35 Heparin Sodium/Dextrose (Heparin 25,000 Unit/500 Ml D5w) 25,000 unit in 500 mls @ 17.496 mls/hr IVC .Q24H [facility]; 12 UNIT/KG/HR PRN Reason: Protocol Stop: 01/12/18 08:46 Last Titration: 07/13/17 22:52 Dose: 12 unit/kg/hr, 17.496 mls/hr Metoprolol Tartrate (Lopressor) 25 mg PO BID [facility] Stop: 01/12/18 09:01 Last Admin: 07/13/17 20:51 Dose: 25 mg Morphine Sulfate (Morphine Sulfate) 2 mg IVP Q4HR PRN PRN Reason: Moderate Pain Stop: 01/12/18 00:37 Last Admin: 07/13/17 20:59 Dose: 2 mg Nicotine (Nicoderm) 14 mg TD HS [facility] PRN Reason: Protocol Stop: 01/12/18 20:01 Last Admin: 07/13/17 20:51 Dose: 14 mg Nitroglycerin (Nitroglycerin) 0.4 mg SL Q5MIN PRN PRN Reason: Chest Pain Stop: 01/12/18 00:25 Last Admin: 07/13/17 09:08 Dose: 0.4 mg Omeprazole (Prilosec) 20 mg PO DAILY [facility] PRN Reason: Protocol Stop: 01/12/18 09:01 Last Admin: 07/13/17 09:08 Dose: 20 mg Oxycodone/Acetaminophen (Percocet 5/325) 1 each PO Q6H PRN PRN Reason: Pain Stop: 01/12/18 00:25 Last Admin: 07/13/17 17:19 Dose: 1 each - Imaging and Cardiology Echo: report reviewed - EKG Interpretation EKG results cardiology: other (12 hr tele AVG HR 77) Consult Discharge Plan - Plan Referrals: Colopy,Nguyễn Maldonado DO [Primary Care Provider] -
--- NOTE | 2017-07-14 13:12 | Internal Med Progress Note ---
<Reina Pino - Last Filed: 07/14/17 15:01> Date of Encounter: 07/14/17 Time of Encounter: 13:08 - Assessment and plan (1) Unstable angina Current Visit: Yes Status: Acute Assessment and plan: Troponins negative x 3 and EKG unchanged from baseline. Limited echo EF unchanged 45%--still evidence of LV thrombus. [facility] 05/10/17 triple vessel CAD. Previous stents patent. Stress test recommended by cardio to rule out ischemic cause. Cardio consult-appreciate recs (2) CAD (coronary artery disease) Current Visit: Yes Status: Chronic Assessment and plan: Hx of PCI with stent 05/10/17 Continue ASA 81mg PO QD, Atorvastatin 80mg PO HS, Lopressor 25mg PO BID Qualifiers: Coronary Disease-Associated Artery/Lesion type: [place] artery [place] vs. transplanted heart: [place] heart Associated angina: angina presence unspecified Qualified Code(s): I25.10 - Atherosclerotic heart disease of [place] coronary artery without angina pectoris (3) LV (left ventricular) mural thrombus Current Visit: Yes Status: Acute Assessment and plan: LV thrombus seen on echo 03/2017 at time of STEMI, present on 05/06/17 echo and on most recent echo Holding coumadin, pending ischemia evaluation. Heparin gtt for bridging. (4) Cerebral palsy Current Visit: Yes Status: Chronic Qualifiers: Cerebral palsy type: other type Qualified Code(s): G80.8 - Other cerebral palsy (5) DVT prophylaxis Current Visit: Yes Status: Acute Assessment and plan: Continue heparin gtt for now, coumadin held - Subjective Interval history: Pt seen and examined at bedside today. Patient's chest pain is better than yesterday. He denies any difficulty breathing, wheezing, fever chills, nausea, vomiting. He admits some coughing. Patient's only complaint is that he's hungry. - Constitutional Vitals: Temp Pulse Resp BP Pulse Ox 97.9 F 77 16 106/69 95 07/14/17 11:43 07/14/17 11:43 07/14/17 11:43 07/14/17 11:43 07/14/17 11:43 General appearance: Present: A&O X 3, no acute distress - Respiratory Respiratory exam: Present: CTAB. Absent: respiratory distress - Cardiovascular Cardiovascular exam: Present: RRR, +S1, +S2. Absent: gallop, rubs - GI/Abdominal GI/Abdominal exam: Present: normal bowel sounds, soft. Absent: distended, tenderness - Extremities Exam Extremities exam: Absent: cyanotic, pedal edema Additional comments: limited ROM d/t cerebral palsy Internal Medicine: Result - Labs CBC & Chem 7: 07/14/17 05:21 07/14/17 05:21 Labs: Short CBC 07/14/17 Range/Units 05:21 WBC 6.1 (4.3-11.1) K/mcL Hgb 13.5 (12.9-16.9) g/dL Hct 40.3 (37.5-50.1) % Plt Count 139 L (140-400) K/mcL Neutrophils # 2.8 (1.6-8.9) K/mcL BMP 07/14/17 05:21 Sodium 140 Potassium 3.4 L Chloride 107 Carbon Dioxide 25 BUN 8 Creatinine 0.71 L Glucose 98 Calcium 9.1 - ABG Interpretation ABG results: PT/INR, D-dimer PT 21.3 Seconds (9.4-12.1) H 07/14/17 08:46 D-Dimer 434 ng/mLFEU (0-500) 07/13/17 04:46 - Impressions Impressions Echocardiogram Limited Views 07/13/17 11:33 Impressions: LVEF 45%. Mild segmental left ventricular systolic dysfunction. There is an echodensity in the LV apex suggestive of thrombus. Left Ventricular Wall Motion: Rest Echo Findings The mid inferior lateral and basal inferior lateral grace were hypokinetic. All other wall segments showed normal motion. Findings: Study Quality * Technically adequate exam. ECG Findings * Normal sinus rhythm. Left Ventricle * LVEF 45%. * Normal LV chamber size. * Mild segmental left ventricular systolic dysfunction. * There is an echodensity in the LV apex suggestive of thrombus. Right Ventricle * Normal right ventricular structure and function. Aorta * Normally sized aortic root. Pericardium * The pericardium appears normal. IVC * Normal IVC dimensions and inspiratory collapse. Consult Discharge Plan - Plan Referrals: Nguyễn Stubbs DO [Primary Care Provider] - Prescriptions: Warfarin Sodium [Coumadin] 6 mg PO DAILY #30 tablet <Tony Flores H - Last Filed: 07/14/17 15:48> Date of Encounter: 07/14/17 - Constitutional Vitals: Temp Pulse Resp BP Pulse Ox 97.9 F 77 16 106/69 95 07/14/17 11:43 07/14/17 11:43 07/14/17 11:43 07/14/17 11:43 07/14/17 11:43 Internal Medicine: Result - Labs CBC & Chem 7: 07/14/17 05:21 07/14/17 05:21 Labs: Short CBC 07/14/17 Range/Units 05:21 WBC 6.1 (4.3-11.1) K/mcL Hgb 13.5 (12.9-16.9) g/dL Hct 40.3 (37.5-50.1) % Plt Count 139 L (140-400) K/mcL Neutrophils # 2.8 (1.6-8.9) K/mcL BMP 07/14/17 05:21 Sodium 140 Potassium 3.4 L Chloride 107 Carbon Dioxide 25 BUN 8 Creatinine 0.71 L Glucose 98 Calcium 9.1 - ABG Interpretation ABG results: PT/INR, D-dimer PT 21.3 Seconds (9.4-12.1) H 07/14/17 08:46 D-Dimer 434 ng/mLFEU (0-500) 07/13/17 04:46 - Impressions Impressions Echocardiogram Limited Views 07/13/17 11:33 Impressions: LVEF 45%. Mild segmental left ventricular systolic dysfunction. There is an echodensity in the LV apex suggestive of thrombus. Left Ventricular Wall Motion: Rest Echo Findings The mid inferior lateral and basal inferior lateral grace were hypokinetic. All other wall segments showed normal motion. Findings: Study Quality * Technically adequate exam. ECG Findings * Normal sinus rhythm. Left Ventricle * LVEF 45%. * Normal LV chamber size. * Mild segmental left ventricular systolic dysfunction. * There is an echodensity in the LV apex suggestive of thrombus. Right Ventricle * Normal right ventricular structure and function. Aorta * Normally sized aortic root. Pericardium * The pericardium appears normal. IVC * Normal IVC dimensions and inspiratory collapse. - Attending Attestation discharge today if stress test is negative I examined this patient and my medical decision-making was reviewed with the Resident Physician. I agree with the documented findings, disposition and treatment plan as described except to the extent set forth below.
[2017-07-14] MEDS ORDERED: *HR* Warfarin 3 MG TABLET PO ONE (14:19)
[2017-07-14] MEDS: Heparin 25,000 UNIT/500 ML D5W 25,000 UNIT/500 ML MLS IVC SCH (14:32)
[2017-07-14] MEDS: Aspirin Enteric Coated 81 MG Tablet PO SCH (14:33)
[2017-07-14] MEDS: *HR* Morphine 2 MG/ML SYRINGE IVP PRN (14:36)
--- NOTE | 2017-07-14 15:05 | Discharge Summary ---
<Reina Pino - Last Filed: 07/14/17 15:02> Date of Encounter: 07/14/17 Time of Encounter: 15:02 - Discharge Diagnosis (1) Unstable angina Priority: Primary Status: Acute (2) CAD (coronary artery disease) Priority: Primary Status: Chronic Qualifiers: Coronary Disease-Associated Artery/Lesion type: [place] artery [place] vs. transplanted heart: [place] heart Associated angina: angina presence unspecified Qualified Code(s): I25.10 - Atherosclerotic heart disease of [place] coronary artery without angina pectoris (3) LV (left ventricular) mural thrombus Priority: Secondary Status: Acute (4) Cerebral palsy Priority: Secondary Status: Chronic Qualifiers: Cerebral palsy type: other type Qualified Code(s): G80.8 - Other cerebral palsy (5) DVT prophylaxis Priority: Secondary Status: Acute - Discharge Medications Prescriptions: Warfarin Sodium [Coumadin] 6 mg PO DAILY #30 tablet Home Medications: Haloperidol [Haldol] 5 mg PO QAM 03/23/17 [History] diazePAM [Valium] 2 mg PO TID PRN 03/23/17 [History] Lisinopril [Zestril] 10 mg PO DAILY #30 03/28/17 [Rx] Cyclobenzaprine [Flexeril] 10 mg PO TID PRN 05/06/17 [History] Aspirin Enteric Coated [Aspirin EC] 81 mg PO DAILY #30 tablet.dr 05/07/17 [Rx] Atorvastatin [Lipitor] 80 mg PO HS #60 tablet 05/07/17 [Rx] Nitroglycerin 0.4 mg SL Q5MIN PRN #30 tab.subl 05/07/17 [Rx] Oxycodone HCl/Acetaminophen [Endocet 5-325 Tablet] 1 tab PO Q6H PRN #7 tablet [Rx] Metoprolol [Lopressor] 25 mg PO BID 05/09/17 [History] Omeprazole [PriLOSEC] 20 mg PO DAILY 05/09/17 [History] Clopidogrel [Plavix] 75 mg PO DAILY #30 tablet 05/11/17 [Rx] Warfarin Sodium [Coumadin] 6 mg PO DAILY #30 tablet 07/14/17 [Rx] Allergies/Adverse Reactions: 3 Allergy/AdvReac Type Severity Reaction Status Date / Time No Known Allergies Allergy Verified 01/30/17 19:40 Procedures/tests Complete & Pending: Procedures Performed prior 72 hours Category Date Time Status NM chris perf SPECT multi [NM] Routine Exams 07/14/17 06:08 Taken EV limited echo w enhance Routine Y 07/13/17 11:33 Completed SP pharm nuclear stress Routine Y 07/14/17 08:00 Completed Date of admission: 07/12/17 22:13 Primary care physician: Nguyễn Stubbs Consults: 07/13/17 08:42 Consult to Cardiology [CONS] Stat Comment: Consulting Provider: Cardiology Lani Reason for Consult: chest pain, hx of LV thrombus, s/p PCI to prox RCA, prox LAD, mid circumflex, last PCI two months ago with stent to distal circumflex. on heaprin gtt right now. Call Completed: Yes 07/13/17 11:52 PT [Consult to Physical Therapy] [CONS] Routine Comment: Evaluate, develop and implement POC Reason for Consult: Evaluation 07/13/17 11:53 Consult to Occupational Therapy [CONS] Routine Comment: Evaluate, develop and implement POC Reason for Consult: Evaluation Consult to County Historian [CONS] Routine Reason for SW Consult: D/C planning Discharging clinician: Reina Pino Anticipated date of discharge: 07/14/17 - Patient Status Disposition: Home Health Service Condition: Good - Discharge Instructions Follow Up With: Nguyễn Stubbs DO [Primary Care Provider] - Additional Instructions: Follow-up with primary care physician within the next 7 days. Follow-up with cardiology within the next month. Take 6 mg of warfarin daily and follow up with Coumadin clinic Hospital course: Mr. Ryder is a 47 year old male - Time Spent with Patient Total time spent providing and/or coordinating discharge services: - Constitutional Vitals: Temp Pulse Resp BP Pulse Ox 97.9 F 77 16 106/69 95 07/14/17 11:43 07/14/17 11:43 07/14/17 11:43 07/14/17 11:43 07/14/17 11:43 General appearance: Present: A&O X 3, no acute distress <Tony Flores - Last Filed: 07/14/17 15:56> Date of Encounter: 07/14/17 - Discharge Diagnosis (1) Atypical chest pain Priority: Primary Status: Acute Comments: unstable angina was ruled out Procedures/tests Complete & Pending: Procedures Performed prior 72 hours Category Date Time Status NM chris perf SPECT multi [NM] Routine Exams 07/14/17 06:08 Taken EV limited echo w enhance Routine Y 07/13/17 11:33 Completed SP pharm nuclear stress Routine Y 07/14/17 08:00 Completed Date of admission: 07/12/17 22:13 Primary care physician: Nguyễn Sutbbs Consults: 07/13/17 08:42 Consult to Cardiology [CONS] Stat Comment: Consulting Provider: Cardiology Lani Reason for Consult: chest pain, hx of LV thrombus, s/p PCI to prox RCA, prox LAD, mid circumflex, last PCI two months ago with stent to distal circumflex. on heaprin gtt right now. Call Completed: Yes 07/13/17 11:52 PT [Consult to Physical Therapy] [CONS] Routine Comment: Evaluate, develop and implement POC Reason for Consult: Evaluation 07/13/17 11:53 Consult to Occupational Therapy [CONS] Routine Comment: Evaluate, develop and implement POC Reason for Consult: Evaluation Consult to County Historian [CONS] Routine Reason for SW Consult: D/C planning - Patient Status Overall status at discharge: patient is back to baseline - Diet and Activity Activity: increase activity as tolerated Diet: low fat, low cholesterol Hospital course: Mr. Ryder is a 47 year old male 47 year old male with a history of cerebral palsy , LV thrombus on anticoagulant Coumadin and history of coronary artery disease status post prior PCI to the proximal RCA proximal LAD, mid circ and most recently and more recently had PCI 2 months ago to the distal circumflex presented to the emergency room with a main compliant of chest pain. The patient started experiencing retrosternal chest pain intermittently. However this pain was lasting for longer durations were decided to come to the ER. On admission, the patient's INR was 1.8 for which he was started on heparin drip , prior to that received 1 dose of Lovenox. As mentioned before the patient has a history of left ventricular thrombus. Cardiology was consulted [facility] 05/10/17 triple vessel CAD. Successful PTCA/MATILDE to distal circ. Previously stented prox-mid RCA, pLAD and mLCx patent. Continue to follow. . EF 40-45% on echo 05/06/17. Continue echogram showed similar findings The patient underwent a stress test which showed showed an ejection fraction of 38%, showing also Large sized, moderate to severe intensity, fixed defect involving the mid anterior, septal, all apical segments, and apex c/w a prior infarct. Perfusion imaging was negative for ischemia. The test was interpreted as negative by cardiology, patient stable to be discharged. His INR today is 2, prior to admission he was taking 6 mg of Coumadin every day except on Tuesdays and were he to 4 mg. His dose will be increased to 6 mg daily - Time Spent with Patient Total time spent providing and/or coordinating discharge services: Greater than 30 minutes (40 min) - Constitutional Vitals: Temp Pulse Resp BP Pulse Ox 97.9 F 77 16 106/69 95 07/14/17 11:43 07/14/17 11:43 07/14/17 11:43 07/14/17 11:43 07/14/17 11:43 - Head Head exam: Present: atraumatic, normocephalic - Eye Eye exam: Present: PERRL, conjuntiva pink, sclera anicteric Pupils: Present: PERRL - Neck Neck exam general surgery: Present: supple, trachea midline. Absent: lymphadenopathy - Respiratory Respiratory exam: Present: CTAB. Absent: accessory muscle use, rales, rhonchi, wheezes - Cardiovascular Cardiovascular exam: Present: RRR, +S1, +S2. Absent: diastolic murmur, gallop, rubs, systolic murmur - GI/Abdominal GI/Abdominal exam: Present: normal bowel sounds, soft, no peritoneal signs. Absent: distended, tenderness - Extremities Exam Extremities exam: Present: warm, radial pulses palpable and symmetrical. Absent : calf tenderness, cyanotic, pedal edema - Neurological Exam Neurological exam: Present: CN II-XII intact, oriented X3. Absent: no focal deficits, pronater drift, facial droop, speech deficit Additional comments: Generalized weakness and multiple deficits due to cerebral palsy - Skin Skin exam: Present: dry, intact
--- NOTE | 2017-07-14 15:57 | Physician Discharge Referral ---
Home Health/Hosp Referral Info Transfer to: Home Health Provider in Charge Post Discharge: PCP - Diagnosis (1) Atypical chest pain Status: Acute - Respiratory Orders Smoking Cessation: Smoking cessation has been advised. For more information, call the [place] Tobacco Quit Line at 3-336-CBUM-NOW. - Diet/Nutrition Diet/Nutrition Orders: Cardiac - Services Needed Following services are medically necessary services: Home Health Aide, Physical Therapy, Occupational Therapy Home Care Orders: Follow-up with primary care physician within the next 7 days. Follow-up with cardiology within the next month. Take 6 mg of warfarin daily and follow up with Coumadin clinic - Transfer Medications Prescriptions: Warfarin Sodium [Coumadin] 6 mg PO DAILY #30 tablet Home Medications: Haloperidol [Haldol] 5 mg PO QAM 03/23/17 [History] diazePAM [Valium] 2 mg PO TID PRN 03/23/17 [History] Lisinopril [Zestril] 10 mg PO DAILY #30 03/28/17 [Rx] Cyclobenzaprine [Flexeril] 10 mg PO TID PRN 05/06/17 [History] Aspirin Enteric Coated [Aspirin EC] 81 mg PO DAILY #30 tablet. 05/07/17 [Rx] Atorvastatin [Lipitor] 80 mg PO HS #60 tablet 05/07/17 [Rx] Nitroglycerin 0.4 mg SL Q5MIN PRN #30 tab.subl 05/07/17 [Rx] Oxycodone HCl/Acetaminophen [Endocet 5-325 Tablet] 1 tab PO Q6H PRN #7 tablet [Rx] Metoprolol [Lopressor] 25 mg PO BID 05/09/17 [History] Omeprazole [PriLOSEC] 20 mg PO DAILY 05/09/17 [History] Clopidogrel [Plavix] 75 mg PO DAILY #30 tablet 05/11/17 [Rx] Warfarin Sodium [Coumadin] 6 mg PO DAILY #30 tablet 07/14/17 [Rx] Allergies/Adverse Reactions: 3 Allergy/AdvReac Type Severity Reaction Status Date / Time No Known Allergies Allergy Verified 01/30/17 19:40 Certification: Further, I certify that my clinical findings support that this patient is homebound (i.e. absences from home require considerable and taxing effort and are for medical reasons or episcopal services or infrequently or short duration when for other reasons) because: Homebound Reason: Patient requires assistance of a person or device to safely leave home Attestation: My signature below is to certify that this patient is under my care and that I, or nurse practitioner, or a physician's automotive service assistant working with me, has a face-to -face encounter with this patient.
[2017-07-14 20:50] LABS: CK-MB (CK isoenzymes) 0 % (0-4); CK-MM (CK-isoenzymes) 100 % (96-100)
[2017-07-15 08:38] LABS: CK Total (Ck Isoenzymes) 55 U/L (20-200); CK-BB (CK isoenzymes) 0 % (0-0)
--- NOTE | 2017-07-15 15:53 | Electrocardiograph Report ---
[address] [address] Test Date: 2017-07-12 [facility] Room: 3B Gender: M Chief Technical Officer: ROSEANNA : 1970 Requested By: Rob Schroeder Order Number: [id number] Reading MD: Earnest Craig Measurements Intervals [place] Rate: 101 P: 58 [place]: 140 QRS: -48 QRSD: 93 T: 85 QT: 329 QTc: 387 Interpretive Statements SINUS TACHYCARDIA INCOMPLETE RIGHT BUNDLE BRANCH BLOCK LEFT AXIS DEVIATION LATE R WAVE PROGRESSION Electronically Signed On 07-15-2017 15:51:58 EST by Earnest Craig
[2017-07-15 19:10] LABS: CK-MB (CK isoenzymes) 0 % (0-4); CK-MM (CK-isoenzymes) 100 % (96-100)
[2017-07-18 08:31] LABS: CK Total (Ck Isoenzymes) 51 U/L (20-200); CK-BB (CK isoenzymes) 0 % (0-0)
== END 2017-07-14 17:47 | disposition home health service (06) ==
LOC: 3BNU 20:40 → EMEROO 20:40 → SUATTDRO 22:13 → 3BNU 22:20
PROVIDERS: ADMIT Pediatrics; ATTEND Internal Medicine

== ENCOUNTER 2017-09-17 02:14 | Observation (INO) ==
[2017-09-17] MEDS ORDERED: 0.9 % Sodium Chloride 1,000 ML IVC ONE ×2 (02:21→04:36)
[2017-09-17 02:44] LABS: Bilirubin,Urine Negative (Negative); Blood,Urine Negative (Negative); Clarity,Urine Clear (Clear); Color,Urine Yellow (Yellow); Glucose,Urine (UA) Normal (Normal); Ketones,Urine Negative (Negative); Leukocyte Esterase,Urine Negative (Negative); Nitrite,Urine Negative (Negative); Protein,Urine Negative (Neg-Trace); Urobilinogen,Urine >=8.0 mg/dL (Normal)
[2017-09-17 02:51] LABS: Basophils % 0.2 %; Eosinophils # 0.2 K/mcL (0.0-0.6); Eosinophils % 1.7 %; Hematocrit 40.4 % (37.5-50.1); Hemoglobin 13.6 g/dL (12.9-16.9); Immature Granulocytes % 0.3 % (0-4); Lymphocytes # 0.9 K/mcL (0.6-4.6); Lymphocytes % 9.7 %; Mean Corpuscular HGB Conc 33.7 g/dL (31.6-35.5); Mean Corpuscular Hemoglobin 31.9 pg (28.0-33.3); Mean Corpuscular Volume 94.6 fL (83.0-100.0); Mean Platelet Volume 10.3 fL (9.4-12.4); Monocytes # 0.8 K/mcL (0.0-1.3); Monocytes % 8.7 %; Neutrophils # 7.5 K/mcL (1.6-8.9); Platelet Count 185 K/mcL (140-400); Red Blood Count 4.27 M/mcL (4.19-5.50); Red Cell Distribution Width 13.6 % (11.5-14.5); Segmented Neutrophils % 79.4 %
[2017-09-17 02:56] LABS: INR 2.2; Prothrombin Time 23.8 Seconds (9.4-12.1)
[2017-09-17 03:13] LABS: Alanine Aminotransferase 44 Units/L (7-52); Albumin 4.3 g/dL (3.5-5.7); Albumin/Globulin Ratio 1.2 (1.1-2.2); Alkaline Phosphatase 97 Units/L (34-104); Aspartate Amino Transferase 58 Units/L (13-39); BUN/Creatinine Ratio 12 (6-26); Bilirubin,Direct 0.2 mg/dL (0.0-0.2); Bilirubin,Indirect 0.4 mg/dL (0.0-1.2); Bilirubin,Total 0.6 mg/dL (0.3-1.0); Blood Urea Nitrogen 9 mg/dL (6-20); Carbon Dioxide 27 mEq/L (23-29); Chloride 102 mEq/L (98-107); Globulin 3.5 g/dL (2.4-3.5); Glucose 100 mg/dL (70-105); Magnesium 1.6 mg/dL (1.6-2.6); Osmolality,Calculated 279 (280-300); Phosphorous < 1.0 mg/dL (2.7-4.5); Potassium 3.6 mEq/L (3.5-5.1); Sodium 135 mEq/L (136-145); Total Protein 7.8 g/dL (6.4-8.9); eGFR For African Americans > 60 (> 60); eGFR For Non-African Americans > 60 (> 60)
[2017-09-17] MEDS ORDERED: Azithromycin 500 MG in D5% in Water 250 ML IVPB ONE (03:37)
[2017-09-17] MEDS ORDERED: cefTRIAXone 1,000 MG in Water for inj. (sterile) 20 ML 10 ML IVP ONE (03:37)
[2017-09-17] MEDS ORDERED: Vancomycin 1,250 MG in D5% in Water 250 ML IVPB STA (03:39)
[2017-09-17] MEDS ORDERED: Levofloxacin 750 MG/150 ML 750 MG/150 ML BAG IVPB STA (03:39)
[2017-09-17] MEDS ORDERED: Nicotine 21 MG PATCH.TD24 TD ONE (04:03)
--- NOTE | 2017-09-17 04:28 | Emergency Department Note ---
Disposition Clinical Impression: Hypophosphatemia Pneumonia Qualifiers: Pneumonia type: due to unspecified organism Laterality: left Lung location: lower lobe of lung Qualified Code(s): J18.1 - Lobar pneumonia, unspecified organism Disposition: Admitted As Inpatient Condition: Good General Adult HPI - General Chief complaint: ED Upper Respiratory Infection Stated complaint: flu like sx Time Seen by Provider: 09/17/17 02:21 Source: patient, EMS Limitations: no limitations Nursing Notes Reviewed: Yes Vital Signs Reviewed: Yes - History of Present Illness HPI Narrative: Patient presents for evaluation of generalized weakness, fever, lightheadedness. Patient states that he has had a cough for 2 days. Patient tried stand up and fell. Week. Patient states that his family helped him to the ground and EMS arrived see him on the ground with family members around and is concerned that they had a fall or possibly just left him there as he was weak and could not get up. Patient states this is not the case that they were just trying to help take care of him. Patient states that he has neuromuscular problem but does not know exactly what it is. Previous charts state cerebral palsy. The patient does have a history of cardiomyopathy as well. Overall the patient is able to communicate and has mild slurred speech but is alert and oriented 3. The patient's has a fever of 103. Patient will undergo sepsis evaluation including dilation for influenza. Pain Scale: 0 - Related Data Home Medications Medication Instructions Recorded Confirmed Haloperidol [Haldol] 5 mg PO QAM 03/23/17 07/12/17 diazePAM [Valium] 2 mg PO TID PRN 03/23/17 07/12/17 Cyclobenzaprine [Flexeril] 10 mg PO TID PRN 05/06/17 07/12/17 Metoprolol [Lopressor] 25 mg PO BID 05/09/17 07/12/17 Omeprazole [PriLOSEC] 20 mg PO DAILY 05/09/17 07/12/17 Previous Rx's Medication Instructions Recorded Lisinopril [Zestril] 10 mg PO DAILY #30 03/28/17 Aspirin Enteric Coated [Aspirin EC] 81 mg PO DAILY #30 tablet. 05/07/17 Atorvastatin [Lipitor] 80 mg PO HS #60 tablet 05/07/17 Nitroglycerin 0.4 mg SL Q5MIN PRN #30 tab.subl 05/07/17 Oxycodone HCl/Acetaminophen 1 tab PO Q6H PRN #7 tablet 05/07/17 [Endocet 5-325 Tablet] Clopidogrel [Plavix] 75 mg PO DAILY #30 tablet 05/11/17 Warfarin Sodium [Coumadin] 6 mg PO DAILY #30 tablet 07/14/17 Allergies Allergy/AdvReac Type Severity Reaction Status Date / Time No Known Allergies Allergy Verified 01/30/17 19:40 Review of Systems: CONSTITUTIONAL: Fever, weakness, fatigue HEENT: Eyes: No visual changes. Ears, Nose, Throat: No hearing loss, difficulty talking or unable to swallow. SKIN: No rash or itching. CARDIOVASCULAR: No chest pain, chest pressure or chest discomfort. No palpitations or edema. RESPIRATORY: Cough. GASTROINTESTINAL: No anorexia, nausea, vomiting or diarrhea. No abdominal pain or blood. GENITOURINARY: No burning on urination or hematuria. NEUROLOGICAL: No headache, dizziness, syncope, paralysis, ataxia, numbness or tingling in the extremities. No change in bowel or bladder control. MUSCULOSKELETAL: Chronic muscle spasticity Past Medical History - Past Medical History Medical history: Reports: cardiomyopathy, CHF, coronary artery disease, hyperlipidemia, hypertension, myocardial infarction, other Surgical history: Reports: angioplasty/stent Psychiatric history: Reports: no psych history - Social History Smoking Status: Former smoker Smokeless Tobacco Status: No Alcohol use: Reports: none Drug use: Reports: none Physical Exam General appearance: Febrile, conversational Eyes: anicteric sclerae, moist conjunctivae; PERRL HENT: Atraumatic; oropharynx clear with dry mucous membranes and no mucosal ulcerations Neck: Normal inspection; Trachea midline; FROM, supple Lungs: CTA, with normal respiratory effort and no intercostal retractions CV: RRR, no MRGs Abdomen: Soft, non-tender; no rebound or gaurding Extremities: No peripheral edema Skin: Normal temperature; no rash, ulcers or lesions Psych: Appropriate mood and affect Neuro: alert and oriented to person, place and time; muscle spasticity to extremities - General Limitations: no limitations General appearance: alert, in no apparent distress Course - Reevaluation(s) Reevaluation #1: Fever of 103. Left lower lobe pneumonia on chest x-ray consistent with clinical concern for cough. Influenza negative. Lactic acid negative. Fluids and antibiotics started. Patient had admission with discharge on July 14 so extended coverage has been given to antibiotics. - Consultations Consultation #1: Discussed with hospitalist, Dr Salcedo. Patient accepted for admission. Vital Signs Temperature 103.0 F H 09/17/17 02:15 Pulse Rate 100 09/17/17 02:15 Respiratory Rate 18 09/17/17 02:15 Blood Pressure 112/74 09/17/17 02:15 O2 Sat by Pulse Oximetry 97 09/17/17 02:15 Temperature 103.0 F H 09/17/17 02:15 Pulse Rate 102 09/17/17 03:57 Respiratory Rate 18 09/17/17 03:57 Blood Pressure 107/78 09/17/17 03:57 O2 Sat by Pulse Oximetry 98 09/17/17 03:57 Oxygen Delivery Oxygen Delivery Room Air Medical Decision Making - Medical Records Medical records reviewed: Yes I reviewed the patient's medical records. - Lab Data Lab results reviewed: Yes I reviewed the patient's lab results. Result diagrams: 09/17/17 02:40 09/17/17 02:40 Lab Results 09/17/17 09/17/17 09/17/17 Range/Units 02:36 02:40 02:40 WBC 9.4 (4.3-11.1) K/mcL RBC 4.27 (4.19-5.50) M/mcL Hgb 13.6 (12.9-16.9) g/dL Hct 40.4 (37.5-50.1) % MCV 94.6 (83.0-100.0) fL MCH 31.9 (28.0-33.3) pg MCHC 33.7 (31.6-35.5) g/dL RDW 13.6 (11.5-14.5) % Plt Count 185 (140-400) K/mcL MPV 10.3 (9.4-12.4) fL Immature Gran % 0.3 (0-4) % Seg Neutrophils % 79.4 % Lymphocytes % 9.7 % Monocytes % 8.7 % Eosinophils % 1.7 % Basophils % 0.2 % Neutrophils # 7.5 (1.6-8.9) K/mcL Lymphocytes # 0.9 (0.6-4.6) K/mcL Monocytes # 0.8 (0.0-1.3) K/mcL Eosinophils # 0.2 (0.0-0.6) K/mcL Basophils # 0.0 (0.0-0.2) K/mcL PT 23.8 H (9.4-12.1) Seconds INR 2.2 Sodium (136-145) mEq/L Potassium (3.5-5.1) mEq/L Chloride (98-107) mEq/L Carbon Dioxide (23-29) mEq/L BUN (6-20) mg/dL Creatinine (0.70-1.30) mg/dL Est GFR ( Amer) (> 60) Est GFR (Non-Af Amer) (> 60) BUN/Creatinine Ratio (6-26) Glucose (70-105) mg/dL Calculated Osmolality (280-300) Lactic Acid (0.5-2.2) mmol/L Calcium (8.6-10.3) mg/dL Phosphorus (2.7-4.5) mg/dL Magnesium (1.6-2.6) mg/dL Total Bilirubin (0.3-1.0) mg/dL Direct Bilirubin (0.0-0.2) mg/dL Indirect Bilirubin (0.0-1.2) mg/dL AST (13-39) Units/L ALT (7-52) Units/L Alkaline Phosphatase (34-104) Units/L Creatine Kinase (30-223) Units/L Troponin I (< 0.04) ng/mL Serum Total Protein (6.4-8.9) g/dL Albumin (3.5-5.7) g/dL Globulin (2.4-3.5) g/dL Albumin/Globulin Ratio (1.1-2.2) Urine Color Yellow (Yellow) Urine Clarity Clear (Clear) Urine pH 7.0 (5.0-8.0) pH Units Ur Specific [place] 1.010 (1.010-1.025) Urine Protein Negative (Neg-Trace) mg/dL Urine Glucose (UA) Normal (Normal) mg/dL Urine Ketones Negative (Negative) mg/dL Urine Blood Negative (Negative) Urine Nitrite Negative (Negative) Urine Bilirubin Negative (Negative) Urine Urobilinogen >=8.0 H (Normal) mg/dL Ur Leukocyte Esterase Negative (Negative) Ur Culture Indicated? NO (NO) 09/17/17 09/17/17 09/17/17 Range/Units 02:40 02:40 02:40 WBC (4.3-11.1) K/mcL RBC (4.19-5.50) M/mcL Hgb (12.9-16.9) g/dL Hct (37.5-50.1) % MCV (83.0-100.0) fL MCH (28.0-33.3) pg MCHC (31.6-35.5) g/dL RDW (11.5-14.5) % Plt Count (140-400) K/mcL MPV (9.4-12.4) fL Immature Gran % (0-4) % Seg Neutrophils % % Lymphocytes % % Monocytes % % Eosinophils % % Basophils % % Neutrophils # (1.6-8.9) K/mcL Lymphocytes # (0.6-4.6) K/mcL Monocytes # (0.0-1.3) K/mcL Eosinophils # (0.0-0.6) K/mcL Basophils # (0.0-0.2) K/mcL PT (9.4-12.1) Seconds INR Sodium 135 L (136-145) mEq/L Potassium 3.6 (3.5-5.1) mEq/L Chloride 102 (98-107) mEq/L Carbon Dioxide 27 (23-29) mEq/L BUN 9 (6-20) mg/dL Creatinine 0.77 (0.70-1.30) mg/dL Est GFR ( Amer) > 60 (> 60) Est GFR (Non-Af Amer) > 60 (> 60) BUN/Creatinine Ratio 12 (6-26) Glucose 100 (70-105) mg/dL Calculated Osmolality 279 L (280-300) Lactic Acid 1.8 (0.5-2.2) mmol/L Calcium 9.0 (8.6-10.3) mg/dL Phosphorus < 1.0 L* (2.7-4.5) mg/dL Magnesium 1.6 (1.6-2.6) mg/dL Total Bilirubin 0.6 (0.3-1.0) mg/dL Direct Bilirubin 0.2 (0.0-0.2) mg/dL Indirect Bilirubin 0.4 (0.0-1.2) mg/dL AST 58 H (13-39) Units/L ALT 44 (7-52) Units/L Alkaline Phosphatase 97 (34-104) Units/L Creatine Kinase (30-223) Units/L Troponin I < 0.03 (< 0.04) ng/mL Serum Total Protein 7.8 (6.4-8.9) g/dL Albumin 4.3 (3.5-5.7) g/dL Globulin 3.5 (2.4-3.5) g/dL Albumin/Globulin Ratio 1.2 (1.1-2.2) Urine Color (Yellow) Urine Clarity (Clear) Urine pH (5.0-8.0) pH Units Ur Specific [place] (1.010-1.025) Urine Protein (Neg-Trace) mg/dL Urine Glucose (UA) (Normal) mg/dL Urine Ketones (Negative) mg/dL Urine Blood (Negative) Urine Nitrite (Negative) Urine Bilirubin (Negative) Urine Urobilinogen (Normal) mg/dL Ur Leukocyte Esterase (Negative) Ur Culture Indicated? (NO) 09/17/17 Range/Units 02:40 WBC (4.3-11.1) K/mcL RBC (4.19-5.50) M/mcL Hgb (12.9-16.9) g/dL Hct (37.5-50.1) % MCV (83.0-100.0) fL MCH (28.0-33.3) pg MCHC (31.6-35.5) g/dL RDW (11.5-14.5) % Plt Count (140-400) K/mcL MPV (9.4-12.4) fL Immature Gran % (0-4) % Seg Neutrophils % % Lymphocytes % % Monocytes % % Eosinophils % % Basophils % % Neutrophils # (1.6-8.9) K/mcL Lymphocytes # (0.6-4.6) K/mcL Monocytes # (0.0-1.3) K/mcL Eosinophils # (0.0-0.6) K/mcL Basophils # (0.0-0.2) K/mcL PT (9.4-12.1) Seconds INR Sodium (136-145) mEq/L Potassium (3.5-5.1) mEq/L Chloride (98-107) mEq/L Carbon Dioxide (23-29) mEq/L BUN (6-20) mg/dL Creatinine (0.70-1.30) mg/dL Est GFR ( Amer) (> 60) Est GFR (Non-Af Amer) (> 60) BUN/Creatinine Ratio (6-26) Glucose (70-105) mg/dL Calculated Osmolality (280-300) Lactic Acid (0.5-2.2) mmol/L Calcium (8.6-10.3) mg/dL Phosphorus (2.7-4.5) mg/dL Magnesium (1.6-2.6) mg/dL Total Bilirubin (0.3-1.0) mg/dL Direct Bilirubin (0.0-0.2) mg/dL Indirect Bilirubin (0.0-1.2) mg/dL AST (13-39) Units/L ALT (7-52) Units/L Alkaline Phosphatase (34-104) Units/L Creatine Kinase 126 (30-223) Units/L Troponin I (< 0.04) ng/mL Serum Total Protein (6.4-8.9) g/dL Albumin (3.5-5.7) g/dL Globulin (2.4-3.5) g/dL Albumin/Globulin Ratio (1.1-2.2) Urine Color (Yellow) Urine Clarity (Clear) Urine pH (5.0-8.0) pH Units Ur Specific [place] (1.010-1.025) Urine Protein (Neg-Trace) mg/dL Urine Glucose (UA) (Normal) mg/dL Urine Ketones (Negative) mg/dL Urine Blood (Negative) Urine Nitrite (Negative) Urine Bilirubin (Negative) Urine Urobilinogen (Normal) mg/dL Ur Leukocyte Esterase (Negative) Ur Culture Indicated? (NO) - Radiology Data Radiology results reviewed: Yes I reviewed the patient's radiology results. - EKG Data EKG #1 EKG attestation: Yes I reviewed and interpreted this EKG. EKG results narrative: EKG shows sinus tachycardia with ventricular rate of 102. SD interval 128. QRS 111. QTC 382. No significant ST elevations or depressions. Attestation Statement - Attestation Attestation: I, Beau Daniels MD, personally evaluated this patient and discussed their management with the resident physician. I reviewed the resident's note and agree with the documented findings, medical decision making, and plan of care. 47-year-old male presents to the emergency department by ambulance with a complaint of acute onset of flulike symptoms earlier this evening before going to bed. He complains of chest congestion and tightness with a mild cough. Fever chills and body aches. On examination patient is a well-developed well-nourished male in no acute distress. He is alert and oriented 3. There is cyanosis or diaphoresis. Chest is nontender to palpation. Breath sounds are clear and equal bilaterally. Heart regular rhythm. Abdomen is soft and nontender with normal bowel sounds. EKG shows a sinus tachycardia with a heart rate of 102. No acute ischemic changes and no significant change from prior EKG dated 07/12/2017. Chest x-ray shows a left basilar atelectasis or pneumonia. Reviewed. Phosphorus less than 1.0. The hospitalist, Dr. Salcedo, was consulted and accepted admission of the patient.
--- NOTE | 2017-09-17 09:50 | Internal Med History&Physical ---
Date of Encounter: 09/17/17 Time of Encounter: 09:47 Assessment and Plan (1) Pneumonia Current visit: Yes Status: Acute Left lower lobe pneumonia was sent blood culture and start on Zosyn Qualifiers: Pneumonia type: due to unspecified organism Laterality: left Lung location: lower lobe of lung Qualified Code(s): J18.1 - Lobar pneumonia, unspecified organism (2) LV (left ventricular) mural thrombus Current visit: No Status: Chronic Chronic resume Coumadin (3) CAD (coronary artery disease) Current visit: No Status: Chronic Patient has had multiple angioplasty will continue home medication no chest pain troponin is negative Qualifiers: Coronary Disease-Associated Artery/Lesion type: [place] artery [place] vs. transplanted heart: [place] heart Associated angina: angina presence unspecified Qualified Code(s): I25.10 - Atherosclerotic heart disease of [place] coronary artery without angina pectoris (4) Cardiomyopathy Current visit: No Status: Chronic Ischemic cardiopathy compensated Qualifiers: Cardiomyopathy type: ischemic Qualified Code(s): I25.5 - Ischemic cardiomyopathy (5) Cerebral palsy Current visit: No Status: Chronic Chronic patient is able to answer questions Qualifiers: Cerebral palsy type: unspecified type Qualified Code(s): G80.9 - Cerebral palsy, unspecified (6) Hypertension Current visit: No Status: Chronic Chronic blood pressure low at this point Qualifiers: Hypertension type: essential hypertension Qualified Code(s): I10 - Essential (primary) hypertension Internal Medicine - H&P: HPI Chief complaint: weakkness and fever Admitted From: Emergency Dept Plans for Post Hospital Care: Home History of present illness: Mr. Ryder is a 47 year old male Patient with history of cerebral palsy,LV thrombus on Coumadin, CAD has had multiple stents including RCA, LAD and mid circumflex, cardiomyopathy, high cholesterol, hypertension, patient was brought in by family due to generalized weakness has some fever and some cough for last 2 days patient was so weak unable to stand up or get up In the ER temperature was 103 chest x- ray shows left lower lobe pneumonia and influenza screen was negative patient is awake able to answer some questions white count is normal troponin is negative Past Med Surg Social Fam HX - Past Medical History Medical history: cardiomyopathy, CHF, coronary artery disease, hyperlipidemia, hypertension, myocardial infarction, other Psychiatric history: no psych history - Past Surgical History Surgical History: angioplasty/stent - Social History Smoking Status: Former smoker Smokeless Tobacco Status: No Alcohol use: none Drug use: none - Family History Mother Living Status: Hx Family Neurologic Disorders: Yes Father Living Status: Hx Family Cardiac Disorders: Yes Internal Medicine - H&P: Meds Haloperidol [Haldol] 5 mg PO QAM 03/23/17 [History] diazePAM [Valium] 2 mg PO TID PRN 03/23/17 [History] Lisinopril [Zestril] 10 mg PO DAILY #30 03/28/17 [Rx] Cyclobenzaprine [Flexeril] 10 mg PO TID PRN 05/06/17 [History] Aspirin Enteric Coated [Aspirin EC] 81 mg PO DAILY #30 tablet.dr 05/07/17 [Rx] Atorvastatin [Lipitor] 80 mg PO HS #60 tablet 05/07/17 [Rx] Nitroglycerin 0.4 mg SL Q5MIN PRN #30 tab.subl 05/07/17 [Rx] Oxycodone HCl/Acetaminophen [Endocet 5-325 Tablet] 1 tab PO Q6H PRN #7 tablet [Rx] Metoprolol [Lopressor] 25 mg PO BID 05/09/17 [History] Omeprazole [PriLOSEC] 20 mg PO DAILY 05/09/17 [History] Clopidogrel [Plavix] 75 mg PO DAILY #30 tablet 05/11/17 [Rx] Warfarin Sodium [Coumadin] 6 mg PO DAILY #30 tablet 07/14/17 [Rx] 3 Allergy/AdvReac Type Severity Reaction Status Date / Time No Known Allergies Allergy Verified 01/30/17 19:40 All Systems PM: A 10-system review of systems was performed and is negative for pertinent findings except as documented above in the HPI. - Constitutional Constitutional: fatigue, weakness - EENT Eyes: no change in vision, no discharge, no pain, no photophobia Ears: no ear discharge, no ear pain, no tinnitus Nose, mouth and throat: no dysphagia, no nasal discharge, no neck pain, no sore throat - Cardiovascular Cardiovascular ROS IM: dyspnea - Respiratory Respiratory: cough, other - Gastrointestinal Gastrointestinal: no abdominal pain, no diarrhea, no hematemesis, no hematochezia, no melena, no nausea, no vomiting - Musculoskeletal Musculoskeletal ROS IM: no numbness, no tingling - Integumentary Integumentary IM: no rash, no unusual bruising - Constitutional Vitals: Temp Pulse Resp BP Pulse Ox 101.1 F H 89 18 95/60 93 09/17/17 06:52 09/17/17 06:52 09/17/17 06:52 09/17/17 06:52 09/17/17 06:52 General appearance: Present: cooperative - Eye Eye exam: Present: PERRL, conjuntiva pink, sclera anicteric Pupils: Present: PERRL - Neck Neck exam general surgery: Present: supple, trachea midline. Absent: lymphadenopathy - Respiratory Respiratory exam: Present: rhonchi - Cardiovascular Cardiovascular exam: Present: RRR, +S1, +S2. Absent: diastolic murmur, gallop, rubs, systolic murmur - GI/Abdominal GI/Abdominal exam: Present: normal bowel sounds, soft, no peritoneal signs. Absent: distended, tenderness Internal Med - H&P Results - Labs CBC & Chem 7: 09/17/17 02:40 09/17/17 02:40
[2017-09-17] MEDS ORDERED: Acetaminophen 325 MG TABLET PO PRN (09:55)
[2017-09-17] MEDS ORDERED: Naloxone 0.4 MG/ML INJ IVP PRN (09:55)
[2017-09-17] MEDS ORDERED: Nitroglycerin 0.4 MG TAB.SUBL SL PRN (09:58)
[2017-09-17] MEDS: *HR* OxyCODONE/APAP 5/325 TABLET PO PRN ×2 (17:09→23:09)
[2017-09-17] MEDS: *HR* Warfarin 3 MG TABLET PO SCH (17:10)
[2017-09-17] MEDS: traMADol 50 MG TABLET PO PRN (20:35)
[2017-09-17] MEDS: diazePAM 2 MG TABLET PO PRN (23:09)
[2017-09-18 04:36] LABS: Mean Corpuscular HGB Conc 33.8 g/dL (31.6-35.5); Mean Corpuscular Hemoglobin 31.9 pg (28.0-33.3); Mean Corpuscular Volume 94.4 fL (83.0-100.0); Mean Platelet Volume 10.4 fL (9.4-12.4); Platelet Count 148 K/mcL (140-400); Red Cell Distribution Width 14.2 % (11.5-14.5)
[2017-09-18 04:37] LABS: Hemoglobin 11.5 g/dL (12.9-16.9)
[2017-09-18 05:02] LABS: Magnesium 1.7 mg/dL (1.6-2.6)
[2017-09-18] MEDS: Aspirin Enteric Coated 81 MG Tablet PO SCH (09:54)
[2017-09-18] MEDS ORDERED: Potassium Phosphate 44 MEQ in 0.9 % Sodium Chloride 250 ML IVPB ONE (10:22)
--- NOTE | 2017-09-18 10:55 | Internal Med Progress Note ---
<Zackary Chiu - Last Filed: 09/18/17 10:49> Date of Encounter: 09/18/17 Time of Encounter: 10:40 - Assessment and plan (1) Pneumonia Current Visit: Yes Status: Acute Assessment and plan: Patient presented with fever, non-productive cough, and generalized weakness. CXR demonstrates LLL pneumonia. BCx negative x 2 (preliminary). Influenza screen negative. Continue with Zosyn day#2 and Vancomycin day#2 for now. Check vanco trough with AM labs. Qualifiers: Pneumonia type: due to unspecified organism Laterality: left Lung location: lower lobe of lung Qualified Code(s): J18.1 - Lobar pneumonia, unspecified organism (2) Hypophosphatemia Current Visit: Yes Status: Acute Assessment and plan: Phosphorus < 1.0. Potassium, Calcium, Magnesium all within normal range. potassium phosphate 44meq infusion ordered. Continue to monitor with AM labs. (3) Hypertension Current Visit: No Status: Chronic Assessment and plan: Hypertension controlled. Patient's systolic BP in 100s. he is unsure what his baseline BP is. Ok to continue home medication Metoprolol for now. Continue to monitor BP. Will consider holding if SBP < 90. Qualifiers: Hypertension type: essential hypertension Qualified Code(s): I10 - Essential (primary) hypertension (4) Cerebral palsy Current Visit: No Status: Chronic Assessment and plan: Patient has history of cerebral palsy with limited mobility. He is able to answer questions and is AOx3. Continue with Urine catheter due to poor mobility and at patient's request. Qualifiers: Cerebral palsy type: other type Qualified Code(s): G80.8 - Other cerebral palsy (5) LV (left ventricular) mural thrombus Current Visit: No Status: Chronic Assessment and plan: Patient has therapeutic INR 2.2. Continue Coumadin and monitoring. - Time Spent With Patient Greater than 35 minutes - Subjective Interval history: 47M with PMHx cerebral palsy, LV thrombus on Coumadin, CAD with multiple stents including RCA, LAD, mid circumflex, CM, high cholesterol, HTN, presents to ED with generalized weakness, fever, and non-productive cough for 2 days. At ED, temperature was 103F, CXR demonstrated LLL pneumonia, influenza screen is negative, no leukocytosis noted, troponin negative. Today, patient continues to have complaints of non-productive cough and chills, but reports improvement of weakness. He denies CP, SOB, abdominal pain, difficulty voiding, diarrhea, constipation. Andrews in place due to patient's immobility. No acute overnight events. no further acute complaints. - Constitutional Vitals: Temp Pulse Resp BP Pulse Ox 99.0 F 72 16 105/71 95 09/18/17 06:49 09/18/17 06:49 09/18/17 06:49 09/18/17 06:49 09/18/17 06:49 General appearance: Present: cooperative - Head Head exam: Present: atraumatic, normocephalic - Eye Eye exam: Present: PERRL, conjuntiva pink, sclera anicteric Pupils: Present: PERRL - Neck Neck exam general surgery: Present: supple, trachea midline. Absent: lymphadenopathy - Respiratory Respiratory exam: Present: decreased breath sounds. Absent: accessory muscle use, rales, rhonchi, wheezes - Cardiovascular Cardiovascular exam: Present: distant heart sounds, +S1, +S2. Absent: diastolic murmur, gallop, rubs - GI/Abdominal GI/Abdominal exam: Present: normal bowel sounds, soft, no peritoneal signs. Absent: distended, tenderness - Additional comments: Patient andrews catheter contains yellow, non-cloudy urine 850ml - Extremities Exam Extremities exam: Present: warm, radial pulses palpable and symmetrical. Absent : calf tenderness, cyanotic, pedal edema - Neurological Exam Neurological exam: Present: CN II-XII intact, oriented X3, no focal deficits. Absent: pronater drift, facial droop, speech deficit - Skin Skin exam: Present: dry, intact Internal Medicine: Result - Labs CBC & Chem 7: 09/18/17 04:26 09/17/17 02:40 Labs: Short CBC 09/18/17 Range/Units 04:26 WBC 10.9 (4.3-11.1) K/mcL Hgb 11.5 L D (12.9-16.9) g/dL Hct 34.0 L (37.5-50.1) % Plt Count 148 (140-400) K/mcL Cardiac Enzymes 09/17/17 09/17/17 Range/Units 15:46 21:35 Troponin I < 0.03 < 0.03 (< 0.04) ng/mL - ABG Interpretation ABG results: PT/INR, D-dimer PT 23.8 Seconds (9.4-12.1) H 09/17/17 02:40 Consult Discharge Plan - Plan Referrals: Nguyễn Stubbs DO [Primary Care Provider] - <SamminataliaTony morales - Last Filed: 09/18/17 12:31> Date of Encounter: 09/18/17 - Constitutional Vitals: Temp Pulse Resp BP Pulse Ox 99.1 F 81 18 114/76 94 09/18/17 11:04 09/18/17 11:04 09/18/17 11:04 09/18/17 11:04 09/18/17 11:04 Internal Medicine: Result - Labs CBC & Chem 7: 09/18/17 04:26 09/17/17 02:40 Labs: Short CBC 09/18/17 Range/Units 04:26 WBC 10.9 (4.3-11.1) K/mcL Hgb 11.5 L D (12.9-16.9) g/dL Hct 34.0 L (37.5-50.1) % Plt Count 148 (140-400) K/mcL Cardiac Enzymes 09/17/17 09/17/17 Range/Units 15:46 21:35 Troponin I < 0.03 < 0.03 (< 0.04) ng/mL - ABG Interpretation ABG results: PT/INR, D-dimer PT 23.8 Seconds (9.4-12.1) H 09/17/17 02:40 - Attending Attestation 1. Sepsis secondary to healthcare associated pneumonia present upon admission The patient was discharged from the hospital at the end of June of last year , fever of 103, heart rate of 102 Stop Zosyn and vancomycin and start cefepime and Levaquin Blood cultures pending 2. Severe hypophosphatemia, replete as needed and recheck in the morning 3. History of left ventricular thrombus, continue Coumadin performed see dosing 4. Cerebral palsy I examined this patient and my medical decision-making was reviewed with the Resident Physician. I agree with the documented findings, disposition and treatment plan as described except to the extent set forth below.
[2017-09-18] MEDS ORDERED: Cefepime HCl 1,000 MG in D5% in Water (Mini-Bag+) 100 ML IVPB SCH (13:00)
[2017-09-18] MEDS: Levofloxacin 750 MG/150 ML 750 MG/150 ML BAG IVPB SCH (14:01)
[2017-09-18] MEDS: *HR* OxyCODONE/APAP 5/325 TABLET PO PRN ×2 (14:17→21:16)
[2017-09-18 15:59] LABS: INR 2.2; Prothrombin Time 23.7 Seconds (9.4-12.1)
[2017-09-18 16:06] LABS: BUN/Creatinine Ratio 15 (6-26); Blood Urea Nitrogen 10 mg/dL (6-20); Calcium 8.6 mg/dL (8.6-10.3); Carbon Dioxide 22 mEq/L (23-29); Chloride 107 mEq/L (98-107); Glucose 101 mg/dL (70-105); Osmolality,Calculated 283 (280-300); Potassium 4.1 mEq/L (3.5-5.1); Sodium 137 mEq/L (136-145); eGFR For African Americans > 60 (> 60); eGFR For Non-African Americans > 60 (> 60)
[2017-09-18] MEDS ORDERED: Warfarin perPT PO PRN (18:00)
[2017-09-18] MEDS: *HR* Warfarin 3 MG TABLET PO SCH (18:34)
[2017-09-18] MEDS: Cefepime HCl 1,000 MG in Water for inj. (sterile) 10 ML IVP SCH (18:34)
[2017-09-18] MEDS: traMADol 50 MG TABLET PO PRN (18:34)
[2017-09-19 05:13] LABS: Basophils % 0.4 %; Eosinophils # 0.3 K/mcL (0.0-0.6); Eosinophils % 3.8 %; Hematocrit 39.5 % (37.5-50.1); Immature Granulocytes % 0.7 % (0-4); Lymphocytes # 2.1 K/mcL (0.6-4.6); Lymphocytes % 25.8 %; Mean Corpuscular HGB Conc 32.9 g/dL (31.6-35.5); Mean Corpuscular Hemoglobin 31.6 pg (28.0-33.3); Mean Corpuscular Volume 95.9 fL (83.0-100.0); Mean Platelet Volume 10.6 fL (9.4-12.4); Monocytes # 0.9 K/mcL (0.0-1.3); Monocytes % 10.7 %; Neutrophils # 4.7 K/mcL (1.6-8.9); Platelet Count 179 K/mcL (140-400); Red Blood Count 4.12 M/mcL (4.19-5.50); Red Cell Distribution Width 14.1 % (11.5-14.5); Segmented Neutrophils % 58.6 %
[2017-09-19 05:18] LABS: INR 2.3; Prothrombin Time 24.7 Seconds (9.4-12.1)
[2017-09-19] MEDS: Cefepime HCl 1,000 MG in Water for inj. (sterile) 10 ML IVP SCH ×2 (05:21→17:02)
[2017-09-19] MEDS: *HR* OxyCODONE/APAP 5/325 TABLET PO PRN ×2 (05:22→11:24)
[2017-09-19] MEDS: diazePAM 2 MG TABLET PO PRN (05:26)
[2017-09-19 05:33] LABS: BUN/Creatinine Ratio 16 (6-26); Blood Urea Nitrogen 10 mg/dL (6-20); Carbon Dioxide 24 mEq/L (23-29); Chloride 106 mEq/L (98-107); Glucose 78 mg/dL (70-105); Osmolality,Calculated 282 (280-300); Potassium 4.1 mEq/L (3.5-5.1); Sodium 137 mEq/L (136-145); eGFR For African Americans > 60 (> 60); eGFR For Non-African Americans > 60 (> 60)
[2017-09-19] MEDS: Levofloxacin 750 MG/150 ML 750 MG/150 ML BAG IVPB SCH (07:35)
[2017-09-19] MEDS: Aspirin Enteric Coated 81 MG Tablet PO SCH (07:39)
--- NOTE | 2017-09-19 10:22 | Discharge Summary ---
Date of Encounter: 09/19/17 Time of Encounter: 10:19 - Discharge Diagnosis (1) Sepsis Priority: Primary Status: Acute Comments: Sepsis secondary to healthcare associated pneumonia present upon admission, possible gram-negative pneumonia Qualifiers: Sepsis type: sepsis due to unspecified organism Qualified Code(s): A41.9 - Sepsis, unspecified organism (2) Healthcare-associated pneumonia Priority: Primary Status: Acute (3) Hypophosphatemia Priority: Secondary Status: Acute (4) Cerebral palsy Priority: Secondary Status: Chronic Qualifiers: Cerebral palsy type: other type Qualified Code(s): G80.8 - Other cerebral palsy (5) Hypertension Priority: Secondary Status: Chronic Qualifiers: Hypertension type: essential hypertension Qualified Code(s): I10 - Essential (primary) hypertension (6) LV (left ventricular) mural thrombus Priority: Secondary Status: Chronic Comments: On Coumadin (7) Systolic heart failure Priority: Secondary Status: Chronic Comments: No exacerbation Qualifiers: Heart failure chronicity: chronic Qualified Code(s): I50.22 - Chronic systolic (congestive) heart failure (8) Tobacco abuse Priority: Secondary Status: Chronic - Discharge Medications Prescriptions: Levofloxacin [Levaquin] 750 mg PO DAILY #5 tablet Home Medications: Haloperidol [Haldol] 5 mg PO BID 03/23/17 [History] diazePAM [Valium] 2 mg PO TID PRN 03/23/17 [History] Cyclobenzaprine [Flexeril] 10 mg PO TID PRN 05/06/17 [History] Aspirin Enteric Coated [Aspirin EC] 81 mg PO DAILY #30 tablet.dr 05/07/17 [Rx] Atorvastatin [Lipitor] 80 mg PO HS #60 tablet 05/07/17 [Rx] Nitroglycerin 0.4 mg SL Q5MIN PRN #30 tab.subl 05/07/17 [Rx] Oxycodone HCl/Acetaminophen [Endocet 5-325 Tablet] 1 tab PO Q6H PRN #7 tablet [Rx] Metoprolol [Lopressor] 25 mg PO BID 05/09/17 [History] Omeprazole [PriLOSEC] 20 mg PO DAILY 05/09/17 [History] Clopidogrel [Plavix] 75 mg PO DAILY #30 tablet 05/11/17 [Rx] Warfarin [Coumadin] 4 mg PO TUTHSA 09/17/17 [History] Warfarin [Coumadin] 6 mg PO SUMOWEFR 09/17/17 [History] Levofloxacin [Levaquin] 750 mg PO DAILY #5 tablet 09/19/17 [Rx] Allergies/Adverse Reactions: 3 Allergy/AdvReac Type Severity Reaction Status Date / Time No Known Allergies Allergy Verified 01/30/17 19:40 Date of admission: 09/17/17 10:57 Primary care physician: Nguyễn Stubbs - Patient Status Disposition: Home Health Service Condition: Good Overall status at discharge: patient is back to baseline - Discharge Instructions Follow Up With: Nguyễn Stubbs, [Primary Care Provider] - Additional Instructions: Follow-up with primary care physician within the next 7 days, complete 5 more days of Levaquin starting on 09/20/2017. Return to the emergency room if not improving. Quit smoking - Diet and Activity Activity: increase activity as tolerated Diet: low fat, low cholesterol Hospital course: Mr. Ryder is a 47 year old male with a history of cerebral palsy, cardiomyopathy , systolic CHF with an ejection fraction of 45%, LV thrombus on anticoagulant Coumadin and history of coronary artery disease status post prior PCI to the proximal RCA proximal LAD, mid circ, history of non-STEMI, sacral decubitus ulcer, tobacco abuse, hypertension, hyperlipidemia, patient was brought in by family due to generalized weakness, fever and some cough for last 2 days, the patient was so weak that was unable to stand up or get up In the ER temperature was 103 chest x-ray showed left lower lobe pneumonia, influenza screen was negative . The patient was started on vancomycin and Zosyn which were later switched to cefepime and Levaquin, the patient continued to improve and did not write any more fevers. He was given the option to de-escalate antibiotics down to Levaquin alone in 2 of 17 for one more day but he prefers to be discharged as he is feeling much better. INR is 2.3 at the moment. Also, the patient came with a phosphorus level of less than 1 which was repleted, the latest value was 3.9. Stable to be discharged Time spent discussing smoking cessation with patient: 3 to 10 minutes - Time Spent with Patient Total time spent providing and/or coordinating discharge services: Greater than 30 minutes (40 min) - Constitutional Vitals: Temp Pulse Resp BP Pulse Ox 98.2 F 58 18 102/65 93 09/19/17 08:24 09/19/17 08:24 09/19/17 08:24 09/19/17 08:24 09/19/17 08:24 General appearance: Present: cooperative - Head Head exam: Present: atraumatic, normocephalic - Eye Eye exam: Present: PERRL, conjuntiva pink, sclera anicteric Pupils: Present: PERRL - Neck Neck exam general surgery: Present: supple, trachea midline. Absent: lymphadenopathy - Respiratory Respiratory exam: Present: CTAB. Absent: accessory muscle use, rales, rhonchi, wheezes - Cardiovascular Cardiovascular exam: Present: RRR, +S1, +S2. Absent: diastolic murmur, gallop, rubs, systolic murmur - GI/Abdominal GI/Abdominal exam: Present: normal bowel sounds, soft, no peritoneal signs. Absent: distended, tenderness - Extremities Exam Extremities exam: Present: warm, radial pulses palpable and symmetrical. Absent : calf tenderness, cyanotic, pedal edema - Neurological Exam Neurological exam: Present: CN II-XII intact, oriented X3. Absent: no focal deficits, pronater drift, facial droop, speech deficit Additional comments: Generalized muscle atrophy, dysarthria at baseline - Skin Skin exam: Present: dry, intact
--- NOTE | 2017-09-19 10:32 | Physician Discharge Referral ---
Home Health/Hosp Referral Info Transfer to: Home Health Provider in Charge Post Discharge: PCP - Diagnosis (1) Sepsis Status: Acute (2) Healthcare-associated pneumonia Status: Acute (3) Hypophosphatemia Status: Acute (4) Cerebral palsy Status: Chronic (5) Hypertension Status: Chronic (6) LV (left ventricular) mural thrombus Status: Chronic (7) Systolic heart failure Status: Chronic (8) Tobacco abuse Status: Chronic - Respiratory Orders Smoking Cessation: Smoking cessation has been advised. For more information, call the [place] Tobacco Quit Line at 6-287-YPQS-NOW. - Services Needed Following services are medically necessary services: Home Health Aide, Physical Therapy, Occupational Therapy Home Care Orders: Follow-up with primary care physician within the next 7 days, complete 5 more days of Levaquin starting on 09/20/2017. Return to the emergency room if not improving. Quit smoking - Transfer Medications Prescriptions: Levofloxacin [Levaquin] 750 mg PO DAILY #5 tablet Home Medications: Haloperidol [Haldol] 5 mg PO BID 03/23/17 [History] diazePAM [Valium] 2 mg PO TID PRN 03/23/17 [History] Cyclobenzaprine [Flexeril] 10 mg PO TID PRN 05/06/17 [History] Aspirin Enteric Coated [Aspirin EC] 81 mg PO DAILY #30 tablet. 05/07/17 [Rx] Atorvastatin [Lipitor] 80 mg PO HS #60 tablet 05/07/17 [Rx] Nitroglycerin 0.4 mg SL Q5MIN PRN #30 tab.subl 05/07/17 [Rx] Oxycodone HCl/Acetaminophen [Endocet 5-325 Tablet] 1 tab PO Q6H PRN #7 tablet [Rx] Metoprolol [Lopressor] 25 mg PO BID 05/09/17 [History] Omeprazole [PriLOSEC] 20 mg PO DAILY 05/09/17 [History] Clopidogrel [Plavix] 75 mg PO DAILY #30 tablet 05/11/17 [Rx] Warfarin [Coumadin] 4 mg PO TUTHSA 09/17/17 [History] Warfarin [Coumadin] 6 mg PO SUMOWEFR 09/17/17 [History] Levofloxacin [Levaquin] 750 mg PO DAILY #5 tablet 09/19/17 [Rx] Allergies/Adverse Reactions: 3 Allergy/AdvReac Type Severity Reaction Status Date / Time No Known Allergies Allergy Verified 01/30/17 19:40 Certification: Further, I certify that my clinical findings support that this patient is homebound (i.e. absences from home require considerable and taxing effort and are for medical reasons or anglican services or infrequently or short duration when for other reasons) because: Homebound Reason: Patient requires assistance of a person or device to safely leave home Attestation: My signature below is to certify that this patient is under my care and that I, or nurse practitioner, or a physician's vet assistant working with me, has a face-to -face encounter with this patient.
[2017-09-19 10:35] VITALS: BP 98/58
[2017-09-19] MEDS: traMADol 50 MG TABLET PO PRN (17:01)
[2017-09-19] MEDS ORDERED: *HR* Warfarin 3 MG TABLET PO ONE (18:00)
--- NOTE | 2017-09-20 19:17 | Electrocardiograph Report ---
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
== END 2017-09-19 19:45 | disposition home or self-care (01) ==
LOC: EMEROO 02:14 → 3ANU 02:14 → SUATTDRO 04:37 → 3ANU 05:19
PROVIDERS: ADMIT Internal Medicine; ATTEND Internal Medicine

== ENCOUNTER 2018-04-27 06:05 | Observation (INO) ==
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
[2018-04-27 06:42] LABS: Basophils % 0.2 %; Hematocrit 42.5 % (37.5-50.1); Hemoglobin 14.6 g/dL (12.9-16.9); Immature Granulocytes % 0.4 % (0-4); Lymphocytes # 1.2 K/mcL (0.6-4.6); Lymphocytes % 13.1 %; Mean Corpuscular HGB Conc 34.4 g/dL (31.6-35.5); Mean Corpuscular Hemoglobin 33.1 pg (28.0-33.3); Mean Corpuscular Volume 96.4 fL (83.0-100.0); Mean Platelet Volume 9.9 fL (9.4-12.4); Monocytes # 0.4 K/mcL (0.0-1.3); Monocytes % 3.7 %; Neutrophils # 7.8 K/mcL (1.6-8.9); Platelet Count 271 K/mcL (140-400); Red Blood Count 4.41 M/mcL (4.19-5.50); Red Cell Distribution Width 13.7 % (11.5-14.5); Segmented Neutrophils % 82.6 %
[2018-04-27] MEDS: 0.9 % Sodium Chloride 1,000 ML IVC SCH ×2 (06:55→14:00)
[2018-04-27 07:01] LABS: Alanine Aminotransferase 48 Units/L (7-52); Albumin 4.5 g/dL (3.5-5.7); Alkaline Phosphatase 89 Units/L (34-104); Aspartate Amino Transferase 95 Units/L (13-39); BUN/Creatinine Ratio 29 (6-26); Bilirubin,Direct 0.5 mg/dL (0.0-0.2); Bilirubin,Indirect 0.7 mg/dL (0.0-1.2); Bilirubin,Total 1.2 mg/dL (0.3-1.0); Blood Urea Nitrogen 28 mg/dL (6-20); Calcium 9.6 mg/dL (8.6-10.3); Carbon Dioxide 17 mEq/L (23-29); Chloride 102 mEq/L (98-107); Creatine Kinase 1539 Units/L (30-223); Globulin 4.3 g/dL (2.4-3.5); Glucose 92 mg/dL (70-105); Osmolality,Calculated 301 (280-300); Potassium 3.7 mEq/L (3.5-5.1); Sodium 143 mEq/L (136-145); Total Protein 8.8 g/dL (6.4-8.9); Troponin I < 0.03 ng/mL (< 0.04); eGFR For Non-African Americans > 60 (> 60)
--- NOTE | 2018-04-27 07:32 | Emergency Department Note ---
Disposition Clinical Impression: Altered mental status Qualifiers: Altered mental status type: unspecified Qualified Code(s): R41.82 - Altered mental status, unspecified Disposition: Still a Patient Condition: Undetermined Referrals: NONE,PCP [Primary Care Provider] - General Adult HPI - General Chief complaint: ED Neuro Symptoms/Deficit Stated complaint: possible stroke Time Seen by Provider: 04/27/18 06:10 Source: patient, EMS Mode of arrival: EMS Limitations: altered mental status Nursing Notes Reviewed: Yes Vital Signs Reviewed: Yes - History of Present Illness Pain Scale: 3 - Related Data Home Medications Medication Instructions Recorded Confirmed Metoprolol [Lopressor] 25 mg PO BID 05/09/17 04/27/18 Omeprazole [PriLOSEC] 20 mg PO DAILY 05/09/17 04/27/18 Acetaminophen [Tylenol 8 Hour] 1,300 mg PO Q8H PRN 04/02/18 04/27/18 Baclofen [Lioresal] 10 mg PO TID PRN 04/02/18 04/27/18 Diclofenac Sodium [Voltaren] 50 mg PO BID 04/02/18 04/27/18 Meloxicam [Meloxicam] 15 mg PO DAILY 04/27/18 04/27/18 Previous Rx's Medication Instructions Recorded Aspirin Enteric Coated [Aspirin EC] 81 mg PO DAILY #30 tablet. 05/07/17 Atorvastatin [Lipitor] 80 mg PO HS #60 tablet 05/07/17 Clopidogrel [Plavix] 75 mg PO DAILY #30 tablet 05/11/17 Allergies Allergy/AdvReac Type Severity Reaction Status Date / Time No Known Allergies Allergy Verified 04/02/18 11:10 Past Medical History - Past Medical History Medical history: Reports: cardiomyopathy, CHF, coronary artery disease, hyperlipidemia, hypertension, myocardial infarction, other Surgical history: Reports: angioplasty/stent Psychiatric history: Reports: no psych history - Social History Smoking Status: Former smoker Smokeless Tobacco Status: No Alcohol use: Reports: none Drug use: Reports: none Physical Exam - General Limitations: altered mental status General appearance: alert, in no apparent distress, other (Unkept, smells of urine, appears very dehydrated, contractures and all for extremities) Course Vital Signs Temperature 97.9 F 04/27/18 06:06 Pulse Rate 112 04/27/18 06:06 Respiratory Rate 18 04/27/18 06:06 Blood Pressure 188/105 04/27/18 06:06 O2 Sat by Pulse Oximetry 98 04/27/18 06:06 Temperature 97.9 F 04/27/18 06:06 Pulse Rate 112 04/27/18 06:06 Respiratory Rate 18 04/27/18 06:06 Blood Pressure 188/105 04/27/18 06:06 O2 Sat by Pulse Oximetry 98 04/27/18 06:28 Oxygen Delivery Oxygen Delivery Room Air Medical Decision Making - Lab Data Lab results reviewed: Yes I reviewed the patient's lab results. Result diagrams: 04/27/18 06:27 04/27/18 06:27 Lab Results 04/27/18 04/27/18 04/27/18 Range/Units 06:27 06:27 06:27 WBC 9.4 (4.3-11.1) K/mcL RBC 4.41 (4.19-5.50) M/mcL Hgb 14.6 (12.9-16.9) g/dL Hct 42.5 (37.5-50.1) % MCV 96.4 (83.0-100.0) fL MCH 33.1 (28.0-33.3) pg MCHC 34.4 (31.6-35.5) g/dL RDW 13.7 (11.5-14.5) % Plt Count 271 (140-400) K/mcL MPV 9.9 (9.4-12.4) fL Immature Gran % 0.4 (0-4) % Seg Neutrophils % 82.6 % Lymphocytes % 13.1 % Monocytes % 3.7 % Eosinophils % 0.0 % Basophils % 0.2 % Neutrophils # 7.8 (1.6-8.9) K/mcL Lymphocytes # 1.2 (0.6-4.6) K/mcL Monocytes # 0.4 (0.0-1.3) K/mcL Eosinophils # 0.0 (0.0-0.6) K/mcL Basophils # 0.0 (0.0-0.2) K/mcL Sodium 143 (136-145) mEq/L Potassium 3.7 (3.5-5.1) mEq/L Chloride 102 (98-107) mEq/L Carbon Dioxide 17 L (23-29) mEq/L BUN 28 H (6-20) mg/dL Creatinine 0.95 (0.70-1.30) mg/dL Est GFR ( Amer) > 60 (> 60) Est GFR (Non-Af Amer) > 60 (> 60) BUN/Creatinine Ratio 29 H (6-26) Glucose 92 (70-105) mg/dL Calculated Osmolality 301 H (280-300) Lactic Acid 1.0 (0.5-2.2) mmol/L Calcium 9.6 (8.6-10.3) mg/dL Total Bilirubin 1.2 H (0.3-1.0) mg/dL Direct Bilirubin 0.5 H (0.0-0.2) mg/dL Indirect Bilirubin 0.7 (0.0-1.2) mg/dL AST 95 H (13-39) Units/L ALT 48 (7-52) Units/L Alkaline Phosphatase 89 (34-104) Units/L Creatine Kinase 1539 H (30-223) Units/L Troponin I < 0.03 (< 0.04) ng/mL Serum Total Protein 8.8 (6.4-8.9) g/dL Albumin 4.5 (3.5-5.7) g/dL Globulin 4.3 H (2.4-3.5) g/dL Albumin/Globulin Ratio 1.0 L (1.1-2.2) Attestation Statement - Attestation Attestation: I, Beau Daniels MD, personally evaluated this patient and discussed their management with the resident physician. I reviewed the resident's note and agree with the documented findings, medical decision making, and plan of care. 48-year-old male with history of Damian's disease presents to the emergency department by EMS with a complaint of altered mental status. History obtained from EMS. Patient is alert and is able to talk and answer some simple questions but speech is very difficult to understand. He has contractures and neurologically symptoms appear to be chronic. EMS reports that family told them that he got sick about 5 days ago and was vomiting and went to bed and has not been out of bed since. Patient arrived here saturated with urine with very foul smelling body odor. Patient denies any pain or difficulty breathing. On examination patient is a well-developed male who appears much older than stated age. He is alert. No cyanosis or diaphoresis. He follows simple commands. Contractures of extremities with facial grimacing and tongue deviation. Breath sounds are equal bilaterally. Heart regular with a mild to moderate tachycardia. Abdomen soft with present bowel sounds. No obvious tenderness. Workup initiated. At shift change patient is signed out to the oncoming dayshift team, Dr. Myles and Dr. Irene Nunn.
[2018-04-27 08:07] LABS: Bilirubin,Urine Moderate (Negative); Blood,Urine Large (Negative); Clarity,Urine Clear (Clear); Color,Urine Yellow (Yellow); Glucose,Urine (UA) Normal (Normal); Ketones,Urine >=160 mg/dL (Negative); Leukocyte Esterase,Urine Negative (Negative); Nitrite,Urine Negative (Negative); PH,Urine 5.5 pH Units (5.0-8.0); Protein,Urine 30 mg/dL (Neg-Trace); Specific Gravity,Urine 1.014 (1.010-1.025); Urobilinogen,Urine Normal (Normal)
[2018-04-27 08:10] LABS: Bacteria,Urine None Seen per hpf (None-Few); Hyaline Casts,Urine Few per lpf (None-Few); RBC,Urine 50-100 per hpf (0-3); Squamous Epithelial Cell,Urine Many per lpf (None-Few)
[2018-04-27 08:30] LABS: Mucus,Urine Few (Few)
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
[2018-04-27] MEDS ORDERED: 0.9 % Sodium Chloride 1,000 ML ONE ×3 (10:56→13:38)
[2018-04-27] MEDS ORDERED: Naloxone 0.4 MG/ML INJ IVP PRN (13:42)
[2018-04-27] MEDS ORDERED: Acetaminophen 325 MG TABLET PO PRN (13:42)
[2018-04-27] MEDS ORDERED: traMADol 50 MG TABLET PO PRN (13:42)
[2018-04-27] MEDS ORDERED: Baclofen 10 MG TABLET PO PRN (13:56)
--- NOTE | 2018-04-27 14:33 | Internal Med History&Physical ---
<SallieaideluanaRob bhandari - Last Filed: 04/27/18 15:38> Date of Encounter: 04/27/18 Time of Encounter: 12:30 Internal Medicine - H&P: HPI Chief complaint: Neuro sx Admitted From: Emergency Dept Plans for Post Hospital Care: Home History of present illness: Mr. Ryder is a 48 year old male w/PMH of Cerebral palsy, cardiomyopathy, CHF, CAD , HLD, HTN, previous TX, and stent placement x4 presents from the ED w/CC of neuro deficits for the past 5 days. Family reports left-sided facial droop and mentation changes. Pt. appears to be disheveled and poor self care with long fingernails and dirty clothes. Pt. is very minimal in his responses. Left mouth droop present but pt. is able to smile symmetrically. Pt. able to raise arms independently and follows commands. Difficult to discern any neuro deficits from pts. Cerebral palsy. Pt. denies recent illness, nausea, vomiting, CP, fall , cough, SOB, dizziness, diarrhea, constipation, pre-syncope, or syncope. Past Med Surg Social Fam HX - Past Medical History Source: patient, old records reviewed Medical history: cardiomyopathy, CHF, coronary artery disease, hyperlipidemia, hypertension, myocardial infarction, other Additional medical history: cerebral palsy, huntingtons disease Psychiatric history: no psych history - Past Surgical History Surgical History: angioplasty/stent (x4 according to pt.) Additional surgical history: heart stent x4 - Social History Smoking Status: Former smoker Smokeless Tobacco Status: No Alcohol use: none Drug use: none Current living situation: Home Activity Level: Wheelchair bound Recent Out of Country Travel Within the Last 8 Weeks: No Exposure or Possible Exposure to Illness During Travel: No - Family History Mother Race: Family Member Ethnicity: Non- Living Status: Cause of : DM complications Hx Family Endocrine Disorder: Yes (DM) Father Race: Family Member Ethnicity: Non- Living Status: Cause of : [place] Hx Family Cardiac Disorders: Yes ([place]) Brother Race: Family Member Ethnicity: Non- Living Status: Still Living Hx Family Medical Disorders: No Sister Race: Family Member Ethnicity: Non- Living Status: Still Living Hx Family Medical Disorders: No Internal Medicine - H&P: Meds Aspirin Enteric Coated [Aspirin EC] 81 mg PO DAILY #30 tablet. 05/07/17 [Rx] Atorvastatin [Lipitor] 80 mg PO HS #60 tablet 05/07/17 [Rx] Metoprolol [Lopressor] 25 mg PO BID 05/09/17 [History] Omeprazole [PriLOSEC] 20 mg PO DAILY 05/09/17 [History] Clopidogrel [Plavix] 75 mg PO DAILY #30 tablet 05/11/17 [Rx] Acetaminophen [Tylenol 8 Hour] 1,300 mg PO Q8H PRN 04/02/18 [History] Baclofen [Lioresal] 10 mg PO TID PRN 04/02/18 [History] Diclofenac Sodium [Voltaren] 50 mg PO BID 04/02/18 [History] Meloxicam [Meloxicam] 15 mg PO DAILY 04/27/18 [History] 3 Allergy/AdvReac Type Severity Reaction Status Date / Time No Known Allergies Allergy Verified 04/02/18 11:10 All Systems PM: A 10-system review of systems was performed and is negative for pertinent findings except as documented above in the HPI. - Constitutional Constitutional: no chills, no fever(s), no night sweats - EENT Eyes: no change in vision, no discharge, no pain, no photophobia Ears: no ear discharge, no ear pain, no tinnitus Nose, mouth and throat: no dysphagia, no nasal discharge, no neck pain, no sore throat - Breasts Breasts: as per HPI - Cardiovascular Cardiovascular ROS IM: no chest pain, no diaphoresis, no dyspnea, no lightheadedness, no palpitations, no syncope - Respiratory Respiratory: no cough, no dyspnea, no wheezing, no excessive phlegm production - Gastrointestinal Gastrointestinal: no abdominal pain, no diarrhea, no hematemesis, no hematochezia, no melena, no nausea, no vomiting - Genitourinary Genitourinary ROS male: as per HPI - Musculoskeletal Musculoskeletal ROS IM: as per HPI, no numbness, no tingling - Integumentary Integumentary IM: no rash, no unusual bruising - Neurological Neurological ROS: as per HPI, abnormal speech, lack of coordination, weakness, no confusion, no convulsions, no focal weakness, no numbness, no tingling, no tremor(s) - Psychiatric Psychiatric: as per HPI - Endocrine Endocrine IM: as per HPI - Hematologic/Lymphatic Hematologic/Lymphatic: no easy bruising - Allergic/Immunologic Allergic/Immunologic: as per HPI - Constitutional Vitals: Temp Pulse Resp BP Pulse Ox 97.9 F 97 16 141/79 97 04/27/18 06:06 04/27/18 08:42 04/27/18 11:42 04/27/18 11:42 04/27/18 08:42 General appearance: Present: cooperative, A&O X 2, no acute distress, answers questions appropriately Exam: Patient examined at bedside. Pt. appears to be disheveled and poor self care with long fingernails and dirty clothes. Pt. is very minimal in his responses. Left mouth droop present but pt. is able to smile symmetrically. Pt. able to raise arms independently and follows commands. Difficult to discern any neuro deficits from pts. Cerebral palsy. Pt. denies recent illness, nausea, vomiting, CP, fall, cough, SOB, dizziness, diarrhea, constipation, pre-syncope, or syncope. VS stable. Will order MRI of head/brain to r/o ischemia/infarct. - Head Head exam: Present: atraumatic, normocephalic - Eye Eye exam: Present: PERRL, conjuntiva pink, sclera anicteric Pupils: Present: PERRL - ENT ENT exam: Present: normal exam - Neck Neck exam general surgery: Present: supple, trachea midline. Absent: lymphadenopathy - Respiratory Respiratory exam: Present: CTAB. Absent: accessory muscle use, rales, rhonchi, wheezes - Cardiovascular Cardiovascular exam: Present: RRR, +S1, +S2. Absent: diastolic murmur, gallop, rubs, systolic murmur - GI/Abdominal GI/Abdominal exam: Present: normal bowel sounds, soft, no peritoneal signs. Absent: distended, tenderness - Rectal Rectal exam: Present: deferred - Additional comments: exam deferred. - Extremities Exam Extremities exam: Present: warm, radial pulses palpable and symmetrical. Absent : calf tenderness, cyanotic, pedal edema - Neurological Exam Neurological exam: Present: alert, facial droop (Left mouth that resolves w/ smiling), speech deficit - Psychiatric Psychiatric exam: Present: anxious - Skin Skin exam: Present: dry, intact Internal Med - H&P Results - Labs CBC & Chem 7: 04/27/18 06:27 04/27/18 06:27 - EKG Data EKG shows normal: sinus rhythm Rate: tachycardia - EKG Data Prior EKG available for review: no - Impressions EKG dated 04/27/18 shows sinus tachycardia with low QRS voltage in precordial leads and anteroseptal myocardial infarction of indeterminate age. - Diagnostic Studies Chest x-ray Additional comments: Impressions Chest X-Ray 04/27/18 06:13 IMPRESSION: 1. No active pulmonary disease. D/ / Rashid Dunaway MD / Rashid Dunaway MD Interpreting Provider: Rashid Dunaway MD CT scan - head Additional comments: Impressions Head CT 04/27/18 06:15 IMPRESSION: Subtle hyperdensities within the basal ganglia, both frontal lobes and left cerebellar hemisphere. Benign calcifications are suspected possibly related to calcium metabolism abnormality. No evidence of acute intracranial abnormality. D/ / 04/27/2018 07:57:14 Trent Miranda MD / rebekah Interpreting Provider: Trent Miranda MD - Assessment and plan (1) Neurological deficit present Current Visit: Yes Status: Acute Assessment and plan: Acute neuro deficit as reported by pts. family. Pt. has hx of cerebral palsy. Left mouth droop present on exam which resolves w/smiling. Difficult to discern neuro sx from cerebral palsy baseline. CT of the head/brain shows subtle hypodensities within the basal ganglia, both frontal lobes and left cerebellar hemisphere. Benign calcifications are suspected possibly related to calcium metabolism abnormality. No evidence of acute intracranial abnormality. MRI of the head/brain ordered to r/o infarct/ischemia. NIHSS. Neuro checks Q2HR. Timed VS. Padding to bed rails. NPO until dysphagia screen passed. Echocardiogram on shows LVEF of 50%, LV segmental wall motion, and fixed and immobile laminated [place] LV apex with a texture appearance of an LV thrombus previously seen on echo studies. Bilateral carotid Dopplers ordered. ASA. Hold BP medications until MRI resulted to allow for permissive hypertension. Aspiration precautions. Elevate head of bed. Consider neurology consult if MRA results are abnormal. Speech therapy/PT/OT consults ordered. Patient discussed with Dr. Martin who agrees w/plan of care. Pt. is high risk for further morbidity and complications d/t current neuro deficit versus cerebral palsy, dehydration, elevated CK, hx; and risk factors of previous TX w/stents x4 , cardiomyopathy, CHF, CAD, HLD, HTN. Observation. (2) Elevated creatine kinase Current Visit: Yes Status: Acute Assessment and plan: Acutely elevated creatine kinase of unknown etiology. Pt. has hx of cerebral palsy. Pt. appears dehydrated on admission, so 1L 0.9 NS IV bolus administered in ED to be followed by 100 mLs/HR. Blood alcohol level ordered. Monitor I&O and f/u labs. (3) HTN (hypertension) Current Visit: Yes Status: Chronic Assessment and plan: Hx of chronic HTN. Monitor pt. and VS. Continue pts. Metoprolol once MRI is resulted to allow for permissive HTN. Qualifiers: Hypertension type: essential hypertension Qualified Code(s): I10 - Essential (primary) hypertension (4) HLD (hyperlipidemia) Current Visit: Yes Status: Chronic Assessment and plan: Hx of chronic HLD. Lipid panel in a.m. labs. Continue pts. Lipitor. Qualifiers: Hyperlipidemia type: pure hypercholesterolemia Qualified Code(s): E78.00 - Pure hypercholesterolemia, unspecified; E78.0 - Pure hypercholesterolemia (5) CAD (coronary artery disease) Current Visit: Yes Status: Chronic Assessment and plan: Hx of chronic CAD w/previous MIs and stent placement x4. Continuous cardiac telemetry. Continue pts. HTN and HLD medications and Plavix. Qualifiers: Coronary Disease-Associated Artery/Lesion type: [place] artery [place] vs. transplanted heart: [place] heart Associated angina: angina presence unspecified Qualified Code(s): I25.10 - Atherosclerotic heart disease of [place] coronary artery without angina pectoris (6) CHF (congestive heart failure) Current Visit: Yes Status: Chronic Assessment and plan: Hx of chronic CHF. Stable. Pt. appears dehydrated so will use IV fluids judiciously. Continuous cardiac telemetry. Echocardiogram on 04/02/18 shows LVEF of 50%, LV segmental wall motion, fixed and immobile laminated mass in LV apex with a texture. LV thrombus previously seen on echo studies. Monitor I&O and daily weight. Qualifiers: Heart failure type: unspecified Heart failure chronicity: chronic Qualified Code(s): I50.9 - Heart failure, unspecified (7) Cardiomyopathy Current Visit: Yes Status: Chronic Assessment and plan: Hx of cardiomyopathy. CXR shows heart size within normal limits. Pulmonary vasculature also within normal limits. Echocardiogram on 04/02/18 shows LVEF of 50%, LV segmental wall motion, fixed and immobile laminated mass in the LV apex with the texture appearance of LV thrombus previously seen on echo studies, and Definity echo contrast was used. Continuous cardiac telemetry. Qualifiers: Cardiomyopathy type: ischemic Qualified Code(s): I25.5 - Ischemic cardiomyopathy (8) Cerebral palsy Current Visit: Yes Status: Chronic Assessment and plan: Hx of cerebral palsy. Falls/safety precautions. Up with assist only. Aspiration precautions. Qualifiers: Cerebral palsy type: unspecified type Qualified Code(s): G80.9 - Cerebral palsy, unspecified (9) Previous myocardial infarction older than 8 weeks Current Visit: Yes Status: Resolved Assessment and plan: Hx of previous TX and stent placement x4 according to pt. Continuous cardiac telemetry d/t neuro sx. Serial troponins ordered. Monitor pt. for CP. (10) DVT prophylaxis Current Visit: Yes Status: Acute Assessment and plan: Bilateral SCDs on LEs for DVT prophylaxis. (11) Decubitus ulcer of sacral area Current Visit: Yes Status: Chronic Assessment and plan: Hx of sacral decubitus ulcer. Wound care consult and daily wound care ordered. Air mattress for pressure reduction. Qualifiers: Pressure injury stage: unspecified pressure injury stage Qualified Code(s) : L89.159 - Pressure ulcer of sacral region, unspecified stage - Time Spent With Patient Total time spent is greater than 50% in coordination of care (as documented) at patient's floor/unit and/or counseling patient: Greater than 35 minutes <Anisa Martin - Last Filed: 04/27/18 20:11> Date of Encounter: 04/27/18 Internal Medicine - H&P: HPI History of present illness: Mr. Ryder is a 48 year old male All Systems PM: A 10-system review of systems was performed and is negative for pertinent findings except as documented above in the HPI. - Constitutional Vitals: Temp Pulse Resp BP Pulse Ox 99.6 F 116 14 120/79 96 04/27/18 19:40 04/27/18 19:40 04/27/18 19:40 04/27/18 19:40 04/27/18 19:40 Internal Med - H&P Results - Labs CBC & Chem 7: 04/27/18 06:27 04/27/18 06:27 Labs: Cardiac Enzymes 04/27/18 Range/Units 14:27 Troponin I 0.03 (< 0.04) ng/mL - Assessment and plan (1) Cerebral palsy Current Visit: Yes Status: Chronic Qualifiers: Cerebral palsy type: unspecified type Qualified Code(s): G80.9 - Cerebral palsy, unspecified (2) CAD (coronary artery disease) Current Visit: Yes Status: Chronic Qualifiers: Coronary Disease-Associated Artery/Lesion type: [place] artery [place] vs. transplanted heart: [place] heart Associated angina: angina presence unspecified Qualified Code(s): I25.10 - Atherosclerotic heart disease of [place] coronary artery without angina pectoris (3) DVT prophylaxis Current Visit: Yes Status: Acute (4) Cardiomyopathy Current Visit: Yes Status: Chronic Qualifiers: Cardiomyopathy type: ischemic Qualified Code(s): I25.5 - Ischemic cardiomyopathy (5) HTN (hypertension) Current Visit: Yes Status: Chronic Qualifiers: Hypertension type: essential hypertension Qualified Code(s): I10 - Essential (primary) hypertension (6) Neurological deficit present Current Visit: Yes Status: Acute (7) Elevated creatine kinase Current Visit: Yes Status: Acute (8) HLD (hyperlipidemia) Current Visit: Yes Status: Chronic Qualifiers: Hyperlipidemia type: pure hypercholesterolemia Qualified Code(s): E78.00 - Pure hypercholesterolemia, unspecified; E78.0 - Pure hypercholesterolemia (9) Previous myocardial infarction older than 8 weeks Current Visit: Yes Status: Resolved (10) CHF (congestive heart failure) Current Visit: Yes Status: Chronic Qualifiers: Heart failure type: unspecified Heart failure chronicity: chronic Qualified Code(s): I50.9 - Heart failure, unspecified (11) Decubitus ulcer of sacral area Current Visit: Yes Status: Chronic Qualifiers: Pressure injury stage: unspecified pressure injury stage Qualified Code(s) : L89.159 - Pressure ulcer of sacral region, unspecified stage - Time Spent With Patient Total time spent is greater than 50% in coordination of care (as documented) at patient's floor/unit and/or counseling patient: - Attending Attestation Seen and assessed. Continue management for neuro deficit/TIA. F/U MRI head. 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
[2018-04-27] MEDS ORDERED: *HR* LORazepam 2 MG/ML VIAL IVP ONE ×2 (14:42→19:10)
--- NOTE | 2018-04-27 15:32 | Electrocardiograph Report ---
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
--- NOTE | 2018-04-27 15:33 | Electrocardiograph Report ---
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
[2018-04-27] MEDS: Pantoprazole 40 MG VIAL IVP SCH (17:35)
[2018-04-28] MEDS: 0.9 % Sodium Chloride 1,000 ML IVC SCH ×2 (01:18)
[2018-04-28 03:49] LABS: Basophils % 0.2 %; Eosinophils # 0.1 K/mcL (0.0-0.6); Eosinophils % 0.7 %; Hematocrit 35.8 % (37.5-50.1); Immature Granulocytes % 0.3 % (0-4); Immature Platelets 2.6 % (1.1-6.1); Lymphocytes # 1.3 K/mcL (0.6-4.6); Lymphocytes % 13.6 %; Mean Corpuscular HGB Conc 34.1 g/dL (31.6-35.5); Mean Corpuscular Hemoglobin 32.9 pg (28.0-33.3); Mean Corpuscular Volume 96.5 fL (83.0-100.0); Mean Platelet Volume 9.8 fL (9.4-12.4); Monocytes # 0.8 K/mcL (0.0-1.3); Monocytes % 7.7 %; Neutrophils # 7.5 K/mcL (1.6-8.9); Platelet Count 198 K/mcL (140-400); Red Blood Count 3.71 M/mcL (4.19-5.50); Red Cell Distribution Width 13.9 % (11.5-14.5); Segmented Neutrophils % 77.5 %
[2018-04-28 03:51] LABS: Hemoglobin 12.2 g/dL (12.9-16.9)
[2018-04-28 04:12] LABS: Alanine Aminotransferase 35 Units/L (7-52); Albumin 3.7 g/dL (3.5-5.7); Albumin/Globulin Ratio 1.1 (1.1-2.2); Alkaline Phosphatase 67 Units/L (34-104); Aspartate Amino Transferase 65 Units/L (13-39); BUN/Creatinine Ratio 22 (6-26); Blood Urea Nitrogen 17 mg/dL (6-20); Calcium 8.8 mg/dL (8.6-10.3); Carbon Dioxide 21 mEq/L (23-29); Chloride 112 mEq/L (98-107); Cholesterol 114 mg/dL (< 200); Globulin 3.4 g/dL (2.4-3.5); Glucose 110 mg/dL (70-105); HDL Cholesterol 23 mg/dL (40-59); LDL Cholesterol,Calculated 67 mg/dL (0-99); Magnesium 1.9 mg/dL (1.6-2.6); Osmolality,Calculated 300 (280-300); Phosphorous 1.9 mg/dL (2.7-4.5); Sodium 144 mEq/L (136-145); Total Protein 7.1 g/dL (6.4-8.9); Triglycerides 121 mg/dL (< 150); eGFR For Non-African Americans > 60 (> 60)
[2018-04-28] MEDS: Pantoprazole 40 MG VIAL IVP SCH (07:55)
[2018-04-28] MEDS ORDERED: 0.45 % Sodium Chloride w/KCl 20 MEQ/1,000 ML MLS IVC SCH (08:30)
[2018-04-28] MEDS ORDERED: Aspirin Enteric Coated 81 MG Tablet PO SCH (09:00)
[2018-04-28] MEDS: Potassium Chloride Elixir 20 MEQ/15 ML UDC PO SCH ×3 (12:59→16:51)
[2018-04-28 15:11] VITALS: BP 153/94
--- NOTE | 2018-04-28 15:52 | Discharge Summary ---
- NOTES TO OUTPATIENT PROVIDER Notes to Outpatient Provider: Patient with history of cerebral palsy presented to the ED with worsening neurological deficits including left facial droop and mentation changes. MRI negative for acute intracranial processes. He was noted to be dehydrated evidenced by all 3 cell lines being higher than the usual and elevation of BUN/Cr. He was also noted to have CK of 1539, unclear etiology. NSAIDS on hold and improved with IVF. Patient was recommended to be transferred to SNF or have home health services at home which he declined. OF note, troponin was minimally elevated at 0.05 in the setting of Cr elevation and rhabdo. No anginal symptoms or concerning EKG changes. Given his prior history of CAD s/p PCI, he would still benefit from outpatient ischemic workup. He will need BMP and CK next week to document resolution. Date of Encounter: 04/28/18 Time of Encounter: 14:40 - Discharge Diagnosis (1) Cerebral palsy Priority: Secondary Status: Chronic Qualifiers: Cerebral palsy type: unspecified type Qualified Code(s): G80.9 - Cerebral palsy, unspecified (2) CAD (coronary artery disease) Priority: Secondary Status: Chronic Qualifiers: Coronary Disease-Associated Artery/Lesion type: [place] artery [place] vs. transplanted heart: [place] heart Associated angina: angina presence unspecified Qualified Code(s): I25.10 - Atherosclerotic heart disease of [place] coronary artery without angina pectoris (3) DVT prophylaxis Priority: Secondary Status: Acute (4) Cardiomyopathy Priority: Secondary Status: Chronic Qualifiers: Cardiomyopathy type: ischemic Qualified Code(s): I25.5 - Ischemic cardiomyopathy (5) HTN (hypertension) Priority: Secondary Status: Chronic Qualifiers: Hypertension type: essential hypertension Qualified Code(s): I10 - Essential (primary) hypertension (6) Neurological deficit present Priority: Primary Status: Acute (7) Elevated creatine kinase Priority: Secondary Status: Acute (8) HLD (hyperlipidemia) Priority: Secondary Status: Chronic Qualifiers: Hyperlipidemia type: pure hypercholesterolemia Qualified Code(s): E78.00 - Pure hypercholesterolemia, unspecified; E78.0 - Pure hypercholesterolemia (9) Previous myocardial infarction older than 8 weeks Priority: Secondary Status: Resolved (10) CHF (congestive heart failure) Priority: Secondary Status: Chronic Qualifiers: Heart failure type: unspecified Heart failure chronicity: chronic Qualified Code(s): I50.9 - Heart failure, unspecified (11) Decubitus ulcer of sacral area Priority: Secondary Status: Chronic Qualifiers: Pressure injury stage: unspecified pressure injury stage Qualified Code(s) : L89.159 - Pressure ulcer of sacral region, unspecified stage Hospital course: Mr. Ryder is a 48 year old male with history of cerebral palsy and CAD s/p PCI was admitted with a concern of worsening neurological deficits including left facial droop and mentation changes. MRI negative for acute intracranial processes. Instead, he was noted to be dehydrated as evidenced by all 3 cell lines being higher than the usual and elevation of BUN/Cr. He was also noted to have CK of 1539, unclear etiology. NSAIDS were held and improved with IVF. Patient was advised to be transferred to SNF or have home health services at home by PT/OT which he declined. OF note, troponin was minimally elevated at 0.05 in the setting of Cr elevation and rhabdo. No anginal symptoms or concerning EKG changes. Given his prior history of CAD s/p PCI, he would still benefit from outpatient ischemic workup. He will need BMP and CK next week to document resolution. Discharge discussed with: patient, social work - Time Spent with Patient Total time spent providing and/or coordinating discharge services: Greater than 30 minutes - Discharge Medications Home Medications: Aspirin Enteric Coated [Aspirin EC] 81 mg PO DAILY #30 tablet. 05/07/17 [Rx] Atorvastatin [Lipitor] 80 mg PO HS #60 tablet 05/07/17 [Rx] Metoprolol [Lopressor] 25 mg PO BID 05/09/17 [History] Omeprazole [PriLOSEC] 20 mg PO DAILY 05/09/17 [History] Clopidogrel [Plavix] 75 mg PO DAILY #30 tablet 05/11/17 [Rx] Acetaminophen [Tylenol 8 Hour] 1,300 mg PO Q8H PRN 04/02/18 [History] Baclofen [Lioresal] 10 mg PO TID PRN 04/02/18 [History] Allergies/Adverse Reactions: 3 Allergy/AdvReac Type Severity Reaction Status Date / Time No Known Allergies Allergy Verified 04/02/18 11:10 Date of admission: 04/27/18 10:47 Primary care physician: PCP NONE Consults: 04/27/18 13:52 Consult to Occupational Therapy [CONS] Routine Comment: Evaluate, develop and implement POC Reason for Consult: Patient has hx of Bodega's disease and currently presents w/neuro sx. Please assess patient for possible rehabilitation needs for post-discharge planning. Does patient have active BEDREST order?: No Is patient medically & hemodynamically stable?: Yes Patient assessed for mobility or mobilized this visit?: No Consult to Sales Representative Publications [CONS] Routine Reason for SW Consult: Please assess patient for possible home needs for post -discharge planning. 04/27/18 13:55 Consult to Physical Therapy [CONS] Routine Comment: Evaluate, develop and implement POC Reason for Consult: Patient has hx of Damian's disease and currently presents w/neuro sx. Please assess patient for possible rehabilitation needs for post-discharge planning. Does patient have active BEDREST order?: No Is patient medically & hemodynamically stable?: Yes Patient assessed for mobility or mobilized this visit?: No 04/27/18 14:33 Consult to Speech Therapy [CONS] Stat Comment: Evaluate, develop and implement POC Reason for Consult: Failed Nursing dysphia screen Call Completed: Yes 04/27/18 14:44 Consult to Wound Care [CONS] Routine Reason for Consult: Patient has decubitus ulcer of the sacrum. Please make recommendations for daily wound care. Call Completed: No - Constitutional Vitals: Temp Pulse Resp BP Pulse Ox 98.6 F 88 16 153/94 96 04/28/18 15:04/28/18 15:04/28/18 15:09 04/28/18 15:04/28/18 15:09 General appearance: Present: cooperative, A&O X 2, no acute distress, answers questions appropriately Exam: General: Alert and oriented, not in acute distress. HEENT:EOM, pupils equal, round and reactive. Cardiovascular:Normal S1 & S2, No JVD. Pulse regular. Lungs: clear to auscultation, no wheezes/rales Abdomen:Soft, non-tender, no rigidity. Extremities:No deformity or swelling Neurological: slow to respond but alert and oriented x 3, no obvious facial droop appreciated - Patient Status Disposition: Home, Self-Care Condition: Fair - Discharge Instructions Follow Up With: Edd Boss DO [Resident] - 05/04/18 11:00 am Forms: ED Satisfaction Letter - Diet and Activity Activity: resume usual activities as tolerated Diet: advance to your usual diet
--- NOTE | 2018-04-29 08:40 | Electrocardiograph Report ---
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
== END 2018-04-28 19:00 | disposition home or self-care (01) ==
LOC: 3ANU 06:05 → EMEROOARM 06:05 → SUATTDRO 10:47 → 3ANU 11:15
PROVIDERS: ADMIT Student in an Organized Health Care Education/Training Program; ATTEND Internal Medicine

== ENCOUNTER 2018-04-29 20:59 | Observation (INO) ==
--- NOTE | 2018-04-29 21:12 | Emergency Department Note ---
Disposition Clinical Impression: Chest pain Qualifiers: Chest pain type: unspecified Qualified Code(s): R07.9 - Chest pain, unspecified Disposition: Admitted As Inpatient Condition: Fair Time of Disposition: 23:11 SOB HPI - General Stated Complaint: CHANDRIKA Time Seen by Provider: 04/29/18 21:01 Source: patient Mode of arrival: EMS Limitations: physical limitation Nursing Notes Reviewed: Yes Vital Signs Reviewed: Yes - History of Present Illness Mr Ryder is a 48 yo M with a PMH of CAD 4x's stent, [place] and Cerebral palsy that presents today with chest pressure and SOB since this AM when he was laying down. He states that he did take his ASA but no Nitro and pressure persisted. He describes the pressure as left sided and non-radiating. He states the the feeling is different than his previous FL since his prior one was more substernal. He denies cough, fever, falls, changes is bowel or bladder, N/V/D, lightheadedness, dizziness, changes to his bowel or bladder. Patient was recently admitted to the hospital several days back and was just discharged yesterday. He had previously had a workup for possible CVA. Pt Subjective Complaint: chest pain Onset (ago): hour(s) Severity: moderate Consistency/Duration: constant Improves with: nothing Worsens with: nothing Associated symptoms: Reports: chest pain. Denies: fever, cough, wheezing, nausea/vomiting, abdominal pain Treatment prior to arrival: none Cough present: No - Related Data Home oxygen amount: none Home Medications Medication Instructions Recorded Confirmed Metoprolol [Lopressor] 25 mg PO BID 05/09/17 04/27/18 Omeprazole [PriLOSEC] 20 mg PO DAILY 05/09/17 04/27/18 Acetaminophen [Tylenol 8 Hour] 1,300 mg PO Q8H PRN 04/02/18 04/27/18 Baclofen [Lioresal] 10 mg PO TID PRN 04/02/18 04/27/18 Previous Rx's Medication Instructions Recorded Aspirin Enteric Coated [Aspirin EC] 81 mg PO DAILY #30 tablet. 05/07/17 Clopidogrel [Plavix] 75 mg PO DAILY #30 tablet 05/11/17 Allergies Allergy/AdvReac Type Severity Reaction Status Date / Time No Known Allergies Allergy Verified 04/02/18 11:10 All systems ED: reviewed and negative except as stated. Review of Systems: As Per HPI Past Medical History - Past Medical History Attestation: Yes The following information was validated with the patient. Source: patient Medical history: Reports: cardiomyopathy, CHF, coronary artery disease, hyperlipidemia, hypertension, myocardial infarction, other Surgical history: Reports: angioplasty/stent (x4 according to pt.) Psychiatric history: Reports: no psych history - Social History Smoking Status: Former smoker Smokeless Tobacco Status: No Alcohol use: Reports: none Drug use: Reports: none Physical Exam - General Limitations: no limitations General appearance: alert, in no apparent distress - Head Head exam: atraumatic, normocephalic, normal inspection - Eye Eye exam: Present: EOMI - ENT ENT exam: normal exam, normal oropharynx, mucous membranes moist - Neck Neck exam: Present: normal inspection, full ROM, trachea midline - Chest Chest inspection: Present: normal inspection, symmetric chest wall rise - Respiratory Respiratory exam: Present: normal lung sounds bilaterally - Cardiovascular Cardiovascular exam: Present: regular rate, normal rhythm, normal heart sounds - Abdominal Exam Abdominal exam: Present: soft, Non-Tender. Absent: tenderness, distention, guarding, rebound, rigidity - Extremities Exam Extremities exam: Present: normal inspection, full ROM. Absent: tenderness, pedal edema - Neurological Exam Neurological exam: Present: alert, oriented X3 - Psychiatric Psychiatric exam: Present: normal affect, normal mood - Skin Skin exam: Present: warm, dry, intact, normal color Course Course Narrative: Patient seen and examined. Main complaint today is chest pressure. Has had a history of 4 stents in his heart. Cardiopulmonary workup initiated. Patient already took aspirin from the EMS. We will do nitroglycerin trial and reassess. We will likely admit for cardiac workup. - Reevaluation(s) Reevaluation #1: Patient's lab work unremarkable. Mild hypokalemia. 40 mEq of potassium ordered. Patient had minimal improvement with the nitroglycerin trial. Chest pain went from a 7 down to a 6. I discussed with the hospitalist who has accepted patient for admission for ACS workup. Time: 23:11 Vital Signs Temperature 98.4 F 04/29/18 21:11 Pulse Rate 86 04/29/18 21:11 Respiratory Rate 20 04/29/18 21:11 Blood Pressure 142/96 04/29/18 21:11 O2 Sat by Pulse Oximetry 96 04/29/18 21:11 Temperature 98.4 F 04/29/18 21:11 Pulse Rate 79 04/29/18 22:48 Respiratory Rate 20 04/29/18 22:48 Blood Pressure 134/85 04/29/18 22:48 O2 Sat by Pulse Oximetry 97 04/29/18 22:48 Oxygen Delivery Oxygen Delivery Room Air Shortness of Breath/Dyspnea - Medical Records Medical records reviewed: Yes I reviewed the patient's medical records. - Lab Data Lab results reviewed: Yes I reviewed the patient's lab results. Result diagrams: 04/29/18 21:28 04/29/18 21:28 Lab Results 04/29/18 04/29/18 04/29/18 Range/Units 21:28 21:28 21:28 WBC 5.0 (4.3-11.1) K/mcL RBC 3.71 L (4.19-5.50) M/mcL Hgb 12.2 L (12.9-16.9) g/dL Hct 35.9 L (37.5-50.1) % MCV 96.8 (83.0-100.0) fL MCH 32.9 (28.0-33.3) pg MCHC 34.0 (31.6-35.5) g/dL RDW 14.0 (11.5-14.5) % Plt Count 164 (140-400) K/mcL MPV 10.4 (9.4-12.4) fL Immature Gran % 0.2 (0-4) % Seg Neutrophils % 54.7 % Lymphocytes % 30.1 % Monocytes % 10.8 % Eosinophils % 3.8 % Basophils % 0.4 % Neutrophils # 2.7 (1.6-8.9) K/mcL Lymphocytes # 1.5 (0.6-4.6) K/mcL Monocytes # 0.5 (0.0-1.3) K/mcL Eosinophils # 0.2 (0.0-0.6) K/mcL Basophils # 0.0 (0.0-0.2) K/mcL PT 12.0 (9.4-12.1) Seconds INR 1.1 APTT 24.4 L (26.0-36.0) Seconds Sodium 137 (136-145) mEq/L Potassium 3.2 L (3.5-5.1) mEq/L Chloride 104 (98-107) mEq/L Carbon Dioxide 23 (23-29) mEq/L BUN 11 (6-20) mg/dL Creatinine 0.69 L (0.70-1.30) mg/dL Est GFR ( Amer) > 60 (> 60) Est GFR (Non-Af Amer) > 60 (> 60) BUN/Creatinine Ratio 16 (6-26) Glucose 87 (70-105) mg/dL Calculated Osmolality 283 (280-300) Calcium 8.6 (8.6-10.3) mg/dL Creatine Kinase 252 H (30-223) Units/L Troponin I < 0.03 (< 0.04) ng/mL - Radiology Data Radiology results reviewed: Yes I reviewed the patient's radiology results. Chest X-Ray 04/29/18 21:13 IMPRESSION: No acute abnormality detected. D/ / Juan J Garcia MD / Juan J Garcia MD Interpreting Provider: Juan J Garcia MD - EKG Data EKG attestation: Yes I reviewed and interpreted this EKG. EKG results narrative: EKG done at 2109 shows normal sinus rhythm with a rate of [address] elevation or depression. Normal axis. Flattened T waves noted in leads V3 through V6 as well as 1 and aVL. Generally unchanged from prior EKG done 2017. Attestation Statement - Attestation Attestation: I examined this patient and my medical decision-making was reviewed with the Resident Physician. I agree with the documented findings, disposition and treatment plan as described except to the extent set forth below. Chronic chest pain. Does have significant risk factors including previous ACS. We will plan to obtain cardiac biomarkers, chest x-ray, serial EKGs, admitted for further management turning of cardiac biomarkers.
[2018-04-29] MEDS ORDERED: Aspirin 81 MG TAB.CHEW PO ONE (21:13)
[2018-04-29] MEDS: Nitroglycerin 0.4 MG TAB.SUBL SL ONE ×3 (21:37→21:47)
[2018-04-29 22:07] LABS: Basophils % 0.4 %; Eosinophils # 0.2 K/mcL (0.0-0.6); Eosinophils % 3.8 %; Hematocrit 35.9 % (37.5-50.1); Hemoglobin 12.2 g/dL (12.9-16.9); Immature Granulocytes % 0.2 % (0-4); Lymphocytes # 1.5 K/mcL (0.6-4.6); Lymphocytes % 30.1 %; Mean Corpuscular Hemoglobin 32.9 pg (28.0-33.3); Mean Corpuscular Volume 96.8 fL (83.0-100.0); Mean Platelet Volume 10.4 fL (9.4-12.4); Monocytes # 0.5 K/mcL (0.0-1.3); Monocytes % 10.8 %; Neutrophils # 2.7 K/mcL (1.6-8.9); Platelet Count 164 K/mcL (140-400); Red Blood Count 3.71 M/mcL (4.19-5.50); Segmented Neutrophils % 54.7 %
[2018-04-29 22:13] LABS: INR 1.1
[2018-04-29 22:16] LABS: Activated Partial Thrombo Time 24.4 Seconds (26.0-36.0)
[2018-04-29 22:37] LABS: Troponin I < 0.03 ng/mL (< 0.04)
[2018-04-29 22:38] LABS: BUN/Creatinine Ratio 16 (6-26); Blood Urea Nitrogen 11 mg/dL (6-20); Calcium 8.6 mg/dL (8.6-10.3); Carbon Dioxide 23 mEq/L (23-29); Chloride 104 mEq/L (98-107); Creatine Kinase 252 Units/L (30-223); Glucose 87 mg/dL (70-105); Osmolality,Calculated 283 (280-300); Potassium 3.2 mEq/L (3.5-5.1); Sodium 137 mEq/L (136-145); eGFR For Non-African Americans > 60 (> 60)
[2018-04-29] MEDS ORDERED: Potassium Chloride Elixir 20 MEQ/15 ML UDC PO ONE (22:41)
--- NOTE | 2018-04-30 00:01 | Internal Med History&Physical ---
<Scotty Stahl - Last Filed: 04/29/18 23:57> Date of Encounter: 04/29/18 Time of Encounter: 23:57 Internal Medicine - H&P: HPI Chief complaint: Chest pain Admitted From: Home Plans for Post Hospital Care: Home History of present illness: Mr. Ryder is a 48 year old male presents with chief complaint of chest pain 1 week over the left chest with radiation to the left arm that was constant. He reports tunnel did not help improve the pain. He denies shortness of breath, diaphoresis, palpitations, nausea, vomiting, blurry vision. Patient has a history of [place]. Reports he had similar pain one month: Was admitted to [place] for evaluation. At that time ACS was ruled out. Patient also has history of left ventricular mural thrombus diagnosed March 2017 and has been noncompliance with Coumadin. Echo on April 2018 continued to show the mural thrombus. Patient was restarted on warfarin. During this admission patient's INR is 1.1 and he reports he ran out of Coumadin and has lost his PCP. However reviewing [facility], the residency clinic and [place] cardiology have tried multiple times to reach the patient via phone calls and V mL but there was no response. Past Med Surg Social Fam HX - Past Medical History Medical history: cardiomyopathy, CHF, coronary artery disease, hyperlipidemia, hypertension, myocardial infarction, other Additional medical history: cerebral palsy, huntingtons disease Psychiatric history: no psych history - Past Surgical History Surgical History: angioplasty/stent, appendectomy Additional surgical history: heart stent x4 - Social History Smoking Status: Former smoker Smokeless Tobacco Status: No Alcohol use: none Drug use: none - Family History Mother Family Member Ethnicity: Non- Living Status: Hx Family Endocrine Disorder: Yes (DM) Hx Family Neurologic Disorders: Yes Father Family Member Ethnicity: Non- Living Status: Hx Family Cardiac Disorders: Yes (OK) Brother Family Member Ethnicity: Non- Living Status: Still Living Sister Family Member Ethnicity: Non- Living Status: Still Living Internal Medicine - H&P: Meds Aspirin Enteric Coated [Aspirin EC] 81 mg PO DAILY #30 tablet. 05/07/17 [Rx] Metoprolol [Lopressor] 25 mg PO BID 05/09/17 [History] Omeprazole [PriLOSEC] 20 mg PO DAILY 05/09/17 [History] Clopidogrel [Plavix] 75 mg PO DAILY #30 tablet 05/11/17 [Rx] Acetaminophen [Tylenol 8 Hour] 1,300 mg PO Q8H PRN 04/02/18 [History] Baclofen [Lioresal] 10 mg PO TID PRN 04/02/18 [History] 3 Allergy/AdvReac Type Severity Reaction Status Date / Time No Known Allergies Allergy Verified 04/02/18 11:10 All Systems PM: A 10-system review of systems was performed and is negative for pertinent findings except as documented above in the HPI. Review of systems: Constitutional: Denies fever, chills HEENT: Denies headache, trauma, blurry vision, eye discharge, ear pain, ear discharge neck pain, sore throat, rhinorrhea Heart: Reports chest pain. denies palpitations, LE edema Lungs: Denies shortness of breath cough Abdomen: Denies abdominal pain nausea vomiting diarrhea MSK: Denies back pain, falls, joint pain Kidney: Denies dysuria, hematuria Skin: Denies rash, ulcers Neuro: Denies numbness and tingling Psych: denies axniety, depression - Constitutional Vitals: Temp Pulse Resp BP Pulse Ox 97.8 F 73 16 151/86 97 04/29/18 23:44 04/29/18 23:44 04/29/18 23:44 04/29/18 23:44 04/29/18 23:44 Exam: General: pleasant, without distress HEENT: Head atraumatic, normocephalic, EOMI, PERRL, absent ear discharge or trauma, Moist Mucous Membranes, uvula midline Neck: nontender to palpation, absent lymphadenopathy, Cardiovascualr: Regular rate and rhythm with no murmur, absent gallops or rubs, absent pedal edema, radial pulses 2 out of 4 Lungs: Clear to auscultation bilaterally, not in respiratory distress Abdomen: Soft nontender, nondistended positive bowel sounds, absent hepatomegaly Skin: warm and dry, absent rash, absent open wounds and nodules MSK: absent clubbing, cyanosis, joints without swelling Neuro: Cranial nerves II through XII intact, UE and LE sensation equal bilaterally, UE and LEstrength 5/5, alert oriented 3, Psych: good insight and judgment, Internal Med - H&P Results - Labs CBC & Chem 7: 04/29/18 21:28 04/29/18 21:28 - Assessment and plan (1) Chest pain Current Visit: Yes Status: Acute Assessment and plan: Atypical chest pain Worsens with palpation of the left chest Troponin less than 0.03 EKG normal sinus rhythm without ST elevation or depression without changes from previous Echocardiogram 03/2018 LVEF 50% with fixed, and mobile seismograph computer mass in the LV apex Plan: Unlikely ACS. We will trend troponin. Cardiac telemetry. Cardiac diet Qualifiers: Chest pain type: intercostal pain Qualified Code(s): R07.9 - Chest pain, unspecified (2) Left ventricular thrombosis Current Visit: Yes Status: Chronic Assessment and plan: Restart patient on warfarin and presented Lovenox. INR 1.1 I would encourage having conversation with family members about medication noncompliance. Patient lives with his daughter. (3) Hypokalemia Current Visit: Yes Status: Acute Assessment and plan: K+ 3.2 replaced repeat BMP in am (4) CAD (coronary artery disease) Current Visit: Yes Status: Chronic Assessment and plan: History of coronary disease Patient last heart catheterization was April 2017 and he underwent PTCA with MATILDE to distal circumflex which had a 99% lesion. His last stress test was June 2017 which was negative for ischemia We will continue patient on aspirin, Plavix, metoprolol. Qualifiers: Coronary Disease-Associated Artery/Lesion type: [place] artery [place] vs. transplanted heart: [place] heart Associated angina: angina presence unspecified Qualified Code(s): I25.10 - Atherosclerotic heart disease of [place] coronary artery without angina pectoris - Time Spent With Patient Total time spent is greater than 50% in coordination of care (as documented) at patient's floor/unit and/or counseling patient: <Joel Gallardo Denise - Last Filed: 04/30/18 18:53> Date of Encounter: 04/30/18 Internal Medicine - H&P: HPI History of present illness: Mr. Ryder is a 48 year old male All Systems PM: A 10-system review of systems was performed and is negative for pertinent findings except as documented above in the HPI. - Constitutional Vitals: Temp Pulse Resp BP Pulse Ox 99.6 F 82 16 153/90 97 04/30/18 18:42 04/30/18 18:42 04/30/18 18:42 04/30/18 18:42 04/30/18 18:42 Internal Med - H&P Results - Labs CBC & Chem 7: 04/29/18 21:28 04/30/18 02:52 Labs: BMP 04/30/18 02:52 Sodium 140 Potassium 3.0 L Chloride 107 Carbon Dioxide 23 BUN 10 Creatinine 0.67 L Glucose 122 H Calcium 8.8 Cardiac Enzymes 04/30/18 04/30/18 Range/Units 02:52 09:08 Troponin I < 0.03 < 0.03 (< 0.04) ng/mL - Assessment and plan (1) Chest pain Current Visit: Yes Status: Acute Qualifiers: Chest pain type: intercostal pain Qualified Code(s): R07.82 - Intercostal pain (2) Left ventricular thrombosis Current Visit: Yes Status: Chronic (3) Hypokalemia Current Visit: Yes Status: Acute (4) CAD (coronary artery disease) Current Visit: Yes Status: Chronic Qualifiers: Coronary Disease-Associated Artery/Lesion type: [place] artery [place] vs. 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 Case discussed with resident. Atypical chest pain with low suspicion for acute coronary syndrome. However, given patient's cardiac history patient admitted for observation and we will trend troponin and monitor.
[2018-04-30] MEDS ORDERED: Naloxone 0.4 MG/ML INJ IVP PRN (02:48)
[2018-04-30] MEDS: Baclofen 10 MG TABLET PO PRN ×2 (03:06→20:43)
[2018-04-30] MEDS: Acetaminophen 325 MG TABLET PO PRN ×2 (03:06→20:43)
[2018-04-30 03:32] LABS: BUN/Creatinine Ratio 15 (6-26); Blood Urea Nitrogen 10 mg/dL (6-20); Calcium 8.8 mg/dL (8.6-10.3); Carbon Dioxide 23 mEq/L (23-29); Chloride 107 mEq/L (98-107); Glucose 122 mg/dL (70-105); Magnesium 1.6 mg/dL (1.6-2.6); Osmolality,Calculated 290 (280-300); Sodium 140 mEq/L (136-145); eGFR For Non-African Americans > 60 (> 60)
[2018-04-30 03:35] LABS: INR 1.1; Prothrombin Time 11.9 Seconds (9.4-12.1)
[2018-04-30] MEDS ORDERED: Potassium Chloride Elixir 20 MEQ/15 ML UDC PO ONE (04:24)
[2018-04-30] MEDS ORDERED: Acetaminophen 325 MG TABLET PO ONE (04:26)
[2018-04-30] MEDS: Aspirin Enteric Coated 81 MG Tablet PO SCH (10:18)
--- NOTE | 2018-04-30 13:47 | Internal Med Progress Note ---
Hospitalist Progress Note - Encounter Date of Encounter: 04/30/18 Time of Encounter: 13:41 - Subjective Interval History: Patient seen and examined at bedside. Patient no acute overnight events. Patient states that he is no longer having chest pain or shortness breath. Patient denies any specific complaints currently. Patient states that he is not been taking his Coumadin but is not sure why he has not been taking his Coumadin. Patient denies any abdominal pain, nausea, vomiting, diarrhea. Patient's been afebrile. - Exam Vitals: Temp Pulse Resp BP Pulse Ox 97.4 F L 70 16 151/98 95 04/30/18 12:04 04/30/18 12:04 04/30/18 12:04 04/30/18 12:04 04/30/18 12:04 Exam: Constitutional: No acute distress, Alert Psych: AAO x 3 HEENT: NCAT, EOMI Neck: supple, no JVD Cardio: regular rate and rhythm, +s1s2, no murmurs/rubs/gallops, no JVD Resp: clear to ascultation bilaterally, no wheezes/rales/ronchi Abd: soft, non tender/non distended, positive bowel sounds, no gaurding/reboud/ ridgitity Extremities: no clubbing/cyanosis/edema appreciated Neuro: Able to move lower extremities however the patient states that he has weak in his lower extremities and not able to walk however this is chronic due to his cerebral palsy and is limited to wheelchair; - Assessment and Plan (1) Chest pain Current Visit: Yes Status: Acute Assessment and Plan: -Atypical chest pain -Worsens with palpation of the left chest -serial troponins less than 0.03 -EKG normal sinus rhythm without ST elevation or depression without changes from previous -Echocardiogram 03/2018 LVEF 50% with fixed, and mobile watershed tender mass in the LV apex -no further chest pain -continue anticoagulation for LV thrombus (2) Left ventricular thrombosis Current Visit: Yes Status: Chronic Assessment and Plan: -Restart patient on warfarin continue therapeutic dose lovenox -INR 1.1 -I discussed importance of compliance with all his medications -Patient lives with his daughter. (3) Hypokalemia Current Visit: Yes Status: Acute Assessment and Plan: -K+ 3.0 -replaced -repeat BMP in am (4) CAD (coronary artery disease) Current Visit: Yes Status: Chronic Assessment and Plan: -History of coronary disease -Patient last heart catheterization was April 2017 and he underwent PTCA with MATILDE to distal circumflex which had a 99% lesion. -His last stress test was June 2017 which was negative for ischemia -We will continue patient on aspirin, Plavix, metoprolol. (5) Cerebral palsy Current Visit: Yes Status: Acute Assessment and Plan: -Chronic -limited to wheelchair DVT Prophylaxis: lovenox, coumadin - Summary of Assessment and Plan Summary of Assessment and Plan: Continue Lovenox and Coumadin; due to the patient's noncompliance with his Coumadin and LV thrombus may be necessary today keep the patient hospitalized until therapeutic and less can demonstrate appropriate technique or have family help with Lovenox injections; will discuss with case management are social work tomorrow - Time Spent with Patient Total time spent is greater than 50% in coordination of care (as documented) at patient's floor/unit and/or counseling patient: 25 - 35 minutes Plan of Care Discussed with: patient Internal Medicine: Result - Labs CBC & Chem 7: 04/29/18 21:28 04/30/18 02:52 Labs: BMP 04/30/18 02:52 Sodium 140 Potassium 3.0 L Chloride 107 Carbon Dioxide 23 BUN 10 Creatinine 0.67 L Glucose 122 H Calcium 8.8 Cardiac Enzymes 04/30/18 04/30/18 Range/Units 02:52 09:08 Troponin I < 0.03 < 0.03 (< 0.04) ng/mL - ABG Interpretation ABG results: PT/INR, D-dimer PT 11.9 Seconds (9.4-12.1) 04/30/18 02:52 Consult Discharge Plan - Plan Referrals: NONE,PCP [Primary Care Provider] - (1) Chest pain Qualifiers: Chest pain type: intercostal pain Qualified Code(s): R07.82 - Intercostal pain (4) CAD (coronary artery disease) Qualifiers: Coronary Disease-Associated Artery/Lesion type: [place] artery [place] vs. 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
[2018-04-30] MEDS ORDERED: *HR* Warfarin 3 MG TABLET PO ONE (18:00)
[2018-04-30] MEDS: *HR* Enoxaparin 80 MG/0.8 ML SYRINGE SQ SCH (22:56)
[2018-04-30] MEDS ORDERED: Warfarin perPT PO PRN (23:53)
[2018-05-01 06:17] LABS: Basophils % 0.4 %; Eosinophils # 0.3 K/mcL (0.0-0.6); Eosinophils % 4.6 %; Hematocrit 36.3 % (37.5-50.1); Hemoglobin 12.5 g/dL (12.9-16.9); Immature Granulocytes % 0.2 % (0-4); Lymphocytes # 1.6 K/mcL (0.6-4.6); Mean Corpuscular HGB Conc 34.4 g/dL (31.6-35.5); Mean Corpuscular Hemoglobin 33.4 pg (28.0-33.3); Mean Corpuscular Volume 97.1 fL (83.0-100.0); Mean Platelet Volume 10.7 fL (9.4-12.4); Monocytes # 0.7 K/mcL (0.0-1.3); Monocytes % 11.7 %; Neutrophils # 3.1 K/mcL (1.6-8.9); Platelet Count 183 K/mcL (140-400); Red Blood Count 3.74 M/mcL (4.19-5.50); Red Cell Distribution Width 13.9 % (11.5-14.5); Segmented Neutrophils % 55.1 %
[2018-05-01 06:20] LABS: INR 1.1; Prothrombin Time 12.2 Seconds (9.4-12.1)
[2018-05-01 06:33] LABS: BUN/Creatinine Ratio 18 (6-26); Blood Urea Nitrogen 12 mg/dL (6-20); Calcium 8.8 mg/dL (8.6-10.3); Carbon Dioxide 26 mEq/L (23-29); Chloride 108 mEq/L (98-107); Glucose 111 mg/dL (70-105); Magnesium 1.5 mg/dL (1.6-2.6); Osmolality,Calculated 290 (280-300); Potassium 3.7 mEq/L (3.5-5.1); Sodium 140 mEq/L (136-145); eGFR For Non-African Americans > 60 (> 60)
[2018-05-01] MEDS: Aspirin Enteric Coated 81 MG Tablet PO SCH (08:06)
[2018-05-01] MEDS: *HR* Enoxaparin 80 MG/0.8 ML SYRINGE SQ SCH ×2 (12:33→23:49)
[2018-05-01] MEDS: Acetaminophen 325 MG TABLET PO PRN ×2 (12:34→20:23)
--- NOTE | 2018-05-01 14:11 | Internal Med Progress Note ---
Hospitalist Progress Note - Encounter Date of Encounter: 05/01/18 Time of Encounter: 14:08 - Subjective Interval History: Patient seen and examined at bedside. Patient no acute overnight events. Patient continues not to have any chest pain or shortness of breath. Patient denies any nausea, vomiting, diarrhea. Patient admits to left wrist pain which is chronic. He has for something for his wrist pain. Patient now requesting ECF placement, PT OT reevaluation pending will await authorization for DC to ECF , was told this would likely be tomorrow. - Exam Vitals: Temp Pulse Resp BP Pulse Ox 98.4 F 78 19 138/85 95 05/01/18 11:22 05/01/18 11:22 05/01/18 11:22 05/01/18 11:22 05/01/18 11:22 Exam: Constitutional: No acute distress, Alert Psych: AAO x 3 HEENT: NCAT, EOMI Neck: supple Cardio: regular rate and rhythm, +s1s2 Resp: clear to ascultation bilaterally Abd: soft, non tender/non distended, positive bowel sounds Extremities: no clubbing/cyanosis/edema appreciated Neuro: Able to move lower extremities however the patient states that he has weak in his lower extremities chronically - Assessment and Plan (1) Chest pain Current Visit: Yes Status: Acute Assessment and Plan: -Atypical chest pain -Worsens with palpation of the left chest -serial troponins less than 0.03 -EKG normal sinus rhythm without ST elevation or depression without changes from previous -Echocardiogram 03/2018 LVEF 50% with fixed, and mobile beef splitter mass in the LV apex -no further chest pain -continue anticoagulation for LV thrombus (2) Left ventricular thrombosis Current Visit: Yes Status: Chronic Assessment and Plan: -Restart patient on warfarin continue therapeutic dose lovenox -INR 1.1 -I discussed importance of compliance with all his medications -Patient lives with his daughter -now going to ECF so can have lovenox injections while bridging at ECF (3) Hypokalemia Current Visit: Yes Status: Acute Assessment and Plan: -replaced and resolved (4) CAD (coronary artery disease) Current Visit: Yes Status: Chronic Assessment and Plan: -History of coronary disease -Patient last heart catheterization was April 2017 and he underwent PTCA with MATILDE to distal circumflex which had a 99% lesion. -His last stress test was June 2017 which was negative for ischemia -We will continue patient on aspirin, Plavix, metoprolol. (5) Cerebral palsy Current Visit: Yes Status: Acute Assessment and Plan: -Chronic -limited to wheelchair DVT Prophylaxis: lovenox, coumadin - Summary of Assessment and Plan Summary of Assessment and Plan: Continue Lovenox and Coumadin; patient now requesting ECF placement, will be sent to [facility] upon insurance authorization. PT OT reevaluation required. Patient can undergo bridging with Lovenox and ECF. Was told that this would not be approved until tomorrow. Anticipate discharge tomorrow. - Time Spent with Patient Total time spent is greater than 50% in coordination of care (as documented) at patient's floor/unit and/or counseling patient: 25 - 35 minutes Plan of Care Discussed with: patient Internal Medicine: Result - Labs CBC & Chem 7: 05/01/18 05:40 05/01/18 05:40 Labs: Short CBC 05/01/18 Range/Units 05:40 WBC 5.7 (4.3-11.1) K/mcL Hgb 12.5 L (12.9-16.9) g/dL Hct 36.3 L (37.5-50.1) % Plt Count 183 (140-400) K/mcL Neutrophils # 3.1 (1.6-8.9) K/mcL BMP 05/01/18 05:40 Sodium 140 Potassium 3.7 Chloride 108 H Carbon Dioxide 26 BUN 12 Creatinine 0.68 L Glucose 111 H Calcium 8.8 - ABG Interpretation ABG results: PT/INR, D-dimer PT 12.2 Seconds (9.4-12.1) H 05/01/18 05:40 Consult Discharge Plan - Plan Referrals: NONE,PCP [Primary Care Provider] - (1) Chest pain Qualifiers: Chest pain type: intercostal pain Qualified Code(s): R07.82 - Intercostal pain (4) CAD (coronary artery disease) Qualifiers: Coronary Disease-Associated Artery/Lesion type: [place] artery [place] vs. 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
[2018-05-01] MEDS ORDERED: ACETAMINOPHEN 1300 MG PO PRN (17:24)
[2018-05-01] MEDS ORDERED: *HR* Warfarin 3 MG TABLET PO ONE (18:00)
[2018-05-01] MEDS: Baclofen 10 MG TABLET PO PRN (20:23)
[2018-05-02 06:53] LABS: INR 1.2; Prothrombin Time 13.3 Seconds (9.4-12.1)
[2018-05-02] MEDS: Aspirin Enteric Coated 81 MG Tablet PO SCH (08:10)
--- NOTE | 2018-05-02 09:09 | Internal Med Progress Note ---
Hospitalist Progress Note - Encounter Date of Encounter: 05/02/18 Time of Encounter: 09:00 - Subjective Interval History: No acute events overnight - Exam Vitals: Temp Pulse Resp BP Pulse Ox 97.9 F 79 17 137/91 96 05/02/18 07:09 05/02/18 07:09 05/02/18 07:09 05/02/18 07:09 05/02/18 07:09 Exam: Constitutional: No acute distress, Alert Psych: AAO x 3 HEENT: NCAT, EOMI Neck: supple Cardio: regular rate and rhythm, +s1s2 Resp: clear to ascultation bilaterally Abd: soft, non tender/non distended, positive bowel sounds Extremities: no clubbing/cyanosis/edema appreciated Neuro: Able to move lower extremities however the patient states that he has weak in his lower extremities chronically - Assessment and Plan (1) Chest pain Current Visit: Yes Status: Acute Assessment and Plan: -Atypical chest pain -Worsens with palpation of the left chest -serial troponins less than 0.03 -EKG normal sinus rhythm without ST elevation or depression without changes from previous -Echocardiogram 03/2018 LVEF 50% with fixed, and mobile marketing production manager mass in the LV apex -no further chest pain -continue anticoagulation for LV thrombus 05/02. Continue bridging anticoagulation for LV thrombus. INR was 1.2 today. Continue lovenox and warfarin. Plan for discharge to ECF. Awaiting placement (2) Left ventricular thrombosis Current Visit: Yes Status: Chronic Assessment and Plan: -Restart patient on warfarin continue therapeutic dose lovenox -INR 1.1 -I discussed importance of compliance with all his medications -Patient lives with his daughter -now going to ECF so can have lovenox injections while bridging at ECF (3) Hypokalemia Current Visit: Yes Status: Acute Assessment and Plan: -replaced and resolved (4) CAD (coronary artery disease) Current Visit: Yes Status: Chronic Assessment and Plan: -History of coronary disease -Patient last heart catheterization was April 2017 and he underwent PTCA with MATILDE to distal circumflex which had a 99% lesion. -His last stress test was June 2017 which was negative for ischemia -We will continue patient on aspirin, Plavix, metoprolol. (5) Cerebral palsy Current Visit: Yes Status: Acute Assessment and Plan: -Chronic -limited to wheelchair DVT Prophylaxis: lovenox, coumadin - Time Spent with Patient Total time spent is greater than 50% in coordination of care (as documented) at patient's floor/unit and/or counseling patient: Internal Medicine: Result - Labs CBC & Chem 7: 05/01/18 05:40 05/01/18 05:40 - ABG Interpretation ABG results: PT/INR, D-dimer PT 13.3 Seconds (9.4-12.1) H 05/02/18 06:07 Consult Discharge Plan - Plan Referrals: NONE,PCP [Primary Care Provider] - (1) Chest pain Qualifiers: Chest pain type: intercostal pain Qualified Code(s): R07.82 - Intercostal pain (4) CAD (coronary artery disease) Qualifiers: Coronary Disease-Associated Artery/Lesion type: [place] artery [place] vs. 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
[2018-05-02] MEDS: *HR* Enoxaparin 80 MG/0.8 ML SYRINGE SQ SCH ×2 (11:44→23:56)
[2018-05-02] MEDS ORDERED: *HR* Warfarin 3 MG TABLET PO ONE (18:00)
[2018-05-02] MEDS: Acetaminophen 325 MG TABLET PO PRN (20:12)
[2018-05-02] MEDS: Baclofen 10 MG TABLET PO PRN (20:13)
[2018-05-03 07:16] LABS: INR 1.3; Prothrombin Time 15.1 Seconds (9.4-12.1)
[2018-05-03] MEDS: Aspirin Enteric Coated 81 MG Tablet PO SCH (09:25)
[2018-05-03] MEDS: Baclofen 10 MG TABLET PO PRN ×2 (09:28→21:05)
--- NOTE | 2018-05-03 09:54 | Internal Med Progress Note ---
Hospitalist Progress Note - Encounter Date of Encounter: 05/03/18 Time of Encounter: 08:50 - Subjective Interval History: No acute events overnight - Exam Vitals: Temp Pulse Resp BP Pulse Ox 98.7 F 84 19 133/86 94 05/03/18 06:46 05/03/18 06:46 05/03/18 06:46 05/03/18 06:46 05/03/18 06:46 Exam: Constitutional: No acute distress, Alert Psych: AAO x 3 HEENT: NCAT, EOMI Neck: supple Cardio: regular rate and rhythm, +s1s2 Resp: clear to ascultation bilaterally Abd: soft, non tender/non distended, positive bowel sounds Extremities: no clubbing/cyanosis/edema appreciated Neuro: Able to move lower extremities however the patient states that he has weak in his lower extremities chronically - Assessment and Plan (1) Chest pain Current Visit: Yes Status: Acute Assessment and Plan: -Atypical chest pain -Worsens with palpation of the left chest -serial troponins less than 0.03 -EKG normal sinus rhythm without ST elevation or depression without changes from previous -Echocardiogram 03/2018 LVEF 50% with fixed, and mobile bleach chlorinator mass in the LV apex -no further chest pain -continue anticoagulation for LV thrombus 05/03. Continue bridging anticoagulation for LV thrombus. INR was 1.3 today. Continue lovenox and warfarin. Plan for discharge to ECF. Awaiting insurance approval for ECF placement. Can be discharged on a lovenox bridge once approved, if INR still subtherapeutic (2) Left ventricular thrombosis Current Visit: Yes Status: Chronic Assessment and Plan: -Restart patient on warfarin continue therapeutic dose lovenox -INR 1.1 -I discussed importance of compliance with all his medications -Patient lives with his daughter -now going to ECF so can have lovenox injections while bridging at ECF (3) Hypokalemia Current Visit: Yes Status: Acute Assessment and Plan: -replaced and resolved (4) CAD (coronary artery disease) Current Visit: Yes Status: Chronic Assessment and Plan: -History of coronary disease -Patient last heart catheterization was April 2017 and he underwent PTCA with MATILDE to distal circumflex which had a 99% lesion. -His last stress test was June 2017 which was negative for ischemia -We will continue patient on aspirin, Plavix, metoprolol. (5) Cerebral palsy Current Visit: Yes Status: Acute Assessment and Plan: -Chronic -limited to wheelchair DVT Prophylaxis: lovenox, coumadin - Time Spent with Patient Total time spent is greater than 50% in coordination of care (as documented) at patient's floor/unit and/or counseling patient: Internal Medicine: Result - Labs CBC & Chem 7: 05/01/18 05:40 05/01/18 05:40 - ABG Interpretation ABG results: PT/INR, D-dimer PT 15.1 Seconds (9.4-12.1) H 05/03/18 06:35 Consult Discharge Plan - Plan Referrals: NONE,PCP [Primary Care Provider] - (1) Chest pain Qualifiers: Chest pain type: intercostal pain Qualified Code(s): R07.82 - Intercostal pain (4) CAD (coronary artery disease) Qualifiers: Coronary Disease-Associated Artery/Lesion type: [place] artery [place] vs. 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
[2018-05-03] MEDS: *HR* Enoxaparin 80 MG/0.8 ML SYRINGE SQ SCH (12:50)
[2018-05-03] MEDS ORDERED: *HR* Warfarin 3 MG TABLET PO ONE (18:00)
[2018-05-03] MEDS: Acetaminophen 325 MG TABLET PO PRN (21:04)
[2018-05-04] MEDS: *HR* Enoxaparin 80 MG/0.8 ML SYRINGE SQ SCH ×3 (00:32→23:29)
[2018-05-04 05:03] LABS: Basophils % 0.6 %; Eosinophils # 0.3 K/mcL (0.0-0.6); Eosinophils % 5.1 %; Hemoglobin 13.9 g/dL (12.9-16.9); Immature Granulocytes % 0.2 % (0-4); Lymphocytes # 2.3 K/mcL (0.6-4.6); Lymphocytes % 37.1 %; Mean Corpuscular HGB Conc 33.9 g/dL (31.6-35.5); Mean Corpuscular Hemoglobin 32.9 pg (28.0-33.3); Mean Corpuscular Volume 96.9 fL (83.0-100.0); Monocytes # 0.8 K/mcL (0.0-1.3); Neutrophils # 2.8 K/mcL (1.6-8.9); Platelet Count 245 K/mcL (140-400); Red Blood Count 4.23 M/mcL (4.19-5.50)
[2018-05-04 05:13] LABS: INR 1.6; Prothrombin Time 17.9 Seconds (9.4-12.1)
[2018-05-04 05:22] LABS: BUN/Creatinine Ratio 19 (6-26); Blood Urea Nitrogen 11 mg/dL (6-20); Calcium 9.4 mg/dL (8.6-10.3); Carbon Dioxide 26 mEq/L (23-29); Chloride 102 mEq/L (98-107); Glucose 85 mg/dL (70-105); Osmolality,Calculated 283 (280-300); Potassium 3.4 mEq/L (3.5-5.1); Sodium 137 mEq/L (136-145); eGFR For Non-African Americans > 60 (> 60)
[2018-05-04] MEDS: Aspirin Enteric Coated 81 MG Tablet PO SCH (08:28)
[2018-05-04] MEDS: Nystatin POWDER 30 GM BOTTLE TP SCH ×3 (08:35→19:53)
[2018-05-04] MEDS: Baclofen 10 MG TABLET PO PRN ×3 (08:35→22:03)
--- NOTE | 2018-05-04 16:53 | Internal Med Progress Note ---
Hospitalist Progress Note - Encounter Date of Encounter: 05/04/18 Time of Encounter: 03:00 - Subjective Interval History: 48 yo male patient awaiting [facility] once bed is available and developmental board evaluaiton d/t CP . Denies any chest pain , shortness of breath, or pain today. No complaints - Exam Vitals: Temp Pulse Resp BP Pulse Ox 98.1 F 92 17 122/90 94 05/04/18 15:25 05/04/18 15:25 05/04/18 15:25 05/04/18 15:25 05/04/18 15:25 Exam: VS stable - Assessment and Plan (1) Chest pain Current Visit: Yes Status: Acute Assessment and Plan: Denies chest pain , shortness of breath, today Will continue with current monitoring (2) Left ventricular thrombosis Current Visit: Yes Status: Chronic Assessment and Plan: -Restart patient on warfarin continue therapeutic dose lovenox -INR 1.6 -I discussed importance of compliance with all his medications -Patient lives with his daughter -now going to ECF so can have lovenox injections while bridging at ECF (3) Hypokalemia Current Visit: Yes Status: Acute Assessment and Plan: potassium stable @ 3.4 mildly low will continue to [facility] (4) CAD (coronary artery disease) Current Visit: Yes Status: Chronic Assessment and Plan: -History of coronary disease -Patient last heart catheterization was April 2017 and he underwent PTCA with MATILDE to distal circumflex which had a 99% lesion. -His last stress test was June 2017 which was negative for ischemia -We will continue patient on aspirin, Plavix, metoprolol. (5) Cerebral palsy Current Visit: Yes Status: Chronic Assessment and Plan: -Chronic -limited to wheelchair DVT Prophylaxis: per protocol - Time Spent with Patient Total time spent is greater than 50% in coordination of care (as documented) at patient's floor/unit and/or counseling patient: less than 15 minutes Plan of Care Discussed with: patient Internal Medicine: Result - Labs CBC & Chem 7: 05/04/18 03:40 05/04/18 03:40 Labs: Short CBC 05/04/18 Range/Units 03:40 WBC 6.2 (4.3-11.1) K/mcL Hgb 13.9 (12.9-16.9) g/dL Hct 41.0 (37.5-50.1) % Plt Count 245 (140-400) K/mcL Neutrophils # 2.8 (1.6-8.9) K/mcL BMP 05/04/18 03:40 Sodium 137 Potassium 3.4 L Chloride 102 Carbon Dioxide 26 BUN 11 Creatinine 0.58 L Glucose 85 Calcium 9.4 - ABG Interpretation ABG results: PT/INR, D-dimer PT 17.9 Seconds (9.4-12.1) H 05/04/18 03:40 Consult Discharge Plan - Plan Referrals: NONE,PCP [Primary Care Provider] - (1) Chest pain Qualifiers: Chest pain type: intercostal pain Qualified Code(s): R07.82 - Intercostal pain (4) CAD (coronary artery disease) Qualifiers: Coronary Disease-Associated Artery/Lesion type: [place] artery [place] vs. 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
[2018-05-04] MEDS: Acetaminophen 325 MG TABLET PO PRN ×2 (17:29→23:29)
[2018-05-04] MEDS ORDERED: *HR* Warfarin 3 MG TABLET PO ONE (18:00)
[2018-05-05 04:26] LABS: INR 2.4; Prothrombin Time 26.7 Seconds (9.4-12.1)
[2018-05-05] MEDS: Aspirin Enteric Coated 81 MG Tablet PO SCH (07:44)
[2018-05-05] MEDS: Nystatin POWDER 30 GM BOTTLE TP SCH ×3 (07:45→20:27)
[2018-05-05] MEDS: Acetaminophen 325 MG TABLET PO PRN ×2 (07:50→18:12)
[2018-05-05] MEDS: Baclofen 10 MG TABLET PO PRN ×2 (07:50→18:11)
[2018-05-05] MEDS: *HR* Enoxaparin 80 MG/0.8 ML SYRINGE SQ SCH (12:40)
--- NOTE | 2018-05-05 14:19 | Internal Med Progress Note ---
Hospitalist Progress Note - Encounter Date of Encounter: 05/05/18 Time of Encounter: 14:17 - Subjective Interval History: The patient was seen and examined at bedside today. He continues to denies chest pain or shortness of breath. He reports that he is ready for discharge. - Exam Vitals: Temp Pulse Resp BP Pulse Ox 97.9 F 77 16 116/77 97 05/05/18 12:07 05/05/18 12:07 05/05/18 12:07 05/05/18 12:07 05/05/18 12:07 Exam: PHYSICAL EXAMINATION: GENERAL: The patient is a well-developed, well-nourished male in no apparent distress. He is alert and oriented x3. HEENT: Head is normocephalic and atraumatic. Extraocular muscles are intact. Pupils are equal, round, and reactive to light and accommodation. NECK: Supple. No carotid bruits. No lymphadenopathy or thyromegaly. LUNGS: Clear to auscultation bilaterally AP and L. HEART: Regular rate and rhythm without murmur. ABDOMEN: Soft, nontender, and nondistended. Positive bowel sounds. No hepatosplenomegaly was noted. EXTREMITIES: Without any cyanosis, clubbing, rash, lesions or edema. NEUROLOGIC: With cerebral palsy the patient has limitations in movement to bilateral lower extremities this is chronic otherwise nonfocal neurological exam PSYCHIATRIC: Flat affect, but denies suicidal or homicidal ideations. SKIN: No ulceration or induration present. - Assessment and Plan (1) Chest pain Current Visit: Yes Status: Resolved Assessment and Plan: Presented with atypical chest pain worse with palpation Serial troponins less than 0.[address]-T wave changes concerning for ischemia Echocardiogram 03/2018 LVEF 50% with fixed and mobile mass in the level of the apex Continues to dye chest pain at this time On anticoagulation for LV thrombus Therapeutic today with INR of 2.4; continue Coumadin for anticoagulation Continue to monitor INR daily Continue cardiac monitoring With LV thrombus plan is to DC to ECF; currently patient's daughter takes care of him Still awaiting authorization (2) Left ventricular thrombosis Current Visit: Yes Status: Chronic Assessment and Plan: As above (3) Hypokalemia Current Visit: Yes Status: Acute Assessment and Plan: Recheck potassium in the morning (4) CAD (coronary artery disease) Current Visit: Yes Status: Chronic Assessment and Plan: CAD per history Left heart catheter 2017 with PTCA with MATILDE to distal circumflex which had percent lesion Less stressed June 2017 was negative for ischemia Continue aspirin, Plavix and metoprolol Continue to treat LV thrombosis as stated above (5) Cerebral palsy Current Visit: Yes Status: Chronic Assessment and Plan: Chronic Limited a wheelchair Continue PT/OT will a patient DC to SNF DVT Prophylaxis: Coumadin - Time Spent with Patient Total time spent is greater than 50% in coordination of care (as documented) at patient's floor/unit and/or counseling patient: less than 15 minutes Plan of Care Discussed with: patient Internal Medicine: Result - Labs CBC & Chem 7: 05/04/18 03:40 05/04/18 03:40 - ABG Interpretation ABG results: PT/INR, D-dimer PT 26.7 Seconds (9.4-12.1) H 05/05/18 03:57 Consult Discharge Plan - Plan Referrals: NONE,PCP [Primary Care Provider] - (1) Chest pain Qualifiers: Chest pain type: intercostal pain Qualified Code(s): R07.82 - Intercostal pain (4) CAD (coronary artery disease) Qualifiers: Coronary Disease-Associated Artery/Lesion type: [place] artery [place] vs. 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
[2018-05-05] MEDS ORDERED: Benzocaine 20% 9 GM GEL..GRAM. TP PRN (14:41)
[2018-05-05] MEDS ORDERED: *HR* Warfarin 3 MG TABLET PO ONE (18:00)
[2018-05-06] MEDS: Baclofen 10 MG TABLET PO PRN ×3 (02:11→18:18)
[2018-05-06] MEDS: Acetaminophen 325 MG TABLET PO PRN ×3 (02:11→18:18)
[2018-05-06 04:48] LABS: INR 2.5; Prothrombin Time 27.7 Seconds (9.4-12.1)
--- NOTE | 2018-05-06 08:58 | Internal Med Progress Note ---
Hospitalist Progress Note - Encounter Date of Encounter: 05/06/18 Time of Encounter: 08:56 - Subjective Interval History: No acute changes overnight. denies chest pain or shortness of breath. He reports that he is ready for discharge. - Exam Vitals: Temp Pulse Resp BP Pulse Ox 97.5 F L 80 18 139/92 96 05/06/18 08:23 05/06/18 08:23 05/06/18 08:23 05/06/18 08:23 05/06/18 08:23 Exam: PHYSICAL EXAMINATION: GENERAL: The patient is an ill-appearing male in no apparent distress.. He is alert and oriented x3. HEENT: Head is normocephalic and atraumatic. Extraocular muscles are intact. Pupils are equal, round, and reactive to light and accommodation. NECK: Supple. No carotid bruits. No lymphadenopathy or thyromegaly. LUNGS: Clear to auscultation bilaterally AP and L. HEART: Regular rate and rhythm without murmur. ABDOMEN: Soft, nontender, and nondistended. Positive bowel sounds. No hepatosplenomegaly was noted. EXTREMITIES: Without any cyanosis, clubbing, rash, lesions or edema. NEUROLOGIC: With cerebral palsy the patient has limitations in movement to bilateral lower extremities this is chronic otherwise nonfocal neurological exam PSYCHIATRIC: Flat affect, but denies suicidal or homicidal ideations. SKIN: No ulceration or induration present. - Assessment and Plan (1) Chest pain Current Visit: Yes Status: Resolved Assessment and Plan: Presented with atypical chest pain worse with palpation Serial troponins less than 0.[address]-T wave changes concerning for ischemia Echocardiogram 03/2018 LVEF 50% with fixed and mobile mass in the level of the apex Continues to dye chest pain at this time On anticoagulation for LV thrombus Therapeutic today with INR of 2.4; continue Coumadin for anticoagulation Continue to monitor INR daily Continue cardiac monitoring With LV thrombus plan is to DC to ECF; currently patient's daughter takes care of him Still awaiting authorization 05/06-continues to deny return of chest pain. Resolved (2) Left ventricular thrombosis Current Visit: Yes Status: Chronic Assessment and Plan: As above (3) Hypokalemia Current Visit: Yes Status: Acute (4) CAD (coronary artery disease) Current Visit: Yes Status: Chronic Assessment and Plan: CAD per history Left heart catheter 2016 with PTCA with MATILDE to distal circumflex which had percent lesion Less stressed June 2017 was negative for ischemia Continue aspirin, Plavix and metoprolol; continue anticoagulation; INR therapeutic today Continue to treat LV thrombosis as stated above (5) Cerebral palsy Current Visit: Yes Status: Chronic Assessment and Plan: Chronic Limited a wheelchair Continue PT/OT will a patient DC to SNF Approval pending; discuss with home health care social worker this afternoon DVT Prophylaxis: Coumadin-INR therapeutic - Time Spent with Patient Total time spent is greater than 50% in coordination of care (as documented) at patient's floor/unit and/or counseling patient: less than 15 minutes Plan of Care Discussed with: patient Internal Medicine: Result - Labs CBC & Chem 7: 05/04/18 03:40 05/04/18 03:40 - ABG Interpretation ABG results: PT/INR, D-dimer PT 27.7 Seconds (9.4-12.1) H 05/06/18 04:14 Consult Discharge Plan - Plan Referrals: NONE,PCP [Primary Care Provider] - (1) Chest pain Qualifiers: Chest pain type: intercostal pain Qualified Code(s): R07.82 - Intercostal pain (4) CAD (coronary artery disease) Qualifiers: Coronary Disease-Associated Artery/Lesion type: [place] artery [place] vs. 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
[2018-05-06] MEDS: Nystatin POWDER 30 GM BOTTLE TP SCH ×3 (09:15→20:11)
[2018-05-06] MEDS: Aspirin Enteric Coated 81 MG Tablet PO SCH (09:15)
[2018-05-06] MEDS ORDERED: *HR* Warfarin 4 MG TABLET PO ONE (18:00)
[2018-05-07] MEDS: Baclofen 10 MG TABLET PO PRN ×3 (06:03→22:44)
[2018-05-07] MEDS: Acetaminophen 325 MG TABLET PO PRN ×3 (06:03→22:44)
[2018-05-07 06:44] LABS: INR 2.3; Prothrombin Time 25.4 Seconds (9.4-12.1)
[2018-05-07] MEDS: Nystatin POWDER 30 GM BOTTLE TP SCH ×3 (08:47→21:54)
[2018-05-07] MEDS: Aspirin Enteric Coated 81 MG Tablet PO SCH (08:47)
--- NOTE | 2018-05-07 12:43 | Internal Med Progress Note ---
Hospitalist Progress Note - Encounter Date of Encounter: 05/07/18 Time of Encounter: 12:41 - Subjective Interval History: No acute changes overnight. Continues to deny chest pain and shortness of breath. He reports that he is ready for discharge. - Exam Vitals: Temp Pulse Resp BP Pulse Ox 98.0 F 73 16 125/85 97 05/07/18 11:42 05/07/18 11:42 05/07/18 11:42 05/07/18 11:42 05/07/18 11:42 Exam: PHYSICAL EXAMINATION: GENERAL: The patient is an ill-appearing male in no apparent distress.. He is alert and oriented x3. HEENT: Head is normocephalic and atraumatic. Extraocular muscles are intact. Pupils are equal, round, and reactive to light and accommodation. NECK: Supple. No carotid bruits. No lymphadenopathy or thyromegaly. LUNGS: Clear to auscultation bilaterally AP and L. HEART: RRR, S1, S2, without murmur rubs or gallops. ABDOMEN: Soft, nontender, and nondistended. Positive bowel sounds. No hepatosplenomegaly was noted. EXTREMITIES: Without any cyanosis, clubbing, rash, lesions or edema. NEUROLOGIC: With cerebral palsy the patient has limitations in movement to bilateral lower extremities this is chronic otherwise nonfocal neurological exam PSYCHIATRIC: Flat affect, but denies suicidal or homicidal ideations. SKIN: No ulceration or induration present. - Assessment and Plan (1) Chest pain Current Visit: Yes Status: Resolved Assessment and Plan: Presented with atypical chest pain worse with palpation Serial troponins less than 0.[address]-T wave changes concerning for ischemia Echocardiogram 03/2018 LVEF 50% with fixed and mobile mass in the level of the apex Continues to dye chest pain at this time On anticoagulation for LV thrombus continue Coumadin for anticoagulation Continue to monitor INR daily Continue cardiac monitoring With LV thrombus plan is to DC to ECF; currently patient's daughter takes care of him Still awaiting authorization 05/07-continues to deny return of chest pain. Resolved; awaiting placement tomorrow (2) Left ventricular thrombosis Current Visit: Yes Status: Chronic Assessment and Plan: As above (3) Hypokalemia Current Visit: Yes Status: Resolved (4) CAD (coronary artery disease) Current Visit: Yes Status: Chronic Assessment and Plan: CAD per history Left heart catheter 2017 with PTCA with MATILDE to distal circumflex which had percent lesion Less stressed June 2017 was negative for ischemia Continue aspirin, Plavix and metoprolol; continue anticoagulation; INR therapeutic today 05/07-2.3 Continue to treat LV thrombosis as stated above (5) Cerebral palsy Current Visit: Yes Status: Chronic Assessment and Plan: Chronic Limited to a wheelchair Continue PT/OT while inpatient DC to SNF Approval pending; discuss with social media project manager this afternoon - Time Spent with Patient Total time spent is greater than 50% in coordination of care (as documented) at patient's floor/unit and/or counseling patient: less than 15 minutes Plan of Care Discussed with: patient Internal Medicine: Result - Labs CBC & Chem 7: 05/04/18 03:40 05/04/18 03:40 - ABG Interpretation ABG results: PT/INR, D-dimer PT 25.4 Seconds (9.4-12.1) H 05/07/18 06:21 Consult Discharge Plan - Plan Referrals: NONE,PCP [Primary Care Provider] - (1) Chest pain Qualifiers: Chest pain type: intercostal pain Qualified Code(s): R07.82 - Intercostal pain (4) CAD (coronary artery disease) Qualifiers: Coronary Disease-Associated Artery/Lesion type: [place] artery [place] vs. 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
[2018-05-07] MEDS ORDERED: *HR* Warfarin 3 MG TABLET PO ONE (18:00)
[2018-05-08 06:23] LABS: INR 2.2; Prothrombin Time 24.6 Seconds (9.4-12.1)
[2018-05-08] MEDS: Baclofen 10 MG TABLET PO PRN (06:45)
[2018-05-08] MEDS: Acetaminophen 325 MG TABLET PO PRN (06:45)
[2018-05-08] MEDS: Aspirin Enteric Coated 81 MG Tablet PO SCH (08:02)
[2018-05-08] MEDS: Nystatin POWDER 30 GM BOTTLE TP SCH (08:03)
--- NOTE | 2018-05-08 10:14 | Internal Med Progress Note ---
Hospitalist Progress Note - Encounter Date of Encounter: 05/08/18 Time of Encounter: 10:13 - Subjective Interval History: No acute changes overnight, awaiting acceptance from inpatient rehabilitation facility - Exam Vitals: Temp Pulse Resp BP Pulse Ox 97.8 F 72 15 106/67 96 05/08/18 06:52 05/08/18 06:52 05/08/18 06:52 05/08/18 06:52 05/08/18 08:05 Exam: PHYSICAL EXAMINATION: GENERAL: The patient is an ill-appearing male in no apparent distress.. He is alert and oriented x3. HEENT: Head is normocephalic and atraumatic. Extraocular muscles are intact. Pupils are equal, round, and reactive to light and accommodation. NECK: Supple. No carotid bruits. No lymphadenopathy or thyromegaly. LUNGS: Clear to auscultation bilaterally AP and L. HEART: RRR, S1, S2, without murmur rubs or gallops. ABDOMEN: Soft, nontender, and nondistended. Positive bowel sounds. No hepatosplenomegaly was noted. EXTREMITIES: Without any cyanosis, clubbing, rash, lesions or edema. NEUROLOGIC: With cerebral palsy the patient has limitations in movement to bilateral lower extremities this is chronic otherwise nonfocal neurological exam PSYCHIATRIC: Appropriate affect, denies suicidal/homicidal ideation SKIN: No ulceration or induration present. - Assessment and Plan (1) Chest pain Current Visit: Yes Status: Resolved Assessment and Plan: Presented with atypical chest pain worse with palpation Serial troponins less than 0.[address]-T wave changes concerning for ischemia Echocardiogram 03/2018 LVEF 50% with fixed and mobile mass in the level of the apex Continues to dye chest pain at this time On anticoagulation for LV thrombus continue Coumadin for anticoagulation Continue to monitor INR daily Continue cardiac monitoring With LV thrombus plan is to DC to ECF; currently patient's daughter takes care of him Still awaiting authorization 05/08-chest pain resolved. Awaiting placement; board of [facility] determining placement; in discussion with NN and SS (2) Left ventricular thrombosis Current Visit: Yes Status: Chronic Assessment and Plan: AC with coumadin; therapeutic today As above (3) Hypokalemia Current Visit: Yes Status: Resolved (4) CAD (coronary artery disease) Current Visit: Yes Status: Chronic Assessment and Plan: CAD per history Left heart catheter 2017 with PTCA with MATILDE to distal circumflex which had percent lesion Less stressed June 2017 was negative for ischemia Continue aspirin, Plavix and metoprolol; continue anticoagulation; INR therapeutic today 05/08-2.2 Continue to treat LV thrombosis as stated above (5) Cerebral palsy Current Visit: Yes Status: Chronic Assessment and Plan: Chronic Limited to a wheelchair Continue PT/OT while inpatient DC to SNF Approval pending; discuss with health social work professor this afternoon; awaiting [facility] to determine approval DVT Prophylaxis: Coumadin-INR therapeutic - Time Spent with Patient Total time spent is greater than 50% in coordination of care (as documented) at patient's floor/unit and/or counseling patient: less than 15 minutes Plan of Care Discussed with: patient Internal Medicine: Result - Labs CBC & Chem 7: 05/04/18 03:40 05/04/18 03:40 - ABG Interpretation ABG results: PT/INR, D-dimer PT 24.6 Seconds (9.4-12.1) H 05/08/18 05:48 Consult Discharge Plan - Plan Referrals: NONE,PCP [Primary Care Provider] - (1) Chest pain Qualifiers: Chest pain type: intercostal pain Qualified Code(s): R07.82 - Intercostal pain (4) CAD (coronary artery disease) Qualifiers: Coronary Disease-Associated Artery/Lesion type: [place] artery [place] vs. transplanted heart: [place] heart Associated angina: angina presence unspecified Qualified Code(s): I25.10 - Atherosclerotic heart disease of [place] coronary artery without angina pectoris (5) Cerebral palsy Qualifiers: Cerebral palsy type: spastic diplegic Qualified Code(s): G80.1 - Spastic diplegic cerebral palsy
[2018-05-08 11:20] VITALS: BP 128/82
--- NOTE | 2018-05-08 13:03 | Discharge Summary ---
- NOTES TO OUTPATIENT PROVIDER Notes to Outpatient Provider: Patient noncompliant with warfarin therapy. Please discuss need for medication compliance in the setting of LV thrombus. Please assist in ensuring appropriate follow-up of INR Orders not resulted at time of discharge: Pending orders 05/09/18 04:00 INR/PT [Prothrombin Time INR] [COAG] AM 0400 05/10/18 04:00 INR/PT [Prothrombin Time INR] [COAG] AM 0400 05/11/18 04:00 INR/PT [Prothrombin Time INR] [COAG] AM 0400 Date of Encounter: 05/08/18 Time of Encounter: 13:02 - Discharge Diagnosis (1) Chest pain Priority: Primary Status: Resolved Assessment and Plan: Presented with atypical chest pain worse with palpation Serial troponins less than 0.[address]-T wave changes concerning for ischemia Echocardiogram 03/2018 LVEF 50% with fixed and mobile mass in the level of the apex Continues to dye chest pain at this time On anticoagulation for LV thrombus continue Coumadin for anticoagulation Continue to monitor INR daily Continue cardiac monitoring With LV thrombus plan is to DC to ECF; currently patient's daughter takes care of him Still awaiting authorization 05/08-chest pain resolved. Awaiting placement; board of [facility] determining placement ; in discussion with NN and SS Qualifiers: Chest pain type: intercostal pain Qualified Code(s): R07.82 - Intercostal pain (2) Left ventricular thrombosis Priority: Secondary Status: Chronic Assessment and Plan: AC with coumadin; therapeutic today As above (3) Hypokalemia Priority: Secondary Status: Resolved Assessment and Plan: Recheck potassium in the morning (4) CAD (coronary artery disease) Priority: Secondary Status: Chronic Assessment and Plan: CAD per history Left heart catheter 2017 with PTCA with MATILDE to distal circumflex which had percent lesion Less stressed June 2017 was negative for ischemia Continue aspirin, Plavix and metoprolol; continue anticoagulation; INR therapeutic today 05/08-2.2 Continue to treat LV thrombosis as stated above Qualifiers: Coronary Disease-Associated Artery/Lesion type: [place] artery [place] vs. transplanted heart: [place] heart Associated angina: angina presence unspecified Qualified Code(s): I25.10 - Atherosclerotic heart disease of [place] coronary artery without angina pectoris (5) Cerebral palsy Priority: Secondary Status: Chronic Assessment and Plan: Chronic Limited to a wheelchair Continue PT/OT while inpatient DC to SNF Approval pending; discuss with geriatric social work professor this afternoon; awaiting board of [facility] to determine approval Qualifiers: Cerebral palsy type: spastic diplegic Qualified Code(s): G80.1 - Spastic diplegic cerebral palsy Hospital course: Mr. Ryder is a 48 year old male who presented with a chief complaint of chest pain 1 week. He was admitted for evaluation and rule out ACS. Has a history of left ventricular or THROMBUS diagnosed in March 2017 and was found to be noncompliant with Coumadin. Serial troponins obtained and found to be less than 0.03. EKG normal sinus rhythm without ST-T wave changes concerning for ischemia. 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 Chest pain atypical and worse with palpation of left chest. Has a history of cerebral palsy and limited to wheelchair. PTOT seeing throughout stay and recommended SNF placement for physical therapy. Patient is stable clinically and being discharged today. Uneventful hospital course. Length of therapy to be determined by facility provider. Please continue to follow INR and dose Coumadin accordingly to facility policy. Discharge discussed with: patient, nurse - Time Spent with Patient Total time spent providing and/or coordinating discharge services: Less than 30 minutes - Discharge Medications Prescriptions: Warfarin perPT [Coumadin perPT] 6 mg PO DAILY@1800 1 Days #1 each Home Medications: Aspirin Enteric Coated [Aspirin EC] 81 mg PO DAILY #30 tablet. 05/07/17 [Rx] Metoprolol [Lopressor] 25 mg PO BID 05/09/17 [History] Omeprazole [PriLOSEC] 20 mg PO DAILY 05/09/17 [History] Clopidogrel [Plavix] 75 mg PO DAILY #30 tablet 05/11/17 [Rx] Acetaminophen [Tylenol 8 Hour] 1,300 mg PO Q8H PRN 04/02/18 [History] Baclofen [Lioresal] 10 mg PO TID PRN 04/02/18 [History] Warfarin perPT [Coumadin perPT] 6 mg PO DAILY@1800 1 Days #1 each 05/08/18 [Rx] Allergies/Adverse Reactions: 3 Allergy/AdvReac Type Severity Reaction Status Date / Time No Known Allergies Allergy Verified 04/02/18 11:10 Date of admission: 04/29/18 23:13 Primary care physician: PCP NONE Consults: 04/30/18 01:29 Consult to Entry Driver Operator [CONS] Routine Reason for SW Consult: Patient lives with daugther. Seems to be non- compliant with his coumadin, unclear why. Residency clinic was calling patient to try to set up an appointment and follow his INR but he reports he never received calls or letter via mail. Can we see why he is not able to make it to his appointments? 05/01/18 11:14 Consult to Occupational Therapy [CONS] Routine Comment: Evaluate, develop and implement POC Reason for Consult: HX CEREBRAL PALSY, PATIETN UNABLE TO CARE FOR HIMSELF. WAS HERE LAST WEEK WITH PT/OT RECOMMENDING SNF, BUT REFUSED. PATIENT NOW WANTS PLACEMENT TO SNF. Does patient have active BEDREST order?: No Is patient medically & hemodynamically stable?: Yes Consult to Physical Therapy [CONS] Routine Comment: Evaluate, develop and implement POC Reason for Consult: HX CEREBRAL PALSY, PATIETN UNABLE TO CARE FOR HIMSELF. WAS HERE LAST WEEK WITH PT/OT RECOMMENDING SNF, BUT REFUSED. PATIENT NOW WANTS PLACEMENT TO SNF. Does patient have active BEDREST order?: No Is patient medically & hemodynamically stable?: Yes Discharging clinician: Drew Sinclair Anticipated date of discharge: 05/08/18 - Constitutional Vitals: Temp Pulse Resp BP Pulse Ox 97.3 F L 82 15 128/82 96 05/08/18 11:19 05/08/18 11:19 05/08/18 11:19 05/08/18 11:19 05/08/18 11:19 Exam: PHYSICAL EXAMINATION: GENERAL: The patient is an ill-appearing male in no apparent distress.. He is alert and oriented x3. HEENT: Head is normocephalic and atraumatic. Extraocular muscles are intact. Pupils are equal, round, and reactive to light and accommodation. NECK: Supple. No carotid bruits. No lymphadenopathy or thyromegaly. LUNGS: Clear to auscultation bilaterally AP and L. HEART: RRR, S1, S2, without murmur rubs or gallops. ABDOMEN: Soft, nontender, and nondistended. Positive bowel sounds. No hepatosplenomegaly was noted. EXTREMITIES: Without any cyanosis, clubbing, rash, lesions or edema. NEUROLOGIC: With cerebral palsy the patient has limitations in movement to bilateral lower extremities this is chronic otherwise nonfocal neurological exam PSYCHIATRIC: Appropriate affect, denies suicidal/homicidal ideation SKIN: No ulceration or induration present. - Patient Status Disposition: Transfer SNF Condition: Fair Functional capacity at discharge: wheelchair bound Overall status at discharge: patient is progressing back to baseline - Discharge Instructions Follow Up With: NONE,PCP [Primary Care Provider] - Forms: ED Satisfaction Letter - Diet and Activity Activity: increase activity as tolerated, resume usual activities as tolerated Diet: advance to your usual diet
--- NOTE | 2018-05-08 13:21 | Physician Discharge Referral ---
ExtendedCare Referral Info Transfer To: [facility] Provider in Charge after Transfer: PCP Institutional Level of Care: Skilled - Diagnosis (1) Chest pain Priority: Primary Status: Resolved (2) Left ventricular thrombosis Priority: Primary Status: Chronic (3) Hypokalemia Priority: Secondary Status: Resolved (4) CAD (coronary artery disease) Priority: Secondary Status: Chronic (5) Cerebral palsy Priority: Secondary Status: Chronic Expected Duration of Placement: 05/08/18 Prognosis: Fair Aware of Diagnosis: Patient Aware of Prognosis: Patient - Transfer Medications Prescriptions: Warfarin perPT [Coumadin perPT] 6 mg PO DAILY@1800 1 Days #1 each Home Medications: Aspirin Enteric Coated [Aspirin EC] 81 mg PO DAILY #30 tablet. 05/07/17 [Rx] Metoprolol [Lopressor] 25 mg PO BID 05/09/17 [History] Omeprazole [PriLOSEC] 20 mg PO DAILY 05/09/17 [History] Clopidogrel [Plavix] 75 mg PO DAILY #30 tablet 05/11/17 [Rx] Acetaminophen [Tylenol 8 Hour] 1,300 mg PO Q8H PRN 04/02/18 [History] Baclofen [Lioresal] 10 mg PO TID PRN 04/02/18 [History] Warfarin perPT [Coumadin perPT] 6 mg PO DAILY@1800 1 Days #1 each 05/08/18 [Rx] Allergies/Adverse Reactions: 3 Allergy/AdvReac Type Severity Reaction Status Date / Time No Known Allergies Allergy Verified 04/02/18 11:10 - Respiratory Orders Smoking Cessation: Smoking cessation has been advised. For more information, call the [place] Tobacco Quit Line at 8-848-NVMO-NOW. - Advance Directives Code Status: Full Code - Mobility Orders Chair - Rehabiliation Orders Rehab Potential: Fair Rehab Orders: ROM Exercises, Evaluation for Physical Therapy, Evaluation for Occupational Therapy - Treatments List/Other: Please monitor INR daily and dose Coumadin per facility policy - Diet Orders Regular CERTIFICATION: I certify that the transfer of the above named patient to an Extended Care Facility is necessary for the continuing treatment of the diagnosis listed. The above information is true and accurate reflection of patient's current condition. Confidential - Redisclosure prohibited without a patient's written consent.
[2018-05-08] MEDS ORDERED: *HR* Warfarin 3 MG TABLET PO ONE (18:00)
== END 2018-05-08 15:06 ==
LOC: 3BNU 20:59 → EMEROOARM 20:59 → SUATTDRO 23:13 → 3BNU 23:23
PROVIDERS: ADMIT Internal Medicine; ATTEND Internal Medicine

== ENCOUNTER 2018-08-01 23:47 | Observation (INO) ==
[2018-08-02] MEDS ORDERED: Nitroglycerin 1 INCH/GM PACKET TP ONE (00:09)
--- NOTE | 2018-08-02 00:34 | Emergency Department Note ---
Disposition Clinical Impression: Elevated INR Chest pain Qualifiers: Chest pain type: unspecified Qualified Code(s): R07.9 - Chest pain, unspecified Hypertension Qualifiers: Hypertension type: essential hypertension Qualified Code(s): I10 - Essential (primary) hypertension Disposition: Admitted As Inpatient Condition: Fair Chest Pain HPI - General Chief Complaint: ED Chest Pain Stated Complaint: Chest pain Time Seen by Provider: 08/02/18 00:03 Source: patient Mode of arrival: EMS Limitations: no limitations Vital Signs Reviewed: Yes Nursing Notes Reviewed: Yes - History of Present Illness HPI Narrative: 48-year-old male presents emergency department via EMS for evaluation intermittent sharp and stabbing chest pain to the left chest. Initially, pat sarina states pain started earlier today maybe around 2:30 PM but was not very bad and went away on its own. Patient states around 9:30 PM he started having very sharp chest pain is lasting longer and longer and it hurt more. Patient states he did not know where his nitroglycerin was and he was concerned so he came to the emergency department for evaluation. Patient states he is compliant with his medications. He does state that he started smoking right around "half pack per day" 2 days ago. He states he had a previous smoker of 2.5 packs per day. Quit for "a very long time". Patient states these are regular tobacco, he rolls his own, tubes have a filter. Patient states he did not take his Coumadin today, he states he was told not to take it to pickler helper a new prescription tomorrow for a lower dose. Patient is a medical history of previous MS, left ventricle mural thrombus, cardiomyopathy, CHF, CAD, hyperlipidemia, hypertension, cerebral palsy, Damian's chorea. Patient was given 324 mg of aspirin in route on EMS. Pt complaint: chest pain Onset (ago): hour(s) Time: 21:30 Duration: intermittent Onset: during rest Pain Location: left chest Severity: moderate, severe Severity scale (1-10): 7 Quality: sharp Pain Radiation: none Improves with: nothing Worsens with: palpation Context: other Associated symptoms: Denies: nausea, vomiting, diaphoresis, dyspnea, sense of impending doom, syncope, palpitations, fever, cough, leg swelling Treatments prior to arrival chest pain: aspirin - Related Data On Oral Contraceptives: No Home Medications Medication Instructions Recorded Confirmed Metoprolol [Lopressor] 25 mg PO BID 09/25/17 12/19/18 Omeprazole [PriLOSEC] 20 mg PO DAILY 05/09/17 08/02/18 Acetaminophen [Tylenol 8 Hour] 1,300 mg PO Q8H PRN 04/02/18 08/02/18 Baclofen [Lioresal] 10 mg PO TID PRN 04/02/18 08/02/18 Atorvastatin Calcium 80 mg PO QPM 08/02/18 08/02/18 Warfarin Sodium 4 mg PO TUTHSA 08/02/18 08/02/18 Warfarin Sodium 5 mg PO SUMOWEFR 08/02/18 08/02/18 Previous Rx's Medication Instructions Recorded Aspirin Enteric Coated [Aspirin EC] 81 mg PO DAILY #30 tablet. 05/07/17 Clopidogrel [Plavix] 75 mg PO DAILY #30 tablet 05/11/17 Allergies Allergy/AdvReac Type Severity Reaction Status Date / Time No Known Allergies Allergy Verified 04/02/18 11:10 All systems ED: reviewed and negative except as stated. Review of Systems: As Per HPI Constitutional: Reports: as per HPI Cardiovascular: Reports: as per HPI, chest pain. Denies: palpitations, dyspnea on exertion, orthopnea, edema, syncope Respiratory: Reports: as per HPI. Denies: cough, dyspnea, wheezes Gastrointestinal: Reports: as per HPI. Denies: abdominal pain, nausea, vomiting Musculoskeletal: Reports: as per HPI. Denies: back pain, neck pain Chest Pain PMH - Past Medical History Medical history: Reports: cardiomyopathy, CHF, coronary artery disease, hyperlipidemia, hypertension, myocardial infarction, other Surgical history: Reports: angioplasty/stent, appendectomy Psychiatric history: Reports: no psych history Prior Cardiac Testing/Procedures: Stenting - Social History Smoking Status: Current every day smoker Alcohol use: Reports: none Drug use: Reports: none Physical Exam - General Limitations: no limitations General appearance: alert, in no apparent distress - Head Head exam: atraumatic, normocephalic, normal inspection - Eye Eye exam: Present: normal appearance - ENT ENT exam: mucous membranes moist - Neck Neck exam: Present: normal inspection, full ROM, trachea midline - Chest Chest inspection: Present: normal inspection, symmetric chest wall rise - Respiratory Respiratory exam: Present: normal lung sounds bilaterally - Cardiovascular Cardiovascular exam: Present: regular rate, normal rhythm, normal heart sounds - Abdominal Exam Abdominal exam: Present: soft, Non-Tender, normal bowel sounds - Back Exam Back exam: Present: normal inspection, full ROM. Absent: tenderness, CVA tenderness (R), CVA tenderness (L) - Neurological Exam Neurological exam: Present: alert, oriented X3 - Psychiatric Psychiatric exam: Present: normal affect, normal mood - Skin Skin exam: Present: warm, dry, intact, normal color Course Course Narrative: Nontoxic appearing male in no acute distress. Respirations are easy and even. Upon arrival patient is afebrile, nontoxic regarding. He is pleasant, alert and oriented. Physical exam reveals tenderness with palpation to the left chest, otherwise benign. EKG completed upon arrival at 23:58 shows a sinus rhythm with a heart rate is 71 bpm, SC interval 161 ms, QTC 420 ms, there is no evidence of ST elevation or depression. Review of records showed an echo in April 2018 with continued mural thrombus, INR 4.6 on 07/31, patient did not take his Coumadin on 08/01 due to this value. We will give her nitroglycerin for chest pain as a trial, obtain labs, chest x- ray continue to monitor. Patient with risk factors related to chest pain including hypertension, smoking CAD, CHF, prior MIs, thrombus. - Reevaluation(s) Reevaluation #1: The patient's blood pressures normalizing however the nitroglycerin was ineffective chest pain. He still continues to complain of pain 01/22. We will give acetaminophen and reevaluate. Labs returned with an unremarkable CBC, BMP. INR is elevated at 5.2 despite holding a dose of Coumadin yesterday. UA is unremarkable, chest x-ray returns without evidence of acute infection. Given patient's concerning medical history therapy for that to admit for monitoring and serial troponins as well as monitoring INR. Patient is agreeable to plan of care. I did page and speak to the hospitalist was agreeable for inpatient admission. We will transfer her care to the inpatient team at this time. Vital Signs Temperature 97.9 F 08/01/18 23:54 Pulse Rate 76 08/01/18 23:54 Respiratory Rate 16 08/01/18 23:54 Blood Pressure 144/124 08/01/18 23:54 O2 Sat by Pulse Oximetry 97 08/01/18 23:54 Temperature 97.5 F L 08/02/18 15:59 Pulse Rate 86 08/02/18 15:59 Respiratory Rate 16 08/02/18 15:59 Blood Pressure 111/75 08/02/18 15:59 O2 Sat by Pulse Oximetry 96 08/02/18 15:59 Oxygen Delivery Oxygen Delivery Room Air Chest Pain - Lab Data Result diagrams: 08/02/18 00:44 08/02/18 00:44 Lab Results 08/02/18 08/02/18 08/02/18 Range/Units 00:44 00:44 00:44 WBC 5.7 (4.3-11.1) K/mcL RBC 5.16 (4.19-5.50) M/mcL Hgb 16.1 (12.9-16.9) g/dL Hct 47.6 (37.5-50.1) % MCV 92.2 (83.0-100.0) fL MCH 31.2 (28.0-33.3) pg MCHC 33.8 (31.6-35.5) g/dL RDW 12.8 (11.5-14.5) % Plt Count 208 (140-400) K/mcL MPV 10.4 (9.4-12.4) fL Immature Gran % 0.2 (0-4) % Seg Neutrophils % 43.7 % Lymphocytes % 39.3 % Monocytes % 12.2 % Eosinophils % 3.9 % Basophils % 0.7 % Neutrophils # 2.5 (1.6-8.9) K/mcL Lymphocytes # 2.2 (0.6-4.6) K/mcL Monocytes # 0.7 (0.0-1.3) K/mcL Eosinophils # 0.2 (0.0-0.6) K/mcL Basophils # 0.0 (0.0-0.2) K/mcL PT 59.0 H* (9.4-12.1) Seconds INR 5.2 H* APTT 62.1 H (26.0-36.0) Seconds Sodium (136-145) mEq/L Potassium (3.5-5.1) mEq/L Chloride (98-107) mEq/L Carbon Dioxide (23-29) mEq/L BUN (6-20) mg/dL Creatinine (0.70-1.30) mg/dL Est GFR ( Amer) (> 60) Est GFR (Non-Af Amer) (> 60) BUN/Creatinine Ratio (6-26) Glucose (70-105) mg/dL Calculated Osmolality (280-300) Calcium (8.6-10.3) mg/dL Total Bilirubin 0.6 (0.3-1.0) mg/dL Direct Bilirubin 0.1 (0.0-0.2) mg/dL Indirect Bilirubin 0.5 (0.0-1.2) mg/dL AST 42 H (13-39) Units/L ALT 42 (7-52) Units/L Alkaline Phosphatase 102 (34-104) Units/L Troponin I (< 0.04) ng/mL Serum Total Protein 8.2 (6.4-8.9) g/dL Albumin 4.4 (3.5-5.7) g/dL Globulin 3.8 H (2.4-3.5) g/dL Albumin/Globulin Ratio 1.2 (1.1-2.2) Urine Color (Yellow) Urine Clarity (Clear) Urine pH (5.0-8.0) pH Units Ur Specific [place] (1.010-1.025) Urine Protein (Neg-Trace) mg/dL Urine Glucose (UA) (Normal) mg/dL Urine Ketones (Negative) mg/dL Urine Blood (Negative) Urine Nitrite (Negative) Urine Bilirubin (Negative) Urine Urobilinogen (Normal) mg/dL Ur Leukocyte Esterase (Negative) Ur Culture Indicated? (NO) 08/02/18 08/02/18 Range/Units 00:44 02:09 WBC (4.3-11.1) K/mcL RBC (4.19-5.50) M/mcL Hgb (12.9-16.9) g/dL Hct (37.5-50.1) % MCV (83.0-100.0) fL MCH (28.0-33.3) pg MCHC (31.6-35.5) g/dL RDW (11.5-14.5) % Plt Count (140-400) K/mcL MPV (9.4-12.4) fL Immature Gran % (0-4) % Seg Neutrophils % % Lymphocytes % % Monocytes % % Eosinophils % % Basophils % % Neutrophils # (1.6-8.9) K/mcL Lymphocytes # (0.6-4.6) K/mcL Monocytes # (0.0-1.3) K/mcL Eosinophils # (0.0-0.6) K/mcL Basophils # (0.0-0.2) K/mcL PT (9.4-12.1) Seconds INR APTT (26.0-36.0) Seconds Sodium 135 L (136-145) mEq/L Potassium 3.6 (3.5-5.1) mEq/L Chloride 102 (98-107) mEq/L Carbon Dioxide 24 (23-29) mEq/L BUN 11 (6-20) mg/dL Creatinine 0.69 L (0.70-1.30) mg/dL Est GFR ( Amer) > 60 (> 60) Est GFR (Non-Af Amer) > 60 (> 60) BUN/Creatinine Ratio 16 (6-26) Glucose 108 H (70-105) mg/dL Calculated Osmolality 280 (280-300) Calcium 9.4 (8.6-10.3) mg/dL Total Bilirubin (0.3-1.0) mg/dL Direct Bilirubin (0.0-0.2) mg/dL Indirect Bilirubin (0.0-1.2) mg/dL AST (13-39) Units/L ALT (7-52) Units/L Alkaline Phosphatase (34-104) Units/L Troponin I < 0.03 (< 0.04) ng/mL Serum Total Protein (6.4-8.9) g/dL Albumin (3.5-5.7) g/dL Globulin (2.4-3.5) g/dL Albumin/Globulin Ratio (1.1-2.2) Urine Color Yellow (Yellow) Urine Clarity Slightly Hazy (Clear) Urine pH 6.0 (5.0-8.0) pH Units Ur Specific [place] 1.013 (1.010-1.025) Urine Protein Trace (Neg-Trace) mg/dL Urine Glucose (UA) Normal (Normal) mg/dL Urine Ketones Negative (Negative) mg/dL Urine Blood Negative (Negative) Urine Nitrite Negative (Negative) Urine Bilirubin Negative (Negative) Urine Urobilinogen 2.0 H (Normal) mg/dL Ur Leukocyte Esterase Negative (Negative) Ur Culture Indicated? NO (NO) Heart Score - Score History: Highly Suspicious EKG: Normal Age: 45-65 Risk Factors: Equal/Greater than 3 risk factor or history of atherosclerotic disease Troponin: Less than normal limit HEART Score Total: 5
[2018-08-02 01:10] LABS: Basophils % 0.7 %; Eosinophils # 0.2 K/mcL (0.0-0.6); Eosinophils % 3.9 %; Hematocrit 47.6 % (37.5-50.1); Hemoglobin 16.1 g/dL (12.9-16.9); Immature Granulocytes % 0.2 % (0-4); Lymphocytes # 2.2 K/mcL (0.6-4.6); Lymphocytes % 39.3 %; Mean Corpuscular HGB Conc 33.8 g/dL (31.6-35.5); Mean Corpuscular Hemoglobin 31.2 pg (28.0-33.3); Mean Corpuscular Volume 92.2 fL (83.0-100.0); Mean Platelet Volume 10.4 fL (9.4-12.4); Monocytes # 0.7 K/mcL (0.0-1.3); Monocytes % 12.2 %; Neutrophils # 2.5 K/mcL (1.6-8.9); Platelet Count 208 K/mcL (140-400); Red Blood Count 5.16 M/mcL (4.19-5.50); Red Cell Distribution Width 12.8 % (11.5-14.5); Segmented Neutrophils % 43.7 %
[2018-08-02 01:20] LABS: Activated Partial Thrombo Time 62.1 Seconds (26.0-36.0)
[2018-08-02 01:25] LABS: INR 5.2
[2018-08-02 01:29] LABS: Albumin 4.4 g/dL (3.5-5.7); Albumin/Globulin Ratio 1.2 (1.1-2.2); Bilirubin,Direct 0.1 mg/dL (0.0-0.2); Bilirubin,Indirect 0.5 mg/dL (0.0-1.2); Bilirubin,Total 0.6 mg/dL (0.3-1.0); Globulin 3.8 g/dL (2.4-3.5); Total Protein 8.2 g/dL (6.4-8.9)
[2018-08-02 01:31] LABS: BUN/Creatinine Ratio 16 (6-26); Blood Urea Nitrogen 11 mg/dL (6-20); Calcium 9.4 mg/dL (8.6-10.3); Carbon Dioxide 24 mEq/L (23-29); Chloride 102 mEq/L (98-107); Glucose 108 mg/dL (70-105); Osmolality,Calculated 280 (280-300); Potassium 3.6 mEq/L (3.5-5.1); Sodium 135 mEq/L (136-145); eGFR For Non-African Americans > 60 (> 60)
[2018-08-02 01:32] LABS: Troponin I < 0.03 ng/mL (< 0.04)
[2018-08-02 02:19] LABS: Bilirubin,Urine Negative (Negative); Blood,Urine Negative (Negative); Color,Urine Yellow (Yellow); Glucose,Urine (UA) Normal (Normal); Ketones,Urine Negative (Negative); Leukocyte Esterase,Urine Negative (Negative); Nitrite,Urine Negative (Negative); Protein,Urine Trace mg/dL (Neg-Trace); Specific Gravity,Urine 1.013 (1.010-1.025)
[2018-08-02 02:21] LABS: Clarity,Urine Slightly Hazy (Clear)
--- NOTE | 2018-08-02 05:36 | Emergency Department Note ---
Disposition Clinical Impression: Chest pain Qualifiers: Chest pain type: unspecified Qualified Code(s): R07.9 - Chest pain, unspecified Disposition: Admitted As Inpatient Condition: Fair General Adult HPI - General Chief complaint: ED Chest Pain Stated complaint: Chest pain Time Seen by Provider: 08/02/18 00:03 Source: patient Mode of arrival: EMS Limitations: no limitations Nursing Notes Reviewed: Yes Vital Signs Reviewed: Yes - History of Present Illness Pain Scale: 3 - Related Data Home Medications Medication Instructions Recorded Confirmed Metoprolol [Lopressor] 25 mg PO BID 05/09/17 05/02/18 Omeprazole [PriLOSEC] 20 mg PO DAILY 05/09/17 05/02/18 Acetaminophen [Tylenol 8 Hour] 1,300 mg PO Q8H PRN 04/02/18 04/29/18 Baclofen [Lioresal] 10 mg PO TID PRN 04/02/18 05/02/18 Previous Rx's Medication Instructions Recorded Aspirin Enteric Coated [Aspirin EC] 81 mg PO DAILY #30 tablet. 05/07/17 Clopidogrel [Plavix] 75 mg PO DAILY #30 tablet 05/11/17 Warfarin perPT [Coumadin perPT] 6 mg PO DAILY@1800 1 Days #1 each 05/08/18 Allergies Allergy/AdvReac Type Severity Reaction Status Date / Time No Known Allergies Allergy Verified 04/02/18 11:10 Constitutional: Reports: as per HPI Cardiovascular: Reports: as per HPI, chest pain. Denies: palpitations, dyspnea on exertion, orthopnea, edema, syncope Respiratory: Reports: as per HPI. Denies: cough, dyspnea, wheezes Gastrointestinal: Reports: as per HPI. Denies: abdominal pain, nausea, vomiting Musculoskeletal: Reports: as per HPI. Denies: back pain, neck pain Past Medical History - Past Medical History Medical history: Reports: cardiomyopathy, CHF, coronary artery disease, hyperlipidemia, hypertension, myocardial infarction, other Surgical history: Reports: angioplasty/stent, appendectomy Psychiatric history: Reports: no psych history - Social History Smoking Status: Current every day smoker Smokeless Tobacco Status: No Alcohol use: Reports: none Drug use: Reports: none Physical Exam - General Limitations: no limitations General appearance: alert, in no apparent distress Course Vital Signs Temperature 97.9 F 08/01/18 23:54 Pulse Rate 76 08/01/18 23:54 Respiratory Rate 16 08/01/18 23:54 Blood Pressure 144/124 08/01/18 23:54 O2 Sat by Pulse Oximetry 97 08/01/18 23:54 Temperature 97.8 F 08/02/18 07:44 Pulse Rate 74 08/02/18 07:44 Respiratory Rate 17 08/02/18 07:44 Blood Pressure 100/67 08/02/18 07:44 O2 Sat by Pulse Oximetry 95 08/02/18 07:44 Oxygen Delivery Oxygen Delivery Room Air Medical Decision Making - Lab Data Lab results reviewed: Yes I reviewed the patient's lab results. Result diagrams: 08/02/18 00:44 08/02/18 00:44 Lab Results 08/02/18 08/02/18 08/02/18 Range/Units 00:44 00:44 00:44 WBC 5.7 (4.3-11.1) K/mcL RBC 5.16 (4.19-5.50) M/mcL Hgb 16.1 (12.9-16.9) g/dL Hct 47.6 (37.5-50.1) % MCV 92.2 (83.0-100.0) fL MCH 31.2 (28.0-33.3) pg MCHC 33.8 (31.6-35.5) g/dL RDW 12.8 (11.5-14.5) % Plt Count 208 (140-400) K/mcL MPV 10.4 (9.4-12.4) fL Immature Gran % 0.2 (0-4) % Seg Neutrophils % 43.7 % Lymphocytes % 39.3 % Monocytes % 12.2 % Eosinophils % 3.9 % Basophils % 0.7 % Neutrophils # 2.5 (1.6-8.9) K/mcL Lymphocytes # 2.2 (0.6-4.6) K/mcL Monocytes # 0.7 (0.0-1.3) K/mcL Eosinophils # 0.2 (0.0-0.6) K/mcL Basophils # 0.0 (0.0-0.2) K/mcL PT 59.0 H* (9.4-12.1) Seconds INR 5.2 H* APTT 62.1 H (26.0-36.0) Seconds Sodium (136-145) mEq/L Potassium (3.5-5.1) mEq/L Chloride (98-107) mEq/L Carbon Dioxide (23-29) mEq/L BUN (6-20) mg/dL Creatinine (0.70-1.30) mg/dL Est GFR ( Amer) (> 60) Est GFR (Non-Af Amer) (> 60) BUN/Creatinine Ratio (6-26) Glucose (70-105) mg/dL Calculated Osmolality (280-300) Calcium (8.6-10.3) mg/dL Total Bilirubin 0.6 (0.3-1.0) mg/dL Direct Bilirubin 0.1 (0.0-0.2) mg/dL Indirect Bilirubin 0.5 (0.0-1.2) mg/dL AST 42 H (13-39) Units/L ALT 42 (7-52) Units/L Alkaline Phosphatase 102 (34-104) Units/L Troponin I (< 0.04) ng/mL Serum Total Protein 8.2 (6.4-8.9) g/dL Albumin 4.4 (3.5-5.7) g/dL Globulin 3.8 H (2.4-3.5) g/dL Albumin/Globulin Ratio 1.2 (1.1-2.2) Urine Color (Yellow) Urine Clarity (Clear) Urine pH (5.0-8.0) pH Units Ur Specific [place] (1.010-1.025) Urine Protein (Neg-Trace) mg/dL Urine Glucose (UA) (Normal) mg/dL Urine Ketones (Negative) mg/dL Urine Blood (Negative) Urine Nitrite (Negative) Urine Bilirubin (Negative) Urine Urobilinogen (Normal) mg/dL Ur Leukocyte Esterase (Negative) Ur Culture Indicated? (NO) 08/02/18 08/02/18 Range/Units 00:44 02:09 WBC (4.3-11.1) K/mcL RBC (4.19-5.50) M/mcL Hgb (12.9-16.9) g/dL Hct (37.5-50.1) % MCV (83.0-100.0) fL MCH (28.0-33.3) pg MCHC (31.6-35.5) g/dL RDW (11.5-14.5) % Plt Count (140-400) K/mcL MPV (9.4-12.4) fL Immature Gran % (0-4) % Seg Neutrophils % % Lymphocytes % % Monocytes % % Eosinophils % % Basophils % % Neutrophils # (1.6-8.9) K/mcL Lymphocytes # (0.6-4.6) K/mcL Monocytes # (0.0-1.3) K/mcL Eosinophils # (0.0-0.6) K/mcL Basophils # (0.0-0.2) K/mcL PT (9.4-12.1) Seconds INR APTT (26.0-36.0) Seconds Sodium 135 L (136-145) mEq/L Potassium 3.6 (3.5-5.1) mEq/L Chloride 102 (98-107) mEq/L Carbon Dioxide 24 (23-29) mEq/L BUN 11 (6-20) mg/dL Creatinine 0.69 L (0.70-1.30) mg/dL Est GFR ( Amer) > 60 (> 60) Est GFR (Non-Af Amer) > 60 (> 60) BUN/Creatinine Ratio 16 (6-26) Glucose 108 H (70-105) mg/dL Calculated Osmolality 280 (280-300) Calcium 9.4 (8.6-10.3) mg/dL Total Bilirubin (0.3-1.0) mg/dL Direct Bilirubin (0.0-0.2) mg/dL Indirect Bilirubin (0.0-1.2) mg/dL AST (13-39) Units/L ALT (7-52) Units/L Alkaline Phosphatase (34-104) Units/L Troponin I < 0.03 (< 0.04) ng/mL Serum Total Protein (6.4-8.9) g/dL Albumin (3.5-5.7) g/dL Globulin (2.4-3.5) g/dL Albumin/Globulin Ratio (1.1-2.2) Urine Color Yellow (Yellow) Urine Clarity Slightly Hazy (Clear) Urine pH 6.0 (5.0-8.0) pH Units Ur Specific [place] 1.013 (1.010-1.025) Urine Protein Trace (Neg-Trace) mg/dL Urine Glucose (UA) Normal (Normal) mg/dL Urine Ketones Negative (Negative) mg/dL Urine Blood Negative (Negative) Urine Nitrite Negative (Negative) Urine Bilirubin Negative (Negative) Urine Urobilinogen 2.0 H (Normal) mg/dL Ur Leukocyte Esterase Negative (Negative) Ur Culture Indicated? NO (NO) - Radiology Data Radiology results reviewed: Yes I reviewed the patient's radiology results. Chest X-Ray 08/02/18 00:09 IMPRESSION: Negative portable chest. D/ / Brigido Muñiz MD / Brigido Muñiz MD Interpreting Provider: Brigido Muñiz MD - EKG Data EKG #1 EKG attestation: Yes I reviewed and interpreted this EKG. EKG results narrative: EKG shows normal sinus rhythm with ventricular rate is 71. No ST segment elevation or depression. No arrhythmia or ectopy. Attestation Statement - Attestation Attestation: I, Beau Daniels MD, personally evaluated this patient and discussed their management with the midlevel provicer, PAC/HUMAN RESOURCES HR REPRESENTATIVE. I reviewed the midlevel provider's note and agree with the documented findings, medical decision making, and plan of care. 48-year-old male presents to the emergency department complaining of some left- sided chest pain intermittently for several hours prior to arrival. Patient has a history of smoking in the past but had quit and recently started back smoking. On examination patient is a well-developed well-nourished male in no acute distress. He is alert and oriented. No cyanosis or diaphoresis. Chest is nont hodan to palpation. Breath sounds are clear and equal bilaterally. Heart regular rate and rhythm. Abdomen soft and nontender with normal bowel sounds. Labs reviewed. EKG shows a normal sinus rhythm and no acute ischemic changes. Chest x-ray negative. The hospitalist, Dr. Gallardo, was consulted and accepted admission of the patient.
--- NOTE | 2018-08-02 09:17 | Internal Med History&Physical ---
<Coreen Arreola P - Last Filed: 08/02/18 10:05> Date of Encounter: 08/02/18 Time of Encounter: 08:50 Internal Medicine - H&P: HPI Chief complaint: Chest pain Admitted From: Home Plans for Post Hospital Care: Home History of present illness: Mr. Ryder is a 48 year old male with past medical history of coronary artery disease with stent , hypertension, hyperlipidemia, systolic CHF,ischaemic cardiomyopathy chronic smoker, CP, H Chorea, admitted from ED for severe chest pain. The chest pain was sharp, severe 9/10, mid sternal and left side radiating to neck and left arm lasted for about 45 minutes, started at rest. He has history of [place] and stent placement, he has done cardiac catheterization and Stent placement in 2017 .The patient is on metoprolol, aspirin, Plavix, warfarin 6 MG daily for left heart mural thrombus/mass . He is holding warfarin for now . At emergency, troponin was less than 0.03, chest x-ray was normal. The pain decreased to 2-3/10 . His vitals were : Temperature 97.8, pulse 74 regular, sat 95%. His echocardiogram done in 03/2018 showed ejection fraction 50%, left ventricular thrombus. MRi head done in previous visit was normal.He was admitted for further evaluation of chest pain and monitoring. During my visit for admission workup, the patient was lying comfortably on the bed, not in acute distress, answering question appropriately, well oriented to time place and person. The chest pain has been lessened to 1-2/10, no any shortness of breath, no cough , leg swelling ,no palpitation, no syncope, no any bleeding , no headache. He is a patient with multiple risk factors : CAD, hypertension, hyperlipidemia, old [place], chronic smoker, so we are planning to do stress test is a cardiac workup for chest pain . His heart score :6 , SHANE score 03. Past Med Surg Social Fam HX - Past Medical History Medical history: cardiomyopathy, CHF, coronary artery disease, hyperlipidemia, hypertension, myocardial infarction, other Additional medical history: [place]S DISEASE, CEREBRAL PULSY Psychiatric history: no psych history - Past Surgical History Surgical History: angioplasty/stent, appendectomy Additional surgical history: 4 CARDIAC STENTS - Social History Smoking Status: Current every day smoker Packs per day: 1 Smokeless Tobacco Status: No Alcohol use: none Drug use: none - Family History Mother Family Member Ethnicity: Non- Living Status: Hx Family Endocrine Disorder: Yes (DM) Hx Family Neurologic Disorders: Yes Father Family Member Ethnicity: Non- Living Status: Hx Family Cardiac Disorders: Yes ([place]) Brother Family Member Ethnicity: Non- Living Status: Still Living Sister Family Member Ethnicity: Non- Living Status: Still Living Internal Medicine - H&P: Meds Aspirin Enteric Coated [Aspirin EC] 81 mg PO DAILY #30 tablet. 05/07/17 [Rx] Metoprolol [Lopressor] 25 mg PO BID 05/09/17 [History] Omeprazole [PriLOSEC] 20 mg PO DAILY 05/09/17 [History] Clopidogrel [Plavix] 75 mg PO DAILY #30 tablet 05/11/17 [Rx] Acetaminophen [Tylenol 8 Hour] 1,300 mg PO Q8H PRN 04/02/18 [History] Baclofen [Lioresal] 10 mg PO TID PRN 04/02/18 [History] Warfarin perPT [Coumadin perPT] 6 mg PO DAILY@1800 1 Days #1 each 05/08/18 [Rx] Allergy/AdvReac Type Severity Reaction Status Date / Time No Known Allergies Allergy Verified 04/02/18 11:10 All Systems PM: A 10-system review of systems was performed and is negative for pertinent findings except as documented above in the HPI. - Constitutional Constitutional: no anorexia, no chills, no lethargy - EENT Eyes: no blurry vision, no change in vision, no pain, no photophobia Ears: no ear discharge, no ear pain Nose, mouth and throat: no bleeding gums, no epistaxis, no lip swelling, no nasal congestion - Cardiovascular Cardiovascular ROS IM: chest pain, no dyspnea on exertion, no edema, no lightheadedness, no orthopnea, no palpitations, no paroxysmal nocturnal dyspnea, no syncope - Respiratory Respiratory: no cough, no dyspnea, no hemoptysis, no dyspnea on exertion, no wheezing, no stridor, no pain on inspiration, no chest congestion, no pain with cough - Gastrointestinal Gastrointestinal: no abdominal pain, no heartburn, no hematochezia, no loose stools - Genitourinary Genitourinary ROS male: no difficulty urinating, no hematuria, no nocturia - Musculoskeletal Musculoskeletal ROS IM: no arthralgias, no back pain, no joint swelling - Integumentary Integumentary IM: no pruritus, no rash - Neurological Neurological ROS: no abnormal gait, no loss of vision - Endocrine Endocrine IM: no cold intolerance, no fatigue, no flushing - Hematologic/Lymphatic Hematologic/Lymphatic: no easy bleeding, no lymphadenopathy - Allergic/Immunologic Allergic/Immunologic: no tongue swelling, no wheezing - Constitutional Vitals: Temp Pulse Resp BP Pulse Ox 97.8 F 74 17 100/67 95 08/02/18 07:44 08/02/18 07:44 08/02/18 07:44 08/02/18 07:44 08/02/18 07:44 General appearance: Present: A&O X 3, pleasant, no acute distress, answers questions appropriately Exam: - General Limitations: no limitations General appearance: alert, in no apparent distress - Head Head exam: atraumatic, normocephalic, normal inspection - Eye Eye exam: Present: normal appearance - ENT ENT exam: mucous membranes moist - Neck Neck exam: Present: normal inspection, full ROM, trachea midline - Chest Chest inspection: Present: normal inspection, symmetric chest wall rise - Respiratory Respiratory exam: Present: normal lung sounds bilaterally - Cardiovascular Cardiovascular exam: Present: regular rate, normal rhythm, normal heart sounds - Abdominal Exam Abdominal exam: Present: soft, Non-Tender, normal bowel sounds - Back Exam Back exam: Present: normal inspection, full ROM. Absent: tenderness, CVA [place]ness (R), CVA tenderness (L) - Neurological Exam Neurological exam: Present: alert, oriented X3 - Psychiatric Psychiatric exam: Present: normal affect, normal mood - Skin Skin exam: Present: warm, dry, intact, normal color Internal Med - H&P Results - Labs CBC & Chem 7: 08/02/18 00:44 08/02/18 00:44 Labs: Short CBC 08/02/18 Range/Units 00:44 WBC 5.7 (4.3-11.1) K/mcL Hgb 16.1 (12.9-16.9) g/dL Hct 47.6 (37.5-50.1) % Plt Count 208 (140-400) K/mcL Neutrophils # 2.5 (1.6-8.9) K/mcL BMP 08/02/18 00:44 Sodium 135 L Potassium 3.6 Chloride 102 Carbon Dioxide 24 BUN 11 Creatinine 0.69 L Glucose 108 H Calcium 9.4 Cardiac Enzymes 08/02/18 08/02/18 Range/Units 00:44 06:57 Troponin I < 0.03 < 0.03 (< 0.04) ng/mL Liver Function 08/02/18 Range/Units 00:44 Total Bilirubin 0.6 (0.3-1.0) mg/dL Direct Bilirubin 0.1 (0.0-0.2) mg/dL AST 42 H (13-39) Units/L ALT 42 (7-52) Units/L Alkaline Phosphatase 102 (34-104) Units/L Albumin 4.4 (3.5-5.7) g/dL Urine 08/02/18 Range/Units 02:09 Urine Color Yellow (Yellow) Urine Clarity Slightly Hazy (Clear) Urine pH 6.0 (5.0-8.0) pH Units Ur Specific [place] 1.013 (1.010-1.025) Urine Protein Trace (Neg-Trace) mg/dL Urine Glucose (UA) Normal (Normal) mg/dL - Impressions ITS Impressions Chest X-Ray 08/02/18 00:09 IMPRESSION: Negative portable chest. D/ / Brigido Muñiz MD / Brigido Muñiz MD Interpreting Provider: Brigido Muñiz MD - Assessment and plan (1) Chest pain Current Visit: Yes Status: Acute Assessment and plan: The patient has severe left-sided chest pain , he has multiple risk factor for ACS: Hypertension, hyperlipidemia, chronic smoker, positive family history, old [place] The chest pain was 9/10 before, now it has been reduced to 12/10 He is on aspirin and Plavix His previous echo done in March 2018 showed; mural thrombus in left heart, ejection fraction 50% with systolic heart failure. We are planning to do stress test is the patient has multiple factor for acute coronary syndrome Hear score : 06, SHANE score : 03 Qualifiers: Chest pain type: unspecified Qualified Code(s): R07.9 - Chest pain, unspecified (2) CAD (coronary artery disease) Current Visit: Yes Status: Acute Assessment and plan: The patient has severe left-sided chest pain. He has history of [place] in the past with for a stents. The patient had Cardiac catheterization done in April in 2016: left main 25%, proximal LAD 30% in- stent restenosis, mid/distal LAD small with diffuse disease, proximal circumflex 30%, midcircumflex 30% in-stent restenosis, underwent PTCA with drug-eluting stent to distal circumflex 99% lesion, ramus 40%, proximal RCA 30%, proximal/mid RCA patent stents, right PDA 30%. He is on aspirin and Plavix with metoprolol. He has multiple risk factors: Chronic smoker, positive family history, hyperlipidemia, hypertension, past history of CAD We are planning to do stress test as a workup for his chest pain Qualifiers: Coronary Disease-Associated Artery/Lesion type: unspecified vessel or lesion type [place] vs. transplanted heart: [place] heart Associated angina: angina presence unspecified Qualified Code(s): I25.10 - Atherosclerotic heart disease of [place] coronary artery without angina pectoris (3) Hypertension Current Visit: No Status: Chronic Assessment and plan: He is a chronic patient of hyper-hypertension He was on metoprolol 25 MG twice a day His today's blood pressure is 100/67 Qualifiers: Hypertension type: essential hypertension Qualified Code(s): I10 - Essential (primary) hypertension (4) Left ventricular thrombosis Current Visit: No Status: Chronic Assessment and plan: The patient has left ventricular mural thrombus seen on echocardiogram done in March 2018. Echo: LVEF 50%. LV segmental wall motion. There is a fixed, immobile laminated mass in the LV apex with the texture appearance of LV thrombus previously seen on Echo studies. He is on warfarin 6 MG OD and we have put hold because of high PT and INR 59, 5.2 respectively, we will reassess PT/INR today. He does not have any history of bleeding: Blood in urine, blood in stool, bleeding from gums, nose. . (5) Systolic heart failure Current Visit: No Status: Chronic Assessment and plan: The patient does not have any shortness of breath, leg swelling ,but he is patient of hypertension, CAD His echo done in the past showed reduced ejection fraction:50% Qualifiers: Heart failure chronicity: chronic Qualified Code(s): I50.22 - Chronic systolic (congestive) heart failure (6) Supratherapeutic INR Current Visit: Yes Status: Acute Assessment and plan: The patient had left heart mural thrombus ,He is on warfarin 6 MG OD and we have put hold because of high PT and INR 59, 5.2 respectively, we will reassess PT/INR today. He does not have any history of bleeding: Blood in urine, blood in stool, bleeding from gums, nose. - Time Spent With Patient Total time spent is greater than 50% in coordination of care (as documented) at patient's floor/unit and/or counseling patient: <Ruy Nagel - Last Filed: 08/02/18 11:24> Date of Encounter: 08/02/18 Internal Medicine - H&P: HPI History of present illness: Mr. Ryder is a 48 year old male All Systems PM: A 10-system review of systems was performed and is negative for pertinent findings except as documented above in the HPI. - Constitutional Vitals: Temp Pulse Resp BP Pulse Ox 97.8 F 74 17 100/67 95 08/02/18 07:44 08/02/18 07:44 08/02/18 07:44 08/02/18 07:44 08/02/18 07:44 Internal Med - H&P Results - Labs CBC & Chem 7: 08/02/18 00:44 08/02/18 00:44 Labs: Short CBC 08/02/18 Range/Units 00:44 WBC 5.7 (4.3-11.1) K/mcL Hgb 16.1 (12.9-16.9) g/dL Hct 47.6 (37.5-50.1) % Plt Count 208 (140-400) K/mcL Neutrophils # 2.5 (1.6-8.9) K/mcL BMP 08/02/18 00:44 Sodium 135 L Potassium 3.6 Chloride 102 Carbon Dioxide 24 BUN 11 Creatinine 0.69 L Glucose 108 H Calcium 9.4 Cardiac Enzymes 08/02/18 08/02/18 Range/Units 00:44 06:57 Troponin I < 0.03 < 0.03 (< 0.04) ng/mL Liver Function 08/02/18 Range/Units 00:44 Total Bilirubin 0.6 (0.3-1.0) mg/dL Direct Bilirubin 0.1 (0.0-0.2) mg/dL AST 42 H (13-39) Units/L ALT 42 (7-52) Units/L Alkaline Phosphatase 102 (34-104) Units/L Albumin 4.4 (3.5-5.7) g/dL Urine 08/02/18 Range/Units 02:09 Urine Color Yellow (Yellow) Urine Clarity Slightly Hazy (Clear) Urine pH 6.0 (5.0-8.0) pH Units Ur Specific [place] 1.013 (1.010-1.025) Urine Protein Trace (Neg-Trace) mg/dL Urine Glucose (UA) Normal (Normal) mg/dL - Impressions ITS Impressions Chest X-Ray 08/02/18 00:09 IMPRESSION: Negative portable chest. D/ / Brigido Muñiz MD / Brigido Muñiz MD Interpreting Provider: Brigido Muñiz MD - Time Spent With Patient Total time spent is greater than 50% in coordination of care (as documented) at patient's floor/unit and/or counseling patient: - Attending Attestation I examined this patient and my medical decision-making was reviewed with the Resident Physician Dr. Arreola. I agree with the documented findings, disposition and treatment plan as described except to the extent set forth below. Mr. Ryder is a 48 y/o M with known past medical history of ischemic cardiomyopathy, CAD with status post PCI recent one in 06/2017, hypertension, hyperlipidemia and left ventricular thrombi currently on Coumadin for anticoagulation presented to ER with chest pain. Patient stated his chest pain is located left chest wall region radiating to his neck 02/21 in severity which improved with Nitro. His CP currently 09/24. Gen: A, A, O x 3 Chest: Diminished BS b/l, No wheezing, no crackles no rales Heart: S1S2+ RRR No Murmurs a.p 1. Acute CP 2. h/o CAD s/p PCI on Tele check serial trop cont ASA+ Plavix+ BB+ Statin Stress test in AM 3. Chronic systolic CHF not in exacerbation 4. LV thrombi 5. Supra therapeutic INR Cont holding Coumadin
[2018-08-02] MEDS ORDERED: Acetaminophen 325 MG TABLET PO PRN (09:38)
[2018-08-02] MEDS ORDERED: Naloxone 0.4 MG/ML INJ IVP PRN (09:38)
[2018-08-02 10:44] LABS: Activated Partial Thrombo Time 59.5 Seconds (26.0-36.0)
[2018-08-02 10:55] LABS: INR 4.7; Prothrombin Time 53.3 Seconds (9.4-12.1)
[2018-08-02] MEDS ORDERED: ACETAMINOPHEN 1300 MG PO PRN (11:47)
[2018-08-02] MEDS: traMADol 50 MG TABLET PO PRN (16:03)
[2018-08-02] MEDS: Baclofen 10 MG TABLET PO PRN (20:29)
[2018-08-03 03:33] LABS: INR 2.9; Prothrombin Time 32.5 Seconds (9.4-12.1)
[2018-08-03 03:50] LABS: BUN/Creatinine Ratio 14 (6-26); Blood Urea Nitrogen 10 mg/dL (6-20); Calcium 9.1 mg/dL (8.6-10.3); Carbon Dioxide 25 mEq/L (23-29); Chloride 103 mEq/L (98-107); Chol/HDL Ratio 4.3 (0-4.9); Cholesterol 91 mg/dL (< 200); Glucose 106 mg/dL (70-105); HDL Cholesterol 21 mg/dL (40-59); LDL Cholesterol,Calculated 29 mg/dL (0-99); Osmolality,Calculated 277 (280-300); Potassium 3.6 mEq/L (3.5-5.1); Sodium 134 mEq/L (136-145); Triglycerides 204 mg/dL (< 150); Troponin I < 0.03 ng/mL (< 0.04); eGFR For Non-African Americans > 60 (> 60)
[2018-08-03] MEDS: traMADol 50 MG TABLET PO PRN (04:37)
[2018-08-03] MEDS: Baclofen 10 MG TABLET PO PRN ×2 (04:37→11:07)
[2018-08-03] MEDS ORDERED: Regadenoson 0.4 MG/5 ML SYRINGE IVP ONE (06:14)
[2018-08-03] MEDS ORDERED: Aspirin Enteric Coated 81 MG Tablet PO SCH (09:00)
[2018-08-03 11:40] VITALS: BP 107/64
--- NOTE | 2018-08-03 13:54 | Discharge Summary ---
<Laurie Patiño - Last Filed: 08/03/18 13:52> - NOTES TO OUTPATIENT PROVIDER Notes to Outpatient Provider: metoprolol changed to carvedilol 3.125 BID, imdur 30 mg added Orders not resulted at time of discharge: Pending orders 08/03/18 06:00 ECG 12 lead ECG [ECG] AM 0600 08/03/18 08:41 NM chris perf SPECT multi [NM] Routine 08/04/18 04:00 PT/INR [Prothrombin Time INR] [COAG] AM 0400 08/05/18 04:00 PT/INR [Prothrombin Time INR] [COAG] AM 0400 08/06/18 04:00 PT/INR [Prothrombin Time INR] [COAG] AM 0400 Date of Encounter: 08/03/18 Time of Encounter: 13:52 - Discharge Diagnosis (1) Chest pain Priority: Primary Status: Acute Qualifiers: Chest pain type: unspecified Qualified Code(s): R07.9 - Chest pain, unspecified (2) Personal history of NC (myocardial infarction) Priority: Secondary Status: Acute (3) CAD (coronary artery disease) Priority: Secondary Status: Acute Qualifiers: Coronary Disease-Associated Artery/Lesion type: unspecified vessel or lesion type [place] vs. transplanted heart: [place] heart Associated angina: angina presence unspecified Qualified Code(s): I25.10 - Atherosclerotic heart disease of [place] coronary artery without angina pectoris (4) Supratherapeutic INR Priority: Secondary Status: Acute (5) Hypertension Priority: Secondary Status: Chronic Qualifiers: Hypertension type: essential hypertension Qualified Code(s): I10 - Essential (primary) hypertension (6) LV (left ventricular) mural thrombus Priority: Secondary Status: Chronic (7) Systolic CHF Priority: Secondary Status: Chronic Qualifiers: Heart failure chronicity: chronic Qualified Code(s): I50.22 - Chronic systolic (congestive) heart failure Hospital course: Mr. Ryder is a 48 year old male admitted for chest pain. Cardiovascularly he is very high risk given his PMH of NC, CAD with 4 stents, CHF, HTN, HLD, tobacco abuse. Also hx of LV mural thrombus due to NC (03/31). His last stent was placed 03/31. His last stress test was 07/01. His last echo was 04/01 and showed (improved) systolic CHF with EF 50% with LV thrombus still present. This hospitalization his troponins were negative x4. He underwent nuclear stress test, which was negative for ischemia - it did show a large sized fixed perfusion defect severe in intensity in the apical anterior and mid anteroseptal segments, consistent with his NC 03/31. EF 41%. Patient's beta zoe was changed from metoprolol 25 mg BID to carvedilol 3.125 mg BID and long-acting nitrate imdur 30 mg was added. This will help with his CHF, CAD, and chest pain. - Time Spent with Patient Total time spent providing and/or coordinating discharge services: - Discharge Medications Prescriptions: RX: Carvedilol 3.125 mg PO BID 30 Days #30 tab Isosorbide MONOnitrate (24 HR) [Imdur] 30 mg PO DAILY 30 Days #30 tab.er.24h Home Medications: RX: Aspirin Enteric Coated [Aspirin EC] 81 mg PO DAILY #30 tablet.dr 05/07/17 [Rx] RX: Omeprazole [PriLOSEC] 20 mg PO DAILY 05/09/17 [History] RX: Clopidogrel [Plavix] 75 mg PO DAILY #30 tablet 05/11/17 [Rx] RX: Baclofen [Lioresal] 10 mg PO TID PRN 04/02/18 [History] RX: Atorvastatin Calcium 80 mg PO QPM 08/02/18 [History] RX: Warfarin Sodium 4 mg PO TUTHSA 08/02/18 [History] RX: Warfarin Sodium 5 mg PO SUMOWEFR 08/02/18 [History] Isosorbide MONOnitrate (24 HR) [Imdur] 30 mg PO DAILY 30 Days #30 tab.er.24h 08/03/18 [Rx] RX: Acetaminophen [Tylenol 8 Hour] 650 mg PO Q8H PRN #0 08/03/18 [Rx] RX: Carvedilol 3.125 mg PO BID 30 Days #30 tab 08/03/18 [Rx] Allergies/Adverse Reactions: Allergy/AdvReac Type Severity Reaction Status Date / Time No Known Allergies Allergy Verified 04/02/18 11:10 Date of admission: 08/02/18 02:41 Primary care physician: Laurie Patiño DO Discharging clinician: Laurie Patiño Anticipated date of discharge: 08/03/18 - Constitutional Vitals: Temp Pulse Resp BP Pulse Ox 97.8 F 66 17 107/64 94 08/03/18 11:36 08/03/18 11:36 08/03/18 11:36 08/03/18 11:36 08/03/18 11:36 General appearance: Present: A&O X 3, pleasant, no acute distress, answers questions appropriately Exam: - General Limitations: no limitations General appearance: alert, in no apparent distress - Head Head exam: atraumatic, normocephalic, normal inspection - Eye Eye exam: Present: normal appearance - ENT ENT exam: mucous membranes moist - Neck Neck exam: Present: normal inspection, full ROM, trachea midline - Chest Chest inspection: Present: normal inspection, symmetric chest wall rise - Respiratory Respiratory exam: Present: normal lung sounds bilaterally - Cardiovascular Cardiovascular exam: Present: regular rate, normal rhythm, normal heart sounds - Abdominal Exam Abdominal exam: Present: soft, Non-Tender, normal bowel sounds - Neurological Exam Neurological exam: Present: alert, oriented X3 - Psychiatric Psychiatric exam: Present: normal affect, normal mood - Skin Skin exam: Present: warm, dry, intact, normal color - Patient Status Disposition: Home Health Service Condition: Fair Functional capacity at discharge: wheelchair bound Overall status at discharge: patient is back to baseline - Discharge Instructions Follow Up With: Zakcary Chiu DO [Resident] - 08/10/18 3:00 pm Additional Instructions: Your medication changes this hospitalization include the following: - Stop metoprol. - Start carvedilol 3.125 mg twice a day. - Start imdur 30 mg daily. - Diet and Activity Diet: low fat, low cholesterol <JermainelaLillie mottabu - Last Filed: 08/03/18 14:49> Orders not resulted at time of discharge: Pending orders 08/03/18 06:00 ECG 12 lead ECG [ECG] AM 0600 08/03/18 08:41 NM chris perf SPECT multi [NM] Routine 08/04/18 04:00 PT/INR [Prothrombin Time INR] [COAG] AM 0400 08/05/18 04:00 PT/INR [Prothrombin Time INR] [COAG] AM 0400 08/06/18 04:00 PT/INR [Prothrombin Time INR] [COAG] AM 0400 Date of Encounter: 08/03/18 Hospital course: Mr. Ryder is a 48 year old male - Time Spent with Patient Total time spent providing and/or coordinating discharge services: Date of admission: 08/02/18 02:41 Primary care physician: Laurie Patiño, DO - Constitutional Vitals: Temp Pulse Resp BP Pulse Ox 97.8 F 66 17 107/64 94 08/03/18 11:36 08/03/18 11:36 08/03/18 11:36 08/03/18 11:36 08/03/18 13:55 - Attending Attestation I examined this patient and my medical decision-making was reviewed with the Resident Physician Dr. Patiño. I agree with the documented findings, disposition and treatment plan as described except to the extent set forth below. Mr. Ryder is a 48 y/o M with known past medical history of ischemic cardiomyopathy, CAD with status post PCI recent one in 06/2017, hypertension, hyperlipidemia and left ventricular thrombi currently on Coumadin for anticoagulation presented to ER with chest pain. Patient stated his chest pain is located left chest wall region radiating to his neck 02/21 in severity which improved with Nitro.He denied any more active CP. His nuclear stress test came back as negative for ischemia. Gen: A, A, O x 3 Chest: Diminished BS b/l, No wheezing, no crackles no rales Heart: S1S2+ RRR No Murmurs a.p 1. Acute CP 2. h/o CAD s/p PCI negative stress test will change him BB to Coreg Started him on Imdur 30mg PO daily 3. Chronic systolic CHF not in exacerbation 4. LV thrombi 5. Supra therapeutic INR Improved INR Cut down on Coumadin dosing f/u with PCP Dr. Patiño as an out pt
--- NOTE | 2018-08-03 14:51 | Physician Discharge Referral ---
Home Health/Hosp Referral Info Transfer to: Home Health Attending Provider: Dr. Patiño Provider in Charge Post Discharge: PCP - Diagnosis (1) Chest pain Priority: Primary Status: Acute (2) Personal history of IA (myocardial infarction) Priority: Primary Status: Acute (3) CAD (coronary artery disease) Priority: Primary Status: Acute (4) Supratherapeutic INR Priority: Primary Status: Acute (5) Hypertension Priority: Secondary Status: Chronic (6) LV (left ventricular) mural thrombus Priority: Primary Status: Chronic (7) Systolic CHF Priority: Primary Status: Chronic - Respiratory Orders Smoking Cessation: Smoking cessation has been advised. For more information, call the [place] Tobacco Quit Line at 4-109-YWHO-NOW. - Diet/Nutrition Diet/Nutrition Orders: Cardiac - Services Needed Following services are medically necessary services: Nursing, Home Health Aide Home Care Orders: INR M-W-F nurse or aide to assist in filling pill box until patient's coumadin dose is stable - Transfer Medications Prescriptions: Carvedilol 3.125 mg PO BID 30 Days #30 tab Isosorbide MONOnitrate (24 HR) [Imdur] 30 mg PO DAILY 30 Days #30 tab.er.24h Home Medications: Aspirin Enteric Coated [Aspirin EC] 81 mg PO DAILY #30 tablet. 05/07/17 [Rx] Omeprazole [PriLOSEC] 20 mg PO DAILY 05/09/17 [History] Clopidogrel [Plavix] 75 mg PO DAILY #30 tablet 05/11/17 [Rx] Baclofen [Lioresal] 10 mg PO TID PRN 04/02/18 [History] Atorvastatin Calcium 80 mg PO QPM 08/02/18 [History] Warfarin Sodium 4 mg PO TUTHSA 08/02/18 [History] Warfarin Sodium 5 mg PO SUMOWEFR 08/02/18 [History] Acetaminophen [Tylenol 8 Hour] 650 mg PO Q8H PRN #0 08/03/18 [Rx] Carvedilol 3.125 mg PO BID 30 Days #30 tab 08/03/18 [Rx] Isosorbide MONOnitrate (24 HR) [Imdur] 30 mg PO DAILY 30 Days #30 tab.er.24h 08/03/18 [Rx] Allergies/Adverse Reactions: Allergy/AdvReac Type Severity Reaction Status Date / Time No Known Allergies Allergy Verified 04/02/18 11:10 Certification: Further, I certify that my clinical findings support that this patient is homebound (i.e. absences from home require considerable and taxing effort and are for medical reasons or restoration services or infrequently or short duration when for other reasons) because: Homebound Reason: Patient requires assistance of a person or device to safely leave home, Absences from home are contraindicated except to recieve medical care, Leaving home requires considerable and taxing effort due to condition Attestation: My signature below is to certify that this patient is under my care and that I, or nurse practitioner, or a physician's operating room assistant working with me, has a [id number] encounter with this patient.
[2018-08-03] MEDS ORDERED: *HR* Warfarin 4 MG TABLET PO ONE (18:00)
[2018-08-03] MEDS ORDERED: Warfarin perPT PO PRN (18:00)
--- NOTE | 2018-08-04 18:03 | Electrocardiograph Report ---
[place] [id number] Test Date: 2018-08-01 Pat Name: [facility] Room: 3B[facility] Gender: M Customer Liaison: : 1970 Requested By: Beau Daniels Order Number: [id number] Reading MD: Mary Murphy Measurements Intervals [place] Rate: 71 P: 37 NE: 161 QRS: -1 QRSD: 114 T: 132 QT: 386 QTc: 420 Interpretive Statements Sinus rhythm Anterior infarct, old Abnormal T, consider ischemia, lateral leads Baseline wander in lead(s) V1 Electronically Signed On 08-04-2018 18:01:47 EST by Mayr Murphy
== END 2018-08-03 20:29 | disposition home health service (06) ==
LOC: EMEROOARM 23:47 → 3BNU 23:47 → SUATTDRO 08-02 02:41 → 3BNU 08-02 04:02
PROVIDERS: ADMIT Internal Medicine; ATTEND Family Medicine

== ENCOUNTER 2019-05-08 01:48 | Inpatient (IN) ==
--- NOTE | 2019-05-08 02:04 | Emergency Department Note ---
Disposition Clinical Impression: Pulmonary embolism Qualifiers: Pulmonary embolism type: unspecified Chronicity: acute Acute cor pulmonale presence: without acute cor pulmonale Qualified Code(s): I26.99 - Other pulmonary embolism without acute cor pulmonale Disposition: Admitted As Inpatient Condition: Fair Time of Disposition: 04:57 Chest Pain HPI - General Chief Complaint: ED Chest Pain Stated Complaint: chest pain possible CO Time Seen by Provider: 05/08/19 01:53 Source: patient Mode of arrival: ambulatory Limitations: no limitations Vital Signs Reviewed: Yes Nursing Notes Reviewed: Yes - History of Present Illness HPI Narrative: Patient is a 49-year-old male who is presenting with chest pain. Patient was brought in via EMS with past medical history significant for hypertension, hyperlipidemia, cerebral palsy, PE and DVT, has been off his medications for the past 4-5 months secondary to losing his primary care provider. Patient states that today around midnight, he was going outside to get fresh air, he then began to have sudden chest pain which are on the right side is currently sharp shooting which radiated to the left side, he denies associated shortness of radha th, nausea or vomiting. No diaphoresis. He states that he is not ambulatory at baseline, currently resides at a nephew's home who cares for him. He denies any new leg swelling however he is not ambulatory at baseline, no recent surgeries, history of malignancy. He denies recent cough, fevers or chills. - Related Data Home Medications Medication Instructions Recorded Confirmed No Known Home Drugs 05/08/19 05/08/19 Allergies Allergy/AdvReac Type Severity Reaction Status Date / Time No Known Allergies Allergy Verified 05/08/19 02:02 All systems ED: reviewed and negative except as stated. Review of Systems: As Per HPI Constitutional: Denies: fever, chills ENT ED: Denies: congestion Cardiovascular: Reports: chest pain. Denies: palpitations, dyspnea on exertion, syncope Respiratory: Denies: cough, dyspnea, wheezes Gastrointestinal: Denies: abdominal pain, nausea, vomiting, diarrhea, hematemesis Genitourinary: Denies: urgency Musculoskeletal: Denies: back pain Integumentary: Denies: rash Neurological: Denies: headache, weakness, numbness, confusion Endocrine: Denies: fatigue Chest Pain PMH - Past Medical History Medical history: Reports: cardiomyopathy, CHF, coronary artery disease, hyperlipidemia, hypertension, myocardial infarction, other Surgical history: Reports: angioplasty/stent, appendectomy Psychiatric history: Reports: no psych history Prior Cardiac Testing/Procedures: Stenting - Social History Smoking Status: Former smoker Alcohol use: Reports: none Drug use: Reports: none Physical Exam - General Limitations: no limitations General appearance: alert, in no apparent distress - Head Head exam: atraumatic, normocephalic - Eye Eye exam: Present: normal appearance, PERRL, EOMI - ENT ENT exam: normal exam, mucous membranes moist - Neck Neck exam: Present: normal inspection - Chest Chest inspection: Present: normal inspection, tenderness (Anterior chest wall tenderness). Absent: rash - Respiratory Respiratory exam: Present: normal lung sounds bilaterally. Absent: respiratory distress, wheezes - Cardiovascular Cardiovascular exam: Present: normal rhythm, tachycardia - Abdominal Exam Abdominal exam: Present: soft, Non-Tender. Absent: distention, guarding, rebound - Extremities Exam Extremities exam: Present: normal capillary refill. Absent: pedal edema, calf tenderness - Expanded Lower Extremity Exam Neurovascular/Tendon exam: Present: normal capillary refill, other (Patient with quadriplegia, at baseline). Absent: pulse deficit - Neurological Exam Neurological exam: Present: alert, oriented X3 - Psychiatric Psychiatric exam: Present: normal affect, normal mood - Skin Skin exam: Present: warm, dry, intact, normal color. Absent: rash, diaphoresis, pallor, mottled Course Vital Signs Temperature 97.8 F 05/08/19 02:04 Pulse Rate 106 05/08/19 02:04 Respiratory Rate 22 05/08/19 02:04 Blood Pressure 137/109 05/08/19 02:04 O2 Sat by Pulse Oximetry 96 05/08/19 02:04 Temperature 97.8 F 05/08/19 02:04 Pulse Rate 98 05/08/19 04:17 Respiratory Rate 18 05/08/19 02:46 Blood Pressure 134/94 05/08/19 04:17 O2 Sat by Pulse Oximetry 97 05/08/19 04:17 Oxygen Delivery Oxygen Delivery Room Air Chest Pain - MDM Narrative Medical decision making narrative: Patient is a 49-year-old male whose presenting with chest pain. Patient with history of cerebral palsy, hypertension, hyperlipidemia, PE, CAD, DVT, multiple stents placed. Concern for ACS first pulmonary embolus and given the patient has been off his anticoagulation medications for the past 4-5 months. Patient is not ambulatory at baseline. On exam, patient is in no acute distress, satting at 95-98% on room air. CBC, BMP, troponin were performed. Relatively within normal limits. D-dimer given history of being off into coagulation medicine with chest pain. D-dimer was significant elevated and therefore CTA was performed. I was called by [facility]ology given patient has extensive bilateral pulmonary emboli with concern for possible right middle lobe infarct. Given this finding, patient was started on heparin bolus and drip. Patient otherwise is remained stable. He denies cough, fevers or chills. Therefore we will not start antibiotics at this time. Given patient's extensive troponin, however there is no elevation in troponin, BNP and there is no hypotension while here, feels though the patient is a ppropriate for admission to this hospital. Patient was accepted by the hospitalist. Patient agrees with admission. - Differential Diagnosis Likely: atypical chest pain, chest pain (, Pulmonary embolism, ACS, costochondritis) - Medical Records Medical records reviewed: Yes I reviewed the patient's medical records. - Lab Data Lab results reviewed: Yes I reviewed the patient's lab results. Result diagrams: 05/08/19 02:10 05/08/19 02:10 Lab Results 05/08/19 05/08/19 05/08/19 Range/Units 02:10 02:10 02:10 WBC 8.6 (4.3-11.1) K/mcL RBC 4.01 L (4.19-5.50) M/mcL Hgb 13.4 (12.9-16.9) g/dL Hct 39.3 (37.5-50.1) % MCV 98.0 (83.0-100.0) fL MCH 33.4 H (28.0-33.3) pg MCHC 34.1 (31.6-35.5) g/dL RDW 13.7 (11.5-14.5) % Plt Count 193 (140-400) K/mcL MPV 10.2 (9.4-12.4) fL Immature Gran % 0.5 (0-4) % Seg Neutrophils % 62.6 % Lymphocytes % 23.7 % Monocytes % 11.2 % Eosinophils % 1.5 % Basophils % 0.5 % Neutrophils # 5.4 (1.6-8.9) K/mcL Lymphocytes # 2.0 (0.6-4.6) K/mcL Monocytes # 1.0 (0.0-1.3) K/mcL Eosinophils # 0.1 (0.0-0.6) K/mcL Basophils # 0.0 (0.0-0.2) K/mcL PT 12.8 H (9.4-12.1) Seconds INR 1.1 APTT 30.2 (26.0-36.0) Seconds D-Dimer 4474 H (0-500) ng/mLFEU Sodium 139 (136-145) mEq/L Potassium 3.2 L (3.5-5.1) mEq/L Chloride 106 (98-107) mEq/L Carbon Dioxide 25 (23-29) mEq/L BUN 9 (6-20) mg/dL Creatinine 0.77 (0.70-1.30) mg/dL Est GFR ( Amer) > 60 (> 60) Est GFR (Non-Af Amer) > 60 (> 60) BUN/Creatinine Ratio 12 (6-26) Glucose 94 (70-105) mg/dL Calculated Osmolality 286 (280-300) Calcium 8.7 (8.6-10.3) mg/dL Troponin I < 0.03 (< 0.04) ng/mL B-Natriuretic Peptide (Less than 100) pg/mL 05/08/19 Range/Units 02:10 WBC (4.3-11.1) K/mcL RBC (4.19-5.50) M/mcL Hgb (12.9-16.9) g/dL Hct (37.5-50.1) % MCV (83.0-100.0) fL MCH (28.0-33.3) pg MCHC (31.6-35.5) g/dL RDW (11.5-14.5) % Plt Count (140-400) K/mcL MPV (9.4-12.4) fL Immature Gran % (0-4) % Seg Neutrophils % % Lymphocytes % % Monocytes % % Eosinophils % % Basophils % % Neutrophils # (1.6-8.9) K/mcL Lymphocytes # (0.6-4.6) K/mcL Monocytes # (0.0-1.3) K/mcL Eosinophils # (0.0-0.6) K/mcL Basophils # (0.0-0.2) K/mcL PT (9.4-12.1) Seconds INR APTT (26.0-36.0) Seconds D-Dimer (0-500) ng/mLFEU Sodium (136-145) mEq/L Potassium (3.5-5.1) mEq/L Chloride (98-107) mEq/L Carbon Dioxide (23-29) mEq/L BUN (6-20) mg/dL Creatinine (0.70-1.30) mg/dL Est GFR ( Amer) (> 60) Est GFR (Non-Af Amer) (> 60) BUN/Creatinine Ratio (6-26) Glucose (70-105) mg/dL Calculated Osmolality (280-300) Calcium (8.6-10.3) mg/dL Troponin I (< 0.04) ng/mL B-Natriuretic Peptide 63 (Less than 100) pg/mL - Radiology Data Radiology results reviewed: Yes I reviewed the patient's radiology results. Chest X-Ray 05/08/19 02:53 IMPRESSION: No acute cardiopulmonary disease. D/ / Breezy Maldonado MD / Breezy Maldonado MD Interpreting Provider: Breezy Maldonado MD Chest CTA 05/08/19 03:39 IMPRESSION: 1. Extensive acute bilateral pulmonary emboli, as detailed above. 2. Subpleural foci of curvilinear and nodular consolidative opacity within the right lower lobe likely reflect either atelectasis or developing pulmonary infarcts. 3. Nonspecific nodular foci of ground-glass opacity within right middle lobe likely represent either developing pulmonary infarcts or infectious or inflammatory process. However, suggest appropriate clinical treatment, and short-term chest CT follow-up in 6-8 weeks to ensure resolution of these nodular ground-glass opacities. 4. Cirrhosis. Findings were discussed with Mikayla Larios at 3:44 am on 05/08/2019. D/ / Breezy Maldonado MD / Breezy Maldonado MD Interpreting Provider: Breezy Maldonado MD - EKG Data EKG attestation: Yes I reviewed and interpreted this EKG. EKG results narrative: EKG performed at 0201 particular rate of 102, regular rhythm, normal axis, without ST segment elevation, depression, there is significant scattered baseline which makes reading this EKG difficult, but does not appear to have any T-wave inversions.
[2019-05-08 02:22] LABS: Basophils % 0.5 %; Eosinophils # 0.1 K/mcL (0.0-0.6); Eosinophils % 1.5 %; Hematocrit 39.3 % (37.5-50.1); Hemoglobin 13.4 g/dL (12.9-16.9); Immature Granulocytes % 0.5 % (0-4); Lymphocytes % 23.7 %; Mean Corpuscular HGB Conc 34.1 g/dL (31.6-35.5); Mean Corpuscular Hemoglobin 33.4 pg (28.0-33.3); Mean Platelet Volume 10.2 fL (9.4-12.4); Monocytes % 11.2 %; Neutrophils # 5.4 K/mcL (1.6-8.9); Platelet Count 193 K/mcL (140-400); Red Blood Count 4.01 M/mcL (4.19-5.50); Red Cell Distribution Width 13.7 % (11.5-14.5); Segmented Neutrophils % 62.6 %; White Blood Count 8.6 K/mcL (4.3-11.1)
[2019-05-08 02:30] LABS: INR 1.1; Prothrombin Time 12.8 Seconds (9.4-12.1)
[2019-05-08 02:33] LABS: Activated Partial Thrombo Time 30.2 Seconds (26.0-36.0)
[2019-05-08 02:45] LABS: BUN/Creatinine Ratio 12 (6-26); Blood Urea Nitrogen 9 mg/dL (6-20); Calcium 8.7 mg/dL (8.6-10.3); Carbon Dioxide 25 mEq/L (23-29); Chloride 106 mEq/L (98-107); Glucose 94 mg/dL (70-105); Osmolality,Calculated 286 (280-300); Potassium 3.2 mEq/L (3.5-5.1); Sodium 139 mEq/L (136-145); eGFR For African Americans > 60 (> 60); eGFR For Non-African Americans > 60 (> 60)
[2019-05-08 02:46] LABS: Troponin I < 0.03 ng/mL (< 0.04)
[2019-05-08] MEDS ORDERED: Potassium Chloride Elixir 20 MEQ/15 ML UDC PO ONE (02:57)
[2019-05-08] MEDS ORDERED: Isovue-370 500 ML BOTTLE IVP ONE (03:03)
[2019-05-08] MEDS ORDERED: *HR* Heparin 5,000 UNIT/ML VIAL IVP PRN ×2 (03:45)
[2019-05-08] MEDS ORDERED: *HR* Heparin 5,000 UNIT/ML VIAL IVP ONE (03:45)
[2019-05-08] MEDS: Heparin 25,000 UNIT/250 ML D5W 25,000 UNIT/250 ML IV.SOLN IVC SCH ×2 (04:09→23:47)
--- NOTE | 2019-05-08 04:41 | Emergency Department Note ---
Disposition Clinical Impression: Pulmonary embolism Qualifiers: Pulmonary embolism type: unspecified Chronicity: acute Acute cor pulmonale presence: without acute cor pulmonale Qualified Code(s): I26.99 - Other pulmonary embolism without acute cor pulmonale Disposition: Admitted As Inpatient Condition: Fair Time of Disposition: 04:41 General Adult HPI - General Chief complaint: ED Chest Pain Stated complaint: chest pain possible NC Time Seen by Provider: 05/08/19 01:53 Source: patient Mode of arrival: ambulatory Limitations: no limitations Nursing Notes Reviewed: Yes Vital Signs Reviewed: Yes - History of Present Illness Pain Scale: 0 - Related Data Home Medications Medication Instructions Recorded Confirmed No Known Home Drugs 05/08/19 05/08/19 Allergies Allergy/AdvReac Type Severity Reaction Status Date / Time No Known Allergies Allergy Verified 05/08/19 02:02 Past Medical History - Past Medical History Medical history: Reports: cardiomyopathy, CHF, coronary artery disease, hyperlipidemia, hypertension, myocardial infarction, other Surgical history: Reports: angioplasty/stent, appendectomy Psychiatric history: Reports: no psych history - Social History Smoking Status: Former smoker Smokeless Tobacco Status: No Alcohol use: Reports: none Drug use: Reports: none Physical Exam - General Limitations: no limitations General appearance: alert Course Vital Signs Temperature 97.8 F 05/08/19 02:04 Pulse Rate 106 05/08/19 02:04 Respiratory Rate 22 05/08/19 02:04 Blood Pressure 137/109 05/08/19 02:04 O2 Sat by Pulse Oximetry 96 05/08/19 02:04 Temperature 98.1 F 05/08/19 05:31 Pulse Rate 96 05/08/19 05:31 Respiratory Rate 16 05/08/19 05:31 Blood Pressure 137/76 05/08/19 05:31 O2 Sat by Pulse Oximetry 97 05/08/19 05:31 Oxygen Delivery Oxygen Delivery Room Air Medical Decision Making - Medical Records Medical records reviewed: Yes I reviewed the patient's medical records. - Lab Data Lab results reviewed: Yes I reviewed the patient's lab results. Result diagrams: 05/08/19 02:10 05/08/19 02:10 Lab Results 05/08/19 05/08/19 05/08/19 Range/Units 02:10 02:10 02:10 WBC 8.6 (4.3-11.1) K/mcL RBC 4.01 L (4.19-5.50) M/mcL Hgb 13.4 (12.9-16.9) g/dL Hct 39.3 (37.5-50.1) % MCV 98.0 (83.0-100.0) fL MCH 33.4 H (28.0-33.3) pg MCHC 34.1 (31.6-35.5) g/dL RDW 13.7 (11.5-14.5) % Plt Count 193 (140-400) K/mcL MPV 10.2 (9.4-12.4) fL Immature Gran % 0.5 (0-4) % Seg Neutrophils % 62.6 % Lymphocytes % 23.7 % Monocytes % 11.2 % Eosinophils % 1.5 % Basophils % 0.5 % Neutrophils # 5.4 (1.6-8.9) K/mcL Lymphocytes # 2.0 (0.6-4.6) K/mcL Monocytes # 1.0 (0.0-1.3) K/mcL Eosinophils # 0.1 (0.0-0.6) K/mcL Basophils # 0.0 (0.0-0.2) K/mcL PT 12.8 H (9.4-12.1) Seconds INR 1.1 APTT 30.2 (26.0-36.0) Seconds D-Dimer 4474 H (0-500) ng/mLFEU Heparin Anti-Xa, Unfract (0.30-0.70) IU/mL Sodium 139 (136-145) mEq/L Potassium 3.2 L (3.5-5.1) mEq/L Chloride 106 (98-107) mEq/L Carbon Dioxide 25 (23-29) mEq/L BUN 9 (6-20) mg/dL Creatinine 0.77 (0.70-1.30) mg/dL Est GFR ( Amer) > 60 (> 60) Est GFR (Non-Af Amer) > 60 (> 60) BUN/Creatinine Ratio 12 (6-26) Glucose 94 (70-105) mg/dL Calculated Osmolality 286 (280-300) Calcium 8.7 (8.6-10.3) mg/dL Troponin I < 0.03 (< 0.04) ng/mL B-Natriuretic Peptide (Less than 100) pg/mL 05/08/19 05/08/19 Range/Units 02:10 04:10 WBC (4.3-11.1) K/mcL RBC (4.19-5.50) M/mcL Hgb (12.9-16.9) g/dL Hct (37.5-50.1) % MCV (83.0-100.0) fL MCH (28.0-33.3) pg MCHC (31.6-35.5) g/dL RDW (11.5-14.5) % Plt Count (140-400) K/mcL MPV (9.4-12.4) fL Immature Gran % (0-4) % Seg Neutrophils % % Lymphocytes % % Monocytes % % Eosinophils % % Basophils % % Neutrophils # (1.6-8.9) K/mcL Lymphocytes # (0.6-4.6) K/mcL Monocytes # (0.0-1.3) K/mcL Eosinophils # (0.0-0.6) K/mcL Basophils # (0.0-0.2) K/mcL PT 12.8 H (9.4-12.1) Seconds INR 1.1 APTT (26.0-36.0) Seconds D-Dimer (0-500) ng/mLFEU Heparin Anti-Xa, Unfract 0.00 L (0.30-0.70) IU/mL Sodium (136-145) mEq/L Potassium (3.5-5.1) mEq/L Chloride (98-107) mEq/L Carbon Dioxide (23-29) mEq/L BUN (6-20) mg/dL Creatinine (0.70-1.30) mg/dL Est GFR ( Amer) (> 60) Est GFR (Non-Af Amer) (> 60) BUN/Creatinine Ratio (6-26) Glucose (70-105) mg/dL Calculated Osmolality (280-300) Calcium (8.6-10.3) mg/dL Troponin I (< 0.04) ng/mL B-Natriuretic Peptide 63 (Less than 100) pg/mL - Radiology Data Radiology results reviewed: Yes I reviewed the patient's radiology results. Chest X-Ray 05/08/19 02:53 IMPRESSION: No acute cardiopulmonary disease. D/ / Breezy Maldonado MD / Breezy Maldonado MD Interpreting Provider: Breezy Maldonado MD Chest CTA 05/08/19 03:39 IMPRESSION: 1. Extensive acute bilateral pulmonary emboli, as detailed above. 2. Subpleural foci of curvilinear and nodular consolidative opacity within the right lower lobe likely reflect either atelectasis or developing pulmonary infarcts. 3. Nonspecific nodular foci of ground-glass opacity within right middle lobe likely represent either developing pulmonary infarcts or infectious or inflammatory process. However, suggest appropriate clinical treatment, and short-term chest CT follow-up in 6-8 weeks to ensure resolution of these nodular ground-glass opacities. 4. Cirrhosis. Findings were discussed with Mikayla Larios at 3:44 am on 05/08/2019. D/ / Breezy Maldonado MD / Breezy Maldonado MD Interpreting Provider: Breezy Maldonado MD - EKG Data EKG #1 EKG attestation: Yes I reviewed and interpreted this EKG. EKG results narrative: EKG shows sinus tachycardia with ventricular rate of 102. Poor technical quality EKG with a lot of artifact and interference however there is no definite significant acute ST segment elevation or depression noted. No arrhythmia or ectopy. No significant change from prior EKG dated 08/13/2018. Critical Care Time Critical Care Time: Yes Total Critical Care Time: 45 Attestation: Critical care performed: Time is exclusive of separately billable procedures. Time includes: direct patient care, patient reassessment, coordination of patient care, interpretation of data (laboratory data, radiology data, and respiratory data), review of patient's medical records, medical consultation and documentation of patient care. Procedures included in critical care time: Procedures excluded from critical care time: Attestation Statement - Attestation Attestation: I, Beau Daniels MD, personally evaluated this patient and discussed their management with the resident physician. I reviewed the resident's note and agree with the documented findings, medical decision making, and plan of care. I reviewed the residents documentation and agree with the residents assessment and plan of care. I have personally had face to face time with the patient. I personally supervised and was present for the roberts/critical portions of the following procedures completed by the resident: EKG interpretation. 49-year-old male presents to the emergency department with a complaint of acute onset of sharp chest pain which started about midnight tonight. The pain started on the right and radiated across to the left chest. The pain is worse with deep breathing or palpation of the chest. He denies shortness of breath. No cough or fever. No diaphoresis. No syncope. Patient is chronically nonambulatory. He lives with a nephew who cares for him. He does have a history of DVT and pulmonary emboli in the past but stopped taking his medicatio ns quite some time ago. On examination patient is a well-developed male in no acute distress. He is alert and oriented 3. There is no cyanosis or diaphoresis. There is tenderness palpation over the anterior chest wall bilaterally which does reproduce the patient's chest discomfort. Breath sounds are equal bilaterally. No rales or wheezes noted. Heart regular rate and rhythm. Abdomen is soft and nontender with present bowel sounds. EKG shows sinus tachycardia with ventricular rate of 102. Poor technical quality EKG with a lot of artifact and interference however there is no definite significant acute ST segment elevation or depression noted. No arrhythmia or ectopy. No significant change from prior EKG dated 08/13/2018. Chest x-ray negative. Labs reviewed. Troponin negative. D-dimer 4474. CTA of the chest was obtained which did show extensive acute bilateral pulmonary emboli. Patient started on heparin infusion. The hospitalist, Dr. Bhakta, was consulted and accepted admission of the patient.
[2019-05-08 04:55] LABS: INR 1.1; Prothrombin Time 12.8 Seconds (9.4-12.1)
[2019-05-08] MEDS: 0.9 % Sodium Chloride 1,000 ML IVC SCH (05:02)
[2019-05-08] MEDS ORDERED: Morphine Sulfate 2 MG/ML SYRINGE IVP PRN (06:42)
[2019-05-08] MEDS ORDERED: Naloxone 0.4 MG/ML INJ IVP PRN (08:47)
[2019-05-08] MEDS ORDERED: Ondansetron 4 MG/2 ML VIAL IVP PRN (08:47)
[2019-05-08] MEDS ORDERED: Acetaminophen 325 MG TABLET PO PRN (08:47)
--- NOTE | 2019-05-08 10:02 | Electrocardiograph Report ---
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
--- NOTE | 2019-05-08 11:21 | Pulmonology Consult Note ---
<Stefan Valencia G - Last Filed: 05/08/19 17:07> Date of Encounter: 05/08/19 Time of Encounter: 11:15 (estimated) Assessment and Plan (1) Pulmonary embolism Current Visit: Yes Status: Acute Qualifiers: Pulmonary embolism type: unspecified Chronicity: acute Acute cor pulmona le presence: without acute cor pulmonale Qualified Code(s): I26.99 - Other pulmonary embolism without acute cor pulmonale (2) Chest pain Current Visit: No Status: Acute Qualifiers: Chest pain type: unspecified Qualified Code(s): R07.9 - Chest pain, unspecified (3) Heart failure Current Visit: Yes Status: Acute Qualifiers: Qualified Code(s): I50.9 - Heart failure, unspecified History of Present Illness History of present illness: Chart review and some patient-provided information: Mr. Guanako Ryder is a 49-year-old male who presented to the ER on 05/08/19 for chest pain. PMH: Cerebral palsy. Left lower lobe PE 07/2018. Left ventricular thrombus secondary to [place] 03/2017. DVT. Hypertension. Hyperlipidemia. [place] s/p 4 stents. CHF. Tobacco use. [facility] Early vital signs significant for: pulse 106. Respiratory rate 22 Early labs significant for: d-dimer 4474. INR 1.1. BNP and troponins were WNL. CTA 05/08/19 read as: Extensive acute bilateral pulmonary emboli with subpleural foci in the right lower lobe concerning for pulmonary infarcts. Nonspecific nodular foci of right middle lobe concerning for pulmonary infarcts or infection/inflammation. Treatment with heparin bolus and drip. Pulmonology was consulted for acute bilateral recurrent PE Interview with patient CC: "My heart" History of present illness: Sudden onset chest pain at midnight last night when he was getting ready for bed as was his usual routine. Pain knifelike, constant and progressive. [place] similar to previous episodes. Admits diaphoretic baseline. Was without warfarin for approximately one month because his family doctor, Dr. Laurie Patiño, left the area. Confirms prior pulmonary embolism as well as left ventricular embolism. States that his sister also had a pulmonary embolism. Stays in his nephew's house. Admits chest pain, baseline minimal cough Denies PND, lower extremity swelling, fever, weight loss, night sweats, new lesions, rash, new vision loss, new hearing loss, epistaxis, trouble swallowing, palpitations, dyspnea, hemoptysis, abdominal pain, nausea, vomiting, diarrhea, known hematochezia, dysuria, known hematuria, new arthralgias/myalgias, dizziness, syncope. Smoker since age 19 and currently smokes half pack per day. No significant asbestos or rock dust exposure. At time of interview patient was feeling better (had received morphine) with no new symptoms. Past Med Surg Social Fam HX - Past Medical History Medical history: cardiomyopathy, CHF, coronary artery disease, hyperlipidemia, hypertension, myocardial infarction, other Additional medical history: [place]S DISEASE, CEREBRAL PULSY Psychiatric history: no psych history - Past Surgical History Surgical History: appendectomy Additional surgical history: 4 cardiac stents - Social History Smoking Status: Current every day smoker Packs per day: 0.5 Smokeless Tobacco Status: No Alcohol use: none Drug use: none - Family History Mother Family Member Ethnicity: Non- Living Status: Hx Family Endocrine Disorder: Yes (DM) Hx Family Neurologic Disorders: Yes (brain aneurysm) Father Family Member Ethnicity: Non- Living Status: Hx Family Cardiac Disorders: Yes ([place]) Brother Family Member Ethnicity: Non- Living Status: Still Living Sister Family Member Ethnicity: Non- Living Status: Still Living Medications and Allergies No Known Home Drugs 05/08/19 [History] Allergy/AdvReac Type Severity Reaction Status Date / Time No Known Allergies Allergy Verified 05/08/19 02:02 All Systems: The remainder of the systems were reviewed and are negative Review of Systems: Admits chest pain, baseline minimal cough Denies PND, lower extremity swelling, fever, weight loss, night sweats, new lesions, rash, new vision loss, new hearing loss, epistaxis, trouble swallowing, palpitations, dyspnea, hemoptysis, abdominal pain, nausea, vomiting, diarrhea, known hematochezia, dysuria, known hematuria, new arthralgias/myalgias, dizziness, syncope. *some information auto-populated into this note* Physical Examination Vital Signs: Vital Signs, Last 4 Hours Temp Pulse Resp BP Pulse Ox 05/08/19 07:18 97.8 F 85 16 124/79 93 Objective PE Gen.: Middle-aged male. No acute distress Skin: Good turgor. Excoriations of lower extremity Eyes: Moist. Anicteric Neck: No obvious JVD or hepatojugular reflux. Cardiac: S1, S2. No obvious murmurs gallops rubs heard Respiratory: Exam complicated by expiratory grunting. Relatively clear in the right lung. Crackles of left base and posterior wilkinson GI: Not diffusely tender Extremities: Capillary refill less than 2 seconds bilateral upper extremities. No bilateral lower extremity edema Neuro: Contractions of upper extremities with writhing motions. Psych: Appropriate mood and behavior. Answers questions coherently A/P #Pulmonary embolism Consider secondary to lack of warfarin therapy. Also consider genetic hyper- coagulopathy versus systemic autoimmune disease. Prior PE, left ventricular thrombus, DVT Chest pain as above INR 1.1 D-dimer 4474 CTA 05/08/19 read as: Extensive acute bilateral pulmonary emboli with subpleural foci in the right lower lobe concerning for pulmonary infarcts. Nonspecific nodular foci of right middle lobe concerning for pulmonary infarcts or infection/inflammation. Treatment with heparin bolus and drip. -Heparin drip -Warfarin will be appropriate therapy based on history of left ventricular thrombus -APC resistance pending -Factor V Leiden pending -Prothrombin gene mutation pending -Protein C/S pending -Anti-thrombin III antibodies pending -Antiphospholipid antibodies pending -Anti-cardiolipin antibodies pending -Beta-2 glycoprotein 1 antibodies pending -Lupus anticoagulant pending -Echo pending -Venous Doppler bilateral lower extremities pending #Chest pain Consider pleuritic from pulmonary infarct Initial troponins negative -As above #Heart failure with reduced ejection fraction Last echo 03/2018: LVEF 50%. LV thrombus present. -Per primary Results - Laboratory Findings CBC and BMP: 05/08/19 02:10 05/08/19 02:10 PT/INR, D-dimer PT 12.8 Seconds (9.4-12.1) H 05/08/19 04:10 D-Dimer 4474 ng/mLFEU (0-500) H 05/08/19 02:10 Abnormal lab findings: Abnormal lab results RBC 4.01 M/mcL (4.19-5.50) L 05/08/19 02:10 MCH 33.4 pg (28.0-33.3) H 05/08/19 02:10 PT 12.8 Seconds (9.4-12.1) H 05/08/19 04:10 D-Dimer 4474 ng/mLFEU (0-500) H 05/08/19 02:10 Heparin Anti-Xa, Unfract 0.00 IU/mL (0.30-0.70) L 05/08/19 04:10 Potassium 3.2 mEq/L (3.5-5.1) L 05/08/19 02:10 - Clinical Findings Intake & Output: Intake & Output 05/07/19 05/08/19 05/08/19 23:59 07:59 15:59 Intake Total 86 / 86 Output Total 300 / 300 Balance -300 / -214 86 / -214 Weight 92.079 kg Consult Discharge Plan - Plan Referrals: NONE,PCP [Primary Care Provider] - <Rajendra Godinez - Last Filed: 05/08/19 21:24> Date of Encounter: 05/08/19 All Systems: The remainder of the systems were reviewed and are negative Physical Examination Vital Signs: Vital Signs, Last 4 Hours Temp Pulse Resp BP Pulse Ox 05/08/19 19:10 97.9 F 90 16 124/71 95 Results - Laboratory Findings CBC and BMP: 05/08/19 02:10 05/08/19 02:10 PT/INR, D-dimer PT 12.8 Seconds (9.4-12.1) H 05/08/19 04:10 D-Dimer 4474 ng/mLFEU (0-500) H 05/08/19 02:10 Abnormal lab findings: Abnormal lab results RBC 4.01 M/mcL (4.19-5.50) L 05/08/19 02:10 MCH 33.4 pg (28.0-33.3) H 05/08/19 02:10 PT 12.8 Seconds (9.4-12.1) H 05/08/19 04:10 D-Dimer 4474 ng/mLFEU (0-500) H 05/08/19 02:10 Heparin Anti-Xa, Unfract 0.00 IU/mL (0.30-0.70) L 05/08/19 04:10 Potassium 3.2 mEq/L (3.5-5.1) L 05/08/19 02:10 - Clinical Findings Intake & Output: Intake & Output 05/08/19 05/08/19 05/08/19 07:59 15:59 23:59 Intake Total 326 / 1408 1082 / 1408 Output Total 300 / 300 Balance -300 / 1108 326 / 1108 1082 / 1108 Weight 92.079 kg - Attending Attestation I saw and evaluated this patient and my medical decision-making was reviewed with the Resident Physician. I agree with the documented findings, disposition and treatment plan as described except to the extent set forth below. We independently had [id number] contact with the patient Patient had bilateral PE. No evidence of right ventricular heart strain continue with heparin for now patient will need Coumadin therapy because of the left ventricle thrombus discuss with primary team patient is going [facility] where he can get his coumadin.
--- NOTE | 2019-05-08 12:57 | Internal Med History&Physical ---
Date of Encounter: 05/08/19 Time of Encounter: 09:30 Internal Medicine - H&P: HPI Chief complaint: Chest pain Admitted From: Emergency Dept Plans for Post Hospital Care: [facility] History of present illness: Mr. Ryder is a 49 year old male with known heart failure with chronic systolic CHF, LV thrombus on coumadin, CAD s/p multiple stents, cerebral palsy, diagnosed with b/l PE in 08/01 who is non compliance with his Coumadin, now he presented to ER with sudden onset CP since last night. Pt stated he was going outside to get fresh air, he then began to have sudden chest pain which are on the right side is currently sharp shooting which radiated to the left side, he denies associated shortness of breath, nausea or vomiting. No diaphoresis. In the ER his CTA of chest showed b/l extensive acute PE. Pt stated lately he is not ambulating much, however he denied any leg pain. Past Med Surg Social Fam HX - Past Medical History Medical history: cardiomyopathy, CHF, coronary artery disease, hyperlipidemia, hypertension, myocardial infarction, other Additional medical history: [place] DISEASE, CEREBRAL PULSY Psychiatric history: no psych history - Past Surgical History Surgical History: appendectomy Additional surgical history: 4 cardiac stents - Social History Smoking Status: Current every day smoker Packs per day: 0.5 Smokeless Tobacco Status: No Alcohol use: none Drug use: none - Family History Mother Family Member Ethnicity: Non- Living Status: Hx Family Endocrine Disorder: Yes (DM) Hx Family Neurologic Disorders: Yes (brain aneurysm) Father Family Member Ethnicity: Non- Living Status: Hx Family Cardiac Disorders: Yes (VT) Brother Family Member Ethnicity: Non- Living Status: Still Living Sister Family Member Ethnicity: Non- Living Status: Still Living Internal Medicine - H&P: Meds No Known Home Drugs 05/08/19 [History] Allergy/AdvReac Type Severity Reaction Status Date / Time No Known Allergies Allergy Verified 05/08/19 02:02 All Systems PM: A 10-system review of systems was performed and is negative for pertinent findings except as documented above in the HPI. Review of systems: All the systems are reviewed everything is benign except the systems and symptoms I mentioned in the history of present illness - Constitutional Vitals: Temp Pulse Resp BP Pulse Ox 97.9 F 83 16 130/79 95 09/24/19 12:35 05/08/19 12:35 05/08/19 12:35 05/08/19 12:35 05/08/19 12:35 General appearance: Present: cooperative, A&O X 3, no acute distress, answers questions appropriately Exam: a - Head Head exam: Present: atraumatic, normal inspection - Neck Neck exam general surgery: Present: normal inspection, supple - Respiratory Respiratory exam: Present: decreased breath sounds. Absent: rales, respiratory distress, rhonchi, wheezes - Cardiovascular Cardiovascular exam: Present: RRR, +S1, +S2. Absent: tachycardia - GI/Abdominal GI/Abdominal exam: Present: normal bowel sounds, soft. Absent: rebound, rigid, tenderness - Extremities Exam Extremities exam: Present: pedal edema (trace), warm. Absent: calf tenderness, tenderness - Back Exam Back exam: Absent: CVA tenderness (L), CVA tenderness (R) - Neurological Exam Neurological exam: Present: alert, oriented X3 - Psychiatric Psychiatric exam: Present: normal affect, normal mood - Skin Skin exam: Absent: rash Internal Med - H&P Results - Labs CBC & Chem 7: 05/08/19 02:10 05/08/19 02:10 Labs: Short CBC 05/08/19 Range/Units 02:10 WBC 8.6 (4.3-11.1) K/mcL Hgb 13.4 (12.9-16.9) g/dL Hct 39.3 (37.5-50.1) % Plt Count 193 (140-400) K/mcL Neutrophils # 5.4 (1.6-8.9) K/mcL BMP 05/08/19 02:10 Sodium 139 Potassium 3.2 L Chloride 106 Carbon Dioxide 25 BUN 9 Creatinine 0.77 Glucose 94 Calcium 8.7 Cardiac Enzymes 05/08/19 05/08/19 Range/Units 02:10 10:00 Troponin I < 0.03 < 0.03 (< 0.04) ng/mL - Impressions ITS Impressions Chest X-Ray 05/08/19 02:53 IMPRESSION: No acute cardiopulmonary disease. D/ / 05/08/2019 07:30:56 Breezy Maldonado MD / [facility] Interpreting Provider: Breezy Maldonado MD Chest CTA 05/08/19 03:39 IMPRESSION: 1. Extensive acute bilateral pulmonary emboli, as detailed above. 2. Subpleural foci of curvilinear and nodular consolidative opacity within the right lower lobe likely reflect either atelectasis or developing pulmonary infarcts. 3. Nonspecific nodular foci of ground-glass opacity within the right middle lobe likely represent either developing pulmonary infarcts or an infectious or inflammatory process. However, suggest appropriate clinical treatment, and short-term chest CT follow-up in 6-8 weeks to ensure resolution of these nodular ground-glass opacities. 4. Cirrhosis. Findings were discussed with Mikayla Larios at 3:44 am on 05/08/2019. D/ / 05/08/2019 07:43:14 Breezy Maldonado MD / [facility] Interpreting Provider: Breezy Maldonado MD - Assessment and Plan (1) Pulmonary embolism Current Visit: Yes Status: Acute Assessment and plan: Admit the pt into tele Reviewed his CTA of chest.. showed extensive acute bilateral pulmonary emboli consulted Pulmonary for fuurther help his CP seems to be pleurisy in nature.. which improved with Heparin gtt cont Heparin gtt for now also started him on Coumadin Consulted pharmacy to dose Coumadin Ordered venous doppler b/l LE to r/o DVT Also ordered 2 D echo to evaluate RV strain non compliance with Coumadin at home due to his MMR and Cerebral palsy He needs placement PT / OT eval ordered Will talk to CM / SW Qualifiers: Pulmonary embolism type: unspecified Chronicity: acute Acute cor pulmonale presence: without acute cor pulmonale Qualified Code(s): I26.99 - Other pulmonary embolism without acute cor pulmonale (2) Chest pain Current Visit: No Status: Acute Assessment and plan: due to PE will trend on trop EKG did not show any acute ishcemic changes cont on tele on ASA and Nitro PRN for cp Qualifiers: Chest pain type: unspecified Qualified Code(s): R07.9 - Chest pain, unspecified (3) LV (left ventricular) mural thrombus Current Visit: No Status: Chronic Assessment and plan: h/o LV thrombus non compliance with Coumadin at home due to his MMR and Cerebral palsy He needs placement Will talk to CM / SW (4) Systolic heart failure Current Visit: No Status: Chronic Assessment and plan: his 2D Echo from 04/01 showed LVEF 50%, and LV thrombus not in exacerbation will resume home meds Qualifiers: Heart failure chronicity: chronic Qualified Code(s): I50.22 - Chronic systolic (congestive) heart failure (5) CAD (coronary artery disease) Current Visit: No Status: Chronic Assessment and plan: Will resume his home meds once verified by pharmacy Qualifiers: Coronary Disease-Associated Artery/Lesion type: [place] artery [place] vs. tr ansplanted heart: [place] heart Associated angina: angina presence unspecified Qualified Code(s): I25.10 - Atherosclerotic heart disease of [place] coronary artery without angina pectoris (6) Cerebral palsy Current Visit: No Status: Chronic Qualifiers: Cerebral palsy type: unspecified type Qualified Code(s): G80.9 - Cerebral palsy, unspecified (7) HLD (hyperlipidemia) Current Visit: No Status: Chronic Assessment and plan: will resume home meds will check FLP iN AM Qualifiers: Hyperlipidemia type: pure hypercholesterolemia Qualified Code(s): E78.00 - Pure hypercholesterolemia, unspecified; E78.0 - Pure hypercholesterolemia (8) HTN (hypertension) Current Visit: No Status: Chronic Assessment and plan: stable BP now will cont home meds Qualifiers: Hypertension type: essential hypertension Qualified Code(s): I10 - Essential (primary) hypertension - Time Spent With Patient Total time spent is greater than 50% in coordination of care (as documented) at patient's floor/unit and/or counseling patient:
[2019-05-08] MEDS: *HR* HYDROcodone/Acet 5/325 mg TABLET PO PRN ×2 (16:26→23:47)
[2019-05-08] MEDS ORDERED: Warfarin perPT PO PRN (18:00)
[2019-05-08] MEDS ORDERED: *HR* Warfarin 5 MG TABLET PO ONE (18:00)
[2019-05-08] MEDS ORDERED: Perflutren Lipid Microsphere 1.3 ML in 0.9 % Sodium Chloride 8.7 ML IVP ONE (19:19)
[2019-05-09 00:28] LABS: Hematocrit 35.8 % (37.5-50.1); Mean Corpuscular HGB Conc 32.7 g/dL (31.6-35.5); Mean Corpuscular Hemoglobin 32.5 pg (28.0-33.3); Mean Corpuscular Volume 99.4 fL (83.0-100.0); Mean Platelet Volume 10.2 fL (9.4-12.4); Platelet Count 158 K/mcL (140-400); Red Cell Distribution Width 13.8 % (11.5-14.5); White Blood Count 4.5 K/mcL (4.3-11.1)
[2019-05-09 00:32] LABS: Hemoglobin 11.7 g/dL (12.9-16.9)
[2019-05-09 00:36] LABS: INR 1.1; Prothrombin Time 12.9 Seconds (9.4-12.1)
[2019-05-09 00:48] LABS: BUN/Creatinine Ratio 15 (6-26); Blood Urea Nitrogen 10 mg/dL (6-20); Calcium 8.5 mg/dL (8.6-10.3); Carbon Dioxide 25 mEq/L (23-29); Chloride 105 mEq/L (98-107); Chol/HDL Ratio 5.4 (0-4.9); Cholesterol 118 mg/dL (< 200); Glucose 105 mg/dL (70-105); HDL Cholesterol 22 mg/dL (40-59); LDL Cholesterol,Calculated 72 mg/dL (0-99); Magnesium 1.7 mg/dL (1.6-2.6); Osmolality,Calculated 281 (280-300); Potassium 3.6 mEq/L (3.5-5.1); Sodium 136 mEq/L (136-145); Triglycerides 119 mg/dL (< 150); eGFR For African Americans > 60 (> 60); eGFR For Non-African Americans > 60 (> 60)
[2019-05-09] MEDS: 0.9 % Sodium Chloride 1,000 ML IVC SCH ×2 (01:36→17:54)
--- NOTE | 2019-05-09 05:49 | Pulmonology Progress Note ---
<Stefan Valencia - Last Filed: 05/09/19 14:34> Date of Encounter: 05/09/19 Time of Encounter: 06:30 (guessed) Assessment and Plan (1) Pulmonary embolism Current Visit: Yes Status: Acute Qualifiers: Pulmonary embolism type: unspecified Chronicity: acute Acute cor pulmonale presence: without acute cor pulmonale Qualified Code(s): I26.99 - Other pulmonary embolism without acute cor pulmonale (2) Chest pain Current Visit: No Status: Acute Qualifiers: Chest pain type: unspecified Qualified Code(s): R07.9 - Chest pain, unspecified (3) Chronic diastolic heart failure Current Visit: Yes Status: Acute (4) Deep vein thrombosis (DVT) of left lower extremity Current Visit: Yes Status: Acute Qualifiers: Affected thrombotic vein of extremity: iliac Qualified Code(s): I82.422 - Acute embolism and thrombosis of left iliac vein Subjective Interval history: Subjective Patient feels about the same as yesterday. Says he is "pretty good". His breathing is fine and he denies chest pain. Last [place] around midnight. Objective PE Gen.: Middle-aged male. Apparently sleeping when I entered the room Skin: Cyst-like nodule of left pre-tibia around 3x3 cm. good turgor Eyes: Moist. Anicteric Cardiac: S1, S2. No obvious murmurs gallops or rubs heard Respiratory: Posterior left lung wilkinson with crackles and upper field wheeze. Relatively clear posteriorly on the right however exam complicated by patient expiratory grunting. GI: Not diffusely tender Extremities: Capillary refill less than 2 seconds bilateral upper extremities. No bilateral lower extremity edema. A/P #Pulmonary embolism Consider secondary to lack of warfarin therapy. Also consider genetic hyper- coagulopathy versus systemic autoimmune disease. Prior PE, left ventricular thrombus Initial chest pain INR 1.1 05/08 D-dimer 4474 05/08 CTA 05/08/19 read as: Extensive acute bilateral pulmonary emboli with subpleural foci in the right lower lobe concerning for pulmonary infarcts. Nonspecific nodular foci of right middle lobe concerning for pulmonary infarcts or infection/inflammation. Initially Treated with heparin bolus and drip. -Heparin drip -Warfarin -APC resistance pending -Factor V Leiden pending -Prothrombin gene mutation pending -Protein C/S pending -Anti-thrombin III antibodies pending -Antiphospholipid antibodies pending -Anti-cardiolipin antibodies pending -Beta-2 glycoprotein 1 antibodies pending -Lupus anticoagulant pending #DVT left lower extremity venous Doppler bilateral lower extremities 05/08/19 read as: Left iliac through popliteal vein with acute thrombosis. -Anticoagulation as above #chronic diastolic heart failure echo 03/2018: LVEF 50%. LV thrombus present. Echo 05/08/19 read as: LVEF 55%. Mild Left ventricular diastolic dysfunction. No evidence of pulmonary hypertension. Normal right ventricular structure and function. -Per primary #Chest pain Consider pleuritic from pulmonary infarct troponins negative -As above Objective PUL Vital signs: Last Vital Signs Temp 98.6 F 05/09/19 03:19 Pulse 88 05/09/19 03:19 Resp 16 05/09/19 03:19 BP 120/64 05/09/19 03:19 Pulse Ox 93 05/09/19 03:19 Results - Laboratory Findings CBC and BMP: 05/09/19 00:16 05/09/19 00:16 PT/INR, D-dimer PT 12.9 Seconds (9.4-12.1) H 05/09/19 00:16 D-Dimer 4474 ng/mLFEU (0-500) H 05/08/19 02:10 Abnormal lab findings: Abnormal lab results RBC 3.60 M/mcL (4.19-5.50) L 05/09/19 00:16 Hgb 11.7 g/dL (12.9-16.9) L D 05/09/19 00:16 Hct 35.8 % (37.5-50.1) L 05/09/19 00:16 MCH 33.4 pg (28.0-33.3) H 05/08/19 02:10 PT 12.9 Seconds (9.4-12.1) H 05/09/19 00:16 D-Dimer 4474 ng/mLFEU (0-500) H 05/08/19 02:10 Heparin Anti-Xa, Unfract 0.00 IU/mL (0.30-0.70) L 05/08/19 04:10 Potassium 3.2 mEq/L (3.5-5.1) L 05/08/19 02:10 Creatinine 0.68 mg/dL (0.70-1.30) L 05/09/19 00:16 Calcium 8.5 mg/dL (8.6-10.3) L 05/09/19 00:16 HDL Cholesterol 22 mg/dL (40-59) L 05/09/19 00:16 Cholesterol/HDL Ratio 5.4 (0-4.9) H 05/09/19 00:16 - Clinical Findings Intake & Output: Intake & Output 05/08/19 05/08/19 05/09/19 15:59 23:59 07:59 Intake Total 326 / 1490 1164 / 1490 Output Total 425 / 425 Balance 326 / 1190 1164 / 1190 -425 / -425 Weight 93 kg Consult Discharge Plan - Plan Referrals: NONE,PCP [Primary Care Provider] - <Rajendra Godinez - Last Filed: 05/09/19 21:32> Date of Encounter: 05/09/19 Objective PUL Vital signs: Last Vital Signs Temp 98.3 F 05/09/19 19:59 Pulse 89 05/09/19 19:59 Resp 16 05/09/19 19:59 BP 148/94 05/09/19 19:59 Pulse Ox 96 05/09/19 19:59 Results - Laboratory Findings CBC and BMP: 05/09/19 00:16 05/09/19 00:16 PT/INR, D-dimer PT 12.9 Seconds (9.4-12.1) H 05/09/19 00:16 D-Dimer 4474 ng/mLFEU (0-500) H 05/08/19 02:10 Abnormal lab findings: Abnormal lab results RBC 3.60 M/mcL (4.19-5.50) L 05/09/19 00:16 Hgb 11.7 g/dL (12.9-16.9) L D 05/09/19 00:16 Hct 35.8 % (37.5-50.1) L 05/09/19 00:16 MCH 33.4 pg (28.0-33.3) H 05/08/19 02:10 PT 12.9 Seconds (9.4-12.1) H 05/09/19 00:16 D-Dimer 4474 ng/mLFEU (0-500) H 05/08/19 02:10 Heparin Anti-Xa, Unfract 0.27 IU/mL (0.30-0.70) L 05/09/19 17:14 Potassium 3.2 mEq/L (3.5-5.1) L 05/08/19 02:10 Creatinine 0.68 mg/dL (0.70-1.30) L 05/09/19 00:16 Calcium 8.5 mg/dL (8.6-10.3) L 05/09/19 00:16 HDL Cholesterol 22 mg/dL (40-59) L 05/09/19 00:16 Cholesterol/HDL Ratio 5.4 (0-4.9) H 05/09/19 00:16 - Clinical Findings Intake & Output: Intake & Output 05/09/19 05/09/19 05/09/19 07:59 15:59 23:59 Intake Total 480 / 1730 1250 / 1730 Output Total 425 / 1475 200 / 1475 850 / 1475 Balance -425 / 255 280 / 255 400 / 255 Weight 93 kg - Attending Attestation I saw and evaluated this patient and my medical decision-making was reviewed with the Resident Physician. I agree with the documented findings, disposition and treatment plan as described except to the extent set forth below. We inde pendently had alsm-fi-dwkh contact with the patient Patient developed this acute hypoxic respiratory failure is secondary to pulmonary embolism and deep venous thrombosis due to noncompliance with Coumadin therapy patient is left ventricular thrombus in the past patient is not a candidate for the newer anticoagulant anticoagulants patient will need Coumadin and probably monitoring of INR patient [facility]. Patient will need lifelong anticoagulation suspect patient has some familial inherited coagulopathy sent all the blood work will follow-up as an outpatient. Please schedule with the pulmonology in 4-6 weeks. Patient will need to repeat the CT scan in 6-8 weeks for resolution of this nodular opacities this can be due to pulmonary infarcts. Discussed with primary hospitalist pulmonary will sign off we will see with an outpatient in 4-6 weeks.
[2019-05-09] MEDS: *HR* HYDROcodone/Acet 5/325 mg TABLET PO PRN ×2 (09:40→17:33)
--- NOTE | 2019-05-09 12:58 | Internal Med Progress Note ---
Hospitalist Progress Note - Encounter Date of Encounter: 05/09/19 Time of Encounter: 10:40 - Subjective Interval History: Pt was seen and examined at bed side. He is alert, awake and O x 3 Denied any CP / SOB. He did c.o left leg pain at popliteal region - Exam Vitals: Temp Pulse Resp BP Pulse Ox 98.5 F 85 16 128/86 96 05/09/19 12:07 05/09/19 12:07 05/09/19 12:07 05/09/19 12:07 05/09/19 12:07 Exam: Gen: Alert, awake, Oriented to time,place and person Chest: Diminished breath sounds B/L, No wheezing, No crackles, No rales Heart: S1S2+ RRR No murmurs Abd: Soft, NT, BS +, No organomegaly Ext: No edema, pulses are palpable, mild tenderness in left leg Neuro : No acute focal neuro deficits noticed Skin: No rash. - Assessment and Plan (1) Pulmonary embolism Current Visit: Yes Status: Acute Assessment and Plan: CTA of chest showed extensive acute bilateral pulmonary emboli cont Heparin gtt for another 24hrs Cont Coumadin Will bridge him with Lovenox in AM Consulted pharmacy to dose Coumadin Reviewed venous doppler b/l LE - he does have acute DVT in Left leg Reviewed 2 D echo no vent strain / No LV thrombus noticed non compliance with Coumadin at home due to his MMR and Cerebral palsy He needs placement PT / OT eval ordered CM / SW on board.. working on placement (2) Deep vein thrombosis (DVT) of left lower extremity Current Visit: Yes Status: Acute Assessment and Plan: on heparin gtt Cont heparin gtt for another 24 hrs Started on Coumadin will bridge with Lovenox in AM (3) Chest pain Current Visit: No Status: Acute Assessment and Plan: due to PE serial trop x 3 negative EKG did not show any acute ishcemic changes cont on tele on ASA and Nitro PRN for cp (4) LV (left ventricular) mural thrombus Current Visit: No Status: Chronic Assessment and Plan: h/o LV thrombus non compliance with Coumadin at home due to his MMR and Cerebral palsy He needs placement Will talk to CM / SW (5) Systolic heart failure Current Visit: No Status: Chronic Assessment and Plan: his 2D Echo from 04/01 showed LVEF 50%, and LV thrombus current Echo showed LVEF 55% no LV thrombus noticed not in exacerbation cont home meds (6) CAD (coronary artery disease) Current Visit: No Status: Chronic Assessment and Plan: Will resume his home meds once verified by pharmacy (7) Cerebral palsy Current Visit: No Status: Chronic (8) HLD (hyperlipidemia) Current Visit: No Status: Chronic Assessment and Plan: Reviewed FLP cont home meds (9) HTN (hypertension) Current Visit: No Status: Chronic Assessment and Plan: stable BP now cont home meds - Time Spent with Patient Total time spent is greater than 50% in coordination of care (as documented) at patient's floor/unit and/or counseling patient: Internal Medicine: Result - Labs CBC & Chem 7: 05/09/19 00:16 05/09/19 00:16 Labs: Short CBC 05/09/19 Range/Units 00:16 WBC 4.5 (4.3-11.1) K/mcL Hgb 11.7 L D (12.9-16.9) g/dL Hct 35.8 L (37.5-50.1) % Plt Count 158 (140-400) K/mcL BMP 05/09/19 00:16 Sodium 136 Potassium 3.6 Chloride 105 Carbon Dioxide 25 BUN 10 Creatinine 0.68 L Glucose 105 Calcium 8.5 L Cardiac Enzymes 05/08/19 Range/Units 15:34 Troponin I < 0.03 (< 0.04) ng/mL - ABG Interpretation ABG results: PT/INR, D-dimer PT 12.9 Seconds (9.4-12.1) H 05/09/19 00:16 D-Dimer 4474 ng/mLFEU (0-500) H 05/08/19 02:10 - Impressions Impressions Chest X-Ray 05/08/19 02:53 IMPRESSION: No acute cardiopulmonary disease. D/ / 05/08/2019 07:30:56 Breezy Maldonado MD / [facility] Interpreting Provider: Breezy Maldonado MD Chest CTA 05/08/19 03:39 IMPRESSION: 1. Extensive acute bilateral pulmonary emboli, as detailed above. 2. Subpleural foci of curvilinear and nodular consolidative opacity within the right lower lobe likely reflect either atelectasis or developing pulmonary infarcts. 3. Nonspecific nodular foci of ground-glass opacity within the right middle lobe likely represent either developing pulmonary infarcts or an infectious or inflammatory process. However, suggest appropriate clinical treatment, and short-term chest CT follow-up in 6-8 weeks to ensure resolution of these nodular ground-glass opacities. 4. Cirrhosis. Findings were discussed with Mikayla Larios at 3:44 am on 05/08/2019. D/ / 05/08/2019 07:43:14 [facility]donado [facility] / [facility] Interpreting Provider: Breezy Maldonado MD Echocardiogram 05/08/19 23:33 Impressions: LVEF 55%. Despite the use of contrast, not all segments were well visualized. Overall LVEF is normal. Normal LV chamber size, wall thickness. Mild left ventricular diastolic dysfunction. Atypical septal motion of unclear etiology. Normal right ventricular structure and function. RV:LV ratio less than 1.0. No evidence of pulmonary hypertension identified. RVSP not well obtained due to poor TR jet. No obvious significant valvular dysfunction. Findings: Study Quality * Technically sub-optimal due to poor echocardiographic windows. ECG Findings * Normal sinus rhythm. Left Ventricle * LVEF 55%. Despitethe use of contrast, not all segments were well visualized. Overall LVEF is normal. * Normal LV chamber size, wall thickness. * Mild left ventricular diastolic dysfunction. * Atypical septal motion of unclear etiology. Right Ventricle * Normal right ventricular structure and function. * RV:LV ratio less than 1.0. Left Atrium * Mildly dilated left atrium. Right Atrium * Normal right atrial size. Interatrial Septum * Interatrial septum not well evaluated. Aortic Valve * Aortic valve not well visualized. * No aortic regurgitation. * No aortic stenosis. Mitral Valve * Normal mitral valve structure and function. * No mitral stenosis. * No mitral regurgitation. Tricuspid Valve * Normal tricuspid valve structure and function. * Trace tricuspid regurgitation. * No evidence of pulmonary hypertension identified. RVSP not well obtained due to poor TR jet. Pulmonic Valve * Pulmonic valve not well visualized. * No pulmonic regurgitation. Aorta * Normally sized aortic root. Pericardium * The pericardium appears normal. IVC * Grossly normal IVC dimensions and inspiratory collapse. Pulmonary Artery * Pulmonary artery not well visualized. Consult Discharge Plan - Plan Referrals: NONE,PCP [Primary Care Provider] - (1) Pulmonary embolism Qualifiers: Pulmonary embolism type: unspecified Chronicity: acute Acute cor pulmonale presence: without acute cor pulmonale Qualified Code(s): I26.99 - Other pulmonary embolism without acute cor pulmonale (2) Deep vein thrombosis (DVT) of left lower extremity Qualifiers: Affected thrombotic vein of extremity: iliac (3) Chest pain Qualifiers: Chest pain type: unspecified Qualified Code(s): R07.9 - Chest pain, unspe cified (5) Systolic heart failure Qualifiers: Heart failure chronicity: chronic Qualified Code(s): I50.22 - Chronic systolic (congestive) heart failure (6) CAD (coronary artery disease) Qualifiers: Coronary Disease-Associated Artery/Lesion type: [place] artery [place] vs. transplanted heart: [place] heart Associated angina: angina presence unspecified Qualified Code(s): I25.10 - Atherosclerotic heart disease of [place] coronary artery without angina pectoris (7) Cerebral palsy Qualifiers: Cerebral palsy type: unspecified type Qualified Code(s): G80.9 - Cerebral palsy, unspecified (8) HLD (hyperlipidemia) Qualifiers: Hyperlipidemia type: pure hypercholesterolemia Qualified Code(s): E78.00 - Pure hypercholesterolemia, unspecified; E78.0 - Pure hypercholesterolemia (9) HTN (hypertension) Qualifiers: Hypertension type: essential hypertension Qualified Code(s): I10 - Essential (primary) hypertension
[2019-05-09] MEDS ORDERED: *HR* Warfarin 5 MG TABLET PO ONE (18:00)
[2019-05-09] MEDS: Heparin 25,000 UNIT/250 ML D5W 25,000 UNIT/250 ML IV.SOLN IVC SCH (19:37)
[2019-05-10 01:18] LABS: APTT (LE Anticoag) 135 sec (32-48); Diluted Russell Viper Venom 34 sec (33-44); LE APTT D Heparin Neutralized 49 sec (32-48); LE Coag APTT Mixing 40 sec (32-48); PT (LE-Anticoag) 14.9 sec (12.0-15.5); Thrombin Time >150.0 sec (14.7-19.5)
[2019-05-10 02:52] LABS: INR 1.1; Prothrombin Time 12.8 Seconds (9.4-12.1)
[2019-05-10 07:51] VITALS: BP 132/83
[2019-05-10] MEDS: 0.9 % Sodium Chloride 1,000 ML IVC SCH ×2 (08:09→11:07)
[2019-05-10] MEDS: *HR* HYDROcodone/Acet 5/325 mg TABLET PO PRN (08:15)
[2019-05-10] MEDS ORDERED: *HR* Enoxaparin 100 MG/ML SYRINGE SQ SCH (09:11)
--- NOTE | 2019-05-10 09:16 | Discharge Summary ---
- NOTES TO OUTPATIENT PROVIDER Notes to Outpatient Provider: f/u with PCP in one week. f/u with Pulmonary Dr. Godinez in 2-3 weeks. Please take Coumadin 7.5mg PO Daily x 2 days and go for PT / INR on Tuesday and follow up with PCP for further dosing. Cont Lovenox 100mg SQ BID for now until your INR becomes theraputiec @ 2.0 Orders not resulted at time of discharge: Pending orders 05/08/19 12:49 APC Resistance Profile Routine Antiphospholipid Ab High Spec Routine Antiphospholipid Synd w reflex Routine Antithrombin III, Activity Routine Beta-2 Glycoprotein 1 IgG,M,A Routine Cardiolipin Antibody, IGA Routine Cardiolipin Antibody, IGG Routine Cardiolipin Antibody, IGM Routine Factor V Leiden Routine Lupus Anticoagulant Panel Routine Protein C, Functional Routine Protein S, Free Routine Prothrombin [id number] Mutation Routine Date of Encounter: 05/10/19 Time of Encounter: 09:13 - Discharge Diagnosis (1) Pulmonary embolism Priority: Primary Status: Acute Qualifiers: Pulmonary embolism type: unspecified Chronicity: acute Acute cor pulmonale presence: without acute cor pulmonale Qualified Code(s): I26.99 - Other pulmonary embolism without acute cor pulmonale (2) Deep vein thrombosis (DVT) of left lower extremity Priority: Primary Status: Acute Qualifiers: Affected thrombotic vein of extremity: iliac Qualified Code(s): I82.422 - Acute embolism and thrombosis of left iliac vein (3) Right middle lobe pulmonary nodule Priority: Secondary Status: Acute (4) Chest pain Priority: Secondary Status: Acute Qualifiers: Chest pain type: unspecified Qualified Code(s): R07.9 - Chest pain, unspecified (5) LV (left ventricular) mural thrombus Priority: Secondary Status: Chronic (6) Systolic heart failure Priority: Secondary Status: Chronic Qualifiers: Heart failure chronicity: chronic Qualified Code(s): I50.22 - Chronic systolic (congestive) heart failure (7) CAD (coronary artery disease) Priority: Secondary Status: Chronic Qualifiers: Coronary Disease-Associated Artery/Lesion type: [place] artery [place] vs. transplanted heart: [place] heart Associated angina: angina presence unspecified Qualified Code(s): I25.10 - Atherosclerotic heart disease of [place] coronary artery without angina pectoris (8) Cerebral palsy Priority: Secondary Status: Chronic Qualifiers: Cerebral palsy type: unspecified type Qualified Code(s): G80.9 - Cerebral palsy, unspecified (9) HLD (hyperlipidemia) Priority: Secondary Status: Chronic Qualifiers: Hyperlipidemia type: pure hypercholesterolemia Qualified Code(s): E78.00 - Pure hypercholesterolemia, unspecified; E78.0 - Pure hypercholesterolemia (10) HTN (hypertension) Priority: Secondary Status: Chronic Qualifiers: Hypertension type: essential hypertension Qualified Code(s): I10 - Essential (primary) hypertension Hospital course: Mr. Ryder is a 49 year old male with known heart failure with chronic systolic CHF, LV thrombus on coumadin, CAD s/p multiple stents, cerebral palsy, diagnosed with b/l PE in 08/01 who is non compliance with his Coumadin, now he presented to ER with sudden onset CP since last night. Pt stated he was going outside to get fresh air, he then began to have sudden chest pain which are on the right side is currently sharp shooting which radiated to the left side, he denies associated shortness of breath, nausea or vomiting. No diaphoresis. In t he ER his CTA of chest showed b/l extensive acute PE. He was admitted in the hospital and placed him on environmental monitoring specialist. He was started on heparin drip. Patient symptoms started improving slowly. His started breathing comfortably on room air. He denied any more CP. He did c/o Left leg pain, his venous doppler of legs came back as positive for Left Iliac DVT. So we continued heparin gtt. His CTA also showed Rt middle lobe nodule, pt was evaluated by Pulmonary who recommend to cont heparin and start him on Coumadin. Since his symptoms improved, will switch his heparin to Lovenox to bridge with Coumadin. Pt was evaluated by PT / OT who recommend ECF placement. Will d/c him to ECF in stable condition today. - Time Spent with Patient Total time spent providing and/or coordinating discharge services: - Discharge Medications Prescriptions: New Aspirin Enteric Coated [Aspirin EC] 81 mg PO DAILY #30 tablet. Warfarin [Coumadin] 7.5 mg PO 1800 #15 tablet Isosorbide MONOnitrate (24 HR) [Imdur] 30 mg PO DAILY #30 tab.er.24h Metoprolol [Lopressor] 25 mg PO BID #60 tablet Enoxaparin [Lovenox] 100 mg SQ Q12HR #8 syr Home Medications: Aspirin Enteric Coated [Aspirin EC] 81 mg PO DAILY #30 tablet. 05/10/19 [Rx] Enoxaparin [Lovenox] 100 mg SQ Q12HR #8 syr 05/10/19 [Rx] Isosorbide MONOnitrate (24 HR) [Imdur] 30 mg PO DAILY #30 tab.er.24h 05/10/19 [Rx] Metoprolol [Lopressor] 25 mg PO BID #60 tablet 05/10/19 [Rx] Warfarin [Coumadin] 7.5 mg PO 1800 #15 tablet 05/10/19 [Rx] Allergies/Adverse Reactions: Allergy/AdvReac Type Severity Reaction Status Date / Time No Known Allergies Allergy Verified 05/08/19 02:02 Date of admission: 05/08/19 09:10 Primary care physician: PCP NONE Consults: 05/08/19 08:51 Consult to Pulmonology [CONS] Routine Consulting Provider: [facility] Reason for Consult: Acute b/l recurrent PE Time Notified: 08:52 Call Completed: Yes 05/08/19 09:53 Consult to Physical Therapy [CONS] Routine Comment: Evaluate, develop and implement POC Reason for Consult: May need ECF placement Does patient have active BEDREST order?: No Is patient medically & hemodynamically stable?: Yes Patient assessed for mobility or mobilized this visit?: Yes 05/08/19 13:05 Consult to Director Organizational [CONS] Routine Reason for SW Consult: PATIENT NEEDS ECF PLACEMENT - Constitutional Vitals: Temp Pulse Resp BP Pulse Ox 97.6 F 87 16 132/83 95 05/10/19 07:50 05/10/19 07:50 05/10/19 07:50 05/10/19 07:50 05/10/19 07:50 General appearance: Present: cooperative, A&O X 3, no acute distress, answers questions appropriately Exam: Gen: Alert, awake, Oriented to time,place and person Chest: Diminished breath sounds B/L, No wheezing, No crackles, No rales Heart: S1S2+ RRR No murmurs Abd: Soft, NT, BS +, No organomegaly Ext: No edema, pulses are palpable, mild tenderness in left leg Neuro : No acute focal neuro deficits noticed Skin: No rash. - Patient Status Disposition: Transfer SNF Condition: Good Overall status at discharge: patient is back to baseline - Discharge Instructions Follow Up With: NONE,PCP [Primary Care Provider] - Rajendra Godinez MD [Partnered Physician] - - Diet and Activity Activity: as per physical therapy, increase activity as tolerated Diet: low salt diet
--- NOTE | 2019-05-10 09:59 | Physician Discharge Referral ---
ExtendedCare Referral Info Transfer To: F Provider in Charge after Transfer: PCP Institutional Level of Care: Skilled - Diagnosis (1) Pulmonary embolism Status: Acute (2) Deep vein thrombosis (DVT) of left lower extremity Status: Acute (3) Right middle lobe pulmonary nodule Status: Acute (4) Chest pain Status: Acute (5) LV (left ventricular) mural thrombus Status: Chronic (6) Systolic heart failure Status: Chronic (7) CAD (coronary artery disease) Status: Chronic (8) Cerebral palsy Status: Chronic (9) HLD (hyperlipidemia) Status: Chronic (10) HTN (hypertension) Status: Chronic - Transfer Medications Prescriptions: Aspirin Enteric Coated [Aspirin EC] 81 mg PO DAILY #30 tablet. Warfarin [Coumadin] 7.5 mg PO 1800 #15 tablet Isosorbide MONOnitrate (24 HR) [Imdur] 30 mg PO DAILY #30 tab.er.24h Metoprolol [Lopressor] 25 mg PO BID #60 tablet Enoxaparin [Lovenox] 100 mg SQ Q12HR #8 syr Home Medications: Aspirin Enteric Coated [Aspirin EC] 81 mg PO DAILY #30 tablet. 05/10/19 [Rx] Enoxaparin [Lovenox] 100 mg SQ Q12HR #8 syr 05/10/19 [Rx] Isosorbide MONOnitrate (24 HR) [Imdur] 30 mg PO DAILY #30 tab.er.24h 05/10/19 [Rx] Metoprolol [Lopressor] 25 mg PO BID #60 tablet 05/10/19 [Rx] Warfarin [Coumadin] 7.5 mg PO 1800 #15 tablet 05/10/19 [Rx] Allergies/Adverse Reactions: Allergy/AdvReac Type Severity Reaction Status Date / Time No Known Allergies Allergy Verified 05/08/19 02:02 - Respiratory Orders Smoking Cessation: Smoking cessation has been advised. For more information, call the [place] Tobacco Quit Line at 0-391-JJTB-NOW. CERTIFICATION: I certify that the transfer of the above named patient to an Extended Care Facility is necessary for the continuing treatment of the diagnosis listed. The above information is true and accurate reflection of patient's current condition. Confidential - Redisclosure prohibited without a patient's written consent.
[2019-05-10 17:15] LABS: Prothrombin G20210A Specimen WHOLE BLOOD
[2019-05-10] MEDS ORDERED: *HR* Warfarin 7.5 MG TABLET PO ONE (18:00)
[2019-05-10 18:11] LABS: APTT (LE Anticoag) 110 sec (32-48); Diluted Russell Viper Venom 34 sec (33-44); LE APTT D Heparin Neutralized 50 sec (32-48); LE Coag APTT Mixing 41 sec (32-48); LE Coag Reptilase Time 19.5 sec (<=21.9); PT (LE-Anticoag) 14.7 sec (12.0-15.5); Thrombin Time 149.8 sec (14.7-19.5)
[2019-05-10 22:59] LABS: FACV Specimen WHOLE BLOOD
[2019-05-11 11:41] LABS: Fac V Leiden R506Q Mut Result NEGATIVE; Prothrombin G20210A Mut Result NEGATIVE
[2019-05-19 10:18] LABS: Antiphospholipid IgG High Spec 0 GPL (0-14); Antiphospholipid IgM High Spec 0 MPL (0-14)
== END 2019-05-10 11:54 | DRG 134 ==
LOC: EMEROOARM 01:48 → 3BNU 01:48 → SUATTDRO 04:44 → 3BNU 05:04
PROVIDERS: ADMIT Internal Medicine; ATTEND Family Medicine

== ENCOUNTER 2019-06-16 17:39 | Observation (INO) ==
[2019-06-16] MEDS ORDERED: Aspirin 81 MG TAB.CHEW PO ONE (17:48)
[2019-06-16] MEDS ORDERED: Isovue-370 500 ML BOTTLE IVP ONE (17:51)
[2019-06-16 18:21] LABS: INR 2.3
[2019-06-16 18:24] LABS: Activated Partial Thrombo Time 46.8 Seconds (26.0-36.0)
[2019-06-16 18:29] LABS: Basophils % 0.8 %; Eosinophils # 0.1 K/mcL (0.0-0.6); Eosinophils % 2.8 %; Hematocrit 42.2 % (37.5-50.1); Hemoglobin 14.4 g/dL (12.9-16.9); Immature Granulocytes % 0.2 % (0-4); Lymphocytes # 1.8 K/mcL (0.6-4.6); Lymphocytes % 35.3 %; Mean Corpuscular HGB Conc 34.1 g/dL (31.6-35.5); Mean Corpuscular Hemoglobin 32.3 pg (28.0-33.3); Mean Corpuscular Volume 94.6 fL (83.0-100.0); Mean Platelet Volume 10.5 fL (9.4-12.4); Monocytes # 0.6 K/mcL (0.0-1.3); Monocytes % 12.7 %; Neutrophils # 2.4 K/mcL (1.6-8.9); Platelet Count 214 K/mcL (140-400); Red Blood Count 4.46 M/mcL (4.19-5.50); Red Cell Distribution Width 13.1 % (11.5-14.5); Segmented Neutrophils % 48.2 %
[2019-06-16 18:39] LABS: BUN/Creatinine Ratio 21 (6-26); Blood Urea Nitrogen 15 mg/dL (6-20); Calcium 9.7 mg/dL (8.6-10.3); Carbon Dioxide 23 mEq/L (23-29); Chloride 103 mEq/L (98-107); Glucose 90 mg/dL (70-105); Osmolality,Calculated 280 (280-300); Sodium 135 mEq/L (136-145); eGFR For African Americans > 60 (> 60); eGFR For Non-African Americans > 60 (> 60)
[2019-06-16 18:41] LABS: Troponin I < 0.03 ng/mL (< 0.04)
[2019-06-17] MEDS ORDERED: Naloxone 0.4 MG/ML INJ IVP PRN (02:37)
[2019-06-17 06:48] LABS: Hematocrit 41.5 % (37.5-50.1); Immature Platelets 4.2 % (1.1-6.1); Mean Corpuscular HGB Conc 33.7 g/dL (31.6-35.5); Mean Corpuscular Volume 94.7 fL (83.0-100.0); Mean Platelet Volume 10.6 fL (9.4-12.4); Red Blood Count 4.38 M/mcL (4.19-5.50); White Blood Count 4.6 K/mcL (4.3-11.1)
[2019-06-17 06:55] LABS: INR 2.1; Prothrombin Time 23.7 Seconds (9.4-12.1)
[2019-06-17 07:11] LABS: BUN/Creatinine Ratio 19 (6-26); Blood Urea Nitrogen 13 mg/dL (6-20); Calcium 9.2 mg/dL (8.6-10.3); Carbon Dioxide 25 mEq/L (23-29); Chloride 104 mEq/L (98-107); Glucose 76 mg/dL (70-105); Osmolality,Calculated 287 (280-300); Sodium 139 mEq/L (136-145); eGFR For African Americans > 60 (> 60); eGFR For Non-African Americans > 60 (> 60)
[2019-06-17 07:12] LABS: Troponin I < 0.03 ng/mL (< 0.04)
[2019-06-17 12:11] VITALS: BP 126/88
[2019-06-17] MEDS ORDERED: Warfarin perPT PO PRN (18:00)
== END 2019-06-17 15:00 ==
LOC: 3BNU 17:39 → EMEROOARM 17:39 → 3BNU 20:20
PROVIDERS: ADMIT Internal Medicine; ATTEND Internal Medicine

== ENCOUNTER 2019-06-28 22:30 | Inpatient (IN) ==
[2019-06-28 22:49] LABS: Basophils % 0.7 %; Eosinophils # 0.2 K/mcL (0.0-0.6); Hematocrit 40.5 % (37.5-50.1); Hemoglobin 13.9 g/dL (12.9-16.9); Immature Granulocytes % 0.2 % (0-4); Lymphocytes % 36.4 %; Mean Corpuscular HGB Conc 34.3 g/dL (31.6-35.5); Mean Corpuscular Hemoglobin 32.2 pg (28.0-33.3); Mean Corpuscular Volume 93.8 fL (83.0-100.0); Mean Platelet Volume 9.7 fL (9.4-12.4); Monocytes # 0.7 K/mcL (0.0-1.3); Monocytes % 11.9 %; Neutrophils # 2.5 K/mcL (1.6-8.9); Platelet Count 200 K/mcL (140-400); Red Blood Count 4.32 M/mcL (4.19-5.50); Red Cell Distribution Width 12.7 % (11.5-14.5); Segmented Neutrophils % 46.8 %; White Blood Count 5.4 K/mcL (4.3-11.1)
[2019-06-28 23:01] LABS: Activated Partial Thrombo Time 45.8 Seconds (26.0-36.0)
[2019-06-28 23:12] LABS: BUN/Creatinine Ratio 17 (6-26); Blood Urea Nitrogen 11 mg/dL (6-20); Carbon Dioxide 27 mEq/L (23-29); Chloride 108 mEq/L (98-107); Glucose 119 mg/dL (70-105); Osmolality,Calculated 289 (280-300); Potassium 3.8 mEq/L (3.5-5.1); Sodium 139 mEq/L (136-145); eGFR For African Americans > 60 (> 60); eGFR For Non-African Americans > 60 (> 60)
[2019-06-28 23:13] LABS: Troponin I < 0.03 ng/mL (< 0.04)
[2019-06-28 23:14] LABS: INR 2.9; Prothrombin Time 33.1 Seconds (9.4-12.1)
[2019-06-28] MEDS ORDERED: Morphine Sulfate 2 MG/ML SYRINGE IVP ONE (23:48)
[2019-06-29] MEDS ORDERED: Naloxone 0.4 MG/ML INJ IVP PRN (03:09)
[2019-06-29] MEDS ORDERED: Ondansetron 4 MG/2 ML VIAL IVP PRN (03:09)
[2019-06-29] MEDS ORDERED: Acetaminophen 325 MG TABLET PO PRN (03:09)
[2019-06-29] MEDS ORDERED: Isovue-370 500 ML BOTTLE IVP ONE (03:13)
[2019-06-29] MEDS ORDERED: Nitroglycerin 0.4 MG TAB.SUBL SL PRN (03:26)
[2019-06-29 04:17] LABS: Hematocrit 39.8 % (37.5-50.1); Hemoglobin 13.5 g/dL (12.9-16.9); Mean Corpuscular HGB Conc 33.9 g/dL (31.6-35.5); Mean Corpuscular Hemoglobin 31.5 pg (28.0-33.3); Mean Platelet Volume 10.2 fL (9.4-12.4); Platelet Count 181 K/mcL (140-400); Red Blood Count 4.28 M/mcL (4.19-5.50); Red Cell Distribution Width 12.8 % (11.5-14.5); White Blood Count 5.2 K/mcL (4.3-11.1)
[2019-06-29 04:31] LABS: INR 2.9; Prothrombin Time 33.3 Seconds (9.4-12.1)
[2019-06-29 04:34] LABS: Activated Partial Thrombo Time 47.4 Seconds (26.0-36.0)
[2019-06-29 04:41] LABS: BUN/Creatinine Ratio 19 (6-26); Blood Urea Nitrogen 11 mg/dL (6-20); Carbon Dioxide 26 mEq/L (23-29); Chloride 106 mEq/L (98-107); Chol/HDL Ratio 3.6 (0-4.9); Cholesterol 109 mg/dL (< 200); Glucose 87 mg/dL (70-105); HDL Cholesterol 30 mg/dL (40-59); LDL Cholesterol,Calculated 51 mg/dL (0-99); Magnesium 1.7 mg/dL (1.6-2.6); Osmolality,Calculated 289 (280-300); Phosphorous 3.3 mg/dL (2.7-4.5); Potassium 3.8 mEq/L (3.5-5.1); Sodium 140 mEq/L (136-145); Triglycerides 139 mg/dL (< 150); eGFR For African Americans > 60 (> 60); eGFR For Non-African Americans > 60 (> 60)
[2019-06-29] MEDS ORDERED: Regadenoson 0.4 MG/5 ML SYRINGE IVP ONE (06:18)
[2019-06-29] MEDS: traMADol 50 MG TABLET PO PRN ×2 (09:10→18:12)
[2019-06-29] MEDS: Aspirin Enteric Coated 81 MG Tablet PO SCH (09:10)
[2019-06-29] MEDS: Metoprolol XL (24 HR) Succ 25 MG TAB.ER.24H PO SCH (11:58)
[2019-06-29] MEDS ORDERED: Warfarin 4 MG, Warfarin 3 MG PO ONE (18:00)
[2019-06-29] MEDS ORDERED: Warfarin perPT PO PRN (18:00)
[2019-06-30] MEDS: Aspirin Enteric Coated 81 MG Tablet PO SCH (09:29)
[2019-06-30] MEDS: Metoprolol XL (24 HR) Succ 25 MG TAB.ER.24H PO SCH (09:29)
[2019-06-30] MEDS: traMADol 50 MG TABLET PO PRN ×2 (09:34→16:57)
[2019-06-30 09:46] LABS: INR 2.3; Prothrombin Time 25.7 Seconds (9.4-12.1)
[2019-06-30] MEDS ORDERED: Methyl Salicylate/Menthol 28 GM TUBE TP PRN (13:31)
[2019-06-30] MEDS ORDERED: Methyl Salicylate/Menthol 57 APPL/57 GM TUBE TP PRN (14:15)
[2019-06-30] MEDS: Baclofen 10 MG TABLET PO PRN (16:57)
[2019-07-01] MEDS: Aspirin Enteric Coated 81 MG Tablet PO SCH (08:55)
[2019-07-01] MEDS: Isosorbide MONOnitrate (24 HR) 30 MG TAB.ER.24H PO SCH (08:55)
[2019-07-01] MEDS: Metoprolol XL (24 HR) Succ 25 MG TAB.ER.24H PO SCH (08:55)
[2019-07-01] MEDS: traMADol 50 MG TABLET PO PRN ×2 (08:55→20:10)
[2019-07-02 06:42] LABS: Basophils # 0.1 K/mcL (0.0-0.2); Basophils % 0.9 %; Eosinophils # 0.3 K/mcL (0.0-0.6); Hematocrit 44.2 % (37.5-50.1); Immature Granulocytes % 0.3 % (0-4); Lymphocytes # 1.8 K/mcL (0.6-4.6); Lymphocytes % 25.8 %; Mean Corpuscular HGB Conc 33.9 g/dL (31.6-35.5); Mean Corpuscular Hemoglobin 31.4 pg (28.0-33.3); Mean Corpuscular Volume 92.7 fL (83.0-100.0); Mean Platelet Volume 10.5 fL (9.4-12.4); Monocytes % 15.1 %; Neutrophils # 3.7 K/mcL (1.6-8.9); Platelet Count 223 K/mcL (140-400); Red Blood Count 4.77 M/mcL (4.19-5.50); Red Cell Distribution Width 12.4 % (11.5-14.5); Segmented Neutrophils % 53.9 %; White Blood Count 6.8 K/mcL (4.3-11.1)
[2019-07-02 06:46] LABS: INR 1.3; Prothrombin Time 14.9 Seconds (9.4-12.1)
[2019-07-02 07:07] LABS: BUN/Creatinine Ratio 26 (6-26); Blood Urea Nitrogen 18 mg/dL (6-20); Calcium 9.7 mg/dL (8.6-10.3); Carbon Dioxide 27 mEq/L (23-29); Chloride 100 mEq/L (98-107); Glucose 99 mg/dL (70-105); Magnesium 1.7 mg/dL (1.6-2.6); Osmolality,Calculated 280 (280-300); Potassium 3.9 mEq/L (3.5-5.1); Sodium 134 mEq/L (136-145); eGFR For African Americans > 60 (> 60); eGFR For Non-African Americans > 60 (> 60)
[2019-07-02] MEDS ORDERED: *HR* Midazolam HCl 2 MG/2 ML VIAL ONE (08:04)
[2019-07-02] MEDS ORDERED: 0.9 % Sodium Chloride 2,000 ML ONE (08:04)
[2019-07-02] MEDS ORDERED: Verapamil 5 MG/2 ML VIAL ONE (08:04)
[2019-07-02] MEDS ORDERED: *HR* FentaNYL (PF) 100 MCG/2 ML VIAL ONE (08:04)
[2019-07-02] MEDS ORDERED: *HR* Heparin 10,000 UNIT/10 ML VIAL ONE (08:05)
[2019-07-02] MEDS ORDERED: Nitroglycerin 1,000 MCG/10 ML VIAL IV ONE (08:05)
[2019-07-02] MEDS ORDERED: ISOVUE-370 200 ML INFUS..BTL ONE ×2 (08:05)
[2019-07-02] MEDS ORDERED: Heparin 1,000 UNITS/500 mL 500 ML ONE (08:05)
[2019-07-02] MEDS: Isosorbide MONOnitrate (24 HR) 30 MG TAB.ER.24H PO SCH (10:04)
[2019-07-02] MEDS: Metoprolol XL (24 HR) Succ 25 MG TAB.ER.24H PO SCH (10:04)
[2019-07-02] MEDS: Aspirin Enteric Coated 81 MG Tablet PO SCH (10:04)
[2019-07-02] MEDS: traMADol 50 MG TABLET PO PRN ×2 (10:14→17:53)
[2019-07-02] MEDS: *HR* Enoxaparin 100 MG/ML SYRINGE SQ SCH ×2 (17:54→17:57)
[2019-07-02] MEDS ORDERED: Warfarin perPT PO PRN (18:00)
[2019-07-02] MEDS ORDERED: *HR* Warfarin 5 MG TABLET PO ONE (18:00)
[2019-07-02] MEDS ORDERED: *HR* Warfarin 2 MG TABLET PO ONE (18:00)
[2019-07-03 01:15] LABS: INR 1.3; Prothrombin Time 14.7 Seconds (9.4-12.1)
[2019-07-03] MEDS: *HR* Enoxaparin 100 MG/ML SYRINGE SQ SCH ×2 (06:25→16:38)
[2019-07-03] MEDS: Aspirin Enteric Coated 81 MG Tablet PO SCH (08:17)
[2019-07-03] MEDS: traMADol 50 MG TABLET PO PRN ×2 (08:18→15:56)
[2019-07-03] MEDS: Metoprolol XL (24 HR) Succ 25 MG TAB.ER.24H PO SCH (12:33)
[2019-07-03] MEDS: Acetaminophen 325 MG TABLET PO PRN (12:33)
[2019-07-03] MEDS: Baclofen 10 MG TABLET PO PRN (22:32)
[2019-07-04 02:56] LABS: INR 1.3; Prothrombin Time 14.7 Seconds (9.4-12.1)
[2019-07-04] MEDS: *HR* Enoxaparin 100 MG/ML SYRINGE SQ SCH ×2 (05:43→18:29)
[2019-07-04] MEDS: Metoprolol XL (24 HR) Succ 25 MG TAB.ER.24H PO SCH (10:05)
[2019-07-04] MEDS: Aspirin Enteric Coated 81 MG Tablet PO SCH (10:05)
[2019-07-04] MEDS: Baclofen 10 MG TABLET PO PRN ×2 (10:11→22:13)
[2019-07-04] MEDS: traMADol 50 MG TABLET PO PRN ×2 (12:43→21:15)
[2019-07-04] MEDS: Acetaminophen 325 MG TABLET PO PRN (19:45)
[2019-07-05] MEDS: *HR* Enoxaparin 100 MG/ML SYRINGE SQ SCH (05:57)
[2019-07-05 07:01] LABS: INR 1.6; Prothrombin Time 18.2 Seconds (9.4-12.1)
[2019-07-05] MEDS: Metoprolol XL (24 HR) Succ 25 MG TAB.ER.24H PO SCH (07:25)
[2019-07-05] MEDS: Aspirin Enteric Coated 81 MG Tablet PO SCH (07:25)
[2019-07-05 11:23] VITALS: BP 111/68
== END 2019-07-05 14:33 | DRG 191 ==
LOC: EMEROOARM 22:30 → 3BNU 22:30 → SUATTDRO 06-29 14:32
PROVIDERS: ADMIT Family Medicine; ATTEND Family Medicine

== ENCOUNTER 2019-09-04 18:08 | Observation (INO) ==
[2019-09-04] MEDS ORDERED: Morphine Sulfate 2 MG/ML SYRINGE IVP ONE (18:24)
[2019-09-04 19:44] LABS: Basophils % 0.7 %; Eosinophils # 0.2 K/mcL (0.0-0.6); Eosinophils % 2.9 %; Hematocrit 42.8 % (37.5-50.1); Hemoglobin 13.9 g/dL (12.9-16.9); Lymphocytes # 1.5 K/mcL (0.6-4.6); Lymphocytes % 28.4 %; Mean Corpuscular HGB Conc 32.5 g/dL (31.6-35.5); Mean Corpuscular Hemoglobin 30.4 pg (28.0-33.3); Mean Corpuscular Volume 93.7 fL (83.0-100.0); Mean Platelet Volume 9.9 fL (9.4-12.4); Monocytes # 0.9 K/mcL (0.0-1.3); Monocytes % 15.7 %; Neutrophils # 2.8 K/mcL (1.6-8.9); Platelet Count 200 K/mcL (140-400); Red Blood Count 4.57 M/mcL (4.19-5.50); Red Cell Distribution Width 14.1 % (11.5-14.5); Segmented Neutrophils % 52.3 %; White Blood Count 5.4 K/mcL (4.3-11.1)
[2019-09-04 20:10] LABS: Alanine Aminotransferase 44 Units/L (7-52); Albumin 4.3 g/dL (3.5-5.7); Albumin/Globulin Ratio 1.2 (1.1-2.2); Alkaline Phosphatase 84 Units/L (34-104); Aspartate Amino Transferase 41 Units/L (13-39); BUN/Creatinine Ratio 12 (6-26); Bilirubin,Total 0.6 mg/dL (0.3-1.0); Blood Urea Nitrogen 9 mg/dL (6-20); Calcium 9.3 mg/dL (8.6-10.3); Carbon Dioxide 28 mEq/L (23-29); Chloride 103 mEq/L (98-107); Globulin 3.6 g/dL (2.4-3.5); Glucose 84 mg/dL (70-105); Osmolality,Calculated 286 (280-300); Potassium 4.3 mEq/L (3.5-5.1); Sodium 139 mEq/L (136-145); Total Protein 7.9 g/dL (6.4-8.9); Troponin I < 0.03 ng/mL (< 0.04); eGFR For African Americans > 60 (> 60); eGFR For Non-African Americans > 60 (> 60)
[2019-09-04] MEDS ORDERED: *HR* FentaNYL (PF) 100 MCG/2 ML VIAL IVP ONE (20:41)
[2019-09-04 21:04] LABS: INR 3.8
[2019-09-04] MEDS ORDERED: Naloxone 0.4 MG/ML INJ IVP PRN (21:20)
[2019-09-05 01:32] LABS: Hematocrit 45.2 % (37.5-50.1); Hemoglobin 14.5 g/dL (12.9-16.9); Mean Corpuscular HGB Conc 32.1 g/dL (31.6-35.5); Mean Corpuscular Hemoglobin 30.4 pg (28.0-33.3); Mean Corpuscular Volume 94.8 fL (83.0-100.0); Mean Platelet Volume 10.2 fL (9.4-12.4); Platelet Count 209 K/mcL (140-400); Red Blood Count 4.77 M/mcL (4.19-5.50); White Blood Count 6.4 K/mcL (4.3-11.1)
[2019-09-05 01:33] LABS: INR 3.3; Prothrombin Time 37.8 Seconds (9.4-12.1)
[2019-09-05 01:50] LABS: Alanine Aminotransferase 45 Units/L (7-52); Albumin 4.5 g/dL (3.5-5.7); Albumin/Globulin Ratio 1.2 (1.1-2.2); Alkaline Phosphatase 89 Units/L (34-104); Aspartate Amino Transferase 43 Units/L (13-39); BUN/Creatinine Ratio 13 (6-26); Bilirubin,Total 0.8 mg/dL (0.3-1.0); Blood Urea Nitrogen 10 mg/dL (6-20); Calcium 9.5 mg/dL (8.6-10.3); Carbon Dioxide 29 mEq/L (23-29); Chloride 102 mEq/L (98-107); Globulin 3.7 g/dL (2.4-3.5); Glucose 143 mg/dL (70-105); Osmolality,Calculated 288 (280-300); Potassium 3.6 mEq/L (3.5-5.1); Sodium 138 mEq/L (136-145); Total Protein 8.2 g/dL (6.4-8.9); eGFR For African Americans > 60 (> 60); eGFR For Non-African Americans > 60 (> 60)
[2019-09-05] MEDS: Nitroglycerin 1 INCH/GM PACKET TP SCH ×3 (02:43→20:08)
[2019-09-05] MEDS ORDERED: Furosemide 20 MG TABLET PO PRN (03:32)
[2019-09-05] MEDS ORDERED: Aspirin 325 MG TABLET PO ONE (03:38)
[2019-09-05] MEDS ORDERED: Ipratropium/Albuterol Neb 3 ML IH PRN (04:00)
[2019-09-05] MEDS: Isosorbide MONOnitrate (24 HR) 30 MG TAB.ER.24H PO SCH (11:00)
[2019-09-05] MEDS: Metoprolol XL (24 HR) Succ 25 MG TAB.ER.24H PO SCH (11:00)
[2019-09-05] MEDS: Aspirin 81 MG TAB.CHEW PO SCH (11:01)
[2019-09-05] MEDS: Morphine Sulfate 2 MG/ML SYRINGE IVP PRN ×2 (11:02→20:03)
[2019-09-05] MEDS ORDERED: Perflutren Lipid Microsphere 1.3 ML in 0.9 % Sodium Chloride 8.7 ML IVP ONE (15:34)
[2019-09-05] MEDS ORDERED: Warfarin perPT PO PRN (18:00)
[2019-09-05] MEDS ORDERED: *HR* Warfarin 3 MG TABLET PO ONE (18:00)
[2019-09-06 04:49] LABS: Prothrombin Time 33.7 Seconds (9.4-12.1)
[2019-09-06] MEDS: Morphine Sulfate 2 MG/ML SYRINGE IVP PRN (06:29)
[2019-09-06] MEDS: Metoprolol XL (24 HR) Succ 25 MG TAB.ER.24H PO SCH (09:10)
[2019-09-06] MEDS: Isosorbide MONOnitrate (24 HR) 30 MG TAB.ER.24H PO SCH (09:10)
[2019-09-06] MEDS: Aspirin 81 MG TAB.CHEW PO SCH (09:10)
[2019-09-06 15:07] VITALS: BP 101/59
[2019-09-06] MEDS ORDERED: *HR* Warfarin 4 MG TABLET PO ONE (18:00)
== END 2019-09-06 18:56 ==
LOC: EMEROOARM 18:08 → 3BNU 18:08 → SUATTDRO 22:30 → 3BNU 23:30
PROVIDERS: ADMIT Family Medicine; ATTEND Internal Medicine

== ENCOUNTER 2019-10-06 14:57 | Observation (INO) ==
[2019-10-06] MEDS ORDERED: Aspirin 325 MG TABLET PO ONE (15:11)
[2019-10-06] MEDS ORDERED: Isovue-370 500 ML BOTTLE IVP ONE ×2 (15:16→15:18)
[2019-10-06 15:25] LABS: Basophils % 0.8 %; Eosinophils # 0.2 K/mcL (0.0-0.6); Eosinophils % 3.1 %; Hematocrit 42.8 % (37.5-50.1); Hemoglobin 13.8 g/dL (12.9-16.9); Immature Granulocytes % 0.2 % (0-4); Lymphocytes # 1.5 K/mcL (0.6-4.6); Lymphocytes % 30.1 %; Mean Corpuscular HGB Conc 32.2 g/dL (31.6-35.5); Mean Corpuscular Hemoglobin 29.8 pg (28.0-33.3); Mean Corpuscular Volume 92.4 fL (83.0-100.0); Mean Platelet Volume 9.8 fL (9.4-12.4); Monocytes # 0.9 K/mcL (0.0-1.3); Monocytes % 18.4 %; Neutrophils # 2.4 K/mcL (1.6-8.9); Platelet Count 217 K/mcL (140-400); Red Blood Count 4.63 M/mcL (4.19-5.50); Red Cell Distribution Width 14.5 % (11.5-14.5); Segmented Neutrophils % 47.4 %; White Blood Count 5.1 K/mcL (4.3-11.1)
[2019-10-06 15:47] LABS: Platelet Estimate Slight Decrease (Normal)
[2019-10-06 15:54] LABS: BUN/Creatinine Ratio 20 (6-26); Blood Urea Nitrogen 15 mg/dL (6-20); Calcium 8.9 mg/dL (8.6-10.3); Carbon Dioxide 27 mEq/L (23-29); Chloride 104 mEq/L (98-107); Glucose 91 mg/dL (70-105); Osmolality,Calculated 284 (280-300); Potassium 3.8 mEq/L (3.5-5.1); Sodium 137 mEq/L (136-145); Troponin I < 0.03 ng/mL (< 0.04); eGFR For African Americans > 60 (> 60); eGFR For Non-African Americans > 60 (> 60)
[2019-10-06 16:02] LABS: INR 2.8; Prothrombin Time 32.1 Seconds (9.4-12.1)
[2019-10-06 16:05] LABS: Activated Partial Thrombo Time 48.3 Seconds (26.0-36.0)
[2019-10-06] MEDS ORDERED: Prochlorperazine 10 MG/2 ML VIAL IVP STA (16:42)
[2019-10-06] MEDS ORDERED: Aspirin 81 MG TAB.CHEW PO STA (19:39)
[2019-10-07] MEDS ORDERED: Naloxone 0.4 MG/ML INJ IVP PRN (00:19)
[2019-10-07] MEDS ORDERED: Acetaminophen 325 MG TABLET PO PRN (00:21)
[2019-10-07] MEDS: 0.9 % Sodium Chloride 1,000 ML IVC SCH ×2 (00:38→08:48)
[2019-10-07 01:46] LABS: INR 2.6; Prothrombin Time 29.3 Seconds (9.4-12.1)
[2019-10-07] MEDS ORDERED: Nitroglycerin 0.4 MG TAB.SUBL SL PRN (04:59)
[2019-10-07 05:38] LABS: Hematocrit 43.1 % (37.5-50.1); Hemoglobin 13.7 g/dL (12.9-16.9); Mean Corpuscular HGB Conc 31.8 g/dL (31.6-35.5); Mean Corpuscular Hemoglobin 29.9 pg (28.0-33.3); Mean Corpuscular Volume 94.1 fL (83.0-100.0); Mean Platelet Volume 9.8 fL (9.4-12.4); Platelet Count 186 K/mcL (140-400); Red Blood Count 4.58 M/mcL (4.19-5.50); Red Cell Distribution Width 14.6 % (11.5-14.5); White Blood Count 6.7 K/mcL (4.3-11.1)
[2019-10-07 07:00] VITALS: BP 131/77
[2019-10-07 08:27] LABS: BUN/Creatinine Ratio 18 (6-26); Blood Urea Nitrogen 13 mg/dL (6-20); Carbon Dioxide 24 mEq/L (23-29); Chloride 107 mEq/L (98-107); Glucose 96 mg/dL (70-105); Osmolality,Calculated 288 (280-300); Sodium 139 mEq/L (136-145); eGFR For African Americans > 60 (> 60); eGFR For Non-African Americans > 60 (> 60)
[2019-10-07] MEDS ORDERED: Warfarin perPT PO PRN (18:00)
[2019-10-07] MEDS ORDERED: *HR* Warfarin 4 MG TABLET PO ONE (18:00)
== END 2019-10-07 10:50 | disposition home or self-care (01) ==
LOC: 3BNU 14:57 → EMEROOARM 14:57 → 3BNU 20:11 → SUATTDRO 10-07 00:19
PROVIDERS: ADMIT Family Medicine; ATTEND Internal Medicine

== ENCOUNTER 2021-06-21 17:36 | Inpatient (IN) ==
[2021-06-21] MEDS ORDERED: cefTRIAXone 1,000 MG in Water for inj. (sterile) 10 ML IVP ONE (17:49)
[2021-06-21] MEDS ORDERED: Azithromycin 500 MG in 0.9 % Sodium Chloride 250 ML IVPB ONE (17:49)
[2021-06-21 18:06] LABS: Basophils % 0.1 %; Hematocrit 38.8 % (37.5-50.1); Hemoglobin 12.9 g/dL (12.9-16.9); Immature Granulocytes % 0.5 % (0-4); Lymphocytes # 1.3 K/mcL (0.6-4.6); Lymphocytes % 9.6 %; Mean Corpuscular HGB Conc 33.2 g/dL (31.6-35.5); Mean Corpuscular Volume 99.2 fL (83.0-100.0); Mean Platelet Volume 10.9 fL (9.4-12.4); Monocytes # 0.9 K/mcL (0.0-1.3); Monocytes % 6.7 %; Neutrophils # 11.1 K/mcL (1.6-8.9); Platelet Count 207 K/mcL (140-400); Red Blood Count 3.91 M/mcL (4.19-5.50); Red Cell Distribution Width 13.3 % (11.5-14.5); Segmented Neutrophils % 83.1 %; White Blood Count 13.4 K/mcL (4.3-11.1)
[2021-06-21 18:15] LABS: INR 3.3; Prothrombin Time 36.1 Seconds (9.4-12.1)
[2021-06-21 18:15] LABS: VBG HCO3 21 mEq/L (21-27); VBG PCO2 30 mmHg (41-51); VBG PH 7.45 pH Units (7.32-7.42); VBG PO2 46 mmHg (25-50)
[2021-06-21 18:17] LABS: Activated Partial Thrombo Time 48.4 Seconds (26.0-36.0)
[2021-06-21 18:38] LABS: Alanine Aminotransferase 20 Units/L (7-52); Albumin 3.4 g/dL (3.5-5.7); Albumin/Globulin Ratio 0.7 (1.1-2.2); Alkaline Phosphatase 58 Units/L (34-104); Aspartate Amino Transferase 54 Units/L (13-39); BUN/Creatinine Ratio 12 (6-26); Bilirubin,Direct 0.9 mg/dL (0.0-0.2); Bilirubin,Indirect 1.1 mg/dL (0.0-1.0); Blood Urea Nitrogen 15 mg/dL (6-20); Calcium 8.7 mg/dL (8.6-10.3); Carbon Dioxide 22 mEq/L (23-29); Chloride 100 mEq/L (98-107); Glucose 146 mg/dL (70-105); Lipase 14 Units/L (11-82); Magnesium 1.2 mg/dL (1.6-2.6); Osmolality,Calculated 279 (280-300); Phosphorous < 1.0 mg/dL (2.7-4.5); Potassium 4.1 mEq/L (3.5-5.1); Sodium 133 mEq/L (136-145); Total Protein 8.4 g/dL (6.4-8.9); Troponin I 0.03 ng/mL (< 0.04); eGFR For African Americans > 60 (> 60); eGFR For Non-African Americans > 60 (> 60)
[2021-06-21] MEDS: 0.9 % Sodium Chloride 1,000 ML IVC SCH ×2 (18:44→20:19)
[2021-06-21] MEDS ORDERED: *HR* FentaNYL (PF) 100 MCG/2 ML VIAL IVP ONE (19:29)
[2021-06-21 19:45] LABS: Adenovirus Not Detected (Not Detect); Bordetella Pertussis Not Detected (Not Detect); Chlamydophila pneumoniae Not Detected (Not Detect); Coronavirus 229E Not Detected (Not Detect); Coronavirus HKU1 Not Detected (Not Detect); Coronavirus NL63 Not Detected (Not Detect); Coronavirus OC43 Not Detected (Not Detect); Human Metapneumovirus Not Detected (Not Detect); Human Rhinovirus/Enterovirus Not Detected (Not Detect); Influenza A Subtype 2009 H1 Not Detected (Not Detect); Influenza B Not Detected (Not Detect); Mycoplasma pneumoniae Not Detected (Not Detect); Parainfluenza Virus 1 Not Detected (Not Detect); Parainfluenza Virus 2 Not Detected (Not Detect); Parainfluenza Virus 3 Not Detected (Not Detect); Parainfluenza Virus 4 Not Detected (Not Detect); Respiratory Syncytial Virus Not Detected (Not Detect); SARS-CoV-2 Not Detected (Not Detect)
[2021-06-21] MEDS ORDERED: Naloxone 0.4 MG/ML INJ IVP PRN (20:23)
[2021-06-21] MEDS ORDERED: Melatonin 3 MG TABLET PO PRN (20:23)
[2021-06-21] MEDS ORDERED: Baclofen 10 MG TABLET PO STA (21:08)
[2021-06-21] MEDS ORDERED: Methyl Salicylate/Menthol 57 APPL/57 GM TUBE TP PRN (21:13)
[2021-06-21] MEDS ORDERED: Vancomycin 1,500 MG/265 ML IV.SOLN IVPB ONE (22:00)
[2021-06-21] MEDS: Gabapentin 100 MG CAPSULE PO SCH (22:47)
[2021-06-21] MEDS: Piperacillin/Tazobactam 3.375 GM in 0.9 % Sodium Chloride Mini Bag 100 ML IVPB SCH (22:47)
[2021-06-22 00:58] LABS: Basophils % 0.1 %; Hemoglobin 11.7 g/dL (12.9-16.9); Immature Granulocytes % 0.6 % (0-4); Lymphocytes # 1.4 K/mcL (0.6-4.6); Lymphocytes % 10.5 %; Mean Corpuscular HGB Conc 32.5 g/dL (31.6-35.5); Mean Corpuscular Hemoglobin 32.3 pg (28.0-33.3); Mean Corpuscular Volume 99.4 fL (83.0-100.0); Mean Platelet Volume 10.8 fL (9.4-12.4); Neutrophils # 10.4 K/mcL (1.6-8.9); Platelet Count 195 K/mcL (140-400); Red Blood Count 3.62 M/mcL (4.19-5.50); Red Cell Distribution Width 13.3 % (11.5-14.5); Segmented Neutrophils % 80.8 %; White Blood Count 12.9 K/mcL (4.3-11.1)
[2021-06-22 01:04] LABS: INR 3.3; Prothrombin Time 36.6 Seconds (9.4-12.1)
[2021-06-22 01:04] LABS: VBG Ionized Calcium 1.03 mmol/L (1.15-1.35)
[2021-06-22 01:16] LABS: BUN/Creatinine Ratio 13 (6-26); Blood Urea Nitrogen 14 mg/dL (6-20); Calcium 7.8 mg/dL (8.6-10.3); Carbon Dioxide 19 mEq/L (23-29); Chloride 103 mEq/L (98-107); Glucose 134 mg/dL (70-105); Magnesium 1.5 mg/dL (1.6-2.6); Osmolality,Calculated 278 (280-300); Sodium 133 mEq/L (136-145); eGFR For African Americans > 60 (> 60); eGFR For Non-African Americans > 60 (> 60)
[2021-06-22] MEDS ORDERED: 0.9 % Sodium Chloride 1,000 ML IVC ONE (03:46)
[2021-06-22] MEDS ORDERED: Acetaminophen IV 500 MG/50 ML BAG IVPB ONE (03:47)
[2021-06-22] MEDS ORDERED: Ibuprofen 400 MG TABLET PO ONE (03:48)
[2021-06-22] MEDS: Piperacillin/Tazobactam 3.375 GM in 0.9 % Sodium Chloride Mini Bag 100 ML IVPB SCH ×3 (04:16→20:19)
[2021-06-22] MEDS: Aspirin 81 MG TAB.CHEW PO SCH (08:27)
[2021-06-22] MEDS: Metoprolol XL (24 HR) Succ 50 MG TAB.ER.24H PO SCH (08:27)
[2021-06-22] MEDS: Isosorbide MONOnitrate (24 HR) 30 MG TAB.ER.24H PO SCH (08:28)
[2021-06-22] MEDS ORDERED: Vancomycin 1,500 MG/265 ML IV.SOLN IVPB SCH (10:00)
[2021-06-22] MEDS ORDERED: Ringers Solution, Lactated 1,000 ML IVC SCH (12:00)
[2021-06-22] MEDS ORDERED: Nitroglycerin 0.4 MG TAB.SUBL SL PRN (17:36)
[2021-06-22] MEDS ORDERED: Warfarin perPT PO PRN (18:00)
[2021-06-22] MEDS: Gabapentin 100 MG CAPSULE PO SCH (20:19)
[2021-06-22] MEDS: Vancomycin 1,500 MG/265 ML IV.SOLN IVPB SCH (23:33)
[2021-06-23 03:35] LABS: Basophils % 0.1 %; Hematocrit 35.9 % (37.5-50.1); Immature Granulocytes % 0.5 % (0-4); Lymphocytes # 1.2 K/mcL (0.6-4.6); Lymphocytes % 8.7 %; Mean Corpuscular HGB Conc 33.4 g/dL (31.6-35.5); Mean Corpuscular Hemoglobin 33.2 pg (28.0-33.3); Mean Corpuscular Volume 99.4 fL (83.0-100.0); Mean Platelet Volume 11.1 fL (9.4-12.4); Monocytes % 7.6 %; Platelet Count 191 K/mcL (140-400); Red Blood Count 3.61 M/mcL (4.19-5.50); Red Cell Distribution Width 13.5 % (11.5-14.5); Segmented Neutrophils % 83.1 %; White Blood Count 13.3 K/mcL (4.3-11.1)
[2021-06-23 03:43] LABS: INR 3.6; Prothrombin Time 39.8 Seconds (9.4-12.1)
[2021-06-23 03:56] LABS: Alanine Aminotransferase 26 Units/L (7-52); Albumin 2.9 g/dL (3.5-5.7); Albumin/Globulin Ratio 0.6 (1.1-2.2); Alkaline Phosphatase 51 Units/L (34-104); Aspartate Amino Transferase 70 Units/L (13-39); BUN/Creatinine Ratio 19 (6-26); Bilirubin,Total 1.6 mg/dL (0.3-1.0); Blood Urea Nitrogen 13 mg/dL (6-20); C-Reactive Protein > 300 mg/L (Less than 10); Calcium 8.1 mg/dL (8.6-10.3); Carbon Dioxide 19 mEq/L (23-29); Chloride 103 mEq/L (98-107); Globulin 4.6 g/dL (2.4-3.5); Glucose 127 mg/dL (70-105); Osmolality,Calculated 278 (280-300); Phosphorous 1.3 mg/dL (2.7-4.5); Potassium 3.9 mEq/L (3.5-5.1); Sodium 133 mEq/L (136-145); Total Protein 7.5 g/dL (6.4-8.9); eGFR For African Americans > 60 (> 60); eGFR For Non-African Americans > 60 (> 60)
[2021-06-23] MEDS: Piperacillin/Tazobactam 3.375 GM in 0.9 % Sodium Chloride Mini Bag 100 ML IVPB SCH ×3 (05:29→20:10)
[2021-06-23] MEDS: lisinopriL 5 MG TABLET PO SCH (07:53)
[2021-06-23] MEDS: Aspirin 81 MG TAB.CHEW PO SCH (07:53)
[2021-06-23] MEDS: Metoprolol XL (24 HR) Succ 50 MG TAB.ER.24H PO SCH (07:54)
[2021-06-23] MEDS: Isosorbide MONOnitrate (24 HR) 30 MG TAB.ER.24H PO SCH (07:54)
[2021-06-23] MEDS: Baclofen 10 MG TABLET PO PRN (20:09)
[2021-06-23] MEDS: Gabapentin 100 MG CAPSULE PO SCH (20:10)
[2021-06-23] MEDS: Vancomycin 1,500 MG/265 ML IV.SOLN IVPB SCH (23:22)
[2021-06-24 02:48] LABS: INR 3.1; Prothrombin Time 34.8 Seconds (9.4-12.1)
[2021-06-24] MEDS: Piperacillin/Tazobactam 3.375 GM in 0.9 % Sodium Chloride Mini Bag 100 ML IVPB SCH ×3 (04:17→20:29)
[2021-06-24] MEDS ORDERED: polyethylene glycoL 3350 17 GM POWD.PACK PO PRN (07:46)
[2021-06-24] MEDS: lisinopriL 5 MG TABLET PO SCH (08:42)
[2021-06-24] MEDS: Metoprolol XL (24 HR) Succ 50 MG TAB.ER.24H PO SCH (08:42)
[2021-06-24] MEDS: Aspirin 81 MG TAB.CHEW PO SCH (08:42)
[2021-06-24] MEDS: Isosorbide MONOnitrate (24 HR) 30 MG TAB.ER.24H PO SCH (08:43)
[2021-06-24] MEDS: Baclofen 10 MG TABLET PO PRN (08:48)
[2021-06-24 09:13] LABS: Basophils % 0.3 %; Eosinophils # 0.1 K/mcL (0.0-0.6); Eosinophils % 1.1 %; Hematocrit 33.4 % (37.5-50.1); Hemoglobin 11.3 g/dL (12.9-16.9); Immature Granulocytes % 0.6 % (0-4); Lymphocytes % 12.2 %; Mean Corpuscular HGB Conc 33.8 g/dL (31.6-35.5); Mean Corpuscular Hemoglobin 33.4 pg (28.0-33.3); Mean Corpuscular Volume 98.8 fL (83.0-100.0); Mean Platelet Volume 10.9 fL (9.4-12.4); Monocytes # 0.5 K/mcL (0.0-1.3); Monocytes % 6.2 %; Neutrophils # 6.3 K/mcL (1.6-8.9); Platelet Count 214 K/mcL (140-400); Red Blood Count 3.38 M/mcL (4.19-5.50); Red Cell Distribution Width 13.6 % (11.5-14.5); Segmented Neutrophils % 79.6 %; White Blood Count 7.9 K/mcL (4.3-11.1)
[2021-06-24 09:24] LABS: Alanine Aminotransferase 33 Units/L (7-52); Albumin 2.6 g/dL (3.5-5.7); Albumin/Globulin Ratio 0.6 (1.1-2.2); Alkaline Phosphatase 46 Units/L (34-104); Aspartate Amino Transferase 73 Units/L (13-39); BUN/Creatinine Ratio 20 (6-26); Blood Urea Nitrogen 14 mg/dL (6-20); Calcium 7.8 mg/dL (8.6-10.3); Carbon Dioxide 22 mEq/L (23-29); Chloride 104 mEq/L (98-107); Globulin 4.5 g/dL (2.4-3.5); Glucose 138 mg/dL (70-105); Osmolality,Calculated 279 (280-300); Potassium 3.5 mEq/L (3.5-5.1); Sodium 133 mEq/L (136-145); Total Protein 7.1 g/dL (6.4-8.9); eGFR For African Americans > 60 (> 60); eGFR For Non-African Americans > 60 (> 60)
[2021-06-24 10:22] LABS: Platelet Estimate Normal (Normal); Reactive Lymphocytes Present (Not Present)
[2021-06-24] MEDS ORDERED: Vancomycin 1,500 MG/265 ML IV.SOLN IVPB SCH (11:00)
[2021-06-24] MEDS: *HR* OxyCODONE/APAP 5/325 TABLET PO PRN ×2 (12:01→18:02)
[2021-06-24 12:48] LABS: Phosphorous 1.5 mg/dL (2.7-4.5)
[2021-06-24] MEDS ORDERED: *HR* Warfarin 2 MG TABLET PO ONE (18:00)
[2021-06-24] MEDS: Gabapentin 100 MG CAPSULE PO SCH (20:29)
[2021-06-25 02:19] LABS: Basophils % 0.2 %; Eosinophils # 0.1 K/mcL (0.0-0.6); Eosinophils % 1.7 %; Hematocrit 33.5 % (37.5-50.1); Hemoglobin 10.9 g/dL (12.9-16.9); Immature Granulocytes % 0.5 % (0-4); Lymphocytes # 0.8 K/mcL (0.6-4.6); Lymphocytes % 13.9 %; Mean Corpuscular HGB Conc 32.5 g/dL (31.6-35.5); Mean Corpuscular Hemoglobin 32.4 pg (28.0-33.3); Mean Corpuscular Volume 99.7 fL (83.0-100.0); Mean Platelet Volume 10.9 fL (9.4-12.4); Monocytes # 0.5 K/mcL (0.0-1.3); Monocytes % 7.8 %; Neutrophils # 4.6 K/mcL (1.6-8.9); Platelet Count 218 K/mcL (140-400); Red Blood Count 3.36 M/mcL (4.19-5.50); Red Cell Distribution Width 13.7 % (11.5-14.5); Segmented Neutrophils % 75.9 %
[2021-06-25 02:28] LABS: Platelet Estimate Normal (Normal); Reactive Lymphocytes Present (Not Present)
[2021-06-25 02:32] LABS: INR 3.1; Prothrombin Time 33.9 Seconds (9.4-12.1)
[2021-06-25 02:39] LABS: Alanine Aminotransferase 63 Units/L (7-52); Albumin 2.6 g/dL (3.5-5.7); Albumin/Globulin Ratio 0.6 (1.1-2.2); Alkaline Phosphatase 58 Units/L (34-104); Aspartate Amino Transferase 140 Units/L (13-39); BUN/Creatinine Ratio 19 (6-26); Bilirubin,Total 0.9 mg/dL (0.3-1.0); Blood Urea Nitrogen 12 mg/dL (6-20); Calcium 7.8 mg/dL (8.6-10.3); Carbon Dioxide 23 mEq/L (23-29); Chloride 104 mEq/L (98-107); Globulin 4.5 g/dL (2.4-3.5); Glucose 110 mg/dL (70-105); Magnesium 1.8 mg/dL (1.6-2.6); Osmolality,Calculated 280 (280-300); Potassium 3.4 mEq/L (3.5-5.1); Sodium 135 mEq/L (136-145); Total Protein 7.1 g/dL (6.4-8.9); eGFR For African Americans > 60 (> 60); eGFR For Non-African Americans > 60 (> 60)
[2021-06-25] MEDS: Piperacillin/Tazobactam 3.375 GM in 0.9 % Sodium Chloride Mini Bag 100 ML IVPB SCH ×3 (04:03→21:10)
[2021-06-25] MEDS: *HR* OxyCODONE/APAP 5/325 TABLET PO PRN ×3 (04:11→18:09)
[2021-06-25] MEDS: Aspirin 81 MG TAB.CHEW PO SCH (09:06)
[2021-06-25] MEDS: Isosorbide MONOnitrate (24 HR) 30 MG TAB.ER.24H PO SCH (09:06)
[2021-06-25] MEDS: lisinopriL 5 MG TABLET PO SCH (09:06)
[2021-06-25] MEDS: Metoprolol XL (24 HR) Succ 50 MG TAB.ER.24H PO SCH (09:06)
[2021-06-25] MEDS ORDERED: *HR* LORazepam 2 MG/ML VIAL IVP ONE (17:52)
[2021-06-25] MEDS ORDERED: *HR* Warfarin 2 MG TABLET PO ONE (18:00)
[2021-06-25] MEDS: Gabapentin 100 MG CAPSULE PO SCH (21:10)
[2021-06-26] MEDS: *HR* OxyCODONE/APAP 5/325 TABLET PO PRN ×4 (01:43→22:24)
[2021-06-26 03:32] LABS: Basophils % 0.5 %; Eosinophils # 0.1 K/mcL (0.0-0.6); Eosinophils % 2.1 %; Hematocrit 34.4 % (37.5-50.1); Hemoglobin 11.1 g/dL (12.9-16.9); Immature Granulocytes % 0.7 % (0-4); Lymphocytes # 0.8 K/mcL (0.6-4.6); Mean Corpuscular HGB Conc 32.3 g/dL (31.6-35.5); Mean Corpuscular Hemoglobin 32.3 pg (28.0-33.3); Mean Platelet Volume 10.8 fL (9.4-12.4); Monocytes # 0.6 K/mcL (0.0-1.3); Monocytes % 10.6 %; Neutrophils # 4.2 K/mcL (1.6-8.9); Platelet Count 240 K/mcL (140-400); Red Blood Count 3.44 M/mcL (4.19-5.50); Red Cell Distribution Width 13.5 % (11.5-14.5); Segmented Neutrophils % 73.1 %; White Blood Count 5.8 K/mcL (4.3-11.1)
[2021-06-26 03:44] LABS: INR 3.3
[2021-06-26 04:11] LABS: Alanine Aminotransferase 57 Units/L (7-52); Albumin 2.6 g/dL (3.5-5.7); Albumin/Globulin Ratio 0.5 (1.1-2.2); Alkaline Phosphatase 63 Units/L (34-104); Aspartate Amino Transferase 103 Units/L (13-39); BUN/Creatinine Ratio 21 (6-26); Blood Urea Nitrogen 12 mg/dL (6-20); Carbon Dioxide 22 mEq/L (23-29); Chloride 103 mEq/L (98-107); Globulin 4.8 g/dL (2.4-3.5); Glucose 103 mg/dL (70-105); Magnesium 1.7 mg/dL (1.6-2.6); Osmolality,Calculated 276 (280-300); Potassium 3.6 mEq/L (3.5-5.1); Sodium 133 mEq/L (136-145); Total Protein 7.4 g/dL (6.4-8.9); eGFR For African Americans > 60 (> 60); eGFR For Non-African Americans > 60 (> 60)
[2021-06-26] MEDS: Piperacillin/Tazobactam 3.375 GM in 0.9 % Sodium Chloride Mini Bag 100 ML IVPB SCH ×3 (05:17→20:57)
[2021-06-26] MEDS: Aspirin 81 MG TAB.CHEW PO SCH (08:08)
[2021-06-26] MEDS: lisinopriL 5 MG TABLET PO SCH (08:08)
[2021-06-26] MEDS: Isosorbide MONOnitrate (24 HR) 30 MG TAB.ER.24H PO SCH (08:08)
[2021-06-26] MEDS: Metoprolol XL (24 HR) Succ 50 MG TAB.ER.24H PO SCH (08:08)
[2021-06-26] MEDS: Baclofen 10 MG TABLET PO PRN (09:28)
[2021-06-26] MEDS: Gabapentin 100 MG CAPSULE PO SCH (20:57)
[2021-06-27 00:26] LABS: Bilirubin,Urine Negative (Negative); Blood,Urine Negative (Negative); Clarity,Urine Clear (Clear); Color,Urine Yellow (Yellow); Glucose,Urine (UA) Normal (Normal); Ketones,Urine Negative (Negative); Leukocyte Esterase,Urine Negative (Negative); Mucus,Urine Few per lpf (None-Few); Nitrite,Urine Negative (Negative); PH,Urine 6.5 pH Units (5.0-8.0); Protein,Urine 30 mg/dL (Neg-Trace); RBC,Urine 0-3 per hpf (0-3); Specific Gravity,Urine 1.027 (1.010-1.025); Urobilinogen,Urine Normal (Normal); WBC,Urine 0-3 per hpf (0-3)
[2021-06-27] MEDS: Piperacillin/Tazobactam 3.375 GM in 0.9 % Sodium Chloride Mini Bag 100 ML IVPB SCH ×2 (04:06→13:50)
[2021-06-27 05:01] LABS: Basophils % 0.4 %; Eosinophils # 0.2 K/mcL (0.0-0.6); Eosinophils % 1.9 %; Hematocrit 33.7 % (37.5-50.1); Hemoglobin 11.1 g/dL (12.9-16.9); Immature Granulocytes % 0.6 % (0-4); Lymphocytes # 0.8 K/mcL (0.6-4.6); Lymphocytes % 10.1 %; Mean Corpuscular HGB Conc 32.9 g/dL (31.6-35.5); Mean Corpuscular Hemoglobin 32.6 pg (28.0-33.3); Mean Corpuscular Volume 98.8 fL (83.0-100.0); Mean Platelet Volume 10.5 fL (9.4-12.4); Monocytes # 0.8 K/mcL (0.0-1.3); Monocytes % 10.3 %; Neutrophils # 6.1 K/mcL (1.6-8.9); Platelet Count 282 K/mcL (140-400); Red Blood Count 3.41 M/mcL (4.19-5.50); Red Cell Distribution Width 13.5 % (11.5-14.5); Segmented Neutrophils % 76.7 %
[2021-06-27 05:09] LABS: INR 2.7; Prothrombin Time 30.3 Seconds (9.4-12.1)
[2021-06-27 05:12] LABS: BUN/Creatinine Ratio 15 (6-26); Blood Urea Nitrogen 9 mg/dL (6-20); Calcium 8.2 mg/dL (8.6-10.3); Carbon Dioxide 26 mEq/L (23-29); Chloride 102 mEq/L (98-107); Glucose 135 mg/dL (70-105); Osmolality,Calculated 277 (280-300); Potassium 4.2 mEq/L (3.5-5.1); Sodium 133 mEq/L (136-145); eGFR For African Americans > 60 (> 60); eGFR For Non-African Americans > 60 (> 60)
[2021-06-27] MEDS: Isosorbide MONOnitrate (24 HR) 30 MG TAB.ER.24H PO SCH (07:44)
[2021-06-27] MEDS: Aspirin 81 MG TAB.CHEW PO SCH (07:44)
[2021-06-27] MEDS: *HR* OxyCODONE/APAP 5/325 TABLET PO PRN ×3 (07:44→20:58)
[2021-06-27] MEDS: lisinopriL 5 MG TABLET PO SCH (07:44)
[2021-06-27] MEDS: Metoprolol XL (24 HR) Succ 50 MG TAB.ER.24H PO SCH (07:44)
[2021-06-27 08:38] LABS: Influenza A PCR Negative (Negative); Influenza B PCR Negative (Negative); Resp. Syncytial Virus PCR Negative (Negative)
[2021-06-27 08:40] LABS: SARS-CoV-2 by PCR (In House) Negative (Negative)
[2021-06-27] MEDS ORDERED: Azithromycin 500 MG in 0.9 % Sodium Chloride 250 ML IVPB ONE (12:00)
[2021-06-27] MEDS: *HR* Rivaroxaban 15 MG TABLET PO SCH ×2 (13:50→20:57)
[2021-06-27] MEDS: Gabapentin 100 MG CAPSULE PO SCH (20:57)
[2021-06-28] MEDS: Piperacillin/Tazobactam 3.375 GM in 0.9 % Sodium Chloride Mini Bag 100 ML IVPB SCH ×4 (00:04→21:43)
[2021-06-28 03:00] LABS: Basophils % 0.2 %; Eosinophils % 0.4 %; Hematocrit 32.9 % (37.5-50.1); Hemoglobin 10.9 g/dL (12.9-16.9); Immature Granulocytes % 0.7 % (0-4); Lymphocytes # 1.2 K/mcL (0.6-4.6); Lymphocytes % 11.8 %; Mean Corpuscular HGB Conc 33.1 g/dL (31.6-35.5); Mean Corpuscular Hemoglobin 32.4 pg (28.0-33.3); Mean Corpuscular Volume 97.9 fL (83.0-100.0); Mean Platelet Volume 10.4 fL (9.4-12.4); Monocytes % 9.7 %; Neutrophils # 7.6 K/mcL (1.6-8.9); Platelet Count 285 K/mcL (140-400); Red Blood Count 3.36 M/mcL (4.19-5.50); Red Cell Distribution Width 13.5 % (11.5-14.5); Segmented Neutrophils % 77.2 %; White Blood Count 9.8 K/mcL (4.3-11.1)
[2021-06-28 03:11] LABS: BUN/Creatinine Ratio 14 (6-26); Blood Urea Nitrogen 7 mg/dL (6-20); Calcium 8.1 mg/dL (8.6-10.3); Carbon Dioxide 23 mEq/L (23-29); Chloride 100 mEq/L (98-107); Glucose 106 mg/dL (70-105); Osmolality,Calculated 268 (280-300); Potassium 3.7 mEq/L (3.5-5.1); Sodium 130 mEq/L (136-145); eGFR For African Americans > 60 (> 60); eGFR For Non-African Americans > 60 (> 60)
[2021-06-28 03:21] LABS: INR 7.5; Prothrombin Time 82.5 Seconds (9.4-12.1)
[2021-06-28 08:50] LABS: INR 4.5; Prothrombin Time 50.1 Seconds (9.4-12.1)
[2021-06-28] MEDS: Isosorbide MONOnitrate (24 HR) 30 MG TAB.ER.24H PO SCH (09:10)
[2021-06-28] MEDS: Aspirin 81 MG TAB.CHEW PO SCH (09:10)
[2021-06-28] MEDS: *HR* OxyCODONE/APAP 5/325 TABLET PO PRN ×3 (09:13→21:46)
[2021-06-28] MEDS: Metoprolol XL (24 HR) Succ 50 MG TAB.ER.24H PO SCH (10:39)
[2021-06-28] MEDS: lisinopriL 5 MG TABLET PO SCH (10:39)
[2021-06-28] MEDS: Gabapentin 100 MG CAPSULE PO SCH (20:23)
[2021-06-28] MEDS: *HR* Rivaroxaban 15 MG TABLET PO SCH (20:24)
[2021-06-29 02:29] LABS: Basophils % 0.3 %; Eosinophils # 0.2 K/mcL (0.0-0.6); Eosinophils % 2.5 %; Immature Granulocytes % 0.6 % (0-4); Lymphocytes % 16.3 %; Mean Corpuscular HGB Conc 32.4 g/dL (31.6-35.5); Mean Corpuscular Hemoglobin 31.9 pg (28.0-33.3); Mean Corpuscular Volume 98.6 fL (83.0-100.0); Mean Platelet Volume 10.3 fL (9.4-12.4); Monocytes # 0.6 K/mcL (0.0-1.3); Monocytes % 8.6 %; Neutrophils # 4.6 K/mcL (1.6-8.9); Platelet Count 283 K/mcL (140-400); Red Blood Count 3.45 M/mcL (4.19-5.50); Red Cell Distribution Width 13.5 % (11.5-14.5); Segmented Neutrophils % 71.7 %; White Blood Count 6.4 K/mcL (4.3-11.1)
[2021-06-29 02:42] LABS: BUN/Creatinine Ratio 17 (6-26); Blood Urea Nitrogen 8 mg/dL (6-20); Calcium 8.1 mg/dL (8.6-10.3); Carbon Dioxide 25 mEq/L (23-29); Chloride 104 mEq/L (98-107); Glucose 94 mg/dL (70-105); Osmolality,Calculated 278 (280-300); Potassium 3.9 mEq/L (3.5-5.1); Sodium 135 mEq/L (136-145); eGFR For African Americans > 60 (> 60); eGFR For Non-African Americans > 60 (> 60)
[2021-06-29] MEDS: *HR* OxyCODONE/APAP 5/325 TABLET PO PRN ×2 (04:31→10:31)
[2021-06-29] MEDS: Piperacillin/Tazobactam 3.375 GM in 0.9 % Sodium Chloride Mini Bag 100 ML IVPB SCH ×2 (04:32→14:18)
[2021-06-29] MEDS: Metoprolol XL (24 HR) Succ 50 MG TAB.ER.24H PO SCH (07:50)
[2021-06-29] MEDS: Baclofen 10 MG TABLET PO PRN (07:50)
[2021-06-29] MEDS: Aspirin 81 MG TAB.CHEW PO SCH (07:50)
[2021-06-29] MEDS: lisinopriL 5 MG TABLET PO SCH (07:50)
[2021-06-29] MEDS: Isosorbide MONOnitrate (24 HR) 30 MG TAB.ER.24H PO SCH (07:50)
[2021-06-29] MEDS: *HR* Rivaroxaban 15 MG TABLET PO SCH (07:50)
[2021-06-29 11:02] VITALS: BP 112/70; PULSE 77; TEMP 98.4; O2SAT 93
[2021-06-29 11:57] LABS: Influenza A PCR Negative (Negative); Influenza B PCR Negative (Negative); Resp. Syncytial Virus PCR Negative (Negative); SARS-CoV-2 by PCR (In House) Negative (Negative)
== END 2021-06-29 15:12 | DRG 720 ==
LOC: EMEROOARM 17:36 → 3ANU 20:54 → SUATTDRO 20:54 → 3ANU 21:42
PROVIDERS: ADMIT Internal Medicine; ATTEND Internal Medicine